=== PATIENT | male | born 1955 | race Two or more races ===

== ENCOUNTER 2017-01-20 10:27 | Inpatient (IN) | payer MEDICARE, MEDICAID ==
[~2017-01-20] VITALS: Ht 170.2 cm; Wt 97.1 kg
--- NOTE | 2017-01-20 11:53 | Diagnostic Imaging Report ---
Indications: Chest pain Technique: Portable AP chest Findings: Comparison: None Cardiac silhouette upper limits of normal in size. Central pulmonary as prominent. Peripheral pulmonary vasculature within normal limits. Lungs normally, symmetrically inflated and clear. No pleural abnormality. No abnormal mediastinal widening. Old, healed fracture lateral aspect left eighth rib. Fixation hardware overlies left scapular glenoid process. IMPRESSION: No evidence of acute cardiopulmonary disease Borderline cardiomegaly Suggestion of pulmonary arterial hypertension Old fracture left eighth rib Prior left shoulder surgery
[2017-01-20 12:00] LABS: BASOPHILS % (AUTO) 1.1 % (0.0-2.0); EOSINOPHILS % (AUTO) 0.3 % (0.0-3.0); MEAN CORPUSCULAR HEMOGLOBIN 32.1 PG (27.0-31.0); MEAN CORPUSCULAR VOLUME 92 FL (80-99); MEAN PLATELET VOLUME 6.7 FL (6.5-10.1); MONOCYTES % (AUTO) 6.5 % (1.0-10.0); NEUTROPHILS % (AUTO) 80.2 % (45.0-75.0); PLATELET COUNT 202 K/UL (150-450); RED BLOOD COUNT 5.01 M/UL (4.70-6.10); RED CELL DISTRIBUTION WIDTH 14.6 % (11.6-14.8); WHITE BLOOD COUNT 13.5 K/UL (4.8-10.8)
[2017-01-20 12:16] LABS: TROPONIN I < 0.30 ng/mL (<=0.30)
[2017-01-20 12:17] LABS: ALANINE AMINOTRANSFERASE 154 U/L (3-41); ALBUMIN/GLOBULIN RATIO 1.7 (1.0-2.7); ANION GAP 14 (5-15); ASPARTATE AMINO TRANSFERASE 83 U/L (5-40); CALCIUM 9.3 mg/dL (8.6-10.2); CARBON DIOXIDE 26 mEQ/L (20-30); CHLORIDE 95 mEQ/L (98-107); CREATININE 1.1 mg/dL (0.7-1.2); GLOMERULAR FILTRATION RATE > 60 mL/min (>60); HEMOLYSIS 8; POTASSIUM 4.3 mEQ/L (3.4-4.9); PROTHROMBIN TIME 10.6 SEC (9.30-11.50); SODIUM 135 mEQ/L (135-145); TOTAL PROTEIN 6.3 g/dL (6.6-8.7)
[2017-01-20 12:20] VITALS: BP 123/68
[2017-01-20 12:27] LABS: CKMB 4.6 ng/mL (< 6.7)
[2017-01-20] MEDS ORDERED: PredniSONE 20mg tab ORAL ONE (13:15)
[2017-01-20] MEDS ORDERED: Albuterol ud Inhalation HHN ONE (13:15)
[2017-01-20] MEDS ORDERED: Ipratropium 0.02% Inh Soln 2.5ml UD HHN ONE (13:15)
[2017-01-20 13:56] VITALS: BP 117/86
[2017-01-20 13:57] LABS: APPEARANCE,URINE SLIGHTLY CLOUDY; KETONES,URINE NEGATIVE (NEGATIVE); LEUKOCYTE ESTERASE ,URINE 3+ (NEGATIVE); NITRITE,URINE POSITIVE (NEGATIVE); PH,URINE 5 (4.5-8.0); PROTEIN,URINE 3+ (NEGATIVE); UROBILINOGEN,URINE NORMAL MG/DL (0.0-1.0)
[2017-01-20 14:07] LABS: BACTERIA,URINE MODERATE /HPF; SQUAMOUS EPITHELIAL CELL,UR OCCASIONAL /LPF (NONE/OCC); WBC,URINE 30-40 /HPF (0 - 0)
--- NOTE | 2017-01-20 14:09 | Emergency Room Report ---
History of Present Illness General Chief Complaint: Generalized Weakness Source: Patient Present Illness HPI This patient is brought in by EMS. He reports that today he has felt very lightheaded. He states that he "passed out." EMS reported that he laid on the ground and there is no evidence of actual loss of consciousness. Patient states he is also short of breath. He does have a history of COPD and heavy tobacco use. He states that he has been out of his inhalers for some time. He states that he hasn't obtained the refills from his primary care physician. He denies chest pain. He has no abdominal pain. He has no other complaints. Allergies: Coded Allergies: No Known Allergies (Unverified , 01/20/17) Patient History Past Medical History: see triage record, DM, HTN, COPD Social History: Reports: alcohol use, smoking Reviewed Nursing Documentation: PMH: Agreed, PSxH: Agreed Nursing Documentation-PMH Past Medical History: No History, Except For Hx Cardiac Problems: Yes Hx Hypertension: Yes Hx Diabetes: Yes History Of Psychiatric Problem: Yes Review of Systems All Other Systems: negative except mentioned in HPI Physical Exam Vital Signs Date Time Temp Pulse Resp B/P Pulse Ox O2 Delivery O2 Flow Rate FiO2 01/20/17 10:10 97.9 100 16 115/84 97 Room Air 01/20/17 13:18 21 Sp02 EP Interpretation: reviewed, normal General Appearance: no apparent distress, alert, GCS 15, non-toxic Head: normocephalic, atraumatic Eyes: bilateral eye PERRL, bilateral eye normal inspection ENT: hearing grossly normal, normal pharynx, no angioedema, normal voice Neck: full range of motion, supple/symm/no masses Respiratory: chest non-tender, lungs clear, no respiratory distress, no retraction, no accessory muscle use, decreased breath sounds, speaking full sentences, other - Tachypnea Cardiovascular #1: regular rate, rhythm, no edema Gastrointestinal: normal bowel sounds, non tender, soft, non-distended, no guarding, no rebound Rectal: deferred Musculoskeletal: back normal, gait/station normal, normal range of motion, non- tender Neurologic: alert, oriented x3, responsive, motor strength/tone normal, sensory intact, speech normal Psychiatric: judgement/insight normal, memory normal, mood/affect normal, no suicidal/homicidal ideation Skin: normal color, no rash, warm/dry, well hydrated Medical Decision Making Diagnostic Impression: Primary Impression: COPD exacerbation ER Course This patient presents with presyncope and is found to have atrial flutter with a bifascicular block and this could easily deteriorate into a more pathologic heart block. I am unsure of the acuity of this arrhythmia as I do not have a comparison EKG. He was given IV fluids and breathing treatments for his COPD exacerbation. He is noncompliant with his COPD treatment. This patient will be admitted for further evaluation, treatment and monitoring. Labs Test 01/20/17 11:47 01/20/17 13:28 White Blood Count 13.5 K/UL (4.8-10.8) Red Blood Count 5.01 M/UL (4.70-6.10) Hemoglobin 16.1 G/DL (14.2-18.0) Hematocrit 46.0 % (42.0-52.0) Mean Corpuscular Volume 92 FL (80-99) Mean Corpuscular Hemoglobin 32.1 PG (27.0-31.0) Mean Corpuscular Hemoglobin Concent 35.0 G/DL (32.0-36.0) Red Cell Distribution Width 14.6 % (11.6-14.8) Platelet Count 202 K/UL (150-450) Mean Platelet Volume 6.7 FL (6.5-10.1) Neutrophils (%) (Auto) 80.2 % (45.0-75.0) Lymphocytes (%) (Auto) 12.0 % (20.0-45.0) Monocytes (%) (Auto) 6.5 % (1.0-10.0) Eosinophils (%) (Auto) 0.3 % (0.0-3.0) Basophils (%) (Auto) 1.1 % (0.0-2.0) Prothrombin Time 10.6 SEC (9.30-11.50) Prothromb Time International Ratio 1.0 (0.9-1.1) Activated Partial Thromboplast Time 27 SEC (23-33) Sodium Level 135 mEQ/L (135-145) Potassium Level 4.3 mEQ/L (3.4-4.9) Chloride Level 95 mEQ/L (98-107) Carbon Dioxide Level 26 mEQ/L (20-30) Anion Gap 14 (5-15) Blood Urea Nitrogen 36 mg/dL (7-23) Creatinine 1.1 mg/dL (0.7-1.2) Estimat Glomerular Filtration Rate > 60 mL/min (>60) Glucose Level 110 mg/dL (74-106) Calcium Level 9.3 mg/dL (8.6-10.2) Total Bilirubin 0.6 mg/dL (0.0-1.2) Aspartate Amino Transf (AST/SGOT) 83 U/L (5-40) Alanine Aminotransferase (ALT/SGPT) 154 U/L (3-41) Alkaline Phosphatase 86 U/L (40-129) Total Creatine Kinase 76 U/L (38-174) Creatine Kinase MB 4.6 ng/mL (< 6.7) Creatine Kinase MB Relative Index 6.0 Troponin I < 0.30 ng/mL (<=0.30) Total Protein 6.3 g/dL (6.6-8.7) Albumin 4.0 g/dL (3.5-5.2) Globulin 2.3 g/dL Albumin/Globulin Ratio 1.7 (1.0-2.7) EKG Diagnostic Results Rate: normal Rhythm: other ST Segments: no acute changes Other Impression Atrial flutter with RBBB and LAFB. Bifascicular block. Rhythm Strip Diag. Results EP Interpretation: yes Rate: 90's Rhythm: no PVC's, other Other Impression A.flutter Chest X-Ray Diagnostic Results Chest X-Ray Ordered: Yes # of Views/Limited/Complete: 1 View Interpretation: no consolidation, no effusion, no pneumothorax, other - Cardiomegaly Indication: Shortness of Breath Impression: No acute disease Date Electronically Signed: Jan 20, 2017 Time Electronically Signed: 14:09 Interpreting ER Physician: Cheryl Last Vital Signs Date Time Temp Pulse Resp B/P Pulse Ox O2 Delivery O2 Flow Rate FiO2 01/20/17 13:18 100 16 Room Air 21 01/20/17 13:18 97 01/20/17 10:10 97.9 115/84 Disposition: ADMITTED INPATIENT Condition: Serious Referrals: NON PHYSICIAN (PCP) PAULINE PARSONS D.O. Jan 20, 2017 14:09
[2017-01-20] MEDS ORDERED: FLONASE ALLERG9.9 ML NS (14:23)
[2017-01-20] MEDS ORDERED: TENORMIN100 MG ORAL (14:23)
[2017-01-20] MEDS ORDERED: METFORMIN HCL500 M1 ORAL (14:23)
[2017-01-20] MEDS ORDERED: TRIHEXYPHENIDYL2 MG ORAL (14:23)
[2017-01-20 14:50] VITALS: BP 124/75
[2017-01-20 16:00] VITALS: BP 124/55
[2017-01-20] MEDS: metFORMIN 500mg tab ORAL SCH (16:48)
[2017-01-20] MEDS: NovoLOG Insulin Flexpen SUBQ SCH ×2 (16:49→21:15)
[2017-01-20] MEDS ORDERED: ATENOLOL50 MG ORAL (18:12)
[2017-01-20 20:00] VITALS: BP 125/67
[2017-01-20] MEDS: Heparin 5000 units/ml inj SUBQ SCH (21:16)
[2017-01-20] MEDS ORDERED: HydrALAZINE 50mg tab ORAL SCH (22:00)
[2017-01-21] VITALS: BP 142/88
--- NOTE | 2017-01-21 02:15 | History and Physical Report ---
DATE OF ADMISSION: 01/20/2017 REASON FOR ADMISSION: Evidence of bifascicular block, mild asthma. HISTORY OF PRESENT ILLNESS: This is a 61-year-old male with lightheadedness and syncopal episode. The patient does not recall the event. The patient also complains of shortness of breath. The patient has COPD and heavy smoking use. Now he ran out of his inhalers. The patient was evaluated in the emergency room. The patient denies any chest pain or abdominal pain. No nausea or vomiting. No radiation of pain. The patient's case discussed and reviewed. The patient is on beta-blockers. The patient has had no head trauma and no chest tightness. It is fairly acute in nature. The patient is admitted for further evaluation. PAST MEDICAL HISTORY: Notable for diabetes, hypertension, and COPD. MEDICATIONS: Reviewed. ALLERGIES: Reviewed. SOCIAL HISTORY: The patient is a heavy smoker. Currently, not working. FAMILY HISTORY: Negative. REVIEW OF SYSTEMS: Otherwise negative. PHYSICAL EXAMINATION: GENERAL: The patient is a well developed and well nourished. VITAL SIGNS: In the emergency room, blood pressure 115/84, pulse 116, temperature 97.9 degrees, and saturation 97%. HEENT: Extraocular movements are intact. Oropharynx is moist. NECK: Supple. No adenopathy. LUNGS: With decreased breath sounds. The patient is unable to speak full sentences, minimally tachypneic. CARDIAC: S1 and S2. Regular rate and rhythm. No murmurs or rubs. ABDOMEN: Soft, nontender and nondistended. EXTREMITIES: No cyanosis. No clubbing. No edema. NEUROLOGIC: Nonfocal. LABORATORY AND DIAGNOSTIC DATA: White cell count 13.5, hemoglobin 16, hematocrit 46 and platelets of 202,000. The patient's electrolytes fairly benign except BUN 36 and creatinine 1.1. Troponin is negative. EKG right bundle-branch block, left anterior fascicular block, and atrial flutter. IMPRESSION: 1. Atrial flutter. 2. Syncopal episode. 3. Hypertension. 4. Diabetes. 5. Chronic obstructive pulmonary disease. RECOMMENDATION: 1. Admit. 2. Hold beta-charlie with bifascicular block. 3. We will obtain cardiology evaluation to assist. 4. IV hydration. 5. Aspirin. 6. Echocardiogram. 7. Nebulized therapy. 8. Review the medication. I will follow clinically for other changes and we will optimize care. Tiburcio Keith M.D. DR: MADIHA JOB#: [id number] CC:
[2017-01-21 04:00] VITALS: BP 127/77
[2017-01-21] MEDS: Albuterol ud Inhalation HHN PRN ×2 (04:39→19:29)
[2017-01-21] MEDS: NovoLOG Insulin Flexpen SUBQ SCH ×4 (06:40→23:09)
[2017-01-21] MEDS: metFORMIN 500mg tab ORAL SCH ×2 (06:40→17:18)
[2017-01-21 08:00] VITALS: BP 119/69
--- NOTE | 2017-01-21 08:22 | General Progress Note ---
Assessment/Plan Assessment/Plan IMPRESSION: 1. Atrial flutter. 2. Syncopal episode. 3. Hypertension. 4. Diabetes. 5. Chronic obstructive pulmonary disease. 6. tachybrady PLAN care noted cardiology evaluation echo and ecg follow up iv hydration tele impression, plan, and exam edited and reviewed in detail care discussed with RN Subjective Allergies: Coded Allergies: No Known Allergies (Unverified , 01/20/17) Subjective tachybrady events noted Objective Last 24 Hour Vital Signs Date Time Temp Pulse Resp B/P Pulse Ox O2 Delivery O2 Flow Rate FiO2 01/21/17 08:00 96.8 74 18 119/69 95 Room Air 01/21/17 04:59 48 18 100 Nasal Cannula 2.0 28 01/21/17 04:40 52 18 95 Nasal Cannula 2.0 28 01/21/17 04:00 97.7 77 17 127/77 94 Nasal Cannula 2.0 01/21/17 04:00 96 01/21/17 00:00 97.7 76 17 142/88 94 Nasal Cannula 2.0 01/21/17 00:00 97 01/20/17 20:00 98.2 109 18 125/67 95 Nasal Cannula 2.0 01/20/17 20:00 119 01/20/17 19:25 Nasal Cannula 2.0 28 01/20/17 19:25 95 Nasal Cannula 2.0 28 01/20/17 19:10 102 18 Room Air 01/20/17 18:15 141 124/55 01/20/17 16:00 98 01/20/17 16:00 97.0 109 20 124/55 94 Nasal Cannula 2.0 01/20/17 14:50 96.8 107 20 124/75 93 Room Air 01/20/17 14:27 98 20 117/86 98 01/20/17 13:56 97.3 98 20 117/86 98 Room Air 01/20/17 13:38 100 16 97 Room Air 21 01/20/17 13:18 100 16 Room Air 21 01/20/17 13:18 100 16 97 Room Air 21 01/20/17 13:18 21 01/20/17 13:05 101 01/20/17 12:20 97.0 94 19 123/68 97 Room Air 01/20/17 10:10 97.9 100 16 115/84 97 Room Air Intake and Output 01/20/17 01/21/17 19:00 07:00 Intake Total 660 ml 1000 ml Output Total 400 ml 730 ml Balance 260 ml 270 ml Intake Oral 360 ml IV Total 300 ml 1000 ml Output Urine Total 400 ml 730 ml # Voids 1 2 Laboratory Tests 01/20/17 11:47: White Blood Count 13.5H, Red Blood Count 5.01, Hemoglobin 16.1, Hematocrit 46.0 , Mean Corpuscular Volume 92, Mean Corpuscular Hemoglobin 32.1H, Mean Corpuscular Hemoglobin Concent 35.0, Red Cell Distribution Width 14.6, Platelet Count 202, Mean Platelet Volume 6.7, Neutrophils (%) (Auto) 80.2H, Lymphocytes ( %) (Auto) 12.0L, Monocytes (%) (Auto) 6.5, Eosinophils (%) (Auto) 0.3, Basophils (%) (Auto) 1.1, Prothrombin Time 10.6, Prothromb Time International Ratio 1.0, Activated Partial Thromboplast Time 27, Sodium Level 135, Potassium Level 4.3, Chloride Level 95L, Carbon Dioxide Level 26, Anion Gap 14, Blood Urea Nitrogen 36H, Creatinine 1.1, Estimat Glomerular Filtration Rate > 60, Glucose Level 110H, Calcium Level 9.3, Total Bilirubin 0.6, Aspartate Amino Transf (AST/SGOT) 83H, Alanine Aminotransferase (ALT/SGPT) 154H, Alkaline Phosphatase 86, Total Creatine Kinase 76, Creatine Kinase MB 4.6, Creatine Kinase MB Relative Index 6.0, Troponin I < 0.30, Total Protein 6.3L, Albumin 4.0 , Globulin 2.3, Albumin/Globulin Ratio 1.7 01/20/17 13:28: Urine Color Yellow, Urine Appearance Slightly cloudy, Urine pH 5, Urine Specific [place] 1.020, Urine Protein 3+H, Urine Glucose (UA) Negative, Urine Ketones Negative, Urine Occult Blood 3+H, Urine Nitrite PositiveH, Urine Bilirubin Negative, Urine Urobilinogen Normal, Urine Leukocyte Esterase 3+H, Urine RBC 2-4H, Urine WBC 30-40H, Urine Squamous Epithelial Cells Occasional, Urine Bacteria ModerateH, Urine Opiates Screen Negative, Urine Barbiturates Screen Negative, Phencyclidine (PCP) Screen Negative, Urine Amphetamines Screen Negative, Urine Benzodiazepines Screen Negative, Urine Cocaine Screen Negative, Urine Marijuana (THC) Screen Negative Height (Feet): 5 Height (Inches): 7.00 Weight (Pounds): 214 Objective GENERAL: The patient is a well developed and well nourished. HEENT: Extraocular movements are intact. Oropharynx is moist. NECK: Supple. No adenopathy. LUNGS: With decreased breath sounds. The patient is unable to speak full sentences, minimally tachypneic. CARDIAC: S1 and S2. Regular rate and rhythm. No murmurs or rubs. ABDOMEN: Soft, nontender and nondistended. no HSM EXTREMITIES: No cyanosis. No clubbing. No edema. NEUROLOGIC: Nonfocal. DAVID MAI Jan 21, 2017 08:22
[2017-01-21] MEDS: Flonase Nasal Inhaler 16gm NASAL SCH (09:00)
[2017-01-21] MEDS: Aspirin Baby 81mg ORAL SCH (09:01)
[2017-01-21] MEDS: Trihexyphenidyl 2mg tab ORAL SCH (09:01)
[2017-01-21] MEDS: Heparin 5000 units/ml inj SUBQ SCH (09:03)
[2017-01-21 12:00] VITALS: BP 138/90
--- NOTE | 2017-01-21 12:58 | Consultation ---
Consult Note Consult Note Cardiac EP full note dictated #[id number] LAI JACOB Jan 21, 2017 12:58
[2017-01-21] MEDS: Enoxaparin 100mg Inj SUBQ SCH (13:54)
[2017-01-21 16:00] VITALS: BP 146/77
--- NOTE | 2017-01-21 17:15 | Consultation ---
DATE OF CONSULTATION: REASON FOR CONSULT: Syncope. HISTORY OF PRESENT ILLNESS: The patient is a 61-year-old man with a history of hypertension, type 2 diabetes, and schizophrenia who also has COPD. He states that he had run out of medication and was on his way to take a bus to go to [facility]. He became very short of breath and then fainted. He does not recall any preceding palpitations or chest pain. He was brought by paramedics to the emergency room where he was noted to be in atrial flutter and also to have bifascicular block. He was admitted for further treatment. His initial heart rate by the paramedics was 106, though he has had episodes going up to the 140s. He does not recall any previous history of arrhythmias. PAST MEDICAL HISTORY: As noted above, history of type 2 diabetes, history of hypertension and history of chronic obstructive pulmonary disease. MEDICATIONS: Currently, nicotine patch q.24 h., aspirin 81 mg daily, Flonase nasal spray two sprays daily, subcutaneous heparin 5000 units q.12.h., Atenolol 50 mg twice a day, insulin sliding scale, metformin 500 mg twice daily, Atrovent hand-held nebulizer q.4 h. p.r.n. ALLERGIES: No known drug allergies. SOCIAL HISTORY: The patient smokes one and half packs per day. He does not drink alcohol or use any drugs. FAMILY HISTORY: Negative for premature coronary artery disease. The patient's brother of alcoholism. REVIEW OF SYSTEMS: Negative other than per history of present illness. PHYSICAL EXAMINATION: VITAL SIGNS: Blood pressure is 138/90, pulse 94 and irregular, respirations 18, and afebrile. HEENT: Normocephalic and atraumatic. Pupils are equal, round, and reactive to light. Sclerae anicteric. Oral mucosa are moist. NECK: Supple. There is no jugular venous distention. No carotid bruits. LUNGS: Decreased breath sounds and minimal expiratory wheezes bilaterally. HEART: Irregularly irregular S1 and S2 with no murmur or S3. Distant heart sounds. ABDOMEN: Obese, soft and nontender. No palpable mass. EXTREMITIES: No cyanosis, clubbing, or edema. Distal lower extremity pulses are 2+ bilaterally. SKIN: No rashes or lesions. LABORATORY AND DIAGNOSTIC DATA: Hemoglobin 16, white blood count 13,500, and platelets 202,000. Potassium 4.3, BUN 36, and creatinine 1.1. Troponin less than 0.3. INR 1.0 and PTT 27. Urinalysis, 3+ leukocyte esterase, 30-40 white cells, 2-4 red blood cells and moderate bacteria. Echo preliminary report shows an ejection fraction of 50%, left atrial enlargement, moderate tricuspid regurgitation, estimated PA pressure of 48 and mild mitral regurgitation. EKG shows atrial flutter with ventricular rate 94 beats per minute, right bundle-branch block and left anterior gwen block. Chest x-ray shows borderline cardiomegaly and normal pulmonary vasculature. ASSESSMENT AND RECOMMENDATIONS: The patient is a 61-year-old man with hypertension, diabetes and chronic obstructive pulmonary disease, who was admitted following a syncopal episode, which occurred in the setting of dyspnea. The patient having run out of his inhalers. He is noted to be in atrial flutter of questionable duration and also has bifascicular block on his EKG. I will attempt to obtain old EKGs to determine his baseline. I would favor diltiazem for rate control and atrial atrial flutter, given the history of chronic obstructive pulmonary disease. We will start Lovenox and transition to oral anticoagulation for stroke prevention with atrial flutter, as the patient's CHADs score is 2. Over the longer term, I would consider him for electrophysiologic testing and radiofrequency catheter ablation for potential cure of his arrhythmia, as he is not a good candidate for long-term anticoagulation. Kiersten Bosch M.D. DR: STACI JOB#: [id number] CC: Bryant Schultz M.D. Abraham Ishaaya, M.D.
[2017-01-21 20:00] VITALS: BP 127/91
[2017-01-22] VITALS: BP 144/81
[2017-01-22] MEDS: Enoxaparin 100mg Inj SUBQ SCH ×2 (01:58→13:45)
[2017-01-22 04:00] VITALS: BP 154/110
[2017-01-22] MEDS: Norco 5mg/325mg tab ORAL PRN ×4 (04:30→21:02)
[2017-01-22] MEDS: metFORMIN 500mg tab ORAL SCH ×2 (06:08→16:59)
[2017-01-22] MEDS: NovoLOG Insulin Flexpen SUBQ SCH ×4 (06:30→21:02)
--- NOTE | 2017-01-22 07:15 | General Progress Note ---
Assessment/Plan Assessment/Plan IMPRESSION: 1. Atrial flutter. 2. Syncopal episode. 3. Hypertension. 4. Diabetes. 5. Chronic obstructive pulmonary disease. 6. tachybrady syncrome 7. abdominal pain PLAN KUB care noted cardiology evaluation noted and discussed anticoagulation stilll with aflutter on tele iv hydration tele GI evaluation impression, plan, and exam edited and reviewed in detail care discussed with RN Subjective Allergies: Coded Allergies: No Known Allergies (Unverified , 01/20/17) Subjective abdominal pain still in a flutter refuses transfer Objective Last 24 Hour Vital Signs Date Time Temp Pulse Resp B/P Pulse Ox O2 Delivery O2 Flow Rate FiO2 01/22/17 06:07 78 147/90 01/22/17 04:00 97.2 77 18 154/110 90 Room Air 01/22/17 00:00 97.7 60 20 144/81 Room Air 01/21/17 23:06 77 144/92 01/21/17 20:00 120 01/21/17 20:00 96.6 60 20 127/91 Room Air 01/21/17 19:38 83 18 98 Room Air 01/21/17 19:30 78 18 94 Room Air 01/21/17 19:29 78 18 Room Air 01/21/17 19:29 94 Room Air 01/21/17 19:29 Room Air 01/21/17 16:00 97.3 51 18 146/77 90 Room Air 01/21/17 16:00 101 01/21/17 13:53 94 138/90 01/21/17 12:00 98 01/21/17 12:00 94 18 138/90 90 Room Air 01/21/17 09:01 74 119/69 01/21/17 08:00 99 01/21/17 08:00 96.8 74 18 119/69 95 Room Air Intake and Output 01/21/17 01/22/17 19:00 07:00 Intake Total 1200 ml Output Total 400 ml 600 ml Balance 800 ml -600 ml IV Total 1200 ml Output Urine Total 400 ml 600 ml # Voids 1 4 Labs Test 01/20/17 11:47 01/20/17 13:28 White Blood Count 13.5 K/UL (4.8-10.8) Red Blood Count 5.01 M/UL (4.70-6.10) Hemoglobin 16.1 G/DL (14.2-18.0) Hematocrit 46.0 % (42.0-52.0) Mean Corpuscular Volume 92 FL (80-99) Mean Corpuscular Hemoglobin 32.1 PG (27.0-31.0) Mean Corpuscular Hemoglobin Concent 35.0 G/DL (32.0-36.0) Red Cell Distribution Width 14.6 % (11.6-14.8) Platelet Count 202 K/UL (150-450) Mean Platelet Volume 6.7 FL (6.5-10.1) Neutrophils (%) (Auto) 80.2 % (45.0-75.0) Lymphocytes (%) (Auto) 12.0 % (20.0-45.0) Monocytes (%) (Auto) 6.5 % (1.0-10.0) Eosinophils (%) (Auto) 0.3 % (0.0-3.0) Basophils (%) (Auto) 1.1 % (0.0-2.0) Prothrombin Time 10.6 SEC (9.30-11.50) Prothromb Time International Ratio 1.0 (0.9-1.1) Activated Partial Thromboplast Time 27 SEC (23-33) Sodium Level 135 mEQ/L (135-145) Potassium Level 4.3 mEQ/L (3.4-4.9) Chloride Level 95 mEQ/L (98-107) Carbon Dioxide Level 26 mEQ/L (20-30) Anion Gap 14 (5-15) Blood Urea Nitrogen 36 mg/dL (7-23) Creatinine 1.1 mg/dL (0.7-1.2) Estimat Glomerular Filtration Rate > 60 mL/min (>60) Glucose Level 110 mg/dL (74-106) Calcium Level 9.3 mg/dL (8.6-10.2) Total Bilirubin 0.6 mg/dL (0.0-1.2) Aspartate Amino Transf (AST/SGOT) 83 U/L (5-40) Alanine Aminotransferase (ALT/SGPT) 154 U/L (3-41) Alkaline Phosphatase 86 U/L (40-129) Total Creatine Kinase 76 U/L (38-174) Creatine Kinase MB 4.6 ng/mL (< 6.7) Creatine Kinase MB Relative Index 6.0 Troponin I < 0.30 ng/mL (<=0.30) Total Protein 6.3 g/dL (6.6-8.7) Albumin 4.0 g/dL (3.5-5.2) Globulin 2.3 g/dL Albumin/Globulin Ratio 1.7 (1.0-2.7) Urine Color Yellow Urine Appearance Slightly cloudy Urine pH 5 (4.5-8.0) Urine Specific [place] 1.020 (1.005-1.035) Urine Protein 3+ (NEGATIVE) Urine Glucose (UA) Negative (NEGATIVE) Urine Ketones Negative (NEGATIVE) Urine Occult Blood 3+ (NEGATIVE) Urine Nitrite Positive (NEGATIVE) Urine Bilirubin Negative (NEGATIVE) Urine Urobilinogen Normal MG/DL (0.0-1.0) Urine Leukocyte Esterase 3+ (NEGATIVE) Urine RBC 2-4 /HPF (0 - 0) Urine WBC 30-40 /HPF (0 - 0) Urine Squamous Epithelial Cells Occasional /LPF Urine Bacteria Moderate /HPF (NONE) Urine Opiates Screen Negative (NEGATIVE) Urine Barbiturates Screen Negative (NEGATIVE) Phencyclidine (PCP) Screen Negative (NEGATIVE) Urine Amphetamines Screen Negative (NEGATIVE) Urine Benzodiazepines Screen Negative (NEGATIVE) Urine Cocaine Screen Negative (NEGATIVE) Urine Marijuana (THC) Screen Negative (NEGATIVE) Height (Feet): 5 Height (Inches): 7.00 Weight (Pounds): 214 Objective GENERAL: The patient is a well developed and well nourished. slightly confused HEENT: Extraocular movements are intact. Oropharynx is moist. NECK: Supple. No adenopathy. LUNGS: With decreased breath sounds. no rhonchi or wheeze; more comfortable CARDIAC: S1 and S2. Regular rate and rhythm. No murmurs or rubs. ABDOMEN: Soft, but slightly distended. no HSM EXTREMITIES: No cyanosis. No clubbing. No edema. NEUROLOGIC: Nonfocal. DAVID MAI Jan 22, 2017 07:15
[2017-01-22 08:17] VITALS: BP 154/89
[2017-01-22] MEDS: Trihexyphenidyl 2mg tab ORAL SCH (08:44)
[2017-01-22] MEDS: Aspirin Baby 81mg ORAL SCH (08:46)
[2017-01-22] MEDS: Flonase Nasal Inhaler 16gm NASAL SCH (08:47)
[2017-01-22 09:32] LABS: EOSINOPHILS % (AUTO) 0.3 % (0.0-3.0); LYMPHOCYTES % (AUTO) 12.5 % (20.0-45.0); MEAN CORPUSCULAR HEMOGLOBIN 32.1 PG (27.0-31.0); MEAN CORPUSCULAR HGB CONC 35.4 G/DL (32.0-36.0); MEAN CORPUSCULAR VOLUME 91 FL (80-99); MEAN PLATELET VOLUME 8.1 FL (6.5-10.1); NEUTROPHILS % (AUTO) 80.1 % (45.0-75.0); PLATELET COUNT 105 K/UL (150-450); RED BLOOD COUNT 4.48 M/UL (4.70-6.10); RED CELL DISTRIBUTION WIDTH 14.2 % (11.6-14.8); WHITE BLOOD COUNT 11.3 K/UL (4.8-10.8)
--- NOTE | 2017-01-22 09:59 | General Progress Note ---
Assessment/Plan Assessment/Plan Assessment - RUQ abd pain - abnormal LFT - vomiting - mild anemia Recommendation - check abd u/s - check hepatitis serologies - mild anemia Thank you Jenny Subjective Allergies: Coded Allergies: No Known Allergies (Unverified , 01/20/17) Objective Last 24 Hour Vital Signs Date Time Temp Pulse Resp B/P Pulse Ox O2 Delivery O2 Flow Rate FiO2 01/22/17 08:17 97.0 79 20 154/89 95 Room Air 01/22/17 06:07 78 147/90 01/22/17 04:30 97.2 01/22/17 04:00 77 01/22/17 04:00 97.2 77 18 154/110 90 Room Air 01/22/17 00:00 97.7 60 20 144/81 Room Air 01/22/17 00:00 101 01/21/17 23:06 77 144/92 01/21/17 20:00 120 01/21/17 20:00 96.6 60 20 127/91 Room Air 01/21/17 19:38 83 18 98 Room Air 01/21/17 19:30 78 18 94 Room Air 01/21/17 19:29 78 18 Room Air 01/21/17 19:29 94 Room Air 01/21/17 19:29 Room Air 01/21/17 16:00 97.3 51 18 146/77 90 Room Air 01/21/17 16:00 101 01/21/17 13:53 94 138/90 01/21/17 12:00 98 01/21/17 12:00 94 18 138/90 90 Room Air Intake and Output 01/21/17 01/22/17 19:00 07:00 Intake Total 1225 ml 1100 ml Output Total 400 ml 600 ml Balance 825 ml 500 ml IV Total 1225 ml 1100 ml Output Urine Total 400 ml 600 ml # Voids 1 4 Laboratory Tests 01/22/17 08:40: White Blood Count 11.3H, Red Blood Count 4.48L, Hemoglobin 14.4, Hematocrit 40.6L, Mean Corpuscular Volume 91, Mean Corpuscular Hemoglobin 32.1H, Mean Corpuscular Hemoglobin Concent 35.4, Red Cell Distribution Width 14.2, Platelet Count 105L, Mean Platelet Volume 8.1, Neutrophils (%) (Auto) 80.1H, Lymphocytes (%) (Auto) 12.5L, Monocytes (%) (Auto) 6.0, Eosinophils (%) (Auto) 0.3, Basophils (%) (Auto) 1.0 Height (Feet): 5 Height (Inches): 7.00 Weight (Pounds): 214 JENNYJEANNETTE Jan 22, 2017 09:59
--- NOTE | 2017-01-22 10:31 | Diagnostic Imaging Report ---
Indication: Abdominal pain Technique: Supine views of the abdomen Comparison: None Findings: Bowel gas pattern is nonobstructive and nonspecific. There is no gross free intraperitoneal air. Degenerative changes of the spine are seen. Impression: Nonobstructive and nonspecific bowel gas pattern.
[2017-01-22 11:30] VITALS: BP 138/73
[2017-01-22] MEDS ORDERED: Digoxin 0.5mg/2ml Inj IVP ONE ×2 (14:45→16:45)
[2017-01-22 15:33] VITALS: BP 159/107
--- NOTE | 2017-01-22 18:04 | Cardiology Report ---
APPROVED REPORT EXAM: Two-dimensional and M-mode echocardiogram with Doppler and color Doppler. INDICATION Atrial Fibrillation M-Mode DIMENSIONS IVSd1.2 (0.7-1.1cm)Left Atrium (MM)5.3 (1.6-4.0cm) LVDd6.1 (3.5-5.6cm)Aortic Root3.5 (2.0-3.7cm) PWd1.2 (0.7-1.1cm)Aortic Cusp Exc.1.9 (1.5-2.0cm) LVDs4.1 (2.5-4.0cm) PWs1.4 cm Technically difficult study due to poor acoustical windows and pt.s position. Normal left ventricular chamber size, systolic function and wall motion to extent visualized. Left ventricular ejection fraction estimated to be 50 %. No evidence of pericardial effusion Anterior Echo-free space, may be due to pericardial fat or effusion. Left atrial enlargement. All other cardiac chamber sizes are within normal limits Focal aortic valve sclerosis with adequate cusp excursion. Normal pulmonic valve structure. Normal tricuspid valve structure. IVC dilated at 2.3 cm and collapsing with respiration. A color flow and spectral Doppler study was performed and revealed: No Aortic Regurgitation. Mild mitral regurgitation. Can not determine left ventricular diastolic function by mitral diastolic velocities due to atrial fibrillation. Moderate, tricuspid regurgitation. Tricupid systolic velocities suggests peak right ventricular systolic pressure of 48 mmHg consistent with mild, moderate, severe pulmonary hypertension. No Pulmonic regurgitation present.
--- NOTE | 2017-01-22 18:16 | Cardiology Progress Note ---
Assessment/Plan Problem List: (1) Atrial flutter (2) Hypertension (3) COPD exacerbation Status: not improved Status Narrative Mr Martin has AFL w/ rapid ventricular rates and uncontrolled HTN. Assessment/Plan Will inc cardizem 60 mg q6 hrs , for BP and HR control, and give digoxin iv Continue lovenox IV lasix x 1 today for BP and vol overload Followup labs in am. Over the longer term, he may benefit from EP testing and catheter ablation for AFL Subjective ROS Limited/Unobtainable: No Subjective Events noted. Pt w/ elevated HRs in AFL today, as well as inc BP He has no chest pain or palpitations, but has increased dyspnea. Objective Last 24 Hour Vital Signs Date Time Temp Pulse Resp B/P Pulse Ox O2 Delivery O2 Flow Rate FiO2 01/22/17 16:53 150 01/22/17 15:33 97.2 154 22 159/107 95 Nasal Cannula 5.0 01/22/17 14:45 148 01/22/17 14:43 97.2 01/22/17 13:43 97 138/73 01/22/17 12:00 97 01/22/17 11:30 97.2 78 20 138/73 92 Nasal Cannula 2.0 01/22/17 08:17 97.0 79 20 154/89 95 Room Air 01/22/17 08:00 105 01/22/17 07:57 Room Air 01/22/17 07:56 95 Room Air 01/22/17 07:55 79 20 Room Air 01/22/17 06:07 78 147/90 01/22/17 04:00 77 01/22/17 04:00 97.2 77 18 154/110 90 Room Air 01/22/17 00:00 97.7 60 20 144/81 Room Air 01/22/17 00:00 101 01/21/17 23:06 77 144/92 01/21/17 20:00 120 01/21/17 20:00 96.6 60 20 127/91 Room Air 01/21/17 19:38 83 18 98 Room Air 01/21/17 19:30 78 18 94 Room Air 01/21/17 19:29 78 18 Room Air 01/21/17 19:29 94 Room Air 01/21/17 19:29 Room Air General Appearance: WD/WN, alert, mild distress EENT: PERRL/EOMI, normal ENT inspection Neck: supple, no JVD Rhythm: other - afl Cardiovascular: no gallop/murmur, tachycardia, irregularly irregular, other - distant heart sounds Respiratory/Chest: other - dec BS bilat Abdomen: non tender, soft Extremities: no swelling Intake and Output 01/21/17 01/22/17 19:00 07:00 Intake Total 1225 ml 1100 ml Output Total 400 ml 600 ml Balance 825 ml 500 ml IV Total 1225 ml 1100 ml Output Urine Total 400 ml 600 ml # Voids 1 4 Laboratory Tests Test 01/22/17 08:40 White Blood Count 11.3 K/UL (4.8-10.8) H Red Blood Count 4.48 M/UL (4.70-6.10) L Hemoglobin 14.4 G/DL (14.2-18.0) Hematocrit 40.6 % (42.0-52.0) L Mean Corpuscular Volume 91 FL (80-99) Mean Corpuscular Hemoglobin 32.1 PG (27.0-31.0) H Mean Corpuscular Hemoglobin Concent 35.4 G/DL (32.0-36.0) Red Cell Distribution Width 14.2 % (11.6-14.8) Platelet Count 105 K/UL (150-450) L Mean Platelet Volume 8.1 FL (6.5-10.1) Neutrophils (%) (Auto) 80.1 % (45.0-75.0) H Lymphocytes (%) (Auto) 12.5 % (20.0-45.0) L Monocytes (%) (Auto) 6.0 % (1.0-10.0) Eosinophils (%) (Auto) 0.3 % (0.0-3.0) Basophils (%) (Auto) 1.0 % (0.0-2.0) Microbiology Date/Time Source Procedure Growth Status 01/20/17 13:28 Urine,Clean Catch Urine Culture - Preliminary Gram Negative Bacillus 1 Resulted LAI JACOB Jan 22, 2017 18:16
[2017-01-22 20:00] VITALS: BP 138/90
--- NOTE | 2017-01-22 21:00 | Consultation ---
DATE OF CONSULTATION: 01/22/2017 GASTROENTEROLOGY CONSULTATION CONSULTING PHYSICIAN: Roney Alvarado M.D. REFERRING PHYSICIAN: Tiburcio Keith M.D. REASON FOR CONSULTATION: I was asked to see this patient by Dr. Tiburcio Keith for evaluation of abdominal pain. HISTORY OF PRESENT ILLNESS: The patient is a pleasant 61-year-old old white male who comes into the hospital due to bleeding issues and also due to . The patient also has two weeks history of right upper quadrant abdominal pain with nausea and vomiting. . The patient had a colonoscopy years ago, perhaps about 10 years ago, and has never had endoscopy. The patient denies any hematochezia. The patient does have one to two pack history of heavy smoking and has COPD. He also has a heart block on his EKG, which has been treated. PAST MEDICAL HISTORY: History of COPD, diabetes, and hypertension. FAMILY HISTORY: Positive for alcoholism in the brother . SOCIAL HISTORY: The patient is . He is a heavy smoker. He does not drink alcohol. REVIEW OF SYSTEMS: Otherwise negative. PHYSICAL EXAMINATION: GENERAL: A pleasant, elderly white man, seen in his room. HEENT: Normocephalic and atraumatic. Sclerae anicteric. Dentition is poor. NECK: Supple. CHEST: Scattered wheezes and rhonchi. CARDIOVASCULAR: Regular rate. ABDOMEN: Soft with some right upper quadrant tenderness to palpation without guarding or rebound. EXTREMITIES: No edema. NEUROLOGIC: Nonfocal. LABORATORY DATA: Noted. ASSESSMENT: This patient presents with right upper abdominal pain with nausea or vomiting. He does have abnormal liver tests, which also points to the possibility of liver disease, perhaps gallbladder disease. Differential diagnosis includes gallstone disease and chronic cholecystitis. The patient also has some mild degree of anemia and is due for his repeat screening colonoscopy. Perhaps an endoscopy and colonoscopy can also be done at some point, although this can be deferred for now. The patient's oral anticoagulation should be held for now until it is clear that he does not need any surgical evaluation for his gallbladder. RECOMMENDATIONS: 1. Check hepatitis serology. 2. Check liver tests. 3. Check abdominal ultrasound. 4. Check stool occult blood. 5. Endoscopy and colonoscopy at some point in the future. Thank you for asking to participate in the care of this patient. Roney Alvarado M.D. DR: KEVEN JOB#: [id number] CC:
[2017-01-23 00:06] VITALS: BP 126/75
[2017-01-23] MEDS: Enoxaparin 100mg Inj SUBQ SCH (02:18)
[2017-01-23] MEDS: Norco 5mg/325mg tab ORAL PRN ×3 (03:35→19:57)
[2017-01-23 04:12] VITALS: BP 145/69
[2017-01-23] MEDS: NovoLOG Insulin Flexpen SUBQ SCH ×4 (05:58→19:58)
[2017-01-23] MEDS: metFORMIN 500mg tab ORAL SCH ×2 (05:59→16:30)
[2017-01-23 07:15] LABS: ALANINE AMINOTRANSFERASE 104 U/L (3-41); ALBUMIN/GLOBULIN RATIO 1.4 (1.0-2.7); AMYLASE 42 U/L (10-110); ANION GAP 10 (5-15); ASPARTATE AMINO TRANSFERASE 20 U/L (5-40); CALCIUM 8.4 mg/dL (8.6-10.2); CARBON DIOXIDE 31 mEQ/L (20-30); CHLORIDE 96 mEQ/L (98-107); CREATININE 0.7 mg/dL (0.7-1.2); GLOMERULAR FILTRATION RATE > 60 mL/min (>60); HEMOLYSIS 6; LIPASE 14 U/L (< 60); POTASSIUM 3.7 mEQ/L (3.4-4.9); SODIUM 137 mEQ/L (135-145); TOTAL PROTEIN 5.9 g/dL (6.6-8.7)
[2017-01-23 07:20] LABS: ANION GAP 12 (5-15); CALCIUM 8.1 mg/dL (8.6-10.2); CARBON DIOXIDE 29 mEQ/L (20-30); CHLORIDE 97 mEQ/L (98-107); CREATININE 0.7 mg/dL (0.7-1.2); GLOMERULAR FILTRATION RATE > 60 mL/min (>60); HEMOLYSIS 19; POTASSIUM 3.8 mEQ/L (3.4-4.9); SODIUM 138 mEQ/L (135-145)
[2017-01-23 08:00] VITALS: BP 149/74
--- NOTE | 2017-01-23 09:53 | General Progress Note ---
Assessment/Plan Assessment/Plan IMPRESSION: 1. Atrial flutter. 2. Syncopal episode. 3. Hypertension. 4. Diabetes. 5. Chronic obstructive pulmonary disease. 6. tachybrady syncrome 7. abdominal pain PLAN KUB noted follow up testing care noted cardiology evaluation noted and discussed anticoagulation stilll with aflutter on tele- with poor rate control lasix noted tele GI noted impression, plan, and exam edited and reviewed in detail care discussed with RN Subjective Allergies: Coded Allergies: No Known Allergies (Unverified , 01/20/17) Subjective abdominal pain- kub noted still in a flutter gi noted Objective Last 24 Hour Vital Signs Date Time Temp Pulse Resp B/P Pulse Ox O2 Delivery O2 Flow Rate FiO2 01/23/17 08:00 96.6 80 18 149/74 92 Room Air 01/23/17 06:01 78 132/86 01/23/17 04:12 97.2 74 21 145/69 93 Room Air 01/23/17 04:00 116 01/23/17 01:51 140 160/105 01/23/17 00:06 98.1 152 21 126/75 84 Room Air 01/23/17 00:00 154 01/22/17 20:00 156 01/22/17 20:00 97.7 71 21 138/90 93 Nasal Cannula 5.0 01/22/17 19:45 152 20 Nasal Cannula 3.0 32 01/22/17 19:45 95 Nasal Cannula 3.0 32 01/22/17 19:45 Nasal Cannula 3.0 32 01/22/17 16:53 150 01/22/17 16:00 151 01/22/17 15:33 97.2 154 22 159/107 95 Nasal Cannula 5.0 01/22/17 14:45 148 01/22/17 14:43 97.2 01/22/17 13:43 97 138/73 01/22/17 12:00 97 01/22/17 11:30 97.2 78 20 138/73 92 Nasal Cannula 2.0 Intake and Output 01/22/17 01/23/17 19:00 07:00 Intake Total 1470 ml 1400 ml Output Total 2400 ml 600 ml Balance -930 ml 800 ml Intake Oral 470 ml 200 ml IV Total 1000 ml 1200 ml Output Urine Total 2400 ml 600 ml # Voids 1 # Bowel Movements 1 1 Laboratory Tests 01/23/17 04:50: Sodium Level 138, Potassium Level 3.8, Chloride Level 97L, Carbon Dioxide Level 29, Anion Gap 12, Blood Urea Nitrogen 13, Creatinine 0.7, Estimat Glomerular Filtration Rate > 60, Glucose Level 95, Calcium Level 8.1L, Total Bilirubin 0.8 , Aspartate Amino Transf (AST/SGOT) 20, Alanine Aminotransferase (ALT/SGPT) 104H , Alkaline Phosphatase 80, Pro-B-Type Natriuretic Peptide 4013H, Total Protein 5.9L, Albumin 3.5, Globulin 2.4, Albumin/Globulin Ratio 1.4, Amylase Level 42, Lipase 14, Hepatitis A IgM Antibody [Pending], Hepatitis B Surface Antigen [ Pending], Hepatitis B Core IgM Antibody [Pending], Hepatitis C Antibody [Pending ] Height (Feet): 5 Height (Inches): 7.00 Weight (Pounds): 214 Objective GENERAL: The patient is a well developed and well nourished. slightly confused HEENT: Extraocular movements are intact. Oropharynx is moist. NECK: Supple. No adenopathy. LUNGS: With decreased breath sounds. no rhonchi or wheeze; more comfortable CARDIAC: S1 and S2. Regular rate and rhythm. No murmurs or rubs. ABDOMEN: Soft, but slightly distended. no HSM EXTREMITIES: No cyanosis. No clubbing. No edema. NEUROLOGIC: Nonfocal. DAVID MAI Jan 23, 2017 09:53
[2017-01-23] MEDS: Trihexyphenidyl 2mg tab ORAL SCH (10:41)
[2017-01-23] MEDS: Aspirin Baby 81mg ORAL SCH (10:42)
[2017-01-23] MEDS: Flonase Nasal Inhaler 16gm NASAL SCH (10:42)
[2017-01-23 12:45] VITALS: BP_SYST 147
--- NOTE | 2017-01-23 15:02 | Diagnostic Imaging Report ---
Indications: Abdominal pain Technique: Transabdominal real-time grayscale and duplex Doppler imaging of the upper abdomen and retroperitoneum was performed. Findings: Comparison: None. Liver 18.5 cm in length. Normal surface contour, parenchymal echogenicity. No focal lesions. Gallbladder demonstrates no intraluminal stones or sludge. Suggestion of mural thickening/edema to 7 mm. No adjacent fluid collections. Sonographic Jon sign negative.. Bile ducts normal caliber. Common bile duct 4 mm. Pancreas head and body unremarkable; tail obscured. Spleen 16 cm. No focal lesions.. Right kidney unremarkable. Left kidney unremarkable. Abdominal aorta, intrahepatic portion of inferior vena cava patent, normal caliber. Duplex Doppler imaging demonstrates antegrade flow in splenic, portal, hepatic veins. No ascites. Circumscribed hypoechoic mass in the midline anterior abdominal wall at level of umbilicus to approximately 1.5 cm diameter. IMPRESSION: Hepatosplenomegaly Apparent gallbladder wall thickening/edema most likely secondary to extra cholecystic abnormality. No stones. Jon's negative. Pancreatic tail obscured Small fat-containing umbilical/paraumbilical hernia.
[2017-01-23 16:00] VITALS: BP 139/96
[2017-01-23] MEDS: Xarelto 10mg tab ORAL SCH (18:00)
[2017-01-23 20:00] VITALS: BP 153/71
--- NOTE | 2017-01-23 21:06 | General Progress Note ---
Assessment/Plan Assessment/Plan Assessment - RUQ abd pain - improved - abnormal LFT - abnormal GB - ? cholecystitis, ? CA , ? other - vomiting - mild anemia Recommendation - check tumor markers - check hepatitis serologies - mild anemia - surgical opinion Subjective Allergies: Coded Allergies: No Known Allergies (Unverified , 01/20/17) Subjective seen early am was NPO no abd complaints U/S noted Objective Last 24 Hour Vital Signs Date Time Temp Pulse Resp B/P Pulse Ox O2 Delivery O2 Flow Rate FiO2 01/23/17 20:00 97.7 79 19 153/71 97 Room Air 01/23/17 19:48 71 18 Room Air 01/23/17 19:48 Room Air 01/23/17 19:48 94 Room Air 01/23/17 18:00 80 139/96 01/23/17 16:00 104 01/23/17 16:00 96.9 80 17 139/96 98 Room Air 01/23/17 12:45 98.9 80 18 147/ 98 01/23/17 12:34 80 147/88 01/23/17 08:21 94 Nasal Cannula 3.0 32 01/23/17 08:21 80 18 Nasal Cannula 3.0 32 01/23/17 08:21 Nasal Cannula 3.0 32 01/23/17 08:00 79 01/23/17 08:00 96.6 80 18 149/74 92 Room Air 01/23/17 06:01 78 132/86 01/23/17 04:12 97.2 74 21 145/69 93 Room Air 01/23/17 04:00 116 01/23/17 01:51 140 160/105 01/23/17 00:06 98.1 152 21 126/75 84 Room Air 01/23/17 00:00 154 Intake and Output 01/22/17 01/23/17 19:00 07:00 Intake Total 1470 ml 1400 ml Output Total 2400 ml 600 ml Balance -930 ml 800 ml Intake Oral 470 ml 200 ml IV Total 1000 ml 1200 ml Output Urine Total 2400 ml 600 ml # Voids 1 # Bowel Movements 1 1 Laboratory Tests 01/23/17 04:50: Sodium Level 138, Potassium Level 3.8, Chloride Level 97L, Carbon Dioxide Level 29, Anion Gap 12, Blood Urea Nitrogen 13, Creatinine 0.7, Estimat Glomerular Filtration Rate > 60, Glucose Level 95, Calcium Level 8.1L, Total Bilirubin 0.8 , Aspartate Amino Transf (AST/SGOT) 20, Alanine Aminotransferase (ALT/SGPT) 104H , Alkaline Phosphatase 80, Pro-B-Type Natriuretic Peptide 4013H, Total Protein 5.9L, Albumin 3.5, Globulin 2.4, Albumin/Globulin Ratio 1.4, Amylase Level 42, Lipase 14, Hepatitis A IgM Antibody [Pending], Hepatitis B Surface Antigen [ Pending], Hepatitis B Core IgM Antibody [Pending], Hepatitis C Antibody [Pending ] Height (Feet): 5 Height (Inches): 7.00 Weight (Pounds): 214 Objective WDWN NCAT supple CTA RRR Soft NT ND no edema non focal JEANNETTE JONES Jan 23, 2017 21:06
[2017-01-24] VITALS (7 sets, daily range): BP systolic 132–160; BP diastolic 74–98
[2017-01-24 04:40] LABS: BASOPHILS % (AUTO) 1.3 % (0.0-2.0); EOSINOPHILS % (AUTO) 1.4 % (0.0-3.0); LYMPHOCYTES % (AUTO) 19.4 % (20.0-45.0); MEAN CORPUSCULAR HEMOGLOBIN 31.7 PG (27.0-31.0); MEAN CORPUSCULAR HGB CONC 35.4 G/DL (32.0-36.0); MEAN CORPUSCULAR VOLUME 90 FL (80-99); MEAN PLATELET VOLUME 7.5 FL (6.5-10.1); MONOCYTES % (AUTO) 5.6 % (1.0-10.0); NEUTROPHILS % (AUTO) 72.3 % (45.0-75.0); PLATELET COUNT 129 K/UL (150-450); RED BLOOD COUNT 5.29 M/UL (4.70-6.10); WHITE BLOOD COUNT 8.6 K/UL (4.8-10.8)
[2017-01-24 05:02] LABS: ALANINE AMINOTRANSFERASE 89 U/L (3-41); ALBUMIN/GLOBULIN RATIO 1.4 (1.0-2.7); ANION GAP 15 (5-15); ASPARTATE AMINO TRANSFERASE 17 U/L (5-40); CALCIUM 9.4 mg/dL (8.6-10.2); CARBON DIOXIDE 30 mEQ/L (20-30); CHLORIDE 96 mEQ/L (98-107); CREATININE 0.8 mg/dL (0.7-1.2); GLOMERULAR FILTRATION RATE > 60 mL/min (>60); HEMOLYSIS 9; POTASSIUM 4.2 mEQ/L (3.4-4.9); SODIUM 141 mEQ/L (135-145)
[2017-01-24] MEDS: NovoLOG Insulin Flexpen SUBQ SCH ×4 (05:12→21:00)
[2017-01-24] MEDS: metFORMIN 500mg tab ORAL SCH ×2 (05:13→16:15)
[2017-01-24 05:26] LABS: BILIRUBIN,DIRECT 0.2 mg/dL (0.1-0.3)
--- NOTE | 2017-01-24 08:30 | General Progress Note ---
Assessment/Plan Assessment/Plan Assessment - RUQ abd pain - RUQ TTP but negative sonographic montesinos's sign - abnormal LFT - abnormal GB ultrasound- ? cholecystitis, ? CA , ? other - mild anemia Recommendation - po diet as tolerated - f/u hepatitis serologies - surgical opinion Subjective Allergies: Coded Allergies: No Known Allergies (Unverified , 01/20/17) Subjective c/o some abd pain no change with food U/S discussed with patient Objective Last 24 Hour Vital Signs Date Time Temp Pulse Resp B/P Pulse Ox O2 Delivery O2 Flow Rate FiO2 01/24/17 07:52 97.7 83 20 143/97 93 Nasal Cannula 2.0 01/24/17 07:06 81 18 Room Air 01/24/17 07:06 97 Nasal Cannula 2.0 28 01/24/17 07:06 Nasal Cannula 2.0 28 01/24/17 05:14 78 156/76 01/24/17 04:00 98.8 78 18 156/76 95 Room Air 01/24/17 04:00 79 01/24/17 00:00 79 01/24/17 00:00 96.8 79 18 160/90 93 Room Air 01/23/17 23:40 79 160/90 01/23/17 20:00 97.7 79 19 153/71 97 Room Air 01/23/17 20:00 81 01/23/17 19:48 71 18 Room Air 01/23/17 19:48 Room Air 01/23/17 19:48 94 Room Air 01/23/17 18:00 80 139/96 01/23/17 16:00 104 01/23/17 16:00 96.9 80 17 139/96 98 Room Air 01/23/17 12:45 98.9 80 18 147/ 98 01/23/17 12:34 80 147/88 Intake and Output 01/23/17 01/24/17 19:00 07:00 Intake Total 780 ml 1780 ml Balance 780 ml 1780 ml Intake Oral 680 ml 580 ml IV Total 100 ml 1200 ml # Voids 3 # Bowel Movements 1 1 Laboratory Tests 01/23/17 18:30: Stool Occult Blood [Pending] 01/24/17 04:15: White Blood Count 8.6, Red Blood Count 5.29, Hemoglobin 16.8, Hematocrit 47.4, Mean Corpuscular Volume 90, Mean Corpuscular Hemoglobin 31.7H, Mean Corpuscular Hemoglobin Concent 35.4, Red Cell Distribution Width 14.0, Platelet Count 129L, Mean Platelet Volume 7.5, Neutrophils (%) (Auto) 72.3, Lymphocytes (%) (Auto) 19.4L, Monocytes (%) (Auto) 5.6, Eosinophils (%) (Auto) 1.4, Basophils (%) (Auto ) 1.3, Sodium Level 141, Potassium Level 4.2, Chloride Level 96L, Carbon Dioxide Level 30, Anion Gap 15, Blood Urea Nitrogen 14, Creatinine 0.8, Estimat Glomerular Filtration Rate > 60, Glucose Level 114H, Calcium Level 9.4, Total Bilirubin 1.4H, Direct Bilirubin 0.2, Aspartate Amino Transf (AST/SGOT) 17, Alanine Aminotransferase (ALT/SGPT) 89H, Alkaline Phosphatase 88, Total Protein 7.0, Albumin 4.1, Globulin 2.9, Albumin/Globulin Ratio 1.4, Alpha Fetoprotein [ Pending], Carcinoembryonic Antigen 3.4H, CA 19-9 Antigen 7.81 Height (Feet): 5 Height (Inches): 7.00 Weight (Pounds): 214 Objective WDWN NCAT supple CTA RRR Soft NT ND, (+) RUQ TTP no edema non focal JEANNETTE JONES Jan 24, 2017 08:29
[2017-01-24] MEDS: Trihexyphenidyl 2mg tab ORAL SCH (09:07)
[2017-01-24] MEDS: Aspirin Baby 81mg ORAL SCH (09:07)
[2017-01-24] MEDS: Flonase Nasal Inhaler 16gm NASAL SCH (09:08)
[2017-01-24] MEDS: Norco 5mg/325mg tab ORAL PRN ×2 (09:11→21:20)
--- NOTE | 2017-01-24 09:27 | General Progress Note ---
Assessment/Plan Assessment/Plan IMPRESSION: 1. Atrial flutter. 2. Syncopal episode. 3. Hypertension. 4. Diabetes. 5. Chronic obstructive pulmonary disease. 6. tachybrady syndrome 7. abdominal pain 8. gallbladder thickening PLAN imaging noted GS evaluation follow up testing reviewed care noted cardiology evaluation noted and discussed anticoagulation stilll with aflutter on tele- discuss plan lasix noted tele GI noted impression, plan, and exam edited and reviewed in detail care discussed with RN Subjective Allergies: Coded Allergies: No Known Allergies (Unverified , 01/20/17) Subjective abdominal pain- kub noted still in a flutter gi noted would like gs evaluation Objective Last 24 Hour Vital Signs Date Time Temp Pulse Resp B/P Pulse Ox O2 Delivery O2 Flow Rate FiO2 01/24/17 07:52 97.7 83 20 143/97 93 Nasal Cannula 2.0 01/24/17 07:06 81 18 Room Air 01/24/17 07:06 97 Nasal Cannula 2.0 28 01/24/17 07:06 Nasal Cannula 2.0 28 01/24/17 05:14 78 156/76 01/24/17 04:00 98.8 78 18 156/76 95 Room Air 01/24/17 04:00 79 01/24/17 00:00 79 01/24/17 00:00 96.8 79 18 160/90 93 Room Air 01/23/17 23:40 79 160/90 01/23/17 20:00 97.7 79 19 153/71 97 Room Air 01/23/17 20:00 81 01/23/17 19:48 71 18 Room Air 01/23/17 19:48 Room Air 01/23/17 19:48 94 Room Air 01/23/17 18:00 80 139/96 01/23/17 16:00 104 01/23/17 16:00 96.9 80 17 139/96 98 Room Air 01/23/17 12:45 98.9 80 18 147/ 98 01/23/17 12:34 80 147/88 Intake and Output 01/23/17 01/24/17 19:00 07:00 Intake Total 780 ml 1780 ml Balance 780 ml 1780 ml Intake Oral 680 ml 580 ml IV Total 100 ml 1200 ml # Voids 3 # Bowel Movements 1 1 Laboratory Tests 01/23/17 18:30: Stool Occult Blood [Pending] 01/24/17 04:15: White Blood Count 8.6, Red Blood Count 5.29, Hemoglobin 16.8, Hematocrit 47.4, Mean Corpuscular Volume 90, Mean Corpuscular Hemoglobin 31.7H, Mean Corpuscular Hemoglobin Concent 35.4, Red Cell Distribution Width 14.0, Platelet Count 129L, Mean Platelet Volume 7.5, Neutrophils (%) (Auto) 72.3, Lymphocytes (%) (Auto) 19.4L, Monocytes (%) (Auto) 5.6, Eosinophils (%) (Auto) 1.4, Basophils (%) (Auto ) 1.3, Sodium Level 141, Potassium Level 4.2, Chloride Level 96L, Carbon Dioxide Level 30, Anion Gap 15, Blood Urea Nitrogen 14, Creatinine 0.8, Estimat Glomerular Filtration Rate > 60, Glucose Level 114H, Calcium Level 9.4, Total Bilirubin 1.4H, Direct Bilirubin 0.2, Aspartate Amino Transf (AST/SGOT) 17, Alanine Aminotransferase (ALT/SGPT) 89H, Alkaline Phosphatase 88, Total Protein 7.0, Albumin 4.1, Globulin 2.9, Albumin/Globulin Ratio 1.4, Alpha Fetoprotein [ Pending], Carcinoembryonic Antigen 3.4H, CA 19-9 Antigen 7.81 Height (Feet): 5 Height (Inches): 7.00 Weight (Pounds): 214 Objective GENERAL: The patient is a well developed and well nourished. same HEENT: Extraocular movements are intact. Oropharynx is moist. NECK: Supple. No adenopathy. LUNGS: With decreased breath sounds. no rhonchi or wheeze; more comfortable CARDIAC: S1 and S2. Regular rate and rhythm. No murmurs or rubs. ABDOMEN: Soft, but slightly tender RUQ. no HSM EXTREMITIES: No cyanosis. No clubbing. No edema. NEUROLOGIC: Nonfocal. DAVID MAI Jan 24, 2017 09:27
--- NOTE | 2017-01-24 11:26 | Consultation ---
History of Present Illness General Date patient seen: Jan 24, 2017 Chief Complaint: Generalized Weakness Reason for Consultation: RUQ abdominal pain and abnormal ultrasound of GB Present Illness HPI 61 year old male currently admitted after syncopal episode a few days ago. Please refer to H&P for details. While work-up being performed patient stated that he had some RUQ abdominal discomfort for approximately 1 week. Ultrasound was ordered and identified gallbladder wall thickening, no stones, no sludge, negative montesinos's. On admission patient had leukocytosis of 13k which has since resolved. furthermore, recent labs demonstrated elevated t bili of 1.4 which was normal upon admission. Surgery called to evaluate for gallbladder dysfunction. When talking with patient, he states that he is doing well. He does not recall why he had syncopal episode and states that it has happened prior. When asking about abdominal pain patient states that he noted a vague RUQ abdominal pain that has been consistent for 1 week. pain cramping 3/10 RUQ without radiation. otherwise well. no n/v/f/c. tolerating oral diet. normal bm's. Allergies: Coded Allergies: No Known Allergies (Unverified , 01/20/17) Medication History Scheduled Atenolol* (Tenormin*), 50 MG ORAL TWICE A DAY, (Reported) Metformin Hcl* (Metformin Hcl*), 500 MG ORAL TWICE A DAY, (Reported) Trihexyphenidyl Hcl* (Artane*), 2 MG ORAL DAILY, (Reported) Miscellaneous Medications Fluticasone Propionate (Flonase Allergy Relief), Unknown Dose NS, (Reported) Discontinued Medications Atenolol (Tenormin), 50 MG ORAL BID, (Reported) Discontinued Reason: discontinued med Patient History History Provided By: Patient Healthcare decision maker Resuscitation status Full Code Advanced Directive on File Past Medical/Surgical History Past Medical/Surgical History: (1) Thickening of wall of gallbladder (2) Hypotension (3) COPD exacerbation (4) Atrial flutter (5) Hypertension (6) History of appendectomy Review of Systems Constitutional: Denies: chills, fever, malaise, no symptoms, other, see HPI, sweats, weakness Eye: Denies: acuity changes, blurred vision, discharge, double vision, eye pain , no symptoms, nose congestion, nose pain, other, see HPI, tearing ENT: Denies: ear discharge, ear pain, hearing loss, mouth pain, nasal discharge , no symptoms, nose congestion, nose pain, other, see HPI, throat pain, throat swelling Respiratory: Denies: PÉREZ, cough, no symptoms, orthopnea, other, see HPI, shortness of breath, sputum, stridor, wheezing Cardiovascular: Denies: PND, chest pain, edema, no symptoms, other, palpitations, see HPI, syncope Gastrointestinal: Reports: abdominal pain, Denies: constipation, diarrhea, hematemesis, melena, nausea, no symptoms, other, see HPI, vomiting Genitourinary: Denies: discharge, dysuria, frequency, hematuria, incontinence, no symptoms, other, pain, retention, see HPI, urgency, vag bleed/dc Musculoskeletal: Denies: back pain, gout, joint pain, joint swelling, muscle pain, muscle stiffness, no symptoms, other, see HPI Skin: Denies: change in color, change in hair/nails, dryness, lesions, no symptoms, other, rash, see HPI Psychiatric: Denies: HI, SI, anxiety, depressed feelings, emotional problems, hallucinations, no symptoms, other, prior hx, see HPI Neurological: Denies: dizziness, focal weakness, headache, no symptoms, numbness, other, paresthesia, see HPI, seizure, syncope, tingling, tremors Endocrine: Denies: excessive sweating, flushing, increased thirst, increased urine, intolerance to temperature, no symptoms, other, see HPI, unexplained weight loss Hematologic/Lymphatic: Denies: anemia, blood clots, diathesis, easy bleeding, easy bruising, no symptoms, other, see HPI, swollen glands All Other Systems: negative except mentioned in HPI Physical Exam General Appearance: WD/WN, no apparent distress, alert Lines, tubes and drains: peripheral HEENT: normocephalic, PERRL Neck: normal inspection Respiratory/Chest: lungs clear, normal breath sounds, no respiratory distress, no accessory muscle use Cardiovascular/Chest: normal peripheral pulses, normal rate, regular rhythm Abdomen: normal bowel sounds, non tender, soft, no organomegaly, no mass, distended, other - multiple prior surgical scars noted. midline and left lower quadrant scar well healed. 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, alert, oriented x 3, responsive Last 24 Hour Vital Signs Date Time Temp Pulse Resp B/P Pulse Ox O2 Delivery O2 Flow Rate FiO2 01/24/17 08:00 112 01/24/17 07:52 97.7 83 20 143/97 93 Nasal Cannula 2.0 01/24/17 07:06 81 18 Room Air 01/24/17 07:06 97 Nasal Cannula 2.0 28 01/24/17 07:06 Nasal Cannula 2.0 28 01/24/17 05:14 78 156/76 01/24/17 04:00 98.8 78 18 156/76 95 Room Air 01/24/17 04:00 79 01/24/17 00:00 79 01/24/17 00:00 96.8 79 18 160/90 93 Room Air 01/23/17 23:40 79 160/90 01/23/17 20:00 97.7 79 19 153/71 97 Room Air 01/23/17 20:00 81 01/23/17 19:48 71 18 Room Air 01/23/17 19:48 Room Air 01/23/17 19:48 94 Room Air 01/23/17 18:00 80 139/96 01/23/17 16:00 104 01/23/17 16:00 96.9 80 17 139/96 98 Room Air 01/23/17 12:45 98.9 80 18 147/ 98 01/23/17 12:34 80 147/88 Intake and Output 01/23/17 01/24/17 19:00 07:00 Intake Total 780 ml 1780 ml Balance 780 ml 1780 ml Intake Oral 680 ml 580 ml IV Total 100 ml 1200 ml # Voids 3 # Bowel Movements 1 1 Laboratory Tests Test 01/23/17 18:30 01/24/17 04:15 Stool Occult Blood Pending White Blood Count 8.6 K/UL (4.8-10.8) Red Blood Count 5.29 M/UL (4.70-6.10) Hemoglobin 16.8 G/DL (14.2-18.0) Hematocrit 47.4 % (42.0-52.0) Mean Corpuscular Volume 90 FL (80-99) Mean Corpuscular Hemoglobin 31.7 PG (27.0-31.0) H Mean Corpuscular Hemoglobin Concent 35.4 G/DL (32.0-36.0) Red Cell Distribution Width 14.0 % (11.6-14.8) Platelet Count 129 K/UL (150-450) L Mean Platelet Volume 7.5 FL (6.5-10.1) Neutrophils (%) (Auto) 72.3 % (45.0-75.0) Lymphocytes (%) (Auto) 19.4 % (20.0-45.0) L Monocytes (%) (Auto) 5.6 % (1.0-10.0) Eosinophils (%) (Auto) 1.4 % (0.0-3.0) Basophils (%) (Auto) 1.3 % (0.0-2.0) Sodium Level 141 mEQ/L (135-145) Potassium Level 4.2 mEQ/L (3.4-4.9) Chloride Level 96 mEQ/L (98-107) L Carbon Dioxide Level 30 mEQ/L (20-30) Anion Gap 15 (5-15) Blood Urea Nitrogen 14 mg/dL (7-23) Creatinine 0.8 mg/dL (0.7-1.2) Estimat Glomerular Filtration Rate > 60 mL/min (>60) Glucose Level 114 mg/dL (74-106) H Calcium Level 9.4 mg/dL (8.6-10.2) Total Bilirubin 1.4 mg/dL (0.0-1.2) H Direct Bilirubin 0.2 mg/dL (0.1-0.3) Aspartate Amino Transf (AST/SGOT) 17 U/L (5-40) Alanine Aminotransferase (ALT/SGPT) 89 U/L (3-41) H Alkaline Phosphatase 88 U/L (40-129) Total Protein 7.0 g/dL (6.6-8.7) Albumin 4.1 g/dL (3.5-5.2) Globulin 2.9 g/dL Albumin/Globulin Ratio 1.4 (1.0-2.7) Alpha Fetoprotein Pending Carcinoembryonic Antigen 3.4 ng/mL H CA 19-9 Antigen 7.81 U/mL (< 37) Height (Feet): 5 Height (Inches): 7.00 Weight (Pounds): 214 Medications Current Medications Medications (Trade) Dose Ordered Sig/Jean Route PRN Reason Start Time Stop Time Status Last Admin Dose Admin Acetaminophen/ Hydrocodone Bitart (Baxter 5/325) 1 tab Q4H PRN ORAL Moderate Pain (Pain Scale 4-6) 01/22/17 01:30 01/29/17 01:29 01/24/17 09:11 Albuterol Sulfate (Proventil) 2.5 mg Q4H PRN HHN Shortness of Breath 01/20/17 15:30 01/25/17 15:29 01/21/17 19:29 Aspirin (ASA) 81 mg DAILY ORAL 01/21/17 09:00 02/20/17 08:59 01/24/17 09:07 Dextrose (Dextrose 50%) STAT PRN IV Hypoglycemia 01/20/17 15:30 02/19/17 15:29 Diltiazem HCl (Cardizem) 60 mg EVERY 6 HOURS ORAL 01/23/17 00:00 02/22/17 00:00 01/24/17 05:14 Fluticasone Propionate (Flonase) 2 spray DAILY NASAL 01/21/17 09:00 02/20/17 08:59 01/24/17 09:08 Insulin Aspart (NovoLOG) BEFORE MEALS AND HS SUBQ 01/20/17 16:30 02/19/17 16:29 01/24/17 05:12 Metformin HCl (Glucophage) 500 mg BIAC ORAL 01/20/17 16:30 02/19/17 16:29 01/24/17 05:13 Nicotine (Nicoderm) 1 patch Q24H TDERMAL 01/21/17 11:00 02/20/17 10:59 01/23/17 12:26 Rivaroxaban (Xarelto) 20 mg QPM ORAL 01/23/17 18:00 02/22/17 17:59 01/23/17 18:00 Sodium Chloride (Sodium Chloride 1000ml bag) 1,000 ml @ 100 mls/hr Q10H IV 01/20/17 15:30 02/19/17 15:29 01/24/17 09:40 Tamsulosin HCl (Flomax) 0.4 mg BEDTIME ORAL 01/24/17 21:00 02/23/17 20:59 Trihexyphenidyl HCl (Artane) 2 mg DAILY ORAL 01/21/17 09:00 02/20/17 08:59 01/24/17 09:07 Assessment/Plan Problem List: (1) Thickening of wall of gallbladder Assessment & Plan: 61M vague RUQ abdominal pain, gallbladder wall thickening on ultrasound, no identifiable cholelithiasis, non tender on exam, elevated t bili 1.4. Atypical presentation for acute cholecystitis. could potentially be acalculous cholecystitis? could potentially be chronic biliary dyskinesia? Will order HIDA scan with ejection fraction to evaluate gallbladder function Richard LFT's will await results. above discussed with patient thank you for this consultation. will follow with you. ICD Codes: K82.8 - Other specified diseases of gallbladder SNOMED: [id number] Status: stable OmarKevin leyvaya Jan 24, 2017 11:26
--- NOTE | 2017-01-24 14:00 | Cardiac Electrophysiology PN ---
Assessment/Plan Problem List: (1) Atrial flutter (2) Hypertension (3) COPD exacerbation Status: stable, not improved, unchanged Status Narrative Mr Martin remains w/ rapidly conducted AFL. He is on cardizem. No b blockers given, due to copd. He is now on Xarelto Assessment/Plan Will inc cardizem to 90 mg q6 hrs , for BP and HR control, and give digoxin 0.25 mg/d continue Xarelto can try amiodarone short term for rate control, but would not favor mcc due to potential toxicity, incl pulm toxicity. Discussed EP/ablation with him, but he does not wish to transfer to [facility]. Subjective ROS Limited/Unobtainable: No Subjective Events noted. No palpitations . c/o intermittent CP Objective Last 24 Hour Vital Signs Date Time Temp Pulse Resp B/P Pulse Ox O2 Delivery O2 Flow Rate FiO2 01/24/17 12:09 80 132/93 01/24/17 11:25 97.7 80 20 132/93 92 Room Air 01/24/17 08:00 112 01/24/17 07:52 97.7 83 20 143/97 93 Nasal Cannula 2.0 01/24/17 07:06 81 18 Room Air 01/24/17 07:06 97 Nasal Cannula 2.0 28 01/24/17 07:06 Nasal Cannula 2.0 28 01/24/17 05:14 78 156/76 01/24/17 04:00 98.8 78 18 156/76 95 Room Air 01/24/17 04:00 79 01/24/17 00:00 79 01/24/17 00:00 96.8 79 18 160/90 93 Room Air 01/23/17 23:40 79 160/90 01/23/17 20:00 97.7 79 19 153/71 97 Room Air 01/23/17 20:00 81 01/23/17 19:48 71 18 Room Air 01/23/17 19:48 Room Air 01/23/17 19:48 94 Room Air 01/23/17 18:00 80 139/96 01/23/17 16:00 104 01/23/17 16:00 96.9 80 17 139/96 98 Room Air General Appearance: WD/WN, no apparent distress, alert EENT: PERRL/EOMI Neck: supple, no JVD Rhythm: other - afl Cardiovascular: tachycardia, irregularly irregular Respiratory/Chest: lungs clear - clear anteriorly Abdomen: normal bowel sounds, soft, other - mild distension, ? ascites Extremities: no swelling Intake and Output 01/23/17 01/24/17 19:00 07:00 Intake Total 780 ml 1780 ml Balance 780 ml 1780 ml Intake Oral 680 ml 580 ml IV Total 100 ml 1200 ml # Voids 3 # Bowel Movements 1 1 Laboratory Tests Test 01/23/17 18:30 01/24/17 04:15 Stool Occult Blood Pending White Blood Count 8.6 K/UL (4.8-10.8) Red Blood Count 5.29 M/UL (4.70-6.10) Hemoglobin 16.8 G/DL (14.2-18.0) Hematocrit 47.4 % (42.0-52.0) Mean Corpuscular Volume 90 FL (80-99) Mean Corpuscular Hemoglobin 31.7 PG (27.0-31.0) H Mean Corpuscular Hemoglobin Concent 35.4 G/DL (32.0-36.0) Red Cell Distribution Width 14.0 % (11.6-14.8) Platelet Count 129 K/UL (150-450) L Mean Platelet Volume 7.5 FL (6.5-10.1) Neutrophils (%) (Auto) 72.3 % (45.0-75.0) Lymphocytes (%) (Auto) 19.4 % (20.0-45.0) L Monocytes (%) (Auto) 5.6 % (1.0-10.0) Eosinophils (%) (Auto) 1.4 % (0.0-3.0) Basophils (%) (Auto) 1.3 % (0.0-2.0) Sodium Level 141 mEQ/L (135-145) Potassium Level 4.2 mEQ/L (3.4-4.9) Chloride Level 96 mEQ/L (98-107) L Carbon Dioxide Level 30 mEQ/L (20-30) Anion Gap 15 (5-15) Blood Urea Nitrogen 14 mg/dL (7-23) Creatinine 0.8 mg/dL (0.7-1.2) Estimat Glomerular Filtration Rate > 60 mL/min (>60) Glucose Level 114 mg/dL (74-106) H Calcium Level 9.4 mg/dL (8.6-10.2) Total Bilirubin 1.4 mg/dL (0.0-1.2) H Direct Bilirubin 0.2 mg/dL (0.1-0.3) Aspartate Amino Transf (AST/SGOT) 17 U/L (5-40) Alanine Aminotransferase (ALT/SGPT) 89 U/L (3-41) H Alkaline Phosphatase 88 U/L (40-129) Total Protein 7.0 g/dL (6.6-8.7) Albumin 4.1 g/dL (3.5-5.2) Globulin 2.9 g/dL Albumin/Globulin Ratio 1.4 (1.0-2.7) Alpha Fetoprotein Pending Carcinoembryonic Antigen 3.4 ng/mL H CA 19-9 Antigen 7.81 U/mL (< 37) LAI JACOB Jan 24, 2017 14:00
[2017-01-24] MEDS: Xarelto 10mg tab ORAL SCH (16:15)
[2017-01-24] MEDS: Diltiazem 90mg tab ORAL SCH ×2 (17:43→23:36)
[2017-01-24] MEDS: Tamsulosin 0.4mg cap ORAL SCH (21:19)
[2017-01-25] VITALS (7 sets, daily range): BP systolic 139–156; BP diastolic 71–94
[2017-01-25] MEDS: Norco 5mg/325mg tab ORAL PRN ×2 (01:26→06:49)
[2017-01-25] MEDS: NovoLOG Insulin Flexpen SUBQ SCH ×4 (06:30→21:21)
--- NOTE | 2017-01-25 06:40 | General Progress Note ---
Assessment/Plan Assessment/Plan IMPRESSION: 1. Atrial flutter. 2. Syncopal episode. 3. Hypertension. 4. Diabetes. 5. Chronic obstructive pulmonary disease. 6. tachybrady syndrome 7. abdominal pain 8. gallbladder thickening PLAN await HIDA follow up testing care noted cardiology evaluation and follow up anticoagulation tele GI noted hope to dc if HIDA negative impression, plan, and exam edited and reviewed in detail care discussed with RN Subjective Allergies: Coded Allergies: No Known Allergies (Unverified , 01/20/17) Subjective gs noted appreciate care for HIDA this am Objective Last 24 Hour Vital Signs Date Time Temp Pulse Resp B/P Pulse Ox O2 Delivery O2 Flow Rate FiO2 01/25/17 04:00 96.5 81 20 143/86 93 Room Air 01/25/17 03:54 80 01/25/17 00:00 97.2 79 16 139/71 95 Room Air 01/24/17 23:43 114 01/24/17 23:36 81 142/74 01/24/17 20:00 97.7 81 18 142/74 95 Room Air 01/24/17 19:53 Room Air 01/24/17 19:53 94 Room Air 01/24/17 19:53 71 18 Room Air 01/24/17 19:37 114 01/24/17 17:43 111 141/95 01/24/17 16:12 153/98 01/24/17 16:00 92 01/24/17 15:39 98.1 77 20 160/97 92 Room Air 01/24/17 14:59 79 01/24/17 12:09 80 132/93 01/24/17 12:00 160 01/24/17 11:25 97.7 80 20 132/93 92 Room Air 01/24/17 08:00 112 01/24/17 07:52 97.7 83 20 143/97 93 Nasal Cannula 2.0 01/24/17 07:06 81 18 Room Air 01/24/17 07:06 97 Nasal Cannula 2.0 28 01/24/17 07:06 Nasal Cannula 2.0 28 Intake and Output 01/24/17 01/25/17 19:00 07:00 Intake Total 2066 ml 600 ml Balance 2066 ml 600 ml Intake Oral 900 ml IV Total 1166 ml 600 ml # Voids 3 # Bowel Movements 1 1 Height (Feet): 5 Height (Inches): 7.00 Weight (Pounds): 214 Objective GENERAL: The patient is a well developed and well nourished. same HEENT: Extraocular movements are intact. Oropharynx is moist. NECK: Supple. No adenopathy. LUNGS: With decreased breath sounds. no rhonchi or wheeze; more comfortable CARDIAC: S1 and S2. Regular rate and rhythm. No murmurs or rubs. ABDOMEN: Soft, but slightly tender RUQ. no HSM EXTREMITIES: No cyanosis. No clubbing. No edema. NEUROLOGIC: Nonfocal. reviewed and edited DAVID MAI Jan 25, 2017 06:40
[2017-01-25] MEDS: metFORMIN 500mg tab ORAL SCH ×2 (06:47→17:37)
[2017-01-25] MEDS: Diltiazem 90mg tab ORAL SCH ×3 (06:47→18:03)
--- NOTE | 2017-01-25 07:48 | Cardiology Report ---
APPROVED REPORT EKG Measurement Heart [id number] IN 120P [id number] Atrial flutter with variable AV block Right bundle branch block Left anterior fascicular block Bifascicular block Left ventricular hypertrophy with repolarization abnormality Abnormal ECG
[2017-01-25 07:50] LABS: BASOPHILS % (AUTO) 0.8 % (0.0-2.0); EOSINOPHILS % (AUTO) 0.9 % (0.0-3.0); LYMPHOCYTES % (AUTO) 17.7 % (20.0-45.0); MEAN CORPUSCULAR HEMOGLOBIN 32.4 PG (27.0-31.0); MEAN CORPUSCULAR HGB CONC 36.8 G/DL (32.0-36.0); MEAN CORPUSCULAR VOLUME 88 FL (80-99); MEAN PLATELET VOLUME 8.1 FL (6.5-10.1); MONOCYTES % (AUTO) 7.5 % (1.0-10.0); NEUTROPHILS % (AUTO) 73.1 % (45.0-75.0); PLATELET COUNT 172 K/UL (150-450); RED BLOOD COUNT 5.55 M/UL (4.70-6.10); RED CELL DISTRIBUTION WIDTH 13.9 % (11.6-14.8)
[2017-01-25] MEDS ORDERED: Morphine Sulfate 2mg/ml Inj IVP ONE (08:02)
[2017-01-25 08:07] LABS: ALANINE AMINOTRANSFERASE 58 U/L (3-41); ALBUMIN/GLOBULIN RATIO 1.4 (1.0-2.7); ANION GAP 14 (5-15); ASPARTATE AMINO TRANSFERASE 15 U/L (5-40); CALCIUM 9.1 mg/dL (8.6-10.2); CARBON DIOXIDE 28 mEQ/L (20-30); CHLORIDE 98 mEQ/L (98-107); CREATININE 0.9 mg/dL (0.7-1.2); GLOMERULAR FILTRATION RATE > 60 mL/min (>60); HEMOLYSIS 11; POTASSIUM 3.9 mEQ/L (3.4-4.9); SODIUM 140 mEQ/L (135-145); TOTAL PROTEIN 6.3 g/dL (6.6-8.7)
--- NOTE | 2017-01-25 08:08 | Cardiology Progress Note ---
Assessment/Plan Problem List: (1) Atrial flutter (2) Hypertension (3) COPD exacerbation Status: stable, progressing Status Narrative Mr Martin remains w/ rapidly conducted AFL. He is on cardizem and digoxin. He is now agreeable to transfer to [facility] for catheter ablation. Assessment/Plan Continue cardizem, digoxin and change xarelto to lovenox Will see if pt can transfer to [facility] for ablation Subjective ROS Limited/Unobtainable: No Subjective Events noted. Mild R abd pain. Objective Last 24 Hour Vital Signs Date Time Temp Pulse Resp B/P Pulse Ox O2 Delivery O2 Flow Rate FiO2 01/25/17 06:47 81 143/86 01/25/17 04:00 96.5 81 20 143/86 93 Room Air 01/25/17 03:54 80 01/25/17 00:00 97.2 79 16 139/71 95 Room Air 01/24/17 23:43 114 01/24/17 23:36 81 142/74 01/24/17 20:00 97.7 81 18 142/74 95 Room Air 01/24/17 19:53 Room Air 01/24/17 19:53 94 Room Air 01/24/17 19:53 71 18 Room Air 01/24/17 19:37 114 01/24/17 17:43 111 141/95 01/24/17 16:12 153/98 01/24/17 16:00 92 01/24/17 15:39 98.1 77 20 160/97 92 Room Air 01/24/17 14:59 79 01/24/17 12:09 80 132/93 01/24/17 12:00 160 01/24/17 11:25 97.7 80 20 132/93 92 Room Air General Appearance: WD/WN, no apparent distress, alert EENT: PERRL/EOMI Neck: supple, no JVD Rhythm: other - atrial flutter Cardiovascular: normal rate, irregularly irregular Respiratory/Chest: expiratory wheezing Abdomen: normal bowel sounds, soft, other - mild R upper abd tenderness Extremities: no swelling Intake and Output 01/24/17 01/25/17 19:00 07:00 Intake Total 2066 ml 600 ml Output Total 2000 ml Balance 2066 ml -1400 ml Intake Oral 900 ml IV Total 1166 ml 600 ml Output Urine Total 2000 ml # Voids 3 # Bowel Movements 1 1 Laboratory Tests Test 01/25/17 06:20 White Blood Count 8.0 K/UL (4.8-10.8) Red Blood Count 5.55 M/UL (4.70-6.10) Hemoglobin 18.0 G/DL (14.2-18.0) Hematocrit 48.9 % (42.0-52.0) Mean Corpuscular Volume 88 FL (80-99) Mean Corpuscular Hemoglobin 32.4 PG (27.0-31.0) H Mean Corpuscular Hemoglobin Concent 36.8 G/DL (32.0-36.0) H Red Cell Distribution Width 13.9 % (11.6-14.8) Platelet Count 172 K/UL (150-450) Mean Platelet Volume 8.1 FL (6.5-10.1) Neutrophils (%) (Auto) 73.1 % (45.0-75.0) Lymphocytes (%) (Auto) 17.7 % (20.0-45.0) L Monocytes (%) (Auto) 7.5 % (1.0-10.0) Eosinophils (%) (Auto) 0.9 % (0.0-3.0) Basophils (%) (Auto) 0.8 % (0.0-2.0) Sodium Level Pending Potassium Level Pending Chloride Level Pending Carbon Dioxide Level Pending Blood Urea Nitrogen Pending Creatinine Pending Estimat Glomerular Filtration Rate Pending Glucose Level Pending Calcium Level Pending Total Bilirubin Pending Aspartate Amino Transf (AST/SGOT) Pending Alanine Aminotransferase (ALT/SGPT) Pending Alkaline Phosphatase Pending Total Protein Pending Albumin Pending Globulin Pending LAI JACOB Jan 25, 2017 08:08
[2017-01-25 08:31] LABS: BILIRUBIN,DIRECT 0.2 mg/dL (0.1-0.3)
[2017-01-25] MEDS: Flonase Nasal Inhaler 16gm NASAL SCH (10:15)
[2017-01-25] MEDS: Aspirin Baby 81mg ORAL SCH (10:16)
[2017-01-25] MEDS: Trihexyphenidyl 2mg tab ORAL SCH (10:21)
[2017-01-25] MEDS ORDERED: SINCALIDE IV ONE (11:00)
--- NOTE | 2017-01-25 11:43 | General Surgery Progress Note ---
General Surgery-Progress Note Subjective Additional Comments patient seen and examined at bedside. no acute events. still having epi/RUQ cramping pain. no n/v/f/c. Objective Last 24 Hour Vital Signs Date Time Temp Pulse Resp B/P Pulse Ox O2 Delivery O2 Flow Rate FiO2 01/25/17 11:38 97.0 80 18 141/82 96 Nasal Cannula 2.0 01/25/17 11:30 93 141/82 01/25/17 10:16 118 01/25/17 09:03 95 Room Air 01/25/17 09:03 77 18 Room Air 01/25/17 09:03 Room Air 01/25/17 08:04 80 143/86 01/25/17 06:47 81 143/86 01/25/17 04:00 96.5 81 20 143/86 93 Room Air 01/25/17 03:54 80 01/25/17 00:00 97.2 79 16 139/71 95 Room Air 01/24/17 23:43 114 01/24/17 23:36 81 142/74 01/24/17 20:00 97.7 81 18 142/74 95 Room Air 01/24/17 19:53 Room Air 01/24/17 19:53 94 Room Air 01/24/17 19:53 71 18 Room Air 01/24/17 19:37 114 01/24/17 17:43 111 141/95 01/24/17 16:12 153/98 01/24/17 16:00 92 01/24/17 15:39 98.1 77 20 160/97 92 Room Air 01/24/17 14:59 79 01/24/17 12:09 80 132/93 01/24/17 12:00 160 I&O Intake and Output 01/24/17 01/25/17 19:00 07:00 Intake Total 2066 ml 600 ml Output Total 2000 ml Balance 2066 ml -1400 ml Intake Oral 900 ml IV Total 1166 ml 600 ml Output Urine Total 2000 ml # Voids 3 # Bowel Movements 1 1 Cardiovascular: RSR Respiratory: clear Abdomen: soft, distended, tenderness, present bowel sounds Laboratory Tests Test 01/25/17 06:20 White Blood Count 8.0 K/UL (4.8-10.8) Red Blood Count 5.55 M/UL (4.70-6.10) Hemoglobin 18.0 G/DL (14.2-18.0) Hematocrit 48.9 % (42.0-52.0) Mean Corpuscular Volume 88 FL (80-99) Mean Corpuscular Hemoglobin 32.4 PG (27.0-31.0) H Mean Corpuscular Hemoglobin Concent 36.8 G/DL (32.0-36.0) H Red Cell Distribution Width 13.9 % (11.6-14.8) Platelet Count 172 K/UL (150-450) Mean Platelet Volume 8.1 FL (6.5-10.1) Neutrophils (%) (Auto) 73.1 % (45.0-75.0) Lymphocytes (%) (Auto) 17.7 % (20.0-45.0) L Monocytes (%) (Auto) 7.5 % (1.0-10.0) Eosinophils (%) (Auto) 0.9 % (0.0-3.0) Basophils (%) (Auto) 0.8 % (0.0-2.0) Sodium Level 140 mEQ/L (135-145) Potassium Level 3.9 mEQ/L (3.4-4.9) Chloride Level 98 mEQ/L (98-107) Carbon Dioxide Level 28 mEQ/L (20-30) Anion Gap 14 (5-15) Blood Urea Nitrogen 16 mg/dL (7-23) Creatinine 0.9 mg/dL (0.7-1.2) Estimat Glomerular Filtration Rate > 60 mL/min (>60) Glucose Level 94 mg/dL (74-106) Calcium Level 9.1 mg/dL (8.6-10.2) Total Bilirubin 1.3 mg/dL (0.0-1.2) H Direct Bilirubin 0.2 mg/dL (0.1-0.3) Aspartate Amino Transf (AST/SGOT) 15 U/L (5-40) Alanine Aminotransferase (ALT/SGPT) 58 U/L (3-41) H Alkaline Phosphatase 76 U/L (40-129) Total Protein 6.3 g/dL (6.6-8.7) L Albumin 3.7 g/dL (3.5-5.2) Globulin 2.6 g/dL Albumin/Globulin Ratio 1.4 (1.0-2.7) Plan Problems: (1) Thickening of wall of gallbladder Assessment & Plan: 61M vague RUQ abdominal pain, gallbladder wall thickening on ultrasound, no identifiable cholelithiasis, non tender on exam, elevated t bili 1.3 today. Atypical presentation for acute cholecystitis. could potentially be acalculous cholecystitis? could potentially be chronic biliary dyskinesia? Will order HIDA scan with ejection fraction to evaluate gallbladder function ----PENDING HIDA. likely to be done tomorrow. [facility] out of stock Trend LFT's thank you for this consultation. will follow with you. Pete Perez Jan 25, 2017 11:43
--- NOTE | 2017-01-25 16:14 | Cardiology Report ---
APPROVED REPORT EKG Measurement Heart [id number] Atrial flutter with variable AV block Right bundle branch block Left anterior fascicular block Bifascicular block Moderate voltage criteria for LVH, may be normal variant Cannot rule out Septal infarct, age undetermined T wave abnormality, consider inferior ischemia Abnormal ECG
--- NOTE | 2017-01-25 16:23 | Cardiology Report ---
APPROVED REPORT EKG Measurement Heart [id number] ID [id number] Atrial flutter with variable AV block Right bundle branch block Left anterior fascicular block Bifascicular block Voltage criteria for left ventricular hypertrophy T wave abnormality, consider lateral ischemia Abnormal ECG
[2017-01-25] MEDS: Ciprofloxacin 500mg tab ORAL SCH (17:43)
[2017-01-25] MEDS: Enoxaparin 100mg Inj SUBQ SCH (18:05)
--- NOTE | 2017-01-25 18:11 | General Progress Note ---
Assessment/Plan Assessment/Plan Assessment - RUQ abd pain - RUQ TTP but negative sonographic montesinos's sign - abnormal LFT - abnormal GB ultrasound- ? cholecystitis, ? CA , ? other - mild anemia Recommendation - po diet as tolerated - f/u hepatitis serologies - surgical f/u - await HIDA scan - Xarelto for a flutter Subjective Allergies: Coded Allergies: No Known Allergies (Unverified , 01/20/17) Subjective c/o some RUQ abd pain no change with food U/S discussed with patient HIDA pending cardiology and surgery noted Objective Last 24 Hour Vital Signs Date Time Temp Pulse Resp B/P Pulse Ox O2 Delivery O2 Flow Rate FiO2 01/25/17 18:03 80 156/94 01/25/17 16:00 97.3 80 20 156/94 95 Nasal Cannula 2.0 01/25/17 11:38 97.0 80 18 141/82 96 Nasal Cannula 2.0 01/25/17 11:30 93 141/82 01/25/17 10:16 118 01/25/17 09:03 95 Room Air 01/25/17 09:03 77 18 Room Air 01/25/17 09:03 Room Air 01/25/17 08:04 80 143/86 01/25/17 06:47 81 143/86 01/25/17 04:00 96.5 81 20 143/86 93 Room Air 01/25/17 03:54 80 01/25/17 00:00 97.2 79 16 139/71 95 Room Air 01/24/17 23:43 114 01/24/17 23:36 81 142/74 01/24/17 20:00 97.7 81 18 142/74 95 Room Air 01/24/17 19:53 Room Air 01/24/17 19:53 94 Room Air 01/24/17 19:53 71 18 Room Air 01/24/17 19:37 114 Intake and Output 01/24/17 01/25/17 19:00 07:00 Intake Total 2066 ml 600 ml Output Total 2000 ml Balance 2066 ml -1400 ml Intake Oral 900 ml IV Total 1166 ml 600 ml Output Urine Total 2000 ml # Voids 3 # Bowel Movements 1 1 Laboratory Tests 01/25/17 06:20: White Blood Count 8.0, Red Blood Count 5.55, Hemoglobin 18.0, Hematocrit 48.9, Mean Corpuscular Volume 88, Mean Corpuscular Hemoglobin 32.4H, Mean Corpuscular Hemoglobin Concent 36.8H, Red Cell Distribution Width 13.9, Platelet Count 172, Mean Platelet Volume 8.1, Neutrophils (%) (Auto) 73.1, Lymphocytes (%) (Auto) 17.7L, Monocytes (%) (Auto) 7.5, Eosinophils (%) (Auto) 0.9, Basophils (%) (Auto ) 0.8, Sodium Level 140, Potassium Level 3.9, Chloride Level 98, Carbon Dioxide Level 28, Anion Gap 14, Blood Urea Nitrogen 16, Creatinine 0.9, Estimat Glomerular Filtration Rate > 60, Glucose Level 94, Calcium Level 9.1, Total Bilirubin 1.3H, Direct Bilirubin 0.2, Aspartate Amino Transf (AST/SGOT) 15, Alanine Aminotransferase (ALT/SGPT) 58H, Alkaline Phosphatase 76, Total Protein 6.3L, Albumin 3.7, Globulin 2.6, Albumin/Globulin Ratio 1.4 Height (Feet): 5 Height (Inches): 7.00 Weight (Pounds): 214 Objective WDWN NCAT supple CTA RRR Soft NT ND, (+) RUQ TTP no edema non focal JEANNETTE JONES Jan 25, 2017 18:11
[2017-01-25] MEDS: Tamsulosin 0.4mg cap ORAL SCH (21:22)
[2017-01-25] MEDS: Amiodarone 200mg tab ORAL SCH (22:06)
[2017-01-26] MEDS: Diltiazem 90mg tab ORAL SCH ×4 (00:18→19:09)
[2017-01-26 04:04] VITALS: BP 132/67
[2017-01-26] MEDS: metFORMIN 500mg tab ORAL SCH ×2 (06:07→17:29)
[2017-01-26] MEDS: NovoLOG Insulin Flexpen SUBQ SCH ×4 (06:30→20:13)
--- NOTE | 2017-01-26 07:27 | General Progress Note ---
Assessment/Plan Assessment/Plan Assessment - RUQ abd pain - RUQ TTP but negative sonographic montesinos's sign - abnormal LFT - abnormal GB ultrasound- ? cholecystitis, ? CA , ? other - mild anemia - atrial flutter - COPD Recommendation - f/u hepatitis serologies - surgical f/u - await HIDA scan - Xarelto for a flutter Subjective Allergies: Coded Allergies: No Known Allergies (Unverified , 01/20/17) Subjective c/o some RUQ abd pain no change with food HIDA pending Objective Last 24 Hour Vital Signs Date Time Temp Pulse Resp B/P Pulse Ox O2 Delivery O2 Flow Rate FiO2 01/26/17 06:07 120 132/67 01/26/17 04:04 98.3 80 21 132/67 98 Nasal Cannula 2.0 01/26/17 04:00 78 01/26/17 00:18 78 143/72 01/26/17 00:00 78 01/25/17 23:49 98.6 71 20 143/72 94 Nasal Cannula 2.0 01/25/17 20:29 154 01/25/17 20:00 98.2 80 21 141/87 97 Room Air 01/25/17 19:48 95 Nasal Cannula 2.0 28 01/25/17 19:48 Nasal Cannula 2.0 28 01/25/17 18:03 80 156/94 01/25/17 16:00 97.3 80 20 156/94 95 Nasal Cannula 2.0 01/25/17 16:00 80 01/25/17 12:00 130 01/25/17 11:38 97.0 80 18 141/82 96 Nasal Cannula 2.0 01/25/17 11:30 93 141/82 01/25/17 10:16 118 01/25/17 09:03 95 Room Air 01/25/17 09:03 77 18 Room Air 01/25/17 09:03 Room Air 01/25/17 08:04 80 143/86 01/25/17 08:00 85 Intake and Output 01/25/17 01/26/17 19:00 07:00 Intake Total 2080 ml 550 ml Output Total 300 ml Balance 2080 ml 250 ml Intake Oral 1080 ml IV Total 1000 ml 550 ml Output Urine Total 300 ml # Voids 5 2 Height (Feet): 5 Height (Inches): 7.00 Weight (Pounds): 214 Objective WDWN NCAT supple CTA RRR Soft NT ND, (+) RUQ TTP no edema non focal JEANNETTE JONES Jan 26, 2017 07:27
[2017-01-26] MEDS ORDERED: Morphine Sulfate 2mg/ml Inj IVP ONE (08:00)
[2017-01-26] MEDS: Norco 5mg/325mg tab ORAL PRN (10:49)
[2017-01-26] MEDS: Aspirin Baby 81mg ORAL SCH (10:58)
[2017-01-26] MEDS: Trihexyphenidyl 2mg tab ORAL SCH (10:58)
[2017-01-26] MEDS: Amiodarone 200mg tab ORAL SCH ×2 (10:59→20:11)
[2017-01-26] MEDS: Ciprofloxacin 500mg tab ORAL SCH ×2 (10:59→20:11)
--- NOTE | 2017-01-26 10:59 | General Progress Note ---
Assessment/Plan Assessment/Plan IMPRESSION: 1. Atrial flutter. 2. Syncopal episode. 3. Hypertension. 4. Diabetes. 5. Chronic obstructive pulmonary disease. 6. tachybrady syndrome 7. abdominal pain 8. gallbladder thickening PLAN negative HIDA rate control care noted cardiology evaluation and follow up anticoagulation noted tele control rate and dc with outpatient follow up with EP impression, plan, and exam edited and reviewed in detail care discussed with RN Subjective Allergies: Coded Allergies: No Known Allergies (Unverified , 01/20/17) Subjective HIDA this am negative refused transfer to [facility] Objective Last 24 Hour Vital Signs Date Time Temp Pulse Resp B/P Pulse Ox O2 Delivery O2 Flow Rate FiO2 01/26/17 06:07 120 132/67 01/26/17 04:04 98.3 80 21 132/67 98 Nasal Cannula 2.0 01/26/17 04:00 78 01/26/17 00:18 78 143/72 01/26/17 00:00 78 01/25/17 23:49 98.6 71 20 143/72 94 Nasal Cannula 2.0 01/25/17 20:29 154 01/25/17 20:00 98.2 80 21 141/87 97 Room Air 01/25/17 19:48 95 Nasal Cannula 2.0 28 01/25/17 19:48 Nasal Cannula 2.0 28 01/25/17 18:03 80 156/94 01/25/17 16:00 97.3 80 20 156/94 95 Nasal Cannula 2.0 01/25/17 16:00 80 01/25/17 12:00 130 01/25/17 11:38 97.0 80 18 141/82 96 Nasal Cannula 2.0 01/25/17 11:30 93 141/82 Intake and Output 01/25/17 01/26/17 19:00 07:00 Intake Total 2080 ml 550 ml Output Total 300 ml Balance 2080 ml 250 ml Intake Oral 1080 ml IV Total 1000 ml 550 ml Output Urine Total 300 ml # Voids 5 2 Height (Feet): 5 Height (Inches): 7.00 Weight (Pounds): 214 Objective GENERAL: The patient is a well developed and well nourished. same HEENT: Extraocular movements are intact. Oropharynx is moist. NECK: Supple. No adenopathy. LUNGS: With decreased breath sounds. no rhonchi or wheeze; more comfortable CARDIAC: S1 and S2. Regular rate and rhythm. No murmurs or rubs. ABDOMEN: Soft, but slightly tender RUQ. no HSM EXTREMITIES: No cyanosis. No clubbing. No edema. NEUROLOGIC: Nonfocal. reviewed and edited DAVID MAI Jan 26, 2017 10:58
[2017-01-26] MEDS: Flonase Nasal Inhaler 16gm NASAL SCH (11:00)
[2017-01-26] MEDS: Enoxaparin 100mg Inj SUBQ SCH ×2 (11:03→20:12)
--- NOTE | 2017-01-26 11:30 | Diagnostic Imaging Report ---
Indications: Abdominal pain, gallbladder wall thickening on ultrasound Technique: 5.5 mCi 99 M technetium-Choletec were administered intravenously. Immediate serial planar imaging of the abdomen was performed in anterior projection for a duration of 120 minutes. Oblique and lateral images were obtained at 60 minutes. Patient consumed a fatty meal including 16 g of fat at 60 minutes. Gallbladder region of activity defined, uptake measurements made from 0-60 minutes following fatty meal ingestion, and ejection fraction calculated Findings: Comparison: Abdominal ultrasound 01/23/17 Hepatic parenchymal uptake of radiotracer is prompt and homogeneous. Excreted radiotracer is first seen in the bile ducts at 7-9 minutes, in the gallbladder at 13-15 minutes, and in the small bowel after 60 minutes. There is normal, gradual decrease in hepatic parenchymal activity throughout the course of the exam. Gallbladder ejection fraction is calculated at 40% IMPRESSION: Low-normal gallbladder ejection fraction Patent cystic duct--no evidence of acute cholecystitis. Patent common bile duct. Hepatocellular excretory function intact.
[2017-01-26 12:00] VITALS: BP 148/69
[2017-01-26 16:00] VITALS: BP 152/77
--- NOTE | 2017-01-26 19:37 | General Surgery Progress Note ---
General Surgery-Progress Note Subjective Symptoms: improved, tolerating diet, passing flatus, BM Objective Last 24 Hour Vital Signs Date Time Temp Pulse Resp B/P Pulse Ox O2 Delivery O2 Flow Rate FiO2 01/26/17 19:09 110 152/77 01/26/17 16:00 98.1 148 19 152/77 Nasal Cannula 2.0 95 01/26/17 16:00 152 01/26/17 13:18 110 146/67 01/26/17 12:00 78 01/26/17 12:00 77 18 148/69 97 Room Air 01/26/17 08:00 78 01/26/17 06:36 97 Nasal Cannula 2.0 01/26/17 06:36 Nasal Cannula 2.0 01/26/17 06:07 120 132/67 01/26/17 04:04 98.3 80 21 132/67 98 Nasal Cannula 2.0 01/26/17 04:00 78 01/26/17 00:18 78 143/72 01/26/17 00:00 78 01/25/17 23:49 98.6 71 20 143/72 94 Nasal Cannula 2.0 01/25/17 20:29 154 01/25/17 20:00 98.2 80 21 141/87 97 Room Air 01/25/17 19:48 95 Nasal Cannula 2.0 28 01/25/17 19:48 Nasal Cannula 2.0 28 I&O Intake and Output 01/25/17 01/26/17 19:00 07:00 Intake Total 2080 ml 550 ml Output Total 300 ml Balance 2080 ml 250 ml Intake Oral 1080 ml IV Total 1000 ml 550 ml Output Urine Total 300 ml # Voids 5 2 Cardiovascular: RSR Respiratory: clear Abdomen: soft, non-tender, present bowel sounds Extremities: no edema, no tenderness, no cyanosis Plan Problems: (1) Thickening of wall of gallbladder Assessment & Plan: 61M vague RUQ abdominal pain, gallbladder wall thickening on ultrasound, no identifiable cholelithiasis, non tender on exam, elevated t bili 1.3 today. Atypical presentation for acute cholecystitis. could potentially be acalculous cholecystitis? could potentially be chronic biliary dyskinesia? Pain resolving HIDA Okay Labs improving No surgical intervention necessary at this time okay to d/c from surgical standpoint can follow up in office after discharge. thank you for this consultation. will follow with you. Pete Perez Jan 26, 2017 19:37
--- NOTE | 2017-01-26 20:00 | Cardiac Electrophysiology PN ---
Assessment/Plan Problem List: (1) Atrial flutter (2) Hypertension (3) COPD exacerbation Status: stable, unchanged Status Narrative Mr Martin remains w/ rapidly conducted AFL. He is on cardizem , low dose amiodarone, as well as anticoagulation Restart digoxin. He is agreeable to transfer to [facility] for catheter ablation . Can arrange as inpt or outpt Assessment/Plan Continue current meds Subjective ROS Limited/Unobtainable: No Subjective Events noted. Pt w/ intermittent abd pain, palpitations. Objective Last 24 Hour Vital Signs Date Time Temp Pulse Resp B/P Pulse Ox O2 Delivery O2 Flow Rate FiO2 01/26/17 19:09 110 152/77 01/26/17 16:00 98.1 148 19 152/77 Nasal Cannula 2.0 95 01/26/17 16:00 152 01/26/17 13:18 110 146/67 01/26/17 12:00 78 01/26/17 12:00 77 18 148/69 97 Room Air 01/26/17 08:00 78 01/26/17 06:36 97 Nasal Cannula 2.0 01/26/17 06:36 Nasal Cannula 2.0 01/26/17 06:07 120 132/67 01/26/17 04:04 98.3 80 21 132/67 98 Nasal Cannula 2.0 01/26/17 04:00 78 01/26/17 00:18 78 143/72 01/26/17 00:00 78 01/25/17 23:49 98.6 71 20 143/72 94 Nasal Cannula 2.0 01/25/17 20:29 154 01/25/17 20:00 98.2 80 21 141/87 97 Room Air General Appearance: WD/WN, no apparent distress, alert EENT: PERRL/EOMI Neck: supple, no JVD Rhythm: other - atr flutter Cardiovascular: tachycardia, irregularly irregular Respiratory/Chest: other - occ rhonchi bilaterally Abdomen: non tender, soft, other - distended Extremities: no swelling Intake and Output 01/25/17 01/26/17 19:00 07:00 Intake Total 2080 ml 550 ml Output Total 300 ml Balance 2080 ml 250 ml Intake Oral 1080 ml IV Total 1000 ml 550 ml Output Urine Total 300 ml # Voids 5 2 LAI JACOB Jan 26, 2017 20:00
[2017-01-26] MEDS: Tamsulosin 0.4mg cap ORAL SCH (20:11)
[2017-01-26 20:14] VITALS: BP 168/88
[2017-01-26 23:54] VITALS: BP 158/71
[2017-01-27] MEDS: Diltiazem 90mg tab ORAL SCH ×4 (00:03→17:28)
[2017-01-27 03:48] VITALS: BP 149/83
[2017-01-27] MEDS: metFORMIN 500mg tab ORAL SCH ×2 (06:02→16:17)
[2017-01-27] MEDS: NovoLOG Insulin Flexpen SUBQ SCH ×4 (06:04→21:00)
[2017-01-27 08:00] VITALS: BP_SYST 129; BP_SYST 153; BP_DIAS 55; BP_DIAS 79
--- NOTE | 2017-01-27 08:06 | General Progress Note ---
Assessment/Plan Assessment/Plan IMPRESSION: 1. Atrial flutter. 2. Syncopal episode. 3. Hypertension. 4. Diabetes. 5. Chronic obstructive pulmonary disease. 6. tachybrady syndrome 7. abdominal pain 8. gallbladder thickening with negative HIDA 10. UTI PLAN cipro rate control care noted cardiology evaluation and follow up anticoagulation noted tele control rate and dc with outpatient follow up with EP impression, plan, and exam edited and reviewed in detail care discussed with RN Subjective Allergies: Coded Allergies: No Known Allergies (Unverified , 01/20/17) Subjective refused transfer to [facility] but now agrees still with poor rate control Objective Last 24 Hour Vital Signs Date Time Temp Pulse Resp B/P Pulse Ox O2 Delivery O2 Flow Rate FiO2 01/27/17 06:03 130 135/78 01/27/17 04:00 121 01/27/17 03:48 98.2 78 20 149/83 94 Room Air 01/27/17 00:03 70 158/71 01/27/17 00:00 74 01/26/17 23:54 98.6 70 21 158/71 98 Room Air 01/26/17 20:14 98.7 63 20 168/88 96 Room Air 01/26/17 20:00 105 01/26/17 19:26 97 Nasal Cannula 2.0 28 01/26/17 19:26 Nasal Cannula 2.0 28 01/26/17 19:09 110 152/77 01/26/17 16:00 98.1 148 19 152/77 Nasal Cannula 2.0 95 01/26/17 16:00 152 01/26/17 13:18 110 146/67 01/26/17 12:00 78 01/26/17 12:00 77 18 148/69 97 Room Air Intake and Output 01/26/17 01/27/17 19:00 07:00 Intake Total 1150 ml 1440 ml Balance 1150 ml 1440 ml Intake Oral 240 ml IV Total 1150 ml 1200 ml # Voids 3 Height (Feet): 5 Height (Inches): 7.00 Weight (Pounds): 214 Objective GENERAL: The patient is a well developed and well nourished. same HEENT: Extraocular movements are intact. Oropharynx is moist. NECK: Supple. No adenopathy. LUNGS: With decreased breath sounds. no rhonchi or wheeze; more comfortable CARDIAC: S1 and S2. Regular rhythm. No murmurs or rubs. tachy ABDOMEN: Soft, but slightly tender RUQ. no HSM EXTREMITIES: No cyanosis. No clubbing. No edema. NEUROLOGIC: Nonfocal. reviewed and edited DAVID MAI Jan 27, 2017 08:06
--- NOTE | 2017-01-27 08:18 | General Progress Note ---
Assessment/Plan Assessment/Plan Assessment - RUQ abd pain - mild anemia - atrial flutter - COPD Recommendation - f/u hepatitis serologies - surgical f/u - await HIDA scan - Xarelto for a flutter - EGD/Colon once cardiac issue resolved Subjective Allergies: Coded Allergies: No Known Allergies (Unverified , 01/20/17) Subjective still with mild abd pain HIDA noted wants heart issue fixed advised needs EGD/colon afterwards Objective Last 24 Hour Vital Signs Date Time Temp Pulse Resp B/P Pulse Ox O2 Delivery O2 Flow Rate FiO2 01/27/17 06:03 130 135/78 01/27/17 04:00 121 01/27/17 03:48 98.2 78 20 149/83 94 Room Air 01/27/17 00:03 70 158/71 01/27/17 00:00 74 01/26/17 23:54 98.6 70 21 158/71 98 Room Air 01/26/17 20:14 98.7 63 20 168/88 96 Room Air 01/26/17 20:00 105 01/26/17 19:26 97 Nasal Cannula 2.0 28 01/26/17 19:26 Nasal Cannula 2.0 28 01/26/17 19:09 110 152/77 01/26/17 16:00 98.1 148 19 152/77 Nasal Cannula 2.0 95 01/26/17 16:00 152 01/26/17 13:18 110 146/67 01/26/17 12:00 78 01/26/17 12:00 77 18 148/69 97 Room Air Intake and Output 01/26/17 01/27/17 19:00 07:00 Intake Total 1150 ml 1440 ml Balance 1150 ml 1440 ml Intake Oral 240 ml IV Total 1150 ml 1200 ml # Voids 3 Height (Feet): 5 Height (Inches): 7.00 Weight (Pounds): 214 Objective WDWN NCAT supple CTA RRR Soft NT ND, (+) RUQ TTP no edema non focal JEANNETTE JONES Jan 27, 2017 08:18
[2017-01-27] MEDS: Flonase Nasal Inhaler 16gm NASAL SCH (08:45)
[2017-01-27] MEDS: Trihexyphenidyl 2mg tab ORAL SCH (08:46)
[2017-01-27] MEDS: Digoxin 0.125mg tab ORAL SCH (08:46)
[2017-01-27] MEDS: Ciprofloxacin 500mg tab ORAL SCH ×2 (08:46→21:05)
[2017-01-27] MEDS: Amiodarone 200mg tab ORAL SCH ×2 (08:46→21:05)
[2017-01-27] MEDS: Aspirin Baby 81mg ORAL SCH (08:46)
[2017-01-27] MEDS: Enoxaparin 100mg Inj SUBQ SCH ×2 (08:48→21:07)
[2017-01-27] MEDS: Norco 5mg/325mg tab ORAL PRN ×2 (10:41→21:06)
--- NOTE | 2017-01-27 11:42 | General Progress Note ---
Progress Note Progress Note Afebrile. Pt continues to c/o abdominal pain, he is tolerating diet. The HIDA scan did visualize the gallbladder, ejection fraction was low-normal. There is no need for surgical intervention at this time. He is on Xarelto for atrial fibrillation. Robby Hanson MD Jan 27, 2017 11:42
[2017-01-27 12:00] VITALS: BP 142/77
[2017-01-27 16:01] VITALS: BP 134/79
[2017-01-27 20:03] VITALS: BP 140/80
--- NOTE | 2017-01-27 20:12 | Cardiac Electrophysiology PN ---
Assessment/Plan Problem List: (1) Atrial flutter (2) Hypertension (3) COPD exacerbation Status: stable, not improved, unchanged Status Narrative Mr Martin remains w/ rapidly conducted AFL. He is on digoxin, cardizem, and amiodarone. Cannot use b blockers due to copd He is now on lovenox (xarelto dcd) Abd pain has improved. GI eval noted Assessment/Plan Continue current meds Plan for transfer to [facility] for EP testing and catheter ablation for refractory AFL. Pt placed back on transfer list. Subjective ROS Limited/Unobtainable: No Subjective No c/o Objective Last 24 Hour Vital Signs Date Time Temp Pulse Resp B/P Pulse Ox O2 Delivery O2 Flow Rate FiO2 01/27/17 20:03 98.5 53 20 140/80 98 Room Air 01/27/17 17:28 100 134/79 01/27/17 16:01 97.9 71 19 134/79 95 Room Air 01/27/17 12:02 100 142/78 01/27/17 12:00 96 01/27/17 12:00 98.2 78 20 142/77 94 Room Air 01/27/17 08:46 89 01/27/17 08:13 Nasal Cannula 2.0 01/27/17 08:13 95 Nasal Cannula 2.0 01/27/17 08:00 97.9 76 20 153/79 94 Room Air 01/27/17 08:00 109 01/27/17 06:03 130 135/78 01/27/17 04:00 121 01/27/17 03:48 98.2 78 20 149/83 94 Room Air 01/27/17 00:03 70 158/71 01/27/17 00:00 74 01/26/17 23:54 98.6 70 21 158/71 98 Room Air 01/26/17 20:14 98.7 63 20 168/88 96 Room Air General Appearance: WD/WN, no apparent distress, alert EENT: PERRL/EOMI Neck: supple, no JVD Rhythm: other - AFL Cardiovascular: tachycardia, irregularly irregular Respiratory/Chest: other - lower field rhonchi bilat Abdomen: non tender, soft, distended Extremities: no swelling Intake and Output 01/26/17 01/27/17 19:00 07:00 Intake Total 1150 ml 1440 ml Balance 1150 ml 1440 ml Intake Oral 240 ml IV Total 1150 ml 1200 ml # Voids 3 LAI JACOB Jan 27, 2017 20:12
[2017-01-27] MEDS: Tamsulosin 0.4mg cap ORAL SCH (21:05)
[2017-01-28] VITALS: BP 137/78
[2017-01-28] MEDS: Diltiazem 90mg tab ORAL SCH ×4 (00:24→18:00)
[2017-01-28 04:00] VITALS: BP 117/74
[2017-01-28] MEDS: metFORMIN 500mg tab ORAL SCH ×2 (06:03→17:35)
[2017-01-28] MEDS: NovoLOG Insulin Flexpen SUBQ SCH ×4 (06:08→20:18)
[2017-01-28 08:00] VITALS: BP 130/79
[2017-01-28] MEDS: Ciprofloxacin 500mg tab ORAL SCH ×2 (09:00→20:19)
[2017-01-28] MEDS: Enoxaparin 100mg Inj SUBQ SCH ×2 (09:00→20:14)
--- NOTE | 2017-01-28 10:14 | General Progress Note ---
Assessment/Plan Assessment/Plan IMPRESSION: 1. Atrial flutter. 2. Syncopal episode. 3. Hypertension. 4. Diabetes. 5. Chronic obstructive pulmonary disease. 6. tachybrady syndrome 7. abdominal pain 8. gallbladder thickening with negative HIDA 10. UTI PLAN cipro to complete rate control care noted cardiology evaluation and follow up anticoagulation noted tele control rate and dc to [facility] when bed available impression, plan, and exam edited and reviewed in detail care discussed with RN Subjective Allergies: Coded Allergies: No Known Allergies (Unverified , 01/20/17) Subjective agrees to transfer needs ablation Objective Last 24 Hour Vital Signs Date Time Temp Pulse Resp B/P Pulse Ox O2 Delivery O2 Flow Rate FiO2 01/28/17 08:00 96.6 71 18 130/79 98 Room Air 01/28/17 06:04 95 117/74 01/28/17 04:00 97.5 70 20 117/74 95 Room Air 01/28/17 03:54 70 01/28/17 00:24 71 137/75 01/28/17 00:00 96.6 55 20 137/78 94 Room Air 01/27/17 23:37 97 01/27/17 20:03 98.5 53 20 140/80 98 Room Air 01/27/17 19:09 99 01/27/17 17:28 100 134/79 01/27/17 16:01 97.9 71 19 134/79 95 Room Air 01/27/17 16:00 71 01/27/17 12:02 100 142/78 01/27/17 12:00 96 01/27/17 12:00 98.2 78 20 142/77 94 Room Air Intake and Output 01/27/17 01/28/17 19:00 07:00 Intake Total 1240 ml 1053 ml Balance 1240 ml 1053 ml Intake Oral 240 ml IV Total 1000 ml 1053 ml # Voids 1 2 Height (Feet): 5 Height (Inches): 7.00 Weight (Pounds): 214 Objective GENERAL: The patient is a well developed and well nourished. same HEENT: Extraocular movements are intact. Oropharynx is moist. NECK: Supple. No adenopathy. LUNGS: With decreased breath sounds. no rhonchi or wheeze; more comfortable CARDIAC: S1 and S2. Regular rhythm. No murmurs or rubs. rate controlled ABDOMEN: Soft, nontender. no HSM EXTREMITIES: No cyanosis. No clubbing. No edema. NEUROLOGIC: Nonfocal. reviewed and edited DAVID MAI Jan 28, 2017 10:14
--- NOTE | 2017-01-28 10:26 | General Progress Note ---
Progress Note Progress Note pt followed for abdominal pain. ultrasound had shown gall bladder wall thickeening but no stones or sludge. \Hida scan Low-normal gallbladder ejection fraction Patent cystic duct--no evidence of acute cholecystitis. Patent common bile duct. no signs of acute cholecystitis no surgical intervention planned. SRAVAN GIBBS Jan 28, 2017 10:26
[2017-01-28] MEDS: Flonase Nasal Inhaler 16gm NASAL SCH (10:53)
[2017-01-28] MEDS: Digoxin 0.125mg tab ORAL SCH (10:55)
[2017-01-28] MEDS: Trihexyphenidyl 2mg tab ORAL SCH (10:55)
[2017-01-28] MEDS: Amiodarone 200mg tab ORAL SCH ×2 (10:55→20:08)
[2017-01-28] MEDS: Aspirin Baby 81mg ORAL SCH (10:55)
[2017-01-28] MEDS: Norco 5mg/325mg tab ORAL PRN ×2 (11:34→20:12)
[2017-01-28 12:00] VITALS: BP 136/80
[2017-01-28 16:00] VITALS: BP 118/61
--- NOTE | 2017-01-28 19:26 | Cardiology Progress Note ---
Assessment/Plan Assessment/Plan rate is controlled by oral medicxations heart rate improved, not that fast Subjective Subjective no new complaints, has mild palpitations denies chest pain and dyspnea Objective Last 24 Hour Vital Signs Date Time Temp Pulse Resp B/P Pulse Ox O2 Delivery O2 Flow Rate FiO2 01/28/17 18:00 101 152/94 01/28/17 16:00 97.5 72 18 118/61 99 Room Air 110 01/28/17 16:00 72 01/28/17 12:33 96.9 01/28/17 12:00 73 01/28/17 12:00 96.9 76 18 136/80 99 Room Air 01/28/17 11:33 105 130/79 01/28/17 10:55 105 01/28/17 08:00 71 01/28/17 08:00 96.6 71 18 130/79 98 Room Air 01/28/17 06:38 96 Room Air 01/28/17 06:37 Room Air 01/28/17 06:04 95 117/74 01/28/17 04:00 97.5 70 20 117/74 95 Room Air 01/28/17 03:54 70 01/28/17 00:24 71 137/75 01/28/17 00:00 96.6 55 20 137/78 94 Room Air 01/27/17 23:37 97 01/27/17 20:03 98.5 53 20 140/80 98 Room Air General Appearance: mild distress EENT: PERRL/EOMI Neck: JVD Rhythm: Afib Cardiovascular: tachycardia Respiratory/Chest: rhonchi - bilaterally Abdomen: distended Intake and Output 01/27/17 01/28/17 19:00 07:00 Intake Total 1240 ml 1053 ml Balance 1240 ml 1053 ml Intake Oral 240 ml IV Total 1000 ml 1053 ml # Voids 1 2 DOMENIC MONSALVE Jan 28, 2017 19:26
[2017-01-28 20:00] VITALS: BP 137/101
[2017-01-28] MEDS: Tamsulosin 0.4mg cap ORAL SCH (20:09)
[2017-01-29] VITALS: BP 152/78
[2017-01-29] MEDS: Diltiazem 90mg tab ORAL SCH ×4 (00:10→17:29)
[2017-01-29 04:00] VITALS: BP 112/55
[2017-01-29] MEDS: metFORMIN 500mg tab ORAL SCH ×2 (05:24→16:51)
[2017-01-29] MEDS: NovoLOG Insulin Flexpen SUBQ SCH ×4 (05:27→20:42)
[2017-01-29 08:00] VITALS: BP 130/61
--- NOTE | 2017-01-29 08:22 | General Progress Note ---
Assessment/Plan Problem List: (1) COPD exacerbation ICD Codes: J44.1 - Chronic obstructive pulmonary disease with (acute) exacerbation SNOMED: 817601253, 697095477 (2) Atrial flutter ICD Codes: I48.92 - Unspecified atrial flutter SNOMED: 2387358 (3) Hypertension ICD Codes: I10 - Essential (primary) hypertension SNOMED: 32561117 (4) Thickening of wall of gallbladder ICD Codes: K82.8 - Other specified diseases of gallbladder SNOMED: 686587502 (5) History of appendectomy ICD Codes: Z90.49 - Acquired absence of other specified parts of digestive tract SNOMED: 904380426 Assessment/Plan neg hida scan no plan for surgery per surgical note pend transfer to [facility] for ablation Subjective ROS Limited/Unobtainable: Yes Allergies: Coded Allergies: No Known Allergies (Unverified , 01/20/17) Subjective no event Objective Last 24 Hour Vital Signs Date Time Temp Pulse Resp B/P Pulse Ox O2 Delivery O2 Flow Rate FiO2 01/29/17 05:25 99 121/71 01/29/17 04:00 139 01/29/17 04:00 97.2 70 20 112/55 96 Room Air 01/29/17 00:10 70 152/78 01/29/17 00:00 97.8 70 19 152/78 96 Room Air 01/29/17 00:00 116 01/28/17 20:00 97.7 129 20 137/101 95 Room Air 01/28/17 20:00 99 01/28/17 18:00 101 152/94 01/28/17 16:00 97.5 72 18 118/61 99 Room Air 110 01/28/17 16:00 72 01/28/17 12:33 96.9 01/28/17 12:00 73 01/28/17 12:00 96.9 76 18 136/80 99 Room Air 01/28/17 11:33 105 130/79 01/28/17 10:55 105 Intake and Output 01/28/17 01/29/17 19:00 07:00 Intake Total 1160 ml 1200 ml Output Total 600 ml 350 ml Balance 560 ml 850 ml Intake Oral 560 ml 500 ml IV Total 600 ml 700 ml Output Urine Total 600 ml 350 ml # Voids 6 3 Height (Feet): 5 Height (Inches): 7.00 Weight (Pounds): 214 General Appearance: alert EENT: normal ENT inspection Neck: supple Cardiovascular: normal rate Respiratory/Chest: decreased breath sounds Abdomen: normal bowel sounds, non tender, soft Extremities: non-tender FADY MAYO Jan 29, 2017 08:22
[2017-01-29] MEDS: Amiodarone 200mg tab ORAL SCH ×2 (09:16→20:40)
[2017-01-29] MEDS: Aspirin Baby 81mg ORAL SCH (09:16)
[2017-01-29] MEDS: Digoxin 0.125mg tab ORAL SCH (09:16)
[2017-01-29] MEDS: Flonase Nasal Inhaler 16gm NASAL SCH (09:16)
[2017-01-29] MEDS: Trihexyphenidyl 2mg tab ORAL SCH (09:16)
[2017-01-29] MEDS: Ciprofloxacin 500mg tab ORAL SCH ×2 (09:17→20:40)
[2017-01-29] MEDS: Enoxaparin 100mg Inj SUBQ SCH ×2 (09:18→20:43)
--- NOTE | 2017-01-29 10:11 | General Progress Note ---
Progress Note Progress Note Seen for abd pain. US showed slightly thickened gall bladder wall but no stione or sludge. Hida did show delayed visualization of the gall bladder. No surgery plannned. SRAVAN GIBBS Jan 29, 2017 10:11
[2017-01-29 12:00] VITALS: BP 123/55
--- NOTE | 2017-01-29 14:49 | General Progress Note ---
Assessment/Plan Assessment/Plan IMPRESSION: 1. Atrial flutter. 2. Syncopal episode. 3. Hypertension. 4. Diabetes. 5. Chronic obstructive pulmonary disease. 6. tachybrady syndrome 7. abdominal pain 8. gallbladder thickening with negative HIDA 10. UTI PLAN cipro to complete rate control improved care noted cardiology evaluation and follow up for ablation this week anticoagulation noted tele on transfer list impression, plan, and exam edited and reviewed in detail care discussed with RN Subjective Allergies: Coded Allergies: No Known Allergies (Unverified , 01/20/17) Subjective agrees to transfer needs ablation current vital signs improved Objective Last 24 Hour Vital Signs Date Time Temp Pulse Resp B/P Pulse Ox O2 Delivery O2 Flow Rate FiO2 01/29/17 12:00 70 01/29/17 12:00 65 18 123/55 96 Room Air 01/29/17 11:14 69 130/61 01/29/17 09:16 69 01/29/17 08:00 73 01/29/17 08:00 69 18 130/61 96 Room Air 01/29/17 05:25 99 121/71 01/29/17 04:00 139 01/29/17 04:00 97.2 70 20 112/55 96 Room Air 01/29/17 00:10 70 152/78 01/29/17 00:00 97.8 70 19 152/78 96 Room Air 01/29/17 00:00 116 01/28/17 20:00 97.7 129 20 137/101 95 Room Air 01/28/17 20:00 99 01/28/17 18:00 101 152/94 01/28/17 16:00 97.5 72 18 118/61 99 Room Air 110 01/28/17 16:00 72 Intake and Output 01/28/17 01/29/17 19:00 07:00 Intake Total 1160 ml 1200 ml Output Total 600 ml 350 ml Balance 560 ml 850 ml Intake Oral 560 ml 500 ml IV Total 600 ml 700 ml Output Urine Total 600 ml 350 ml # Voids 6 3 Height (Feet): 5 Height (Inches): 7.00 Weight (Pounds): 214 Objective GENERAL: The patient is a well developed and well nourished. same HEENT: Extraocular movements are intact. Oropharynx is moist. NECK: Supple. No adenopathy. LUNGS: With decreased breath sounds. no rhonchi or wheeze; more comfortable CARDIAC: S1 and S2. Regular rhythm. No murmurs or rubs. rate controlled ABDOMEN: Soft, nontender. no HSM EXTREMITIES: No cyanosis. No clubbing. No edema. NEUROLOGIC: Nonfocal. reviewed and edited DAVID MAI Jan 29, 2017 14:49
[2017-01-29 16:00] VITALS: BP 148/70
--- NOTE | 2017-01-29 18:38 | Cardiology Progress Note ---
Assessment/Plan Assessment/Plan rate is controlled by oral medicxations heart rate improved,ordered labs pt is on Lovenox for anticoagulation Subjective Subjective no new complaints, has mild palpitations denies chest pain and dyspnea Objective Last 24 Hour Vital Signs Date Time Temp Pulse Resp B/P Pulse Ox O2 Delivery O2 Flow Rate FiO2 01/29/17 17:29 58 148/70 01/29/17 16:00 58 01/29/17 16:00 58 18 148/70 95 Room Air 01/29/17 12:00 70 01/29/17 12:00 65 18 123/55 96 Room Air 01/29/17 11:14 69 130/61 01/29/17 09:16 69 01/29/17 08:00 73 01/29/17 08:00 69 18 130/61 96 Room Air 01/29/17 05:25 99 121/71 01/29/17 04:00 139 01/29/17 04:00 97.2 70 20 112/55 96 Room Air 01/29/17 00:10 70 152/78 01/29/17 00:00 97.8 70 19 152/78 96 Room Air 01/29/17 00:00 116 01/28/17 20:00 97.7 129 20 137/101 95 Room Air 01/28/17 20:00 99 General Appearance: no apparent distress EENT: PERRL/EOMI Neck: non-tender Rhythm: Afib Cardiovascular: tachycardia Respiratory/Chest: rhonchi - bilaterally Abdomen: distended Intake and Output 01/28/17 01/29/17 19:00 07:00 Intake Total 1160 ml 1200 ml Output Total 600 ml 350 ml Balance 560 ml 850 ml Intake Oral 560 ml 500 ml IV Total 600 ml 700 ml Output Urine Total 600 ml 350 ml # Voids 6 3 DOMENIC MONSALVE Jan 29, 2017 18:38
[2017-01-29 19:07] LABS: BASOPHILS % (AUTO) 1.2 % (0.0-2.0); LYMPHOCYTES % (AUTO) 16.7 % (20.0-45.0); MEAN CORPUSCULAR HEMOGLOBIN 32.3 PG (27.0-31.0); MEAN CORPUSCULAR HGB CONC 35.7 G/DL (32.0-36.0); MEAN CORPUSCULAR VOLUME 91 FL (80-99); MEAN PLATELET VOLUME 7.6 FL (6.5-10.1); NEUTROPHILS % (AUTO) 74.1 % (45.0-75.0); PLATELET COUNT 159 K/UL (150-450); RED BLOOD COUNT 4.62 M/UL (4.70-6.10); RED CELL DISTRIBUTION WIDTH 13.7 % (11.6-14.8); WHITE BLOOD COUNT 10.4 K/UL (4.8-10.8)
[2017-01-29 19:28] LABS: ANION GAP 14 (5-15); CALCIUM 9.5 mg/dL (8.6-10.2); CARBON DIOXIDE 27 mEQ/L (20-30); CHLORIDE 97 mEQ/L (98-107); CREATININE 1.1 mg/dL (0.7-1.2); GLOMERULAR FILTRATION RATE > 60 mL/min (>60); HEMOLYSIS 8; POTASSIUM 3.9 mEQ/L (3.4-4.9); SODIUM 138 mEQ/L (135-145)
[2017-01-29 20:00] VITALS: BP 166/87
[2017-01-29] MEDS: Tamsulosin 0.4mg cap ORAL SCH (20:40)
[2017-01-30] VITALS: BP 166/79
[2017-01-30] MEDS: Diltiazem 90mg tab ORAL SCH ×4 (00:32→18:05)
[2017-01-30 04:00] VITALS: BP 152/74
[2017-01-30] MEDS: metFORMIN 500mg tab ORAL SCH ×2 (05:35→18:05)
[2017-01-30] MEDS: NovoLOG Insulin Flexpen SUBQ SCH ×4 (05:45→21:34)
[2017-01-30] MEDS: Albuterol 90mcg Inhaler 8gm INH PRN (06:28)
[2017-01-30 08:03] VITALS: BP 130/77
--- NOTE | 2017-01-30 08:42 | General Progress Note ---
Assessment/Plan Assessment/Plan IMPRESSION: 1. Atrial flutter. 2. Syncopal episode. 3. Hypertension. 4. Diabetes. 5. Chronic obstructive pulmonary disease. 6. tachybrady syndrome 7. abdominal pain 8. gallbladder thickening with negative HIDA 10. UTI PLAN cipro- may discontinue rate control improved care noted cardiology evaluation noted for ablation this week anticoagulation noted tele on transfer list as per cardiology impression, plan, and exam edited and reviewed in detail care discussed with RN Subjective Allergies: Coded Allergies: No Known Allergies (Unverified , 01/20/17) Subjective agrees to transfer needs ablation current vital signs improved Objective Last 24 Hour Vital Signs Date Time Temp Pulse Resp B/P Pulse Ox O2 Delivery O2 Flow Rate FiO2 01/30/17 08:03 97.5 93 20 130/77 95 Room Air 01/30/17 05:35 69 152/74 01/30/17 04:00 97.8 44 20 152/74 98 Room Air 01/30/17 04:00 69 01/30/17 00:32 90 166/79 01/30/17 00:00 87 01/30/17 00:00 97.6 46 21 166/79 96 Room Air 01/29/17 20:00 110 01/29/17 20:00 97.9 76 21 166/87 94 Room Air 01/29/17 17:29 58 148/70 01/29/17 16:00 58 01/29/17 16:00 58 18 148/70 95 Room Air 01/29/17 12:00 70 01/29/17 12:00 65 18 123/55 96 Room Air 01/29/17 11:14 69 130/61 01/29/17 09:16 69 Intake and Output 01/29/17 01/30/17 19:00 07:00 Intake Total 300 ml Balance 300 ml IV Total 300 ml Laboratory Tests 01/29/17 18:52: White Blood Count 10.4, Red Blood Count 4.62L, Hemoglobin 14.9, Hematocrit 41.8L , Mean Corpuscular Volume 91, Mean Corpuscular Hemoglobin 32.3H, Mean Corpuscular Hemoglobin Concent 35.7, Red Cell Distribution Width 13.7, Platelet Count 159, Mean Platelet Volume 7.6, Neutrophils (%) (Auto) 74.1, Lymphocytes (% ) (Auto) 16.7L, Monocytes (%) (Auto) 7.0, Eosinophils (%) (Auto) 1.0, Basophils (%) (Auto) 1.2, Sodium Level 138, Potassium Level 3.9, Chloride Level 97L, Carbon Dioxide Level 27, Anion Gap 14, Blood Urea Nitrogen 24H, Creatinine 1.1, Estimat Glomerular Filtration Rate > 60, Glucose Level 135H, Calcium Level 9.5 Height (Feet): 5 Height (Inches): 7.00 Weight (Pounds): 214 Objective GENERAL: The patient is a well developed and well nourished. same HEENT: Extraocular movements are intact. Oropharynx is moist. NECK: Supple. No adenopathy. LUNGS: With decreased breath sounds. no rhonchi or wheeze; more comfortable CARDIAC: S1 and S2. Regular rhythm. No murmurs or rubs. rate controlled ABDOMEN: Soft, nontender. no HSM EXTREMITIES: No cyanosis. No clubbing. No edema. NEUROLOGIC: Nonfocal. reviewed and edited DAVID MAI Jan 30, 2017 08:42
[2017-01-30] MEDS: Ciprofloxacin 500mg tab ORAL SCH (09:15)
[2017-01-30] MEDS: Flonase Nasal Inhaler 16gm NASAL SCH (09:15)
[2017-01-30] MEDS: Aspirin Baby 81mg ORAL SCH (09:15)
[2017-01-30] MEDS: Amiodarone 200mg tab ORAL SCH (09:15)
[2017-01-30] MEDS: Digoxin 0.125mg tab ORAL SCH (09:15)
[2017-01-30] MEDS: Enoxaparin 100mg Inj SUBQ SCH ×2 (09:18→21:33)
[2017-01-30] MEDS: Trihexyphenidyl 2mg tab ORAL SCH (09:18)
[2017-01-30 12:01] VITALS: BP 145/55
[2017-01-30 16:03] VITALS: BP 162/95
[2017-01-30 20:00] VITALS: BP 127/86
--- NOTE | 2017-01-30 20:04 | Cardiac Electrophysiology PN ---
Assessment/Plan Problem List: (1) Atrial flutter (2) Hypertension (3) COPD exacerbation Status: stable, unchanged Status Narrative Mr Mario 's ventricular rates have improved, on amiodarone. He remains in [facility], on is on lovenox Assessment/Plan Plan for transfer to [facility] over next 1-2 d ; ablation has been scheduled for Weds Will stop amiodarone in preparation for procedure. Subjective ROS Limited/Unobtainable: No Subjective No new c/o events of weekend noted Objective Last 24 Hour Vital Signs Date Time Temp Pulse Resp B/P Pulse Ox O2 Delivery O2 Flow Rate FiO2 01/30/17 18:05 73 141/97 01/30/17 16:03 97.3 72 18 162/95 97 Room Air 01/30/17 13:12 105 154/77 01/30/17 12:01 97.3 69 20 145/55 95 Room Air 01/30/17 12:00 91 01/30/17 09:15 75 01/30/17 08:03 97.5 93 20 130/77 95 Room Air 01/30/17 08:00 69 01/30/17 06:29 55 16 95 Room Air 21 01/30/17 06:27 55 16 95 Room Air 21 01/30/17 06:26 Room Air 01/30/17 06:25 95 Room Air 01/30/17 05:35 69 152/74 01/30/17 04:00 97.8 44 20 152/74 98 Room Air 01/30/17 04:00 69 01/30/17 00:32 90 166/79 01/30/17 00:00 87 01/30/17 00:00 97.6 46 21 166/79 96 Room Air General Appearance: WD/WN, no apparent distress, alert Neck: supple, no JVD Rhythm: other - atrial flutter Cardiovascular: normal rate, no gallop/murmur, irregularly irregular Respiratory/Chest: lungs clear Abdomen: non tender, soft, other - distended, soft Extremities: non-tender, no swelling Intake and Output 01/29/17 01/30/17 19:00 07:00 Intake Total 300 ml Balance 300 ml IV Total 300 ml LAI JACOB Jan 30, 2017 20:04
[2017-01-30] MEDS: Tamsulosin 0.4mg cap ORAL SCH (21:31)
[2017-01-31] VITALS: BP 143/87
[2017-01-31] MEDS: Diltiazem 90mg tab ORAL SCH ×4 (00:10→18:52)
[2017-01-31 04:00] VITALS: BP 132/85
[2017-01-31] MEDS: metFORMIN 500mg tab ORAL SCH ×2 (05:39→17:08)
[2017-01-31] MEDS: NovoLOG Insulin Flexpen SUBQ SCH ×4 (05:41→21:04)
--- NOTE | 2017-01-31 07:19 | General Progress Note ---
Assessment/Plan Assessment/Plan Assessment - RUQ abd pain - resolved - mild anemia - atrial flutter - COPD Recommendation - f/u hepatitis serologies - all negative - Xarelto for a flutter - EGD/Colon once cardiac issue resolved Subjective Allergies: Coded Allergies: No Known Allergies (Unverified , 01/20/17) Subjective abd pain better awaiting cardiac w/u and Rx advised needs EGD/colon afterwards Objective Last 24 Hour Vital Signs Date Time Temp Pulse Resp B/P Pulse Ox O2 Delivery O2 Flow Rate FiO2 01/31/17 05:39 58 144/78 01/31/17 04:00 98.0 71 20 132/85 94 Room Air 01/31/17 04:00 70 01/31/17 00:10 70 143/87 01/31/17 00:00 65 01/31/17 00:00 97.7 70 21 143/87 96 Room Air 01/30/17 20:00 97.5 92 21 127/86 96 Room Air 01/30/17 20:00 90 01/30/17 19:30 Room Air 21 01/30/17 19:30 90 20 Room Air 21 01/30/17 19:30 94 Room Air 21 01/30/17 18:05 73 141/97 01/30/17 16:03 97.3 72 18 162/95 97 Room Air 01/30/17 16:00 69 01/30/17 13:12 105 154/77 01/30/17 12:01 97.3 69 20 145/55 95 Room Air 01/30/17 12:00 91 01/30/17 09:15 75 01/30/17 08:03 97.5 93 20 130/77 95 Room Air 01/30/17 08:00 69 Intake and Output 01/30/17 01/31/17 19:00 07:00 Intake Total 580 ml 1200 ml Output Total 950 ml Balance -370 ml 1200 ml Intake Oral 480 ml IV Total 100 ml 1200 ml Output Urine Total 950 ml # Voids 1 Height (Feet): 5 Height (Inches): 7.00 Weight (Pounds): 214 Objective WDWN NCAT supple CTA RRR Soft NT ND no edema non focal patient seen 01/30 - delayed entry note JEANNETTE JONES Jan 31, 2017 07:19
--- NOTE | 2017-01-31 08:06 | General Progress Note ---
Assessment/Plan Assessment/Plan IMPRESSION: 1. Atrial flutter. 2. Syncopal episode. 3. Hypertension. 4. Diabetes. 5. Chronic obstructive pulmonary disease. 6. tachybrady syndrome 7. abdominal pain 8. gallbladder thickening with negative HIDA 10. UTI PLAN cipro- off rate control overall care noted cardiology evaluation appreciated for ablation this in am tele on transfer list as per cardiology impression, plan, and exam edited and reviewed in detail care discussed with RN Subjective Allergies: Coded Allergies: No Known Allergies (Unverified , 01/20/17) Subjective agrees to transfer needs ablation- scheduled in am current vital signs stable Objective Last 24 Hour Vital Signs Date Time Temp Pulse Resp B/P Pulse Ox O2 Delivery O2 Flow Rate FiO2 01/31/17 05:39 58 144/78 01/31/17 04:00 98.0 71 20 132/85 94 Room Air 01/31/17 04:00 70 01/31/17 00:10 70 143/87 01/31/17 00:00 65 01/31/17 00:00 97.7 70 21 143/87 96 Room Air 01/30/17 20:00 97.5 92 21 127/86 96 Room Air 01/30/17 20:00 90 01/30/17 19:30 Room Air 21 01/30/17 19:30 90 20 Room Air 21 01/30/17 19:30 94 Room Air 21 01/30/17 18:05 73 141/97 01/30/17 16:03 97.3 72 18 162/95 97 Room Air 01/30/17 16:00 69 01/30/17 13:12 105 154/77 01/30/17 12:01 97.3 69 20 145/55 95 Room Air 01/30/17 12:00 91 01/30/17 09:15 75 Intake and Output 01/30/17 01/31/17 19:00 07:00 Intake Total 580 ml 1200 ml Output Total 950 ml Balance -370 ml 1200 ml Intake Oral 480 ml IV Total 100 ml 1200 ml Output Urine Total 950 ml # Voids 1 Height (Feet): 5 Height (Inches): 7.00 Weight (Pounds): 214 Objective GENERAL: The patient is a well developed and well nourished. same HEENT: Extraocular movements are intact. Oropharynx is moist. NECK: Supple. No adenopathy. LUNGS: With decreased breath sounds. no rhonchi or wheeze; more comfortable CARDIAC: S1 and S2. Regular rhythm. No murmurs or rubs. rate controlled ABDOMEN: Soft, nontender. no HSM EXTREMITIES: No cyanosis. No clubbing. No edema. NEUROLOGIC: Nonfocal. reviewed and edited DAVID MAI Jan 31, 2017 08:06
[2017-01-31 08:28] VITALS: BP 148/85
[2017-01-31] MEDS: Enoxaparin 100mg Inj SUBQ SCH ×2 (09:00→21:00)
[2017-01-31] MEDS: Trihexyphenidyl 2mg tab ORAL SCH (09:56)
[2017-01-31] MEDS: Flonase Nasal Inhaler 16gm NASAL SCH (09:56)
[2017-01-31] MEDS: Aspirin Baby 81mg ORAL SCH (09:57)
[2017-01-31] MEDS: Digoxin 0.125mg tab ORAL SCH (09:57)
[2017-01-31] MEDS: Albuterol 90mcg Inhaler 8gm INH PRN (09:59)
[2017-01-31 12:03] VITALS: BP 130/69
[2017-01-31 15:55] VITALS: BP 125/93
--- NOTE | 2017-01-31 19:43 | Cardiac Electrophysiology PN ---
Assessment/Plan Problem List: (1) Atrial flutter (2) Hypertension (3) COPD exacerbation Status: stable, progressing Status Narrative Mr. Martin has persistent atrial flutter. Ventricular rates are variable. He cannot take b blockers, due to COPD/bronchospasm and is not a good candidate for amiodarone due to potential for pulm toxicity, increased in pts w/ COPD Assessment/Plan He will be transferred to [facility] today. Current meds, including lovenox, will be continued. JOSÉ/ EP testing and ablation scheduled for tomorrow. d/w pt, who understands and agrees. Subjective ROS Limited/Unobtainable: No Subjective No c/o pain or palpitations c/o dyspnea and asking for inhaler. Objective Last 24 Hour Vital Signs Date Time Temp Pulse Resp B/P Pulse Ox O2 Delivery O2 Flow Rate FiO2 01/31/17 18:52 140 125/93 01/31/17 16:00 140 01/31/17 15:55 97.3 75 18 125/93 95 Room Air 01/31/17 12:03 97.5 76 20 130/69 96 Room Air 01/31/17 12:00 92 01/31/17 12:00 133 130/69 01/31/17 10:00 78 16 96 Room Air 01/31/17 09:59 78 16 96 Room Air 01/31/17 09:57 95 01/31/17 08:28 97.7 73 18 148/85 95 Room Air 01/31/17 08:00 81 01/31/17 07:31 Room Air 21 01/31/17 07:31 96 Room Air 01/31/17 07:31 78 20 Room Air 21 01/31/17 05:39 58 144/78 01/31/17 04:00 98.0 71 20 132/85 94 Room Air 01/31/17 04:00 70 01/31/17 00:10 70 143/87 01/31/17 00:00 65 01/31/17 00:00 97.7 70 21 143/87 96 Room Air 01/30/17 20:00 97.5 92 21 127/86 96 Room Air 01/30/17 20:00 90 General Appearance: WD/WN, no apparent distress, alert EENT: PERRL/EOMI Rhythm: other - atrial flutter Cardiovascular: no gallop/murmur, tachycardia, irregularly irregular Respiratory/Chest: lungs clear, other - dec BS bilat Extremities: no swelling Intake and Output 01/30/17 01/31/17 19:00 07:00 Intake Total 580 ml 1200 ml Output Total 950 ml Balance -370 ml 1200 ml Intake Oral 480 ml IV Total 100 ml 1200 ml Output Urine Total 950 ml # Voids 1 LAI JACOB Jan 31, 2017 19:43
[2017-01-31 20:00] VITALS: BP 173/72
--- NOTE | 2017-01-31 21:01 | Progress Note ---
DATE: 01/31/2017 SUBJECTIVE: The patient's mental condition is unchanged. appears less agitated and anxious today. However, he still complains of fatigue. No behavior issues. Compliant with medication. MENTAL STATUS EXAMINATION: The patient is alert and oriented x3. Mood is dysphoric and anxious. Affect is constricted. Congruent mood. Thought process is concrete. Thought content, no suicidal or homicidal ideation. Cognition is intact. ASSESSMENT: Anxiety disorder. PLAN: 1. The patient will be continued on current medication. 2. Provide the patient with supportive therapy and reality orientation. 3. We will continue to follow and readjust the medication. Amauri Lucas M.D. DR: JOSEMANUEL JOB#: [id number] CC:
--- NOTE | 2017-01-31 21:01 | Consultation ---
DATE OF CONSULTATION: 01/30/2017 HISTORY OF PRESENT ILLNESS: The patient is a 61-year-old male with history of asthma and bifascicular block, who has been admitted to the hospital with chief complaint of lightheadedness. Psychiatry was consulted as the patient has anxiety disorder, he also has history of COPD and has been a heavy smoker also diabetes. During the evaluation, the patient again complained of anxiety, fatigue, and difficulty sleeping at night. He denied any depression or manic psychotic symptoms. PAST PSYCHIATRIC HISTORY: He has never been diagnosed officially. No psychiatric hospitalization. No suicide attempt. PAST MEDICAL HISTORY: Diabetes, hypertension and COPD. ALLERGIES: No known drug allergies. SUBSTANCE ABUSE HISTORY: He is a heavy smoker. No illicit drug abuse. No alcohol. MENTAL STATUS EXAMINATION: The patient is alert and oriented x3. Well developed and well nourished, in no apparent distress. Mood is anxious. Affect is constricted. Congruent mood. Thought process is concrete. Thought content, no suicidal or homicidal ideation. No delusions. No auditory or visual hallucinations. Insight and judgement is fair. ASSESSMENT: Anxiety disorder. PLAN: 1. The patient is not willing to take any medication at this time. 2. Continue to follow and readjust the medications. Amauri Lucas M.D. DR: JOSEMANUEL JOB#: [id number] CC:
[2017-01-31] MEDS: Tamsulosin 0.4mg cap ORAL SCH (21:02)
--- NOTE | 2017-01-31 21:52 | General Progress Note ---
Assessment/Plan Assessment/Plan Assessment - RUQ abd pain - resolved - mild anemia - atrial flutter - COPD Recommendation - f/u hepatitis serologies - all negative - Xarelto for a flutter - EGD/Colon once cardiac issue resolved Subjective Allergies: Coded Allergies: No Known Allergies (Unverified , 01/20/17) Subjective abd pain better awaiting cardiac w/u and Rx tolerating PO advised needs EGD/colon afterwards Objective Last 24 Hour Vital Signs Date Time Temp Pulse Resp B/P Pulse Ox O2 Delivery O2 Flow Rate FiO2 01/31/17 20:49 93 Room Air 01/31/17 20:00 98.7 50 24 173/72 97 Room Air 01/31/17 19:30 Room Air 01/31/17 19:30 60 20 Room Air 01/31/17 18:52 140 125/93 01/31/17 16:00 140 01/31/17 15:55 97.3 75 18 125/93 95 Room Air 01/31/17 12:03 97.5 76 20 130/69 96 Room Air 01/31/17 12:00 92 01/31/17 12:00 133 130/69 01/31/17 10:00 78 16 96 Room Air 01/31/17 09:59 78 16 96 Room Air 01/31/17 09:57 95 01/31/17 08:28 97.7 73 18 148/85 95 Room Air 01/31/17 08:00 81 01/31/17 07:31 Room Air 01/31/17 07:31 96 Room Air 01/31/17 07:31 78 20 Room Air 01/31/17 05:39 58 144/78 01/31/17 04:00 98.0 71 20 132/85 94 Room Air 01/31/17 04:00 70 01/31/17 00:10 70 143/87 01/31/17 00:00 65 01/31/17 00:00 97.7 70 21 143/87 96 Room Air Intake and Output 01/30/17 01/31/17 19:00 07:00 Intake Total 580 ml 1300 ml Output Total 950 ml Balance -370 ml 1300 ml Intake Oral 480 ml IV Total 100 ml 1300 ml Output Urine Total 950 ml # Voids 1 Height (Feet): 5 Height (Inches): 7.00 Weight (Pounds): 214 Objective WDWN NCAT supple CTA RRR Soft NT ND no edema non focal JEANNETTE JONES Jan 31, 2017 21:52
[2017-01-31] MEDS ORDERED: D5 1/2NS 1000ml IV ONE (23:06)
[2017-01-31] MEDS ORDERED: Sterile Water Irrig 1000ml IRRIG ONE (23:06)
--- NOTE | 2017-02-01 15:04 | Cardiology Report ---
APPROVED REPORT EKG Measurement Heart [id number] [id number] [id number] Atrial flutter with 4:1 AV conduction Right bundle branch block Left anterior fascicular block Bifascicular block Moderate voltage criteria for LVH, may be normal variant Cannot rule out Septal infarct, age undetermined Abnormal ECG
--- NOTE | 2017-02-02 11:13 | Discharge Summary ---
Discharge Summary Hospital Course Date of Admission Jan 20, 2017 at 12:47 Date of Discharge Jan 31, 2017 at 23:07 Admitting Diagnosis bifasicular block HPI Leland Martin is a 61 year old male who was admitted on Jan 20, 2017 at 12:47 for Bifasicular Block Hospital Course [id number] Discharge Discharge Disposition Patient was discharged to [facility] Discharge Diagnoses: Cindy Cronin NP Feb 02, 2017 11:13
--- NOTE | 2017-02-02 23:01 | Discharge Summary 2 SIG ---
DATE OF ADMISSION: 01/20/2017 DATE OF DISCHARGE: 01/31/2017 CONSULTANTS: 1. Kiersten Bosch M.D. 2. Pete Perez M.D. 3. Roney Alvarado M.D. 4. Amauri Lucas M.D. BRIEF HOSPITAL COURSE: The patient is a 61-year-old male, who was brought in by EMS due to lightheadedness and states that he passed out. EMS reported that he was on the ground. There was no evidence of actual loss of consciousness. He has a history of COPD and tobacco use and has been out of his inhalers for some time. He has not refilled his medications. On evaluation at ED, EKG showed atrial flutter with bifascicular block. He was given IV fluids and breathing treatments. Chest x-ray showed no consolidation, no effusion, no pneumothorax, but with cardiomegaly. He was admitted to telemetry for syncope, hypotension and heart block with atrial flutter. He was given nebulizer treatments and IV hydration and was started on aspirin. Beta-blockers was placed on hold. He was followed by Dr. Bosch. The patient denied any history of previous arrhythmia. Echocardiogram was done showed an ejection fraction of 50%. No evidence of pericardial effusion, left atrial enlargement, moderate tricuspid regurgitation, and PA pressure of 48. He was started on diltiazem and was started on Lovenox. YOLANDE score is 2. He also complained of right upper quadrant pain. Abdominal x-ray showed a nonobstructive and nonspecific bowel gas pattern. Abdominal ultrasound showed hepatosplenomegaly with gallbladder wall thickening and edema with negative sonographic Jon sign. Hepatitis panel was negative. Urine toxicology was negative. Tumor markers AFP, CEA and CA-19-9 were negative. Surgical evaluation was done to evaluate gallbladder dysfunction as the total bilirubin was elevated to 1.4. The patient had atypical presentation for cholecystitis. LFTs were elevated. He underwent a HIDA scan, which showed a low normal gallbladder ejection fraction with a patent cystic duct with no evidence of acute cholecystitis with patent common bile duct. There was no need for acute surgical intervention and laboratories were improving. He was tolerating diet. Lovenox was eventually changed to Xarelto and was given digoxin and amiodarone. He completed antibiotic course with ciprofloxacin. He was scheduled to undergo EP study and ablation. Xarelto was discontinued and was switched back to Lovenox. The patient was unable to take beta blockers due to COPD and bronchospasm and is not a good candidate for prolonged amiodarone use due to potential for pulmonary toxicity, which is increased especially in patients with COPD. He was eventually transferred to [facility] for electrophysiology study and ablation. FINAL DIAGNOSES: 1. New onset atrial flutter with bifascicular block. 2. Syncopal episode secondary to arrhythmia. 3. Hypertension. 4. Diabetes. 5. Chronic obstructive pulmonary disease. 6. Tachybrady syndrome. 7. Gallbladder thickening with negative hepatobiliary iminodiacetic acid scan. 8. Urinary tract infection. 9. Anxiety disorder. 10. Mild anemia. 11. Diabetes. 12. Hypertension. Tiburcio Ketih M.D. I have been assigned to dictate discharge summary on this account and I was not involved in the patient's management. Cindy Cronin N.P. DR: HENNA JOB#: [id number] CC:
== END 2017-01-31 23:07 | disposition short-term general hospital (02) | DRG 309 ==
LOC: EDBD 10:27 → EMR 12:20 → 2E 12:47 → EDBEDREQ 13:35 → 2E 19:06
DX: I45.2 Bifascicular block (principal); J44.1 Chronic obstructive pulmonary disease with (acute) exacerbation; I10 Essential (primary) hypertension; N39.0 Urinary tract infection, site not specified; E11.9 Type 2 diabetes mellitus without complications; D64.9 Anemia, unspecified; I48.92 Unspecified atrial flutter; K82.9 Disease of gallbladder, unspecified; R55 Syncope and collapse; F41.9 Anxiety disorder, unspecified; F17.200 Nicotine dependence, unspecified, uncomplicated; F20.9 Schizophrenia, unspecified; I08.1 Rheumatic disorders of both mitral and tricuspid valves; I49.5 Sick sinus syndrome; R10.11 Right upper quadrant pain
CPT/HCPCS: 36415; 71010; 74000; 76700; 78266; 80048; 80053; 80300; 81003; 82105; 82150; 82248; 82270; 82378; 82550; 82553; 82962; 83690; 83880; 84484; 85025; 85610; 85730; 86301; 86705; 86709; 86803; 87086; 87181; 87340; 93005; 93306; 94640; 94664; 94760; J1815

== ENCOUNTER 2017-02-26 00:15 | Emergency (ER) | payer MEDICARE, MEDICAID ==
[~2017-02-26] VITALS: Ht 172.7 cm; Wt 92.5 kg
[~2017-02-26 00:15] MED LIST: ATENOLOL50 MG ORAL; FLONASE ALLERG9.9 ML NS; METFORMIN HCL500 M1 ORAL; TENORMIN100 MG ORAL; TRIHEXYPHENIDYL2 MG ORAL
[2017-02-26 00:16] VITALS: BP 152/88
[2017-02-26] MEDS ORDERED: ATENOLOL50 MG ORAL (00:43)
--- NOTE | 2017-02-26 00:43 | Emergency Room Report ---
History of Present Illness General Chief Complaint: Medication Refill Source: Patient, Medical Record, EMS Present Illness HPI This is a 61-year-old male who has a psychiatric history as well as history of hypertension. He was any because of agitation. He was agitated because he ran out of his atenolol. He is calm now. No fever chills but no suicidal thoughts or homicidal thought. No other complaint. Allergies: Coded Allergies: No Known Allergies (Unverified , 01/20/17) Patient History Past Medical History: see triage record, old chart reviewed, HTN, psych hx Past Surgical History: other Pertinent Family History: none Social History: Reports: smoking Immunizations: other Reviewed Nursing Documentation: PMH: Agreed, PSxH: Agreed Nursing Documentation-PMH Hx Cardiac Problems: Yes Hx Hypertension: Yes Hx COPD: Yes Hx Diabetes: Yes Hx Cancer: No Hx Gastrointestinal Problems: No Hx Neurological Problems: No Review of Systems Eye: Denies: blurred vision, eye pain ENT: Denies: ear pain, nose congestion, throat swelling Respiratory: Denies: cough, shortness of breath Cardiovascular: Denies: chest pain, palpitations Gastrointestinal: Denies: abdominal pain, diarrhea, nausea, vomiting Musculoskeletal: Denies: back pain, joint pain Skin: Denies: rash Neurological: Denies: headache, numbness Endocrine: Denies: increased thirst, increased urine Hematologic/Lymphatic: Denies: easy bruising All Other Systems: negative except mentioned in HPI Physical Exam Vital Signs Date Time Temp Pulse Resp B/P Pulse Ox O2 Delivery O2 Flow Rate FiO2 02/26/17 00:06 98.2 66 18 152/88 94 Room Air vitals with hypertension Sp02 EP Interpretation: reviewed, normal General Appearance: well appearing, no apparent distress, alert Head: normocephalic, atraumatic Eyes: bilateral eye EOMI, bilateral eye PERRL ENT: hearing grossly normal, normal pharynx Neck: full range of motion, supple, no meningismus Respiratory: chest non-tender, lungs clear, normal breath sounds Cardiovascular #1: regular rate, rhythm, no murmur Gastrointestinal: normal bowel sounds, non tender, no mass, no organomegaly, no bruit, non-distended Musculoskeletal: back normal, gait/station normal, normal range of motion Psychiatric: mood/affect normal Skin: warm/dry Medical Decision Making Diagnostic Impression: Primary Impression: Encounter for medication refill Additional Impression: Hypertension Qualified Codes: I10 - Essential (primary) hypertension ER Course Patient with agitation secondary to hypertension and been out of his medication. No evidence of end organ damage. No evidence of suicidal thoughts or homicidal thought. [facility]. Last Vital Signs Date Time Temp Pulse Resp B/P Pulse Ox O2 Delivery O2 Flow Rate FiO2 02/26/17 00:34 64 144/75 02/26/17 00:16 98.2 18 94 Room Air Status: improved Disposition: HOME, SELF-CARE Condition: Stable Scripts Atenolol* (TENORMIN*) 50 Mg Tablet 50 MG ORAL BID, #60 TAB Prov: IRENE ROSARIO M.D. 02/26/17 Additional Instructions: Followup with your DrJerrell in 7 days as needed. Return if symptom worsen. IRENE ROSARIO M.D. Feb 26, 2017 00:43
[2017-02-26 01:50] VITALS: BP 144/75
== END 2017-02-26 02:30 | disposition home or self-care (01) ==
LOC: EDBD 00:15 → EMR 02:29
DX: I10 Essential (primary) hypertension (principal); Z76.0 Encounter for issue of repeat prescription; E11.9 Type 2 diabetes mellitus without complications; J44.9 Chronic obstructive pulmonary disease, unspecified; F17.200 Nicotine dependence, unspecified, uncomplicated
CPT/HCPCS: 99283

== ENCOUNTER 2017-04-25 09:17 | Outpatient (CLI) | payer MEDICARE, MEDICAID | END 2017-04-25 11:17 | disposition home or self-care (01) | LOC: VAS 09:17 | DX: R20.0 Anesthesia of skin (principal); Z87.891 Personal history of nicotine dependence | CPT/HCPCS: 93922 ==

== ENCOUNTER 2017-11-19 17:41 | Inpatient (IN) | payer MEDICARE, MEDICAID ==
[~2017-11-19] VITALS: Ht 167.6 cm; Wt 84.5 kg
[2017-11-19 17:45] VITALS: BP 147/84
[2017-11-19] MEDS ORDERED: HALOPERIDOL10 MG ORAL (17:46)
[2017-11-19] MEDS ORDERED: AMLODIPINE BESYL5 MG ORAL (17:46)
[2017-11-19] MEDS ORDERED: TRIHEXYPHENIDYL2 MG ORAL (17:46)
[2017-11-19] MEDS ORDERED: METOPROLOL TART50 M1 ORAL (17:46)
[2017-11-19] MEDS ORDERED: ATORVASTATIN CA20 MG ORAL (17:46)
[2017-11-19] MEDS ORDERED: METFORMIN HCL500 M1 ORAL (17:46)
[2017-11-19] MEDS ORDERED: Albuterol ud Inhalation HHN ONE (18:00)
[2017-11-19] MEDS ORDERED: Solu-MEDROL 125mg Inj IVP ONE (18:00)
[2017-11-19 18:20] LABS: BASOPHILS % (AUTO) 1.1 % (0.0-2.0); EOSINOPHILS % (AUTO) 0.8 % (0.0-3.0); HEMATOCRIT 53.9 % (42.0-52.0); LYMPHOCYTES % (AUTO) 20.6 % (20.0-45.0); MEAN CORPUSCULAR VOLUME 89 FL (80-99); NEUTROPHILS % (AUTO) 70.5 % (45.0-75.0); PLATELET COUNT 159 K/UL (150-450); RED BLOOD COUNT 6.08 M/UL (4.70-6.10); RED CELL DISTRIBUTION WIDTH 14.1 % (11.6-14.8)
[2017-11-19 18:28] LABS: HEMOGLOBIN 19.9 G/DL (14.2-18.0)
[2017-11-19 18:31] LABS: INR 1.1 (0.9-1.1)
[2017-11-19 18:39] LABS: ANION GAP 8 mmol/L (5-15); BLOOD UREA NITROGEN 22 mg/dL (7-18); CALCIUM 9.3 MG/DL (8.5-10.1); CARBON DIOXIDE 29 MMOL/L (21-32); CHLORIDE 102 MMOL/L (98-107); CREATININE 0.8 MG/DL (0.55-1.30); SODIUM 139 MMOL/L (136-145)
[2017-11-19 18:49] LABS: ALANINE AMINOTRANSFERASE 28 U/L (12-78); ALBUMIN 3.7 G/DL (3.4-5.0); ALBUMIN/GLOBULIN RATIO 1.2 (1.0-2.7); ALKALINE PHOSPHATASE 90 U/L (46-116); ASPARTATE AMINO TRANSFERASE 17 U/L (15-37); BILIRUBIN,TOTAL 1.2 MG/DL (0.2-1.0); CREATINE KINASE 37 U/L (26-308)
[2017-11-19 18:54] LABS: BILIRUBIN,DIRECT 0.3 MG/DL (0.0-0.3)
[2017-11-19] MEDS ORDERED: Albuterol/Ipratropium 3ml neb HHN ONE (19:00)
[2017-11-19 19:23] VITALS: BP 150/79
[2017-11-19 20:41] VITALS: BP 152/76
--- NOTE | 2017-11-19 20:58 | Emergency Room Report ---
History of Present Illness General Chief Complaint: Dyspnea/Respdistress Source: Patient Present Illness HPI Patient is a 62-year-old male brought in by EMS after increased difficulty breathing. Patient had prior history of COPD. He was noted to have prior cardiac ablation for atrial fibrillation. The patient had reportedly been a smoker and had been noted have increased difficulty breathing. Patient had increased tightness in his chest. He reports having no prior history of myocardial infarction. Patient was followed by Dr. Kiersten Ramirez for cardiology. His primary care physician is Dr. Nahed Aguilar. The patient was having increased cough. Denies any fever Allergies: Coded Allergies: No Known Allergies (Unverified , 01/20/17) Patient History Reviewed Nursing Documentation: PMH: Agreed; PSxH: Agreed Nursing Documentation-PMH Hx Cardiac Problems: Yes Hx Hypertension: Yes Hx COPD: Yes Hx Diabetes: Yes Hx Cancer: No Hx Gastrointestinal Problems: No History Of Psychiatric Problem: Yes - Schizophrenia Hx Neurological Problems: No Review of Systems All Other Systems: negative except mentioned in HPI Physical Exam Vital Signs Date Time Temp Pulse Resp B/P (MAP) Pulse Ox O2 Delivery O2 Flow Rate FiO2 11/19/17 17:37 98.0 76 22 142/80 98 Room Air 98.1 11/19/17 18:03 21 11/19/17 20:41 2.0 Sp02 EP Interpretation: reviewed, normal General Appearance: normal inspection, well appearing, no apparent distress, alert, GCS 15, Chronically Ill Head: atraumatic ENT: normal ENT inspection, hearing grossly normal, normal voice Neck: normal inspection, full range of motion, supple, no bony tend Respiratory: normal inspection, no respiratory distress, no retraction, accessory muscle use, wheezing, expiration Cardiovascular #1: regular rate, rhythm, no edema Gastrointestinal: normal inspection, normal bowel sounds, non tender, soft, no guarding, no hernia Genitourinary: no CVA tenderness Musculoskeletal: normal inspection, back normal, normal range of motion Neurologic: normal inspection, alert, oriented x3, responsive, speech normal Psychiatric: normal inspection, judgement/insight normal, mood/affect normal Skin: normal inspection, normal color, no rash Medical Decision Making Diagnostic Impression: Primary Impression: COPD exacerbation Additional Impressions: CHF (congestive heart failure) Bifascicular block ER Course Patient presented for shortness of breath. Differential included but was not limited to anemia, pneumonia, pneumothorax, myocardial infarction, pericardial effusion, congestive heart failure, acidosis. Because of complexity of patient' s case laboratory testing and imaging studies were ordered. The EKG interpreted by me showed bifascicular block with a rate of [address] or T wave changes. Patient was given IV steroids as well as breathing treatments with some improvement. A chest x-ray one view interpreted by me showed bilateral lung bronchial thickening as well as have minimal cardiac enlargement. The patient was given IV Lasix. Dr. Juana Méndez was contacted for inpatient management due to covering physician for Dr. Nahed Aguilar. Labs Test 11/19/17 18:06 11/19/17 18:47 White Blood Count 9.0 K/UL (4.8-10.8) Red Blood Count 6.08 M/UL (4.70-6.10) Hemoglobin 19.9 G/DL (14.2-18.0) Hematocrit 53.9 % (42.0-52.0) Mean Corpuscular Volume 89 FL (80-99) Mean Corpuscular Hemoglobin 32.7 PG (27.0-31.0) Mean Corpuscular Hemoglobin Concent 36.9 G/DL (32.0-36.0) Red Cell Distribution Width 14.1 % (11.6-14.8) Platelet Count 159 K/UL (150-450) Mean Platelet Volume 7.6 FL (6.5-10.1) Neutrophils (%) (Auto) 70.5 % (45.0-75.0) Lymphocytes (%) (Auto) 20.6 % (20.0-45.0) Monocytes (%) (Auto) 7.0 % (1.0-10.0) Eosinophils (%) (Auto) 0.8 % (0.0-3.0) Basophils (%) (Auto) 1.1 % (0.0-2.0) Prothrombin Time 11.2 SEC (9.30-11.50) Prothromb Time International Ratio 1.1 (0.9-1.1) Activated Partial Thromboplast Time 27 SEC (23-33) Sodium Level 139 MMOL/L (136-145) Potassium Level 4.0 MMOL/L (3.5-5.1) Chloride Level 102 MMOL/L (98-107) Carbon Dioxide Level 29 MMOL/L (21-32) Anion Gap 8 mmol/L (5-15) Blood Urea Nitrogen 22 mg/dL (7-18) Creatinine 0.8 MG/DL (0.55-1.30) Estimat Glomerular Filtration Rate > 60 mL/min (>60) Glucose Level 117 MG/DL (74-106) Calcium Level 9.3 MG/DL (8.5-10.1) Total Bilirubin 1.2 MG/DL (0.2-1.0) Direct Bilirubin 0.3 MG/DL (0.0-0.3) Aspartate Amino Transf (AST/SGOT) 17 U/L (15-37) Alanine Aminotransferase (ALT/SGPT) 28 U/L (12-78) Alkaline Phosphatase 90 U/L (46-116) Total Creatine Kinase 37 U/L (26-308) Creatine Kinase MB 2.0 NG/ML (0.0-3.6) Creatine Kinase MB Relative Index 5.4 Troponin I 0.040 ng/mL (0.000-0.056) Pro-B-Type Natriuretic Peptide 1312 pg/mL (0-125) Total Protein 6.8 G/DL (6.4-8.2) Albumin 3.7 G/DL (3.4-5.0) Globulin 3.1 g/dL Albumin/Globulin Ratio 1.2 (1.0-2.7) Lipase 99 U/L (73-393) Urine Opiates Screen Negative (NEGATIVE) Urine Barbiturates Screen Negative (NEGATIVE) Phencyclidine (PCP) Screen Negative (NEGATIVE) Urine Amphetamines Screen Negative (NEGATIVE) Urine Benzodiazepines Screen Negative (NEGATIVE) Urine Cocaine Screen Negative (NEGATIVE) Urine Marijuana (THC) Screen Negative (NEGATIVE) EKG Diagnostic Results Rate: normal Rhythm: NSR ST Segments: no acute changes Rhythm Strip Diag. Results EP Interpretation: yes Rhythm: NSR, no PVC's, no ectopy Last Vital Signs Date Time Temp Pulse Resp B/P (MAP) Pulse Ox O2 Delivery O2 Flow Rate FiO2 11/19/17 20:41 98.4 89 20 152/76 93 Nasal Cannula 2.0 24 98.4 Status: improved Disposition: ADMITTED INPATIENT Condition: Serious Referrals: NOT CHOSEN IPA/,REFERRING (PCP) Lex Snell Nov 19, 2017 20:58
[2017-11-19 21:30] VITALS: BP 141/72
[2017-11-20] VITALS: BP 146/77
[2017-11-20 04:00] VITALS: BP 142/78
[2017-11-20 07:31] LABS: ANION GAP 8 mmol/L (5-15); BLOOD UREA NITROGEN 28 mg/dL (7-18); CALCIUM 9.3 MG/DL (8.5-10.1); CARBON DIOXIDE 28 MMOL/L (21-32); CHLORIDE 99 MMOL/L (98-107); SODIUM 134 MMOL/L (136-145)
[2017-11-20 08:00] VITALS: BP 143/83
--- NOTE | 2017-11-20 08:58 | Diagnostic Imaging Report ---
Indication: Shortness of breath Technique: One view of the chest Comparison: 01/20/2017 Findings: Inspiration is suboptimal. Lungs and pleural spaces are grossly clear. The heart size is normal. Findings are unchanged Impression: No acute process
[2017-11-20] MEDS: Lisinopril 10mg tab ORAL SCH (09:41)
[2017-11-20] MEDS: Aspirin Baby 81mg ORAL SCH (09:42)
[2017-11-20] MEDS: Docusate 100mg cap ORAL SCH ×3 (09:43→21:34)
[2017-11-20] MEDS: Heparin 5000 units/ml inj SUBQ SCH ×2 (09:52→21:37)
[2017-11-20] MEDS: Trihexyphenidyl 2mg tab ORAL SCH ×2 (10:19→17:08)
[2017-11-20 12:00] VITALS: BP 148/82
--- NOTE | 2017-11-20 12:15 | History and Physical Report ---
DATE OF ADMISSION: 11/19/2017 CHIEF COMPLAINT: Shortness of breath. HISTORY OF PRESENT ILLNESS: This is a 62-year-old male from [facility] brought in by paramedics for gradually increasing shortness of breath. The patient is a very poor historian due to his psychiatric issues. PAST MEDICAL HISTORY: 1. COPD. 2. Status post the cardiac ablation by Dr. Bosch. 3. Congestive heart failure. 4. History of bifascicular block. MEDICATIONS: Amlodipine, atorvastatin, Haldol, metformin, and metoprolol. ALLERGIES: No known drug allergies. FAMILY HISTORY: Unremarkable. SOCIAL HISTORY: He lives in a psychiatric board and [facility]. HABITS: He is a heavy cigarette smoker. REVIEW OF SYSTEMS: HEENT: Hearing and eyesight are normal. ENDOCRINE: Significant for mild type 2 diabetes mellitus. RESPIRATORY: Significant for gradual increasing shortness of breath. CARDIOVASCULAR: He denies chest pain or palpitations. GASTROINTESTINAL: No history of hematochezia, melena, hematemesis, diarrhea, or constipation. GENITOURINARY: He denies dysuria, frequency, urgency, or hematuria. NEUROLOGIC: No history of stroke, syncope, or Parkinson disease. PHYSICAL EXAMINATION: GENERAL: This is an elderly male, who is in no acute distress. VITAL SIGNS: Blood pressure 142/78, pulse 81 and regular, respirations 20, and temperature 96.9. HEENT: The head is normocephalic and atraumatic. Pupils are equal, round, and reactive to light and accommodation consensually. NECK: Supple. Trachea midline. There was no lymphadenopathy or thyromegaly. LUNGS: Clear to auscultation and percussion. HEART: Regular rate and rhythm without rubs, murmurs, or gallops. ABDOMEN: Soft and nontender. Bowel sounds were active. EXTREMITIES: No clubbing, cyanosis, or edema. NEUROLOGIC: He is alert and oriented x4. Cranial nerves II through XII intact. LABORATORY AND ANCILLARY DATA: EKG shows normal sinus rhythm with premature supraventricular complexes, right bundle-branch block, left anterior fascicular block, namely bifascicular block. Left ventricular hypertrophy. Chest x-ray demonstrated bronchial thickening, minimal cardiac enlargement. ASSESSMENT: 1. COPD. 2. Likely CHF. 3. Status post the cardiac ablation by Dr. Bosch. 4. History of bifascicular block. PLAN: 1. Admit to telemetry. 2. Cardiology consult by Dr. Bosch. 3. Bronchodilators. 4. Check 2D echo. Juana Henson M.D. DR: NADIA JOB#: [id number] CC:
[2017-11-20 16:00] VITALS: BP 133/96
[2017-11-20 20:00] VITALS: BP 136/80
--- NOTE | 2017-11-20 21:02 | Cardiology Report ---
APPROVED REPORT EXAM: Two-dimensional and M-mode echocardiogram with Doppler and color Doppler. INDICATION Congestive Heart Failure M-Mode DIMENSIONS IVSd2.3 (0.7-1.1cm)Left Atrium (MM)3.5 (1.6-4.0cm) LVDd4.5 (3.5-5.6cm)Aortic Root3.4 (2.0-3.7cm) PWd2.0 (0.7-1.1cm)Aortic Cusp Exc.2.1 (1.5-2.0cm) IVSs2.4 cm LVDs2.7 (2.5-4.0cm) PWs2.3 cm Technically difficult study due to pts moving . Normal left ventricular chamber size, systolic function and wall motion. Left ventricular ejection fraction estimated to be 65-70 %. Moderate left ventricular hypertrophy by 2-D. No evidence of pericardial effusion. All other cardiac chamber sizes are within normal limits. Focal aortic valve sclerosis with adequate cusp excursion. Moderately Thickened mitral valve leaflets with normal excursion. Moderately Mitral annulus and aortic root calcification. Normal pulmonic valve structure. Normal tricuspid valve structure. IVC at size 2.1 cm with physiologic collapse. A color flow and spectral Doppler study was performed and revealed: No aortic regurgitation. Trace mitral regurgitation. Mitral diastolic velocities suggest reduced left ventricular relaxation c/w mild LV diastolic dysfunction (Grade I ). Trace tricuspid regurgitation. Tricuspid systolic velocities suggests peak right ventricular systolic pressure of 17 mmHg,
--- NOTE | 2017-11-20 21:22 | Cardiology Report ---
APPROVED REPORT EKG Measurement Heart [id number] Sinus rhythm with premature supraventricular complexes Right bundle branch block Left anterior fascicular block Bifascicular block Left ventricular hypertrophy with repolarization abnormality Abnormal ECG
[2017-11-21] VITALS: BP 132/82
--- NOTE | 2017-11-21 00:12 | Consultation ---
History of Present Illness General Date patient seen: Nov 20, 2017 Chief Complaint: Dyspnea/Respdistress Present Illness Allergies: Coded Allergies: No Known Allergies (Unverified , 01/20/17) Medication History Scheduled Amlodipine Besylate* (Amlodipine Besylate*), 5 MG ORAL DAILY, (Reported) Atorvastatin Calcium* (Atorvastatin Calcium*), 20 MG ORAL DAILY, (Reported) Haloperidol (Haloperidol), 10 MG ORAL BID, (Reported) Metformin Hcl* (Metformin Hcl*), 500 MG ORAL TWICE A DAY, (Reported) Metoprolol Tartrate* (Metoprolol Tartrate*), 50 MG ORAL EVERY 12 HOURS, ( Reported) Trihexyphenidyl Hcl* (Artane*), 2 MG ORAL TWICE A DAY, (Reported) Discontinued Medications Atenolol* (Tenormin*), 50 MG ORAL BID Discontinued Reason: Pt stopped taking med Fluticasone Propionate (Flonase Allergy Relief), Unknown Dose NS, (Reported) Discontinued Reason: Pt stopped taking med Patient History Healthcare decision maker Resuscitation status Full Code Advanced Directive on File Physical Exam Last 24 Hour Vital Signs Date Time Temp Pulse Resp B/P (MAP) Pulse Ox O2 Delivery O2 Flow Rate FiO2 11/20/17 20:00 97.9 86 24 136/80 92 Room Air 97.9 81 11/20/17 19:57 82 22 Room Air 21 11/20/17 16:00 82 11/20/17 16:00 98.0 86 19 133/96 95 Nasal Cannula 2.0 98.0 11/20/17 12:00 97.7 93 18 148/82 96 Nasal Cannula 2.0 97.7 11/20/17 12:00 96 11/20/17 09:41 143/83 11/20/17 08:00 97.7 95 18 143/83 95 Nasal Cannula 2.0 97.7 11/20/17 08:00 92 11/20/17 07:20 88 22 Room Air 21 11/20/17 04:00 75 11/20/17 04:00 96.9 81 20 142/78 96 Nasal Cannula 2.0 96.9 Intake and Output 11/20/17 11/21/17 19:00 07:00 Intake Total 468 ml Balance 468 ml Intake Oral 468 ml # Voids 1 # Bowel Movements 1 Laboratory Tests Test 11/20/17 06:50 Sodium Level 134 MMOL/L (136-145) L Potassium Level 4.0 MMOL/L (3.5-5.1) Chloride Level 99 MMOL/L (98-107) Carbon Dioxide Level 28 MMOL/L (21-32) Anion Gap 8 mmol/L (5-15) Blood Urea Nitrogen 28 mg/dL (7-18) H Creatinine 1.0 MG/DL (0.55-1.30) Estimat Glomerular Filtration Rate > 60 mL/min (>60) Glucose Level 236 MG/DL (74-106) #H Calcium Level 9.3 MG/DL (8.5-10.1) Magnesium Level 2.0 MG/DL (1.8-2.4) Height (Feet): 5 Height (Inches): 6.00 Weight (Pounds): 180 Medications Current Medications Medications (Trade) Dose Ordered Sig/Jean Route PRN Reason Start Time Stop Time Status Last Admin Dose Admin Acetaminophen (Tylenol) 650 mg Q4H PRN ORAL Mild Pain (Pain Scale 1-3) 11/19/17 23:45 12/19/17 23:44 Albuterol/ Ipratropium (Albuterol/ Ipratropium) 3 ml EVERY 6 HOURS PRN HHN Shortness of Breath 11/19/17 23:45 11/24/17 23:44 Aspirin (ASA) 81 mg DAILY ORAL 11/20/17 09:00 12/20/17 08:59 11/20/17 09:42 Dextrose (Dextrose 50%) 25 ml STAT PRN IV Hypoglycemia 11/19/17 23:45 12/19/17 23:44 Dextrose (Dextrose 50%) 50 ml STAT PRN IV Hypoglycemia 11/19/17 23:45 12/19/17 23:44 Docusate Sodium (Colace) 100 mg EVERY 12 HOURS ORAL 11/20/17 09:00 12/20/17 08:59 11/20/17 21:34 Furosemide (Lasix) 20 mg EVERY 12 HOURS IV 11/20/17 09:00 12/20/17 08:59 11/20/17 21:34 Haloperidol (Haldol) 10 mg BID ORAL 11/20/17 09:45 12/20/17 09:44 11/20/17 17:08 Heparin Sodium (Porcine) (Heparin 5000 units/ml) 5,000 units EVERY 12 HOURS SUBQ 11/20/17 09:00 12/20/17 08:59 11/20/17 21:37 Lisinopril (Zestril) 10 mg DAILY ORAL 11/20/17 09:00 12/20/17 08:59 11/20/17 09:41 Nicotine (Nicoderm) 1 patch Q24H TDERMAL 11/20/17 08:15 12/20/17 08:14 11/20/17 09:41 Ondansetron HCl (Zofran) 4 mg Q6H PRN IVP Nausea & Vomiting 11/19/17 23:45 12/19/17 23:44 Pantoprazole (Protonix) 40 mg DAILY ORAL 11/20/17 09:00 12/20/17 08:59 11/20/17 09:41 Trihexyphenidyl HCl (Artane) 1 mg BID ORAL 11/20/17 10:00 12/20/17 09:59 11/20/17 17:08 Amauri Lucas M.D. Nov 21, 2017 00:12
[2017-11-21 04:00] VITALS: BP 136/94
[2017-11-21 08:00] VITALS: BP 141/81
[2017-11-21] MEDS: Docusate 100mg cap ORAL SCH ×2 (08:27→21:36)
[2017-11-21] MEDS: Lisinopril 10mg tab ORAL SCH (08:28)
[2017-11-21] MEDS: Aspirin Baby 81mg ORAL SCH (08:28)
[2017-11-21] MEDS: Trihexyphenidyl 2mg tab ORAL SCH ×2 (08:28→17:22)
[2017-11-21] MEDS: Heparin 5000 units/ml inj SUBQ SCH ×2 (08:30→21:39)
[2017-11-21 12:06] VITALS: BP 123/77
[2017-11-21 16:00] VITALS: BP 139/73
--- NOTE | 2017-11-21 16:16 | General Progress Note ---
Assessment/Plan Assessment/Plan Awaiting Card Eval Subjective Allergies: Coded Allergies: No Known Allergies (Unverified , 01/20/17) Subjective Still SOB. Objective Last 24 Hour Vital Signs Date Time Temp Pulse Resp B/P (MAP) Pulse Ox O2 Delivery O2 Flow Rate FiO2 11/21/17 12:06 97.7 81 20 123/77 95 Nasal Cannula 2.0 97.7 11/21/17 12:00 82 11/21/17 08:28 141/81 11/21/17 08:00 86 11/21/17 08:00 97.2 85 20 141/81 95 Nasal Cannula 2.0 97.2 11/21/17 07:20 81 22 Room Air 21 11/21/17 04:00 97.7 77 28 136/94 93 Nasal Cannula 2.0 97.7 11/21/17 04:00 76 11/21/17 00:00 98.2 78 18 132/82 90 Nasal Cannula 2.0 98.2 11/20/17 23:42 84 11/20/17 20:17 83 11/20/17 20:00 97.9 86 24 136/80 92 Room Air 97.9 81 11/20/17 19:57 82 22 Room Air 21 Intake and Output 11/20/17 11/21/17 19:00 07:00 Intake Total 468 ml 400 ml Output Total 1625 ml Balance 468 ml -1225 ml Intake Oral 468 ml 400 ml Output Urine Total 1625 ml # Voids 1 # Bowel Movements 1 Height (Feet): 5 Height (Inches): 6.00 Weight (Pounds): 180 Objective Cv RR Lungs CTA Abd SNT. BS + E No CCE Juana Henson MD Nov 21, 2017 16:16
--- NOTE | 2017-11-21 18:21 | Cardiology Progress Note ---
Subjective Subjective [id number] Objective Last 24 Hour Vital Signs Date Time Temp Pulse Resp B/P (MAP) Pulse Ox O2 Delivery O2 Flow Rate FiO2 11/21/17 16:00 74 11/21/17 16:00 97.9 76 18 139/73 95 Nasal Cannula 2.0 97.9 11/21/17 12:06 97.7 81 20 123/77 95 Nasal Cannula 2.0 97.7 11/21/17 12:00 82 11/21/17 08:28 141/81 11/21/17 08:00 86 11/21/17 08:00 97.2 85 20 141/81 95 Nasal Cannula 2.0 97.2 11/21/17 07:20 81 22 Room Air 21 11/21/17 04:00 97.7 77 28 136/94 93 Nasal Cannula 2.0 97.7 11/21/17 04:00 76 11/21/17 00:00 98.2 78 18 132/82 90 Nasal Cannula 2.0 98.2 11/20/17 23:42 84 11/20/17 20:17 83 11/20/17 20:00 97.9 86 24 136/80 92 Room Air 97.9 81 11/20/17 19:57 82 22 Room Air 21 Intake and Output 11/20/17 11/21/17 19:00 07:00 Intake Total 468 ml 400 ml Output Total 1625 ml Balance 468 ml -1225 ml Intake Oral 468 ml 400 ml Output Urine Total 1625 ml # Voids 1 # Bowel Movements 1 Microbiology Date/Time Source Procedure Growth Status 11/19/17 19:20 Nasal Nares MRSA Culture - Final NO METHICILLIN RESISTANT STAPH AUREUS... Complete 11/19/17 19:20 Rectum VRE Culture - Final NO VANCOMYCIN RESISTANT ENTEROCOCCUS ... Complete Annemarie Espinoza MD Nov 21, 2017 18:21
--- NOTE | 2017-11-21 19:15 | Consultation ---
DATE OF CONSULTATION: 11/21/2017 CARDIOLOGY CONSULTATION CONSULTING PHYSICIAN: Annemarie Espinoza M.D. IDENTIFICATION: The patient is a 62-year-old male. REASON FOR EVALUATION: Shortness of breath. HISTORY OF PRESENT ILLNESS: The patient is a 62-year-old gentleman who reports that he has shortness of breath which was getting progressively worse to the point that he can walk only couple of meters. Usually he walks more. He walks slowly but he walks an hour a day. The patient is a heavy smoker. He denies any fever, chills. He denies any chest pain at present time. PAST MEDICAL HISTORY: Significant for schizophrenia, diabetes, hypertension, COPD, paroxysmal atrial fibrillation, in the past he was ablated for that. MEDICATIONS: Home medications were all reviewed and at home he was taking the following medications, amlodipine, atorvastatin, haloperidol, metformin, metoprolol, trihexyphenidyl. ALLERGIES: There are no documented allergies. HABITS: There is no alcohol or drug abuse but he smokes one pack a day although he tried to quit recently. REVIEW OF SYSTEMS: There is no history of heart attack or heart failure. The patient's blood pressure usually controlled with medication. He denies any history of stroke. He walks slowly. He does not have any orthopnea. He has shortness of breath with wheezing and some sputum production. PHYSICAL EXAMINATION: GENERAL: The patient's skin is red. VITAL SIGNS: Blood pressure 140/80, heart rate 80, temperature is normal, oxygen saturation on three liters 95%. HEENT: PERRLA. EOMI. NECK: Neck veins are not distended. Brisk carotid upstroke but there is no bruit. LUNGS: There is a lot of wheezing on prolonged expiration. HEART: Regular. Distant S1. Accentuated A2. Postsurgical scar in the left shoulder. ABDOMEN: Soft and nontender. Bowel sounds are present. There is postsurgical scar suprapubical according to the patient due to appendectomy. Bowel sounds are present. No masses palpable. No rebound. No guarding. EXTREMITIES: Lower extremities, no edema. Distal pulses palpable. NEUROLOGICAL: Appears to be intact. PSYCHIATRICALLY: The patient has schizophrenia however he denies any suicidal ideation. LABORATORY AND DIAGNOSTIC DATA: ECG shows sinus rhythm with LVH, left anterior hemiblock and right bundle-branch block so it is bifascicular block without any acute ST or T changes. Chest x-ray did not show any infiltrates. His laboratory significant for hemoglobin 19.9, platelets 159, and WBC 9. His chemistry is unremarkable. Troponin is normal. Toxicology is negative. Coagulation is normal. IMPRESSION AND RECOMMENDATIONS: The patient to me sounds like he has COPD exacerbation. I doubt that this is CHF. I reviewed his echocardiogram which showed LVH but normal PA pressure and moderate mitral regurgitation. I would treat him aggressively for his COPD exacerbation, may be even consider steroids, would not be very aggressive with diuretics at this point and blood pressure should be under control. Annemarie Espinoza M.D. DR: Reinaldo JOB#: [id number] CC:
[2017-11-21 20:00] VITALS: BP 139/89
--- NOTE | 2017-11-21 23:45 | Consultation ---
DATE OF CONSULTATION: 11/21/2017 PULMONARY CONSULTATION CONSULTING PHYSICIAN: Tiburcio Keith M.D. REFERRING PHYSICIAN: Juana Henson M.D. REASON FOR CONSULTATION: COPD. HISTORY OF PRESENT ILLNESS: This is a 62-year-old male, who presents to the ER and brought in by family, brought in for increasing shortness of breath. The patient was seen and evaluated in the emergency room, did have an x-ray that is fairly negative. The patient, however, is being admitted for COPD and CHF. Care discussed with primary medical doctor. I was asked to evaluate and recommend further. The patient does use a bronchodilator. The patient is a fairly poor historian, difficult to fully assess. No cough or congestion noted at this time. The patient's care discussed and reviewed. The patient's laboratory discussed and reviewed. The patient does have significant elevation in the hemoglobin, possibly suggestive of polycythemia, primary versus secondary. The patient's sleep apnea status is unclear as well. No falls or trauma. No neck swelling. PAST MEDICAL HISTORY: Notable for COPD, prior cardiac ablation, CHF, and bifascicular block. MEDICATIONS: Reviewed. ALLERGIES: Reviewed. SOCIAL HISTORY: Lives in [facility]. Nonsmoker and nondrinker, but was a heavy cigarette user. REVIEW OF SYSTEMS: Difficult to fully assess. The patient is a poor historian. PHYSICAL EXAMINATION: GENERAL: A well-developed male, comfortable at present. Poor historian. VITAL SIGNS: Blood pressure 139/73, pulse 74, respiratory rate 18, temperature 97.9 degrees, and saturations 94% on two liters. HEENT: Negative. Extraocular movements are grossly intact. NECK: Supple. No clear jugular venous distention at present. LUNGS: Reduced breath sounds bilaterally. Minimal rhonchi. No clear wheezes. CARDIAC: S1 and S2. Regular rate and rhythm without murmurs, rubs, or gallops. ABDOMEN: Soft, nontender, and nondistended. EXTREMITIES: No cyanosis or clubbing. SKIN: No significant skin changes. LABORATORY AND DIAGNOSTIC DATA: Lab data reviewed. X-ray noted. The patient's bicarbonate is 28. Liver enzymes normal. Hemoglobin elevated 19.9 and hematocrit 53.9. IMPRESSION: 1. Possible polycythemia, unclear. 2. Chronic obstructive pulmonary disease, unclear as to stage. 3. Shortness of breath. 4. Congestive heart failure without any clear evidence of fluid overload, but BNP is elevated 1312. 5. Psychiatric dysfunction. RECOMMENDATIONS: Obtain arterial blood gases. Follow up CBC in the morning. Follow up venous ultrasound in the morning. Consider further testing including CT pulmonary angiogram if needed, however, the patient appears to be comfortable at present Tiburcio Keith M.D. DR: MADIHA JOB#: [id number] CC: DEBBIE
[2017-11-22] VITALS: BP 139/76
[2017-11-22] MEDS: Albuterol/Ipratropium 3ml neb HHN PRN (03:12)
[2017-11-22 03:50] VITALS: BP 137/76
--- NOTE | 2017-11-22 06:41 | General Progress Note ---
Assessment/Plan Assessment/Plan Pul + Cardiac w/u Subjective Allergies: Coded Allergies: No Known Allergies (Unverified , 01/20/17) Subjective Still SOB. Objective Last 24 Hour Vital Signs Date Time Temp Pulse Resp B/P (MAP) Pulse Ox O2 Delivery O2 Flow Rate FiO2 11/22/17 03:50 97.7 79 20 137/76 96 Nasal Cannula 2.0 97.7 11/22/17 03:47 82 11/22/17 03:15 78 20 97 Nasal Cannula 2.0 28 11/22/17 03:13 75 20 95 Nasal Cannula 2.0 28 11/22/17 00:00 98.0 74 16 139/76 96 Nasal Cannula 2.0 98.0 11/21/17 23:51 76 11/21/17 20:00 Nasal Cannula 2.0 28 11/21/17 20:00 97.9 78 20 139/89 96 97.9 11/21/17 20:00 95 Nasal Cannula 2.0 28 11/21/17 19:55 75 11/21/17 19:30 78 20 Nasal Cannula 2.0 28 11/21/17 16:00 74 11/21/17 16:00 97.9 76 18 139/73 95 Nasal Cannula 2.0 97.9 11/21/17 12:06 97.7 81 20 123/77 95 Nasal Cannula 2.0 97.7 11/21/17 12:00 82 11/21/17 08:28 141/81 11/21/17 08:00 86 11/21/17 08:00 97.2 85 20 141/81 95 Nasal Cannula 2.0 97.2 11/21/17 07:20 81 22 Room Air 21 Intake and Output 11/21/17 11/22/17 19:00 07:00 Intake Total 600 ml Output Total 500 ml Balance 100 ml Intake Oral 600 ml Output Urine Total 500 ml # Voids 1 1 Height (Feet): 5 Height (Inches): 6.00 Weight (Pounds): 180 Objective Cv RR Lungs CTA Abd SNT. BS + E No CCE Juana Henson MD Nov 22, 2017 06:41
[2017-11-22 07:56] VITALS: BP 155/87
[2017-11-22] MEDS: Trihexyphenidyl 2mg tab ORAL SCH ×2 (08:08→17:13)
[2017-11-22] MEDS: Docusate 100mg cap ORAL SCH ×2 (08:08→21:51)
[2017-11-22] MEDS: Lisinopril 10mg tab ORAL SCH (08:08)
[2017-11-22] MEDS: Aspirin Baby 81mg ORAL SCH (08:08)
[2017-11-22] MEDS: Heparin 5000 units/ml inj SUBQ SCH ×2 (08:10→21:52)
--- NOTE | 2017-11-22 08:15 | Pulmonology Progress Note ---
Assessment/Plan Assessment/Plan IMPRESSION: 1. Possible polycythemia, unclear. 2. Chronic obstructive pulmonary disease, unclear as to stage. 3. Shortness of breath. 4. Congestive heart failure 5. Psychiatric dysfunction. PLAN venous US respiratory care cards noted consider CTPA monitor lung function impression, plan, and exam edited and reviewed in detail care discussed with RN Subjective Allergies: Coded Allergies: No Known Allergies (Unverified , 01/20/17) Subjective care noted overnight stable no distress Objective Last 24 Hour Vital Signs Date Time Temp Pulse Resp B/P (MAP) Pulse Ox O2 Delivery O2 Flow Rate FiO2 11/22/17 08:08 155/87 11/22/17 07:56 97.7 79 20 155/87 95 Nasal Cannula 2.0 97.7 11/22/17 03:50 97.7 79 20 137/76 96 Nasal Cannula 2.0 97.7 11/22/17 03:47 82 11/22/17 03:15 78 20 97 Nasal Cannula 2.0 28 11/22/17 03:13 75 20 95 Nasal Cannula 2.0 28 11/22/17 00:00 98.0 74 16 139/76 96 Nasal Cannula 2.0 98.0 11/21/17 23:51 76 11/21/17 20:00 Nasal Cannula 2.0 28 11/21/17 20:00 97.9 78 20 139/89 96 97.9 11/21/17 20:00 95 Nasal Cannula 2.0 28 11/21/17 19:55 75 11/21/17 19:30 78 20 Nasal Cannula 2.0 28 11/21/17 16:00 74 11/21/17 16:00 97.9 76 18 139/73 95 Nasal Cannula 2.0 97.9 11/21/17 12:06 97.7 81 20 123/77 95 Nasal Cannula 2.0 97.7 11/21/17 12:00 82 11/21/17 08:28 141/81 Intake and Output 11/21/17 11/22/17 19:00 07:00 Intake Total 600 ml Output Total 500 ml Balance 100 ml Intake Oral 600 ml Output Urine Total 500 ml # Voids 1 1 Objective GENERAL: A well-developed male, comfortable at present. Poor historian HEENT: Negative. Extraocular movements are grossly intact. NECK: Supple. No clear jugular venous distention at present. LUNGS: Reduced breath sounds bilaterally. Minimal rhonchi. No clear wheezes. CARDIAC: S1 and S2. Regular rate and rhythm without murmurs, rubs, or gallops. ABDOMEN: Soft, nontender, and nondistended. EXTREMITIES: No cyanosis or clubbing. SKIN: No significant skin changes. Microbiology Date/Time Source Procedure Growth Status 11/19/17 19:20 Nasal Nares MRSA Culture - Final NO METHICILLIN RESISTANT STAPH AUREUS... Complete 11/19/17 19:20 Rectum VRE Culture - Final NO VANCOMYCIN RESISTANT ENTEROCOCCUS ... Complete Current Medications Medications (Trade) Dose Ordered Sig/Jean Route PRN Reason Start Time Stop Time Status Last Admin Dose Admin Acetaminophen (Tylenol) 650 mg Q4H PRN ORAL Mild Pain (Pain Scale 1-3) 11/19/17 23:45 12/19/17 23:44 Albuterol/ Ipratropium (Albuterol/ Ipratropium) 3 ml EVERY 6 HOURS PRN HHN Shortness of Breath 11/19/17 23:45 11/24/17 23:44 11/22/17 03:12 Aspirin (ASA) 81 mg DAILY ORAL 11/20/17 09:00 12/20/17 08:59 11/22/17 08:08 Dextrose (Dextrose 50%) 25 ml STAT PRN IV Hypoglycemia 11/19/17 23:45 12/19/17 23:44 Dextrose (Dextrose 50%) 50 ml STAT PRN IV Hypoglycemia 11/19/17 23:45 12/19/17 23:44 Docusate Sodium (Colace) 100 mg EVERY 12 HOURS ORAL 11/20/17 09:00 12/20/17 08:59 11/22/17 08:08 Furosemide (Lasix) 20 mg EVERY 12 HOURS IV 11/20/17 09:00 12/20/17 08:59 11/22/17 08:08 Haloperidol (Haldol) 10 mg BID ORAL 11/20/17 09:45 12/20/17 09:44 11/22/17 08:08 Heparin Sodium (Porcine) (Heparin 5000 units/ml) 5,000 units EVERY 12 HOURS SUBQ 11/20/17 09:00 12/20/17 08:59 11/22/17 08:10 Lisinopril (Zestril) 10 mg DAILY ORAL 11/20/17 09:00 12/20/17 08:59 11/22/17 08:08 Mirtazapine (Remeron) 7.5 mg BEDTIME ORAL 11/21/17 21:00 12/21/17 20:59 11/21/17 21:36 Nicotine (Nicoderm) 1 patch Q24H TDERMAL 11/20/17 08:15 12/20/17 08:14 11/22/17 08:07 Ondansetron HCl (Zofran) 4 mg Q6H PRN IVP Nausea & Vomiting 11/19/17 23:45 12/19/17 23:44 Pantoprazole (Protonix) 40 mg DAILY ORAL 11/20/17 09:00 12/20/17 08:59 11/22/17 08:07 Trihexyphenidyl HCl (Artane) 1 mg BID ORAL 11/20/17 10:00 12/20/17 09:59 11/22/17 08:08 DAVID MAI Nov 22, 2017 08:15
[2017-11-22 11:34] VITALS: BP 111/74
[2017-11-22 11:34] LABS: BASOPHILS % (AUTO) 0.8 % (0.0-2.0); EOSINOPHILS % (AUTO) 0.6 % (0.0-3.0); HEMATOCRIT 52.8 % (42.0-52.0); LYMPHOCYTES % (AUTO) 16.9 % (20.0-45.0); MEAN CORPUSCULAR VOLUME 90 FL (80-99); MONOCYTES % (AUTO) 7.4 % (1.0-10.0); NEUTROPHILS % (AUTO) 74.3 % (45.0-75.0); PLATELET COUNT 136 K/UL (150-450); RED BLOOD COUNT 5.86 M/UL (4.70-6.10); RED CELL DISTRIBUTION WIDTH 14.3 % (11.6-14.8); WHITE BLOOD COUNT 8.3 K/UL (4.8-10.8)
[2017-11-22 11:35] LABS: ALANINE AMINOTRANSFERASE 24 U/L (12-78); ALBUMIN 3.4 G/DL (3.4-5.0); ALBUMIN/GLOBULIN RATIO 1.1 (1.0-2.7); ALKALINE PHOSPHATASE 81 U/L (46-116); ANION GAP 5 mmol/L (5-15); ASPARTATE AMINO TRANSFERASE 15 U/L (15-37); BILIRUBIN,TOTAL 0.9 MG/DL (0.2-1.0); BLOOD UREA NITROGEN 29 mg/dL (7-18); CALCIUM 8.8 MG/DL (8.5-10.1); CARBON DIOXIDE 32 MMOL/L (21-32); CHLORIDE 101 MMOL/L (98-107); HEMOGLOBIN 18.6 G/DL (14.2-18.0); POTASSIUM 4.1 MMOL/L (3.5-5.1); SODIUM 138 MMOL/L (136-145)
[2017-11-22 15:50] VITALS: BP 137/82
--- NOTE | 2017-11-22 18:27 | Consultation ---
History of Present Illness General Date patient seen: Nov 21, 2017 Chief Complaint: Dyspnea/Respdistress Present Illness HPI 62-[facility], [facility]. The pt c/o anxiety and insomnia. the pt was pleasant and complained of pain. no agitation. no si/hi Allergies: Coded Allergies: No Known Allergies (Unverified , 01/20/17) Medication History Scheduled Amlodipine Besylate* (Amlodipine Besylate*), 5 MG ORAL DAILY, (Reported) Atorvastatin Calcium* (Atorvastatin Calcium*), 20 MG ORAL DAILY, (Reported) Haloperidol (Haloperidol), 10 MG ORAL BID, (Reported) Metformin Hcl* (Metformin Hcl*), 500 MG ORAL TWICE A DAY, (Reported) Metoprolol Tartrate* (Metoprolol Tartrate*), 50 MG ORAL EVERY 12 HOURS, ( Reported) Trihexyphenidyl Hcl* (Artane*), 2 MG ORAL TWICE A DAY, (Reported) Discontinued Medications Atenolol* (Tenormin*), 50 MG ORAL BID Discontinued Reason: Pt stopped taking med Fluticasone Propionate (Flonase Allergy Relief), Unknown Dose NS, (Reported) Discontinued Reason: Pt stopped taking med Patient History History Provided By: Patient, Medical Record, PMD Healthcare decision maker Resuscitation status Full Code Advanced Directive on File Past Medical/Surgical History Past Medical/Surgical History: (1) Atrial flutter (2) Hypotension (3) Thickening of wall of gallbladder (4) CHF (congestive heart failure) (5) Bifascicular block (6) Hypertension (7) COPD exacerbation Review of Systems Psychiatric: Reports: anxiety, depressed feelings, emotional problems Physical Exam General Appearance: no apparent distress, alert Neurologic: oriented x 3, responsive, depressed affect Last 24 Hour Vital Signs Date Time Temp Pulse Resp B/P (MAP) Pulse Ox O2 Delivery O2 Flow Rate FiO2 11/22/17 16:00 90 11/22/17 15:50 97.7 84 20 137/82 95 Nasal Cannula 2.0 97.7 11/22/17 12:00 97 11/22/17 11:47 Nasal Cannula 2.0 28 11/22/17 11:45 94 Nasal Cannula 2.0 28 11/22/17 11:34 97.0 83 20 111/74 95 Nasal Cannula 2.0 97.0 11/22/17 11:25 96 20 Nasal Cannula 2.0 28 11/22/17 08:08 155/87 11/22/17 08:00 79 11/22/17 07:56 97.7 79 20 155/87 95 Nasal Cannula 2.0 97.7 11/22/17 03:50 97.7 79 20 137/76 96 Nasal Cannula 2.0 97.7 11/22/17 03:47 82 11/22/17 03:15 78 20 97 Nasal Cannula 2.0 28 11/22/17 03:13 75 20 95 Nasal Cannula 2.0 28 11/22/17 00:00 98.0 74 16 139/76 96 Nasal Cannula 2.0 98.0 11/21/17 23:51 76 11/21/17 20:00 Nasal Cannula 2.0 28 11/21/17 20:00 97.9 78 20 139/89 96 97.9 11/21/17 20:00 95 Nasal Cannula 2.0 28 11/21/17 19:55 75 11/21/17 19:30 78 20 Nasal Cannula 2.0 28 Intake and Output 11/21/17 11/22/17 19:00 07:00 Intake Total 600 ml Output Total 500 ml Balance 100 ml Intake Oral 600 ml Output Urine Total 500 ml # Voids 1 1 Laboratory Tests Test 11/22/17 04:00 11/22/17 11:00 Arterial Blood pH 7.409 (7.350-7.450) Arterial Blood Partial Pressure CO2 46.1 mmHg (35.0-45.0) H Arterial Blood Partial Pressure O2 65.8 mmHg (75.0-100.0) L Arterial Blood HCO3 28.5 mmol/L (22.0-26.0) H Arterial Blood Oxygen Saturation 92.2 % (92.0-98.0) Arterial Blood Base Excess 2.9 Edison Test Positive White Blood Count 8.3 K/UL (4.8-10.8) Red Blood Count 5.86 M/UL (4.70-6.10) Hemoglobin 18.6 G/DL (14.2-18.0) *H Hematocrit 52.8 % (42.0-52.0) H Mean Corpuscular Volume 90 FL (80-99) Mean Corpuscular Hemoglobin 31.8 PG (27.0-31.0) H Mean Corpuscular Hemoglobin Concent 35.3 G/DL (32.0-36.0) Red Cell Distribution Width 14.3 % (11.6-14.8) Platelet Count 136 K/UL (150-450) L Mean Platelet Volume 7.3 FL (6.5-10.1) Neutrophils (%) (Auto) 74.3 % (45.0-75.0) Lymphocytes (%) (Auto) 16.9 % (20.0-45.0) L Monocytes (%) (Auto) 7.4 % (1.0-10.0) Eosinophils (%) (Auto) 0.6 % (0.0-3.0) Basophils (%) (Auto) 0.8 % (0.0-2.0) Sodium Level 138 MMOL/L (136-145) Potassium Level 4.1 MMOL/L (3.5-5.1) Chloride Level 101 MMOL/L (98-107) Carbon Dioxide Level 32 MMOL/L (21-32) Anion Gap 5 mmol/L (5-15) Blood Urea Nitrogen 29 mg/dL (7-18) H Creatinine 1.0 MG/DL (0.55-1.30) Estimat Glomerular Filtration Rate > 60 mL/min (>60) Glucose Level 178 MG/DL (74-106) H Calcium Level 8.8 MG/DL (8.5-10.1) Total Bilirubin 0.9 MG/DL (0.2-1.0) Aspartate Amino Transf (AST/SGOT) 15 U/L (15-37) Alanine Aminotransferase (ALT/SGPT) 24 U/L (12-78) Alkaline Phosphatase 81 U/L (46-116) Total Protein 6.5 G/DL (6.4-8.2) Albumin 3.4 G/DL (3.4-5.0) Globulin 3.1 g/dL Albumin/Globulin Ratio 1.1 (1.0-2.7) Height (Feet): 5 Height (Inches): 6.00 Weight (Pounds): 180 Medications Current Medications Medications (Trade) Dose Ordered Sig/Jean Route PRN Reason Start Time Stop Time Status Last Admin Dose Admin Acetaminophen (Tylenol) 650 mg Q4H PRN ORAL Mild Pain (Pain Scale 1-3) 11/19/17 23:45 12/19/17 23:44 Albuterol/ Ipratropium (Albuterol/ Ipratropium) 3 ml EVERY 6 HOURS PRN HHN Shortness of Breath 11/19/17 23:45 11/24/17 23:44 11/22/17 03:12 Aspirin (ASA) 81 mg DAILY ORAL 11/20/17 09:00 12/20/17 08:59 11/22/17 08:08 Dextrose (Dextrose 50%) 25 ml STAT PRN IV Hypoglycemia 11/19/17 23:45 12/19/17 23:44 Dextrose (Dextrose 50%) 50 ml STAT PRN IV Hypoglycemia 11/19/17 23:45 12/19/17 23:44 Docusate Sodium (Colace) 100 mg EVERY 12 HOURS ORAL 11/20/17 09:00 12/20/17 08:59 11/22/17 08:08 Furosemide (Lasix) 20 mg EVERY 12 HOURS IV 11/20/17 09:00 12/20/17 08:59 11/22/17 08:08 Haloperidol (Haldol) 10 mg BID ORAL 11/20/17 09:45 12/20/17 09:44 11/22/17 17:13 Heparin Sodium (Porcine) (Heparin 5000 units/ml) 5,000 units EVERY 12 HOURS SUBQ 11/20/17 09:00 12/20/17 08:59 11/22/17 08:10 Lisinopril (Zestril) 10 mg DAILY ORAL 11/20/17 09:00 12/20/17 08:59 11/22/17 08:08 Mirtazapine (Remeron) 7.5 mg BEDTIME ORAL 11/21/17 21:00 12/21/17 20:59 11/21/17 21:36 Nicotine (Nicoderm) 1 patch Q24H TDERMAL 11/20/17 08:15 12/20/17 08:14 11/22/17 08:07 Ondansetron HCl (Zofran) 4 mg Q6H PRN IVP Nausea & Vomiting 11/19/17 23:45 12/19/17 23:44 Pantoprazole (Protonix) 40 mg DAILY ORAL 11/20/17 09:00 12/20/17 08:59 11/22/17 08:07 Trihexyphenidyl HCl (Artane) 1 mg BID ORAL 11/20/17 10:00 12/20/17 09:59 11/22/17 17:13 Assessment/Plan Assessment/Plan hx of depression anxiety/insomnia remeron hs provided margarito/Amauri Hills M.D. Nov 22, 2017 18:27
--- NOTE | 2017-11-22 18:28 | General Progress Note ---
Assessment/Plan Status: stable, progressing Assessment/Plan hx of depression anxiety/insomnia remeron [facility] provided ro/st Subjective Date patient seen: Nov 22, 2017 Neurologic/Psychiatric: Reports: anxiety, depressed, emotional problems Allergies: Coded Allergies: No Known Allergies (Unverified , 01/20/17) Objective Last 24 Hour Vital Signs Date Time Temp Pulse Resp B/P (MAP) Pulse Ox O2 Delivery O2 Flow Rate FiO2 11/22/17 16:00 90 11/22/17 15:50 97.7 84 20 137/82 95 Nasal Cannula 2.0 97.7 11/22/17 12:00 97 11/22/17 11:47 Nasal Cannula 2.0 28 11/22/17 11:45 94 Nasal Cannula 2.0 28 11/22/17 11:34 97.0 83 20 111/74 95 Nasal Cannula 2.0 97.0 11/22/17 11:25 96 20 Nasal Cannula 2.0 28 11/22/17 08:08 155/87 11/22/17 08:00 79 11/22/17 07:56 97.7 79 20 155/87 95 Nasal Cannula 2.0 97.7 11/22/17 03:50 97.7 79 20 137/76 96 Nasal Cannula 2.0 97.7 11/22/17 03:47 82 11/22/17 03:15 78 20 97 Nasal Cannula 2.0 28 11/22/17 03:13 75 20 95 Nasal Cannula 2.0 28 11/22/17 00:00 98.0 74 16 139/76 96 Nasal Cannula 2.0 98.0 11/21/17 23:51 76 11/21/17 20:00 Nasal Cannula 2.0 28 11/21/17 20:00 97.9 78 20 139/89 96 97.9 11/21/17 20:00 95 Nasal Cannula 2.0 28 11/21/17 19:55 75 11/21/17 19:30 78 20 Nasal Cannula 2.0 28 Intake and Output 11/21/17 11/22/17 19:00 07:00 Intake Total 600 ml Output Total 500 ml Balance 100 ml Intake Oral 600 ml Output Urine Total 500 ml # Voids 1 1 Laboratory Tests 11/22/17 04:00: Arterial Blood pH 7.409, Arterial Blood Partial Pressure CO2 46.1H, Arterial Blood Partial Pressure O2 65.8L, Arterial Blood HCO3 28.5H, Arterial Blood Oxygen Saturation 92.2, Arterial Blood Base Excess 2.9, Edison Test Positive 11/22/17 11:00: White Blood Count 8.3, Red Blood Count 5.86, Hemoglobin 18.6*H, Hematocrit 52.8H , Mean Corpuscular Volume 90, Mean Corpuscular Hemoglobin 31.8H, Mean Corpuscular Hemoglobin Concent 35.3, Red Cell Distribution Width 14.3, Platelet Count 136L, Mean Platelet Volume 7.3, Neutrophils (%) (Auto) 74.3, Lymphocytes ( %) (Auto) 16.9L, Monocytes (%) (Auto) 7.4, Eosinophils (%) (Auto) 0.6, Basophils (%) (Auto) 0.8, Sodium Level 138, Potassium Level 4.1, Chloride Level 101, Carbon Dioxide Level 32, Anion Gap 5, Blood Urea Nitrogen 29H, Creatinine 1.0, Estimat Glomerular Filtration Rate > 60, Glucose Level 178H, Calcium Level 8.8, Total Bilirubin 0.9, Aspartate Amino Transf (AST/SGOT) 15, Alanine Aminotransferase (ALT/SGPT) 24, Alkaline Phosphatase 81, Total Protein 6.5, Albumin 3.4, Globulin 3.1, Albumin/Globulin Ratio 1.1 Height (Feet): 5 Height (Inches): 6.00 Weight (Pounds): 180 General Appearance: no apparent distress, alert Neurologic: oriented x 3, responsive, depressed affect Amauri Lucas M.D. Nov 22, 2017 18:28
[2017-11-22 20:00] VITALS: BP 151/71
--- NOTE | 2017-11-22 22:52 | Cardiology Progress Note ---
Assessment/Plan Assessment/Plan cardiac stable suggest more aggressive treatment of COPD Subjective Subjective The patient is still quite short of breath. Mild cough no orthopnea Objective Last 24 Hour Vital Signs Date Time Temp Pulse Resp B/P (MAP) Pulse Ox O2 Delivery O2 Flow Rate FiO2 11/22/17 20:00 97.7 85 17 151/71 93 Nasal Cannula 2.0 97.7 11/22/17 20:00 93 11/22/17 19:28 96 Nasal Cannula 2.0 28 11/22/17 19:28 91 20 Nasal Cannula 2.0 28 11/22/17 19:28 Nasal Cannula 2.0 28 11/22/17 16:00 90 11/22/17 15:50 97.7 84 20 137/82 95 Nasal Cannula 2.0 97.7 11/22/17 12:00 97 11/22/17 11:47 Nasal Cannula 2.0 28 11/22/17 11:45 94 Nasal Cannula 2.0 28 11/22/17 11:34 97.0 83 20 111/74 95 Nasal Cannula 2.0 97.0 11/22/17 11:25 96 20 Nasal Cannula 2.0 28 11/22/17 08:08 155/87 11/22/17 08:00 79 11/22/17 07:56 97.7 79 20 155/87 95 Nasal Cannula 2.0 97.7 11/22/17 03:50 97.7 79 20 137/76 96 Nasal Cannula 2.0 97.7 11/22/17 03:47 82 11/22/17 03:15 78 20 97 Nasal Cannula 2.0 28 11/22/17 03:13 75 20 95 Nasal Cannula 2.0 28 11/22/17 00:00 98.0 74 16 139/76 96 Nasal Cannula 2.0 98.0 11/21/17 23:51 76 General Appearance: mild distress EENT: PERRL/EOMI Neck: no JVD Rhythm: NSR Cardiovascular: normal rate Respiratory/Chest: expiratory wheezing Abdomen: hypoactive bowel sounds Extremities: no swelling Intake and Output 11/21/17 11/22/17 19:00 07:00 Intake Total 600 ml Output Total 500 ml Balance 100 ml Intake Oral 600 ml Output Urine Total 500 ml # Voids 1 1 Laboratory Tests Test 11/22/17 04:00 11/22/17 11:00 Arterial Blood pH 7.409 (7.350-7.450) Arterial Blood Partial Pressure CO2 46.1 mmHg (35.0-45.0) H Arterial Blood Partial Pressure O2 65.8 mmHg (75.0-100.0) L Arterial Blood HCO3 28.5 mmol/L (22.0-26.0) H Arterial Blood Oxygen Saturation 92.2 % (92.0-98.0) Arterial Blood Base Excess 2.9 Edison Test Positive White Blood Count 8.3 K/UL (4.8-10.8) Red Blood Count 5.86 M/UL (4.70-6.10) Hemoglobin 18.6 G/DL (14.2-18.0) *H Hematocrit 52.8 % (42.0-52.0) H Mean Corpuscular Volume 90 FL (80-99) Mean Corpuscular Hemoglobin 31.8 PG (27.0-31.0) H Mean Corpuscular Hemoglobin Concent 35.3 G/DL (32.0-36.0) Red Cell Distribution Width 14.3 % (11.6-14.8) Platelet Count 136 K/UL (150-450) L Mean Platelet Volume 7.3 FL (6.5-10.1) Neutrophils (%) (Auto) 74.3 % (45.0-75.0) Lymphocytes (%) (Auto) 16.9 % (20.0-45.0) L Monocytes (%) (Auto) 7.4 % (1.0-10.0) Eosinophils (%) (Auto) 0.6 % (0.0-3.0) Basophils (%) (Auto) 0.8 % (0.0-2.0) Sodium Level 138 MMOL/L (136-145) Potassium Level 4.1 MMOL/L (3.5-5.1) Chloride Level 101 MMOL/L (98-107) Carbon Dioxide Level 32 MMOL/L (21-32) Anion Gap 5 mmol/L (5-15) Blood Urea Nitrogen 29 mg/dL (7-18) H Creatinine 1.0 MG/DL (0.55-1.30) Estimat Glomerular Filtration Rate > 60 mL/min (>60) Glucose Level 178 MG/DL (74-106) H Calcium Level 8.8 MG/DL (8.5-10.1) Total Bilirubin 0.9 MG/DL (0.2-1.0) Aspartate Amino Transf (AST/SGOT) 15 U/L (15-37) Alanine Aminotransferase (ALT/SGPT) 24 U/L (12-78) Alkaline Phosphatase 81 U/L (46-116) Total Protein 6.5 G/DL (6.4-8.2) Albumin 3.4 G/DL (3.4-5.0) Globulin 3.1 g/dL Albumin/Globulin Ratio 1.1 (1.0-2.7) Annemarie Espinoza MD Nov 22, 2017 22:52
[2017-11-23] VITALS: BP 157/90
[2017-11-23] MEDS: Albuterol/Ipratropium 3ml neb HHN PRN (03:29)
[2017-11-23 04:00] VITALS: BP 137/68
--- NOTE | 2017-11-23 06:51 | General Progress Note ---
Assessment/Plan Assessment/Plan Pul + Cardiac w/u show COPD+ mild diastolic CHF. DC to [facility]. Subjective Allergies: Coded Allergies: No Known Allergies (Unverified , 01/20/17) Subjective No new c/o. Less SOB. Objective Last 24 Hour Vital Signs Date Time Temp Pulse Resp B/P (MAP) Pulse Ox O2 Delivery O2 Flow Rate FiO2 11/23/17 04:00 88 11/23/17 04:00 96.6 85 20 137/68 97 Nasal Cannula 2.0 96.6 11/23/17 03:39 88 20 97 Nasal Cannula 2.0 28 11/23/17 03:29 94 22 94 Nasal Cannula 2.0 28 11/23/17 00:00 100 11/23/17 00:00 97.5 93 16 157/90 93 Room Air 97.5 11/22/17 20:00 97.7 85 17 151/71 93 Nasal Cannula 2.0 97.7 11/22/17 20:00 93 11/22/17 19:28 96 Nasal Cannula 2.0 28 11/22/17 19:28 91 20 Nasal Cannula 2.0 28 11/22/17 19:28 Nasal Cannula 2.0 28 11/22/17 16:00 90 11/22/17 15:50 97.7 84 20 137/82 95 Nasal Cannula 2.0 97.7 11/22/17 12:00 97 11/22/17 11:47 Nasal Cannula 2.0 28 11/22/17 11:45 94 Nasal Cannula 2.0 28 11/22/17 11:34 97.0 83 20 111/74 95 Nasal Cannula 2.0 97.0 11/22/17 11:25 96 20 Nasal Cannula 2.0 28 11/22/17 08:08 155/87 11/22/17 08:00 79 11/22/17 07:56 97.7 79 20 155/87 95 Nasal Cannula 2.0 97.7 Intake and Output 11/22/17 11/23/17 19:00 07:00 Intake Total 720 ml Output Total 2525 ml Balance 720 ml -2525 ml Intake Oral 720 ml Output Urine Total 2525 ml Laboratory Tests 11/22/17 11:00: White Blood Count 8.3, Red Blood Count 5.86, Hemoglobin 18.6*H, Hematocrit 52.8H , Mean Corpuscular Volume 90, Mean Corpuscular Hemoglobin 31.8H, Mean Corpuscular Hemoglobin Concent 35.3, Red Cell Distribution Width 14.3, Platelet Count 136L, Mean Platelet Volume 7.3, Neutrophils (%) (Auto) 74.3, Lymphocytes ( %) (Auto) 16.9L, Monocytes (%) (Auto) 7.4, Eosinophils (%) (Auto) 0.6, Basophils (%) (Auto) 0.8, Sodium Level 138, Potassium Level 4.1, Chloride Level 101, Carbon Dioxide Level 32, Anion Gap 5, Blood Urea Nitrogen 29H, Creatinine 1.0, Estimat Glomerular Filtration Rate > 60, Glucose Level 178H, Calcium Level 8.8, Total Bilirubin 0.9, Aspartate Amino Transf (AST/SGOT) 15, Alanine Aminotransferase (ALT/SGPT) 24, Alkaline Phosphatase 81, Total Protein 6.5, Albumin 3.4, Globulin 3.1, Albumin/Globulin Ratio 1.1 Height (Feet): 5 Height (Inches): 6.00 Weight (Pounds): 186 Objective Cv RR Lungs CTA Abd SNT. BS + E No CCE Juana Henson MD Nov 23, 2017 06:51
[2017-11-23] MEDS ORDERED: HALDOL5 MG ORAL (06:55)
[2017-11-23] MEDS ORDERED: PROTONIX40 MG ORAL (06:55)
[2017-11-23] MEDS ORDERED: DUONEB 0.5-3(2.53 ML HHN (06:55)
[2017-11-23] MEDS ORDERED: ACETAMINOPHEN325 M1 ORAL (06:55)
[2017-11-23] MEDS ORDERED: ARTANE2 MG ORAL (06:55)
[2017-11-23] MEDS ORDERED: COLACE100 MG ORAL (06:55)
[2017-11-23] MEDS ORDERED: ASPIRIN81 MG ORAL (06:55)
[2017-11-23] MEDS ORDERED: LISINOPRIL10 MG ORAL (06:55)
[2017-11-23] MEDS ORDERED: FUROSEMIDE20 M1 ORAL (06:55)
[2017-11-23] MEDS ORDERED: MIRTAZAPINE15 M3 ORAL (06:55)
[2017-11-23] MEDS ORDERED: NICODERM CQ1 EAC1 TDERMAL (06:55)
[2017-11-23 08:00] VITALS: BP 149/92
[2017-11-23 08:56] VITALS: BP 149/92
[2017-11-23] MEDS: Heparin 5000 units/ml inj SUBQ SCH (08:56)
[2017-11-23] MEDS: Lisinopril 10mg tab ORAL SCH (08:56)
[2017-11-23] MEDS: Aspirin Baby 81mg ORAL SCH (08:56)
[2017-11-23] MEDS: Docusate 100mg cap ORAL SCH (08:57)
[2017-11-23] MEDS: Trihexyphenidyl 2mg tab ORAL SCH (08:57)
--- NOTE | 2017-11-23 13:52 | General Progress Note ---
Assessment/Plan Assessment/Plan hx of depression anxiety/insomnia [facility] provided ro/st Subjective Date patient seen: Nov 22, 2017 Neurologic/Psychiatric: Reports: anxiety, depressed, emotional problems Allergies: Coded Allergies: No Known Allergies (Unverified , 01/20/17) Objective Last 24 Hour Vital Signs Date Time Temp Pulse Resp B/P (MAP) Pulse Ox O2 Delivery O2 Flow Rate FiO2 11/23/17 08:56 149/92 11/23/17 08:00 96.8 104 21 149/92 95 Nasal Cannula 2.0 96.8 11/23/17 08:00 91 11/23/17 04:00 88 11/23/17 04:00 96.6 85 20 137/68 97 Nasal Cannula 2.0 96.6 11/23/17 03:39 88 20 97 Nasal Cannula 2.0 28 11/23/17 03:29 94 22 94 Nasal Cannula 2.0 28 11/23/17 00:00 100 11/23/17 00:00 97.5 93 16 157/90 93 Room Air 97.5 11/22/17 20:00 97.7 85 17 151/71 93 Nasal Cannula 2.0 97.7 11/22/17 20:00 93 11/22/17 19:28 96 Nasal Cannula 2.0 28 11/22/17 19:28 91 20 Nasal Cannula 2.0 28 11/22/17 19:28 Nasal Cannula 2.0 28 11/22/17 16:00 90 11/22/17 15:50 97.7 84 20 137/82 95 Nasal Cannula 2.0 97.7 Intake and Output 11/22/17 11/23/17 19:00 07:00 Intake Total 720 ml 480 ml Output Total 2525 ml Balance 720 ml -2045 ml Intake Oral 720 ml 480 ml Output Urine Total 2525 ml Height (Feet): 5 Height (Inches): 6.00 Weight (Pounds): 186 Amauri Lucas M.D. Nov 23, 2017 13:52
--- NOTE | 2017-11-23 13:52 | General Progress Note ---
Assessment/Plan Status: stable, progressing Assessment/Plan hx of depression anxiety/insomnia remeron qhs provided ro/st Subjective Date patient seen: Nov 23, 2017 Neurologic/Psychiatric: Reports: anxiety, depressed, emotional problems Allergies: Coded Allergies: No Known Allergies (Unverified , 01/20/17) Objective Last 24 Hour Vital Signs Date Time Temp Pulse Resp B/P (MAP) Pulse Ox O2 Delivery O2 Flow Rate FiO2 11/23/17 08:56 149/92 11/23/17 08:00 96.8 104 21 149/92 95 Nasal Cannula 2.0 96.8 11/23/17 08:00 91 11/23/17 04:00 88 11/23/17 04:00 96.6 85 20 137/68 97 Nasal Cannula 2.0 96.6 11/23/17 03:39 88 20 97 Nasal Cannula 2.0 28 11/23/17 03:29 94 22 94 Nasal Cannula 2.0 28 11/23/17 00:00 100 11/23/17 00:00 97.5 93 16 157/90 93 Room Air 97.5 11/22/17 20:00 97.7 85 17 151/71 93 Nasal Cannula 2.0 97.7 11/22/17 20:00 93 11/22/17 19:28 96 Nasal Cannula 2.0 28 11/22/17 19:28 91 20 Nasal Cannula 2.0 28 11/22/17 19:28 Nasal Cannula 2.0 28 11/22/17 16:00 90 11/22/17 15:50 97.7 84 20 137/82 95 Nasal Cannula 2.0 97.7 Intake and Output 11/22/17 11/23/17 19:00 07:00 Intake Total 720 ml 480 ml Output Total 2525 ml Balance 720 ml -2045 ml Intake Oral 720 ml 480 ml Output Urine Total 2525 ml Height (Feet): 5 Height (Inches): 6.00 Weight (Pounds): 186 General Appearance: no apparent distress, alert Neurologic: oriented x 3, responsive, depressed affect Amauri Lucas M.D. Nov 23, 2017 13:51
--- NOTE | 2017-11-23 16:40 | Pulmonology Progress Note ---
Assessment/Plan Assessment/Plan IMPRESSION: 1. Possible polycythemia, unclear. 2. Chronic obstructive pulmonary disease, unclear as to stage. 3. Shortness of breath. 4. Congestive heart failure 5. Psychiatric dysfunction. PLAN respiratory care cards noted ok to dc and proceed with home dc and outpatient follow up impression, plan, and exam edited and reviewed in detail care discussed with RN Subjective Allergies: Coded Allergies: No Known Allergies (Unverified , 01/20/17) Subjective care noted overnight stable and seen earlier no distress Objective Last 24 Hour Vital Signs Date Time Temp Pulse Resp B/P (MAP) Pulse Ox O2 Delivery O2 Flow Rate FiO2 11/23/17 08:56 149/92 11/23/17 08:00 96.8 104 21 149/92 95 Nasal Cannula 2.0 96.8 11/23/17 08:00 91 11/23/17 04:00 88 11/23/17 04:00 96.6 85 20 137/68 97 Nasal Cannula 2.0 96.6 11/23/17 03:39 88 20 97 Nasal Cannula 2.0 28 11/23/17 03:29 94 22 94 Nasal Cannula 2.0 28 11/23/17 00:00 100 11/23/17 00:00 97.5 93 16 157/90 93 Room Air 97.5 11/22/17 20:00 97.7 85 17 151/71 93 Nasal Cannula 2.0 97.7 11/22/17 20:00 93 11/22/17 19:28 96 Nasal Cannula 2.0 28 11/22/17 19:28 91 20 Nasal Cannula 2.0 28 11/22/17 19:28 Nasal Cannula 2.0 28 Intake and Output 11/22/17 11/23/17 19:00 07:00 Intake Total 720 ml 480 ml Output Total 2525 ml Balance 720 ml -2045 ml Intake Oral 720 ml 480 ml Output Urine Total 2525 ml Objective GENERAL: A well-developed male, comfortable at present. Poor historian HEENT: Negative. Extraocular movements are grossly intact. NECK: Supple. No clear jugular venous distention at present. LUNGS: Reduced breath sounds bilaterally. Minimal rhonchi. No clear wheezes. CARDIAC: S1 and S2. Regular rate and rhythm without murmurs, rubs, or gallops. ABDOMEN: Soft, nontender, and nondistended. EXTREMITIES: No cyanosis or clubbing. SKIN: No significant skin changes. DAVID MAI Nov 23, 2017 16:40
--- NOTE | 2017-11-23 19:34 | Cardiology Progress Note ---
Assessment/Plan Assessment/Plan COPD exacerbation history of a fib stable at present time COPD treatment per Dr Henson Subjective Subjective The patient feels better, He is short of breath, but not coughing Objective Last 24 Hour Vital Signs Date Time Temp Pulse Resp B/P (MAP) Pulse Ox O2 Delivery O2 Flow Rate FiO2 11/23/17 08:56 149/92 11/23/17 08:00 96.8 104 21 149/92 95 Nasal Cannula 2.0 96.8 11/23/17 08:00 91 11/23/17 04:00 88 11/23/17 04:00 96.6 85 20 137/68 97 Nasal Cannula 2.0 96.6 11/23/17 03:39 88 20 97 Nasal Cannula 2.0 28 11/23/17 03:29 94 22 94 Nasal Cannula 2.0 28 11/23/17 00:00 100 11/23/17 00:00 97.5 93 16 157/90 93 Room Air 97.5 11/22/17 20:00 97.7 85 17 151/71 93 Nasal Cannula 2.0 97.7 11/22/17 20:00 93 General Appearance: mild distress EENT: PERRL/EOMI Neck: supple, no JVD Rhythm: ST Cardiovascular: tachycardia Respiratory/Chest: expiratory wheezing, inspiratory wheezing Abdomen: soft Extremities: no swelling Intake and Output 11/22/17 11/23/17 19:00 07:00 Intake Total 720 ml 480 ml Output Total 2525 ml Balance 720 ml -2045 ml Intake Oral 720 ml 480 ml Output Urine Total 2525 ml Annemarie Espinoza MD Nov 23, 2017 19:34
--- NOTE | 2017-11-24 00:05 | Diagnostic Imaging Report ---
APPROVED REPORT CPT Code: 43525 Present Symptoms Comments: BILATERAL LEGS PAIN. BILATERAL: Imaging reveals a patent deep venous system bilaterally. There is no evidence of thrombus within the femoral, popliteal or tibial segments. The greater saphenous veins are also within normal limits. Doppler indicates normal spontaneous flow within these segments.
--- NOTE | 2017-11-24 13:34 | Discharge Summary ---
Discharge Summary Discharge Summary Discharge Summary DATE OF ADMISSION: 11/19/2017 DATE OF DISCHARGE: 11/23/2017 CONSULTANTS: Dr. Tiburcio Lucas BRIEF HOSPITAL COURSE: Patient is a 62-year-old male from [facility] was brought in by paramedics for gradual increase in shortness of breath. Patient is a poor historian injury to his psychiatric issues. He has medical history significant for COPD, congestive heart failure, history of bifascicular block, history of cardiac ablation. On evaluation at ED, there was no use leukocytoses, hemoglobin was elevated to 19.9, hematocrit 53.9. EKG was normal sinus rhythm with premature supraventricular complexes and bifascicular block. Chest x-ray with bronchial thickening, minimal cardiac enlargement. He was given IV Lasix. He was then admitted for cardiac and pulmonary workup. He was seen by recovery analyst. Echocardiogram showed LVH but normal PA pressure and moderate mitral regurgitation. He was given Lasix 20 mg daily and was continued on lisinopril and aspirin. Venous duplex was negative for DVT. He was given DuoNeb breathing treatments. He was placed on nicotine patch. He had history of depression with anxiety and insomnia. He was given Remeron. Pulmonary and cardiac workup showed combination of COPD and mild diastolic CHF. He was eventually cleared for discharge back to [facility]. FINAL DIAGNOSES: Acute on chronic diastolic congestive heart failure in exacerbation Acute COPD exacerbation Major depressive disorder Anxiety disorder DISPOSITION: Back to board and care DISCHARGE MEDICATIONS: Refer to Discharge Medication List. DISCHARGE INSTRUCTIONS: Follow up with PCP in a week. I have been assigned to dictate discharge summary on this account, and I was not involved in the patient's management. Cindy Cronin NP Nov 24, 2017 13:34
== END 2017-11-23 10:45 | disposition home or self-care (01) | DRG 190 ==
LOC: EDBD 17:41 → EMR 19:15 → 2E 19:29 → EDBEDREQ 20:39 → 2E 23:03 → SDSOVERFLO 11-21 16:56 → 2E 11-21 16:58 → SDSOVERFLO 11-21 19:21 → 2E 11-21 19:23
DX: J44.1 Chronic obstructive pulmonary disease with (acute) exacerbation (principal); I50.33 Acute on chronic diastolic (congestive) heart failure; I45.2 Bifascicular block; I11.0 Hypertensive heart disease with heart failure; F41.8 Other specified anxiety disorders; F17.200 Nicotine dependence, unspecified, uncomplicated; I49.1 Atrial premature depolarization; F20.9 Schizophrenia, unspecified; E11.9 Type 2 diabetes mellitus without complications; I48.0 Paroxysmal atrial fibrillation; Z79.84 Long term (current) use of oral hypoglycemic drugs; D75.1 Secondary polycythemia
CPT/HCPCS: 36415; 36600; 71045; 80048; 80053; 80307; 82248; 82550; 82553; 82803; 83690; 83735; 83880; 84484; 85025; 85610; 85730; 87081; 93005; 93306; 93970; 94640; 94664; 94760; 99285; J7620

== ENCOUNTER 2017-12-21 10:47 | Inpatient (IN) | payer MEDICARE, MEDICAID ==
[~2017-12-21] VITALS: Ht 172.7 cm; Wt 88.0 kg
[~2017-12-21 10:47] MED LIST changes: +ACETAMINOPHEN325 M1 ORAL; +AMLODIPINE BESYL5 MG ORAL; +ARTANE2 MG ORAL; +ASPIRIN81 MG ORAL; +ATORVASTATIN CA20 MG ORAL; +COLACE100 MG ORAL; +DUONEB 0.5-3(2.53 ML HHN; +FUROSEMIDE20 M1 ORAL; +HALDOL5 MG ORAL; +HALOPERIDOL10 MG ORAL; +LISINOPRIL10 MG ORAL; +METOPROLOL TART50 M1 ORAL; +MIRTAZAPINE15 M3 ORAL; +NICODERM CQ1 EAC1 TDERMAL; +PROTONIX40 MG ORAL
[2017-12-21 11:05] VITALS: BP 132/67
[2017-12-21] MEDS ORDERED: Albuterol ud Inhalation HHN ONE (11:15)
[2017-12-21] MEDS ORDERED: Ipratropium 0.02% Inh Soln 2.5ml UD HHN ONE (11:15)
[2017-12-21] MEDS ORDERED: Solu-MEDROL 125mg Inj IVP ONE (11:15)
[2017-12-21 11:54] LABS: BASOPHILS % (AUTO) 0.7 % (0.0-2.0); EOSINOPHILS % (AUTO) 0.7 % (0.0-3.0); HEMATOCRIT 55.4 % (42.0-52.0); LYMPHOCYTES % (AUTO) 13.6 % (20.0-45.0); MEAN CORPUSCULAR VOLUME 91 FL (80-99); MONOCYTES % (AUTO) 6.9 % (1.0-10.0); NEUTROPHILS % (AUTO) 78.2 % (45.0-75.0); PLATELET COUNT 188 K/UL (150-450); RED BLOOD COUNT 6.07 M/UL (4.70-6.10); RED CELL DISTRIBUTION WIDTH 14.8 % (11.6-14.8)
[2017-12-21 11:57] LABS: HEMOGLOBIN 19.4 G/DL (14.2-18.0)
--- NOTE | 2017-12-21 12:03 | Emergency Room Report ---
History of Present Illness General Chief Complaint: Dyspnea/Respdistress Source: Patient Present Illness HPI Patient presents with complaints of shortness of breath Patient reports that he has COPD however Does not have any oxygen at home He has also been working on getting an inhaler machine for home And eyes any chest pain Patient is currently smoking however he reports is very difficult for him to stop Denies any recent travel Denies any vomiting or diarrhea denies any fevers or cough Allergies: Coded Allergies: No Known Allergies (Unverified , 01/20/17) Patient History Past Medical History: see triage record Pertinent Family History: none Reviewed Nursing Documentation: PMH: Agreed; PSxH: Agreed Nursing Documentation-PMH Past Medical History: No History, Except For Hx Cardiac Problems: Yes Hx Hypertension: Yes Hx Pacemaker: No Hx Asthma: No Hx COPD: Yes Hx Diabetes: Yes Hx Cancer: No Hx Gastrointestinal Problems: No Hx Dialysis: No History Of Psychiatric Problem: Yes - Schizophrenia Hx Neurological Problems: No Hx Cerebrovascular Accident: No Hx Seizures: No Review of Systems All Other Systems: negative except mentioned in HPI Physical Exam Vital Signs Date Time Temp Pulse Resp B/P (MAP) Pulse Ox O2 Delivery O2 Flow Rate FiO2 12/21/17 10:52 98.1 65 18 126/82 91 Room Air 98.1 12/21/17 11:30 21 Sp02 EP Interpretation: reviewed, abnormal - 91% is mildly hypoxic, after breathing treatment patient saturating on room air General Appearance: well appearing, no apparent distress Head: normocephalic, atraumatic Eyes: bilateral eye PERRL, bilateral eye EOMI ENT: hearing grossly normal, normal pharynx, TMs + canals normal, uvula midline Neck: full range of motion, supple, no meningismus, no bony tend Respiratory: no respiratory distress, no retraction, no accessory muscle use, crackles - And fine wheezing bilaterally Cardiovascular #1: normal peripheral pulses, regular rate, rhythm, no edema, no gallop, no JVD, no murmur Gastrointestinal: normal bowel sounds, non tender, soft, no mass, no organomegaly, non-distended, no guarding, no hernia, no pulsatile mass, no rebound Genitourinary: no CVA tenderness Musculoskeletal: normal inspection Neurologic: oriented x3, responsive, senior windows engineer III-XII nml as tested, motor strength/ tone normal, sensory intact Psychiatric: mood/affect normal Skin: normal color, no rash, warm/dry, palpation normal Lymphatic: normal inspection, no adenopathy Medical Decision Making Diagnostic Impression: Primary Impression: Respiratory distress Additional Impression: Pneumonia ER Course Patient is a fairly complex patient with multiple differential to consideration including but not limited to cardiac cardiopulmonary and vascular emergencies Patient receiving acute breathing treatments along with steroids X-ray shows increased right-sided lower lobe markings concerning for possible aspiration Pneumonia Patient provided with IV antibiotics and requires further inpatient care Labs Test 12/21/17 11:20 White Blood Count 10.0 K/UL (4.8-10.8) Red Blood Count 6.07 M/UL (4.70-6.10) Hemoglobin 19.4 G/DL (14.2-18.0) Hematocrit 55.4 % (42.0-52.0) Mean Corpuscular Volume 91 FL (80-99) Mean Corpuscular Hemoglobin 32.0 PG (27.0-31.0) Mean Corpuscular Hemoglobin Concent 35.1 G/DL (32.0-36.0) Red Cell Distribution Width 14.8 % (11.6-14.8) Platelet Count 188 K/UL (150-450) Mean Platelet Volume 8.9 FL (6.5-10.1) Neutrophils (%) (Auto) 78.2 % (45.0-75.0) Lymphocytes (%) (Auto) 13.6 % (20.0-45.0) Monocytes (%) (Auto) 6.9 % (1.0-10.0) Eosinophils (%) (Auto) 0.7 % (0.0-3.0) Basophils (%) (Auto) 0.7 % (0.0-2.0) Sodium Level 138 MMOL/L (136-145) Potassium Level 4.6 MMOL/L (3.5-5.1) Chloride Level 102 MMOL/L (98-107) Carbon Dioxide Level 26 MMOL/L (21-32) Anion Gap 10 mmol/L (5-15) Blood Urea Nitrogen 32 mg/dL (7-18) Creatinine 1.0 MG/DL (0.55-1.30) Estimat Glomerular Filtration Rate > 60 mL/min (>60) Glucose Level 101 MG/DL (74-106) Calcium Level 9.5 MG/DL (8.5-10.1) Total Bilirubin 1.7 MG/DL (0.2-1.0) Direct Bilirubin 0.2 MG/DL (0.0-0.3) Aspartate Amino Transf (AST/SGOT) 17 U/L (15-37) Alanine Aminotransferase (ALT/SGPT) 19 U/L (12-78) Alkaline Phosphatase 72 U/L (46-116) Total Creatine Kinase 44 U/L (26-308) Creatine Kinase MB 1.9 NG/ML (0.0-3.6) Creatine Kinase MB Relative Index 4.3 Troponin I 0.023 ng/mL (0.000-0.056) Pro-B-Type Natriuretic Peptide 953 pg/mL (0-125) Total Protein 6.9 G/DL (6.4-8.2) Albumin 3.6 G/DL (3.4-5.0) Globulin 3.3 g/dL Albumin/Globulin Ratio 1.1 (1.0-2.7) Rhythm Strip Diag. Results EP Interpretation: yes Rate: 78 Rhythm: NSR, no PVC's, no ectopy Chest X-Ray Diagnostic Results Chest X-Ray Diagnostic Results : Chest X-Ray Ordered: Yes # of Views/Limited/Complete: 1 View Indication: Shortness of Breath EP Interpretation: Yes Interpretation: no effusion, no pneumothorax, other - Heart size normal, right lower Impression: Other - Right lower lobe pneumonia Electronically Signed by: aLith Florentino DO Last Vital Signs Date Time Temp Pulse Resp B/P (MAP) Pulse Ox O2 Delivery O2 Flow Rate FiO2 12/21/17 11:30 61 18 Room Air 12/21/17 11:30 96 21 12/21/17 11:05 98.1 132/67 98.1 Status: improved Disposition: ADMITTED INPATIENT Condition: Serious Laith Florentino DO December 21, 2017 12:03
[2017-12-21 12:11] LABS: ANION GAP 10 mmol/L (5-15); BLOOD UREA NITROGEN 32 mg/dL (7-18); CALCIUM 9.5 MG/DL (8.5-10.1); CARBON DIOXIDE 26 MMOL/L (21-32); CHLORIDE 102 MMOL/L (98-107); POTASSIUM 4.6 MMOL/L (3.5-5.1); SODIUM 138 MMOL/L (136-145)
[2017-12-21 12:28] LABS: ALANINE AMINOTRANSFERASE 19 U/L (12-78); ALBUMIN 3.6 G/DL (3.4-5.0); ALBUMIN/GLOBULIN RATIO 1.1 (1.0-2.7); ALKALINE PHOSPHATASE 72 U/L (46-116); ASPARTATE AMINO TRANSFERASE 17 U/L (15-37); BILIRUBIN,TOTAL 1.7 MG/DL (0.2-1.0); CKMB 1.9 NG/ML (0.0-3.6); CREATINE KINASE 44 U/L (26-308)
[2017-12-21 12:42] LABS: BILIRUBIN,DIRECT 0.2 MG/DL (0.0-0.3)
[2017-12-21 13:22] VITALS: BP 154/80
--- NOTE | 2017-12-21 14:31 | Diagnostic Imaging Report ---
Indication: Shortness of breath Technique: One view of the chest Comparison: 11/19/2017 Findings: Hazy opacity over the right lung base likely represents overlapping soft tissues. No definite acute infiltrates, effusions, or congestion. The heart is upper limits of normal in size. Old healed left rib fracture deformity is again demonstrated Impression: No definite acute process
[2017-12-21 17:11] VITALS: BP 152/74
[2017-12-21 17:15] VITALS: BP 158/85
[2017-12-21] MEDS ORDERED: Norco 5mg/325mg tab ORAL PRN (17:45)
[2017-12-21] MEDS ORDERED: Milk of Magnesia 30ml Ud ORAL PRN (17:45)
[2017-12-21] MEDS: Albuterol/Ipratropium 3ml neb HHN SCH (19:32)
[2017-12-21 20:00] VITALS: BP 145/90
[2017-12-21] MEDS: Metoprolol Tartrate 50mg tab ORAL SCH (21:06)
[2017-12-21] MEDS: Docusate 100mg cap ORAL SCH (21:07)
[2017-12-21] MEDS: Atorvastatin 20mg tab ORAL SCH (21:07)
[2017-12-21] MEDS: Heparin 5000 units/ml inj SUBQ SCH (21:08)
[2017-12-22] MEDS: Albuterol/Ipratropium 3ml neb HHN SCH ×4 (01:00→19:22)
[2017-12-22 04:00] VITALS: BP 150/75
[2017-12-22 08:00] VITALS: BP 143/90
[2017-12-22] MEDS: Solu-MEDROL 125mg Inj IVP SCH (08:51)
[2017-12-22] MEDS: Trihexyphenidyl 2mg tab ORAL SCH ×2 (08:53→17:25)
[2017-12-22] MEDS: Metoprolol Tartrate 50mg tab ORAL SCH ×2 (08:54→22:16)
[2017-12-22] MEDS: Docusate 100mg cap ORAL SCH ×2 (08:54→22:15)
[2017-12-22] MEDS: Lisinopril 10mg tab ORAL SCH (08:55)
[2017-12-22] MEDS: Aspirin Baby 81mg ORAL SCH (08:56)
[2017-12-22] MEDS ORDERED: metFORMIN 500mg tab ORAL SCH (09:00)
--- NOTE | 2017-12-22 09:03 | Consultation ---
Consult Note Consult Note 62 year old Patient presents with complaints of shortness of breath and COPD exacerbation Patent denies home oxygen She does have inhalers at home and has been using excessively patient with cough, chest tightness. she continues to smoke no ill contacts no recent contacts no fevers noted Allergies: No Known Allergies (Unverified , 01/20/17) Past Medical History: COPD, hypertension, schizophenia Pertinent Family History: none Reviewed of systems: all 10 points reviewed and negative Social history: smoker, disabled physical WDWN NAD reduced breath sounds bilaterally with some rhonchi or wheeze [id number] without MRG NABS nontender no HSM no CC trace edema nonfocal 124/80 98.4 82 14 98% Laboratory Tests Test 12/21/17 11:20 White Blood Count 10.0 K/UL (4.8-10.8) Red Blood Count 6.07 M/UL (4.70-6.10) Hemoglobin 19.4 G/DL (14.2-18.0) *H Hematocrit 55.4 % (42.0-52.0) H Mean Corpuscular Volume 91 FL (80-99) Mean Corpuscular Hemoglobin 32.0 PG (27.0-31.0) H Mean Corpuscular Hemoglobin Concent 35.1 G/DL (32.0-36.0) Red Cell Distribution Width 14.8 % (11.6-14.8) Platelet Count 188 K/UL (150-450) Mean Platelet Volume 8.9 FL (6.5-10.1) Neutrophils (%) (Auto) 78.2 % (45.0-75.0) H Lymphocytes (%) (Auto) 13.6 % (20.0-45.0) L Monocytes (%) (Auto) 6.9 % (1.0-10.0) Eosinophils (%) (Auto) 0.7 % (0.0-3.0) Basophils (%) (Auto) 0.7 % (0.0-2.0) Sodium Level 138 MMOL/L (136-145) Potassium Level 4.6 MMOL/L (3.5-5.1) Chloride Level 102 MMOL/L (98-107) Carbon Dioxide Level 26 MMOL/L (21-32) Anion Gap 10 mmol/L (5-15) Blood Urea Nitrogen 32 mg/dL (7-18) H Creatinine 1.0 MG/DL (0.55-1.30) Estimat Glomerular Filtration Rate > 60 mL/min (>60) Glucose Level 101 MG/DL (74-106) Calcium Level 9.5 MG/DL (8.5-10.1) Total Bilirubin 1.7 MG/DL (0.2-1.0) H Direct Bilirubin 0.2 MG/DL (0.0-0.3) Aspartate Amino Transf (AST/SGOT) 17 U/L (15-37) Alanine Aminotransferase (ALT/SGPT) 19 U/L (12-78) Alkaline Phosphatase 72 U/L (46-116) Total Creatine Kinase 44 U/L (26-308) Creatine Kinase MB 1.9 NG/ML (0.0-3.6) Creatine Kinase MB Relative Index 4.3 Troponin I 0.023 ng/mL (0.000-0.056) Pro-B-Type Natriuretic Peptide 953 pg/mL (0-125) H Total Protein 6.9 G/DL (6.4-8.2) Albumin 3.6 G/DL (3.4-5.0) Globulin 3.3 g/dL Albumin/Globulin Ratio 1.1 (1.0-2.7) IMPRESSION COPD exacerbation shortness of breath possible bronchitis hypertension smoker PLAN respiratory care oxygen IV solumedrol empiric antibiotics DVT prophylaxis home meds monitor and assist with dc planning impression, plan, and exam edited and reviewed in detail care discussed with Tiburcio De Luna MD December 22, 2017 09:03
[2017-12-22] MEDS: Heparin 5000 units/ml inj SUBQ SCH ×2 (09:11→22:17)
[2017-12-22] MEDS ORDERED: D5 1/2NS 1000ml IV ONE (09:48)
[2017-12-22 12:00] VITALS: BP 140/78
--- NOTE | 2017-12-22 14:16 | History and Physical Report ---
DATE OF ADMISSION: 12/21/2017 CHIEF COMPLAINT: Shortness of breath. HISTORY OF PRESENT ILLNESS: This is a well-known 62-year-old male, who lives at [facility]. The patient was admitted by me about a month ago to this hospital with the same complaint. The patient is an extremely heavy cigarette smoker and cannot stop this habit. The patient states during his last admission he was seen by Dr. Espinoza in Cardiology consult. There was an impression of LVH with normal PA pressure and moderate mitral regurgitation. PAST MEDICAL HISTORY: 1. Schizophrenia. 2. COPD. 3. Status post cardiac ablation by Dr. Bosch. 4. Congestive heart failure. 5. History of bifascicular block. 6. LVH. 7. Moderate mitral regurgitation. MEDICATIONS: Tylenol, amlodipine, baby aspirin, atorvastatin, sodium docusate, Lasix, Haldol, DuoNeb inhalation, lisinopril, metformin, the reason for which is not clear, but the patient states he has diabetes. Metoprolol, mirtazapine, nicotine patch, although the patient continues to smoke, Protonix. ALLERGIES: No known drug allergies. FAMILY HISTORY: Unremarkable. SOCIAL HISTORY: The patient lives in a [facility]. HABITS: Significant for heavy cigarette smoking. REVIEW OF SYSTEMS: The patient is schizophrenic and his review of systems is unreliable. PHYSICAL EXAMINATION: GENERAL: This is an elderly male, who is in no acute distress. VITAL SIGNS: Blood pressure 150/75, pulse is 63 and regular, respirations 20, and temperature 98.1. HEENT: Head is normocephalic and atraumatic. Pupils are equal, round, and reactive to light and accommodation consensually. NECK: Supple. Trachea midline. There was no lymphadenopathy or thyromegaly. LUNGS: Bilateral wheezes. Increased expiratory phase. HEART: Regular rate and rhythm without rubs, murmurs, or gallops. ABDOMEN: Soft and nontender. Bowel sounds were active. EXTREMITIES: No clubbing, cyanosis, or edema. NEUROLOGICAL: He is alert and oriented x4. Cranial nerves II through XII intact. LABORATORY AND ANCILLARY DATA: CBC, hemoglobin 19.4. Chemistry, his glucose is 101, other components are within normal limits. Troponin level 0.023. Chest x-ray, no acute process. ASSESSMENT: 1. COPD exacerbation. 2. Schizophrenia. 3. Status post cardiac ablation by Dr. Bosch. 4. Congestive heart failure. 5. History of bifascicular block. 6. LVH. 7. Moderate mitral regurgitation PLAN: 1. Continue outside medications with modifications as necessary. 2. Psychiatry consult. Juana Henson M.D. DR: NADIA JOB#: [id number] CC: DEBBIE
--- NOTE | 2017-12-22 15:50 | Consultation ---
History of Present Illness General Date patient seen: December 22, 2017 Chief Complaint: Dyspnea/Respdistress Present Illness HPI 62-year-old male, with hx of schizophrenia came for SOb. the pt is bizarre and has AH, the pt stated that he does not want meds to be changed as he is used to AH. the pt does not endorse si/hi Allergies: Coded Allergies: No Known Allergies (Unverified , 01/20/17) Medication History Scheduled Amlodipine Besylate* (Amlodipine Besylate*), 5 MG ORAL DAILY, (Reported) Aspirin* (Aspirin*), 81 MG ORAL DAILY Atorvastatin Calcium* (Atorvastatin Calcium*), 20 MG ORAL DAILY, (Reported) Docusate Sodium* (Colace*), 100 MG ORAL EVERY 12 HOURS Furosemide* (Lasix*), 20 MG ORAL DAILY Haloperidol (Haloperidol), 10 MG ORAL BID, (Reported) Haloperidol (Haloperidol), 10 MG ORAL BID Lisinopril* (Lisinopril*), 10 MG ORAL DAILY Metformin Hcl* (Metformin Hcl*), 500 MG ORAL TWICE A DAY, (Reported) Metoprolol Tartrate* (Metoprolol Tartrate*), 50 MG ORAL EVERY 12 HOURS, ( Reported) Mirtazapine* (Mirtazapine*), 7.5 MG ORAL BEDTIME Nicotine 14MG Patch* (Nicoderm Cq 14MG*), 1 PATCH TDERMAL Q24H Pantoprazole* (Protonix*), 40 MG ORAL DAILY Trihexyphenidyl HCl (Trihexyphenidyl HCl), 1 MG ORAL BID Trihexyphenidyl Hcl* (Artane*), 2 MG ORAL TWICE A DAY, (Reported) Scheduled PRN Acetaminophen* (Acetaminophen 325MG Tablet*), 650 MG ORAL Q4H PRN Ipratropium/Albuterol Sulfate (DuoNeb 0.5-3(2.5)mg/3ml), 3 ML HHN EVERY 6 HOURS PRN Patient History Limited by: medical condition History Provided By: Patient, Medical Record, PMD Healthcare decision maker N Resuscitation status Full Code Advanced Directive on File Past Medical/Surgical History Past Medical/Surgical History: (1) Atrial flutter (2) Hypertension (3) Hypotension (4) Thickening of wall of gallbladder (5) Respiratory distress (6) Hypoxia (7) Pneumonia Review of Systems Psychiatric: Reports: prior hx, anxiety, depressed feelings, emotional problems , hallucinations Physical Exam General Appearance: WD/WN, no apparent distress, alert Neurologic: oriented x 3, responsive, depressed affect Last 24 Hour Vital Signs Date Time Temp Pulse Resp B/P (MAP) Pulse Ox O2 Delivery O2 Flow Rate FiO2 12/22/17 13:21 84 18 99 Room Air 21 12/22/17 13:15 84 18 97 Room Air 21 12/22/17 12:00 97.9 63 20 140/78 93 Room Air 97.9 12/22/17 12:00 62 12/22/17 08:55 143/90 12/22/17 08:55 76 143/90 12/22/17 08:54 76 143/90 12/22/17 08:27 Room Air 21 12/22/17 08:00 86 12/22/17 08:00 98.4 76 20 143/90 93 Room Air 98.4 12/22/17 07:10 82 18 Room Air 21 12/22/17 07:10 82 18 97 Room Air 21 12/22/17 04:00 71 12/22/17 04:00 98.1 63 20 150/75 94 Room Air 98.1 12/22/17 01:51 Room Air 21 12/22/17 01:50 Room Air 21 12/22/17 00:00 66 12/21/17 21:06 80 145/90 12/21/17 20:00 98.2 80 20 145/90 90 Room Air 98.2 12/21/17 20:00 79 12/21/17 19:39 81 18 99 Room Air 21 12/21/17 19:33 79 18 Room Air 21 12/21/17 19:32 79 20 93 Room Air 21 12/21/17 17:15 97.6 82 18 158/85 92 Room Air 97.6 12/21/17 17:13 98.4 82 20 152/76 90 Room Air 12/21/17 17:11 98.4 72 20 152/74 91 Room Air 98.4 Intake and Output 12/21/17 12/22/17 19:00 07:00 Intake Total 240 ml 240 ml Output Total 0 ml Balance 240 ml 240 ml Intake Oral 240 ml 240 ml Output Urine Total 0 ml # Voids 1 Height (Feet): 5 Height (Inches): 8.00 Weight (Pounds): 194 Medications Current Medications Medications (Trade) Dose Ordered Sig/Jean Route PRN Reason Start Time Stop Time Status Last Admin Dose Admin Acetaminophen (Tylenol) 500 mg EVERY 6 HOURS PRN ORAL Mild Pain/Temp > 100.5 12/21/17 17:45 01/20/18 17:44 Acetaminophen/ Hydrocodone Bitart ([place] 5/325) 1 tab Q6H PRN ORAL for moderate pain 12/21/17 17:45 12/28/17 17:44 Albuterol/ Ipratropium (Albuterol/ Ipratropium) 3 ml Q6HRT HHN 12/21/17 19:00 12/26/17 18:59 12/22/17 13:36 Amlodipine Besylate (Norvasc) 5 mg DAILY ORAL 12/22/17 09:00 01/21/18 08:59 12/22/17 08:55 Aspirin (ASA) 81 mg DAILY ORAL 12/22/17 09:00 01/21/18 08:59 12/22/17 08:56 Atorvastatin Calcium (Lipitor) 20 mg BEDTIME ORAL 12/21/17 21:00 01/20/18 20:59 12/21/17 21:07 Docusate Sodium (Colace) 100 mg EVERY 12 HOURS ORAL 12/21/17 21:00 01/20/18 20:59 12/22/17 08:54 Furosemide (Lasix) 20 mg DAILY ORAL 12/22/17 09:00 01/21/18 08:59 12/22/17 08:56 Heparin Sodium (Porcine) (Heparin 5000 units/ml) 5,000 units EVERY 12 HOURS SUBQ 12/21/17 21:00 01/20/18 20:59 12/22/17 09:11 Levofloxacin 100 ml @ 100 mls/hr Q24H IVPB 12/22/17 09:00 12/29/17 08:59 12/22/17 09:51 Lisinopril (Zestril) 10 mg DAILY ORAL 12/22/17 09:00 01/21/18 08:59 12/22/17 08:55 Magnesium Hydroxide (Mom) 30 ml EVERY 6 HOURS PRN ORAL Constipation 12/21/17 17:45 01/20/18 17:44 Methylprednisolone Sodium Succinate (Solu-MEDROL) 60 mg DAILY IVP 5/18/18 09:00 01/21/18 08:59 12/22/17 08:51 Metoprolol Tartrate (Lopressor) 50 mg Q12HR ORAL 12/21/17 21:00 01/20/18 20:59 12/22/17 08:54 Mirtazapine (Remeron) 7.5 mg BEDTIME ORAL 12/21/17 21:00 01/20/18 20:59 12/21/17 21:07 Nicotine (Nicoderm) 1 patch DAILY TDERMAL 12/22/17 12:30 01/21/18 12:29 12/22/17 13:50 Ondansetron HCl (Zofran) 4 mg Q6H PRN IVP Nausea & Vomiting 12/21/17 17:45 01/20/18 17:44 Pantoprazole (Protonix) 40 mg DAILY ORAL 12/22/17 09:00 01/21/18 08:59 12/22/17 08:53 Trihexyphenidyl HCl (Artane) 2 mg TWICE A DAY ORAL 12/22/17 09:00 01/21/18 08:59 12/22/17 08:53 Assessment/Plan Status: stable, progressing Assessment/Plan schizophrenia -haldol -artane provided margarito/Amauri Hills M.D. December 22, 2017 15:50
[2017-12-22 16:00] VITALS: BP 127/73
[2017-12-22 20:00] VITALS: BP 121/67
[2017-12-22] MEDS: Atorvastatin 20mg tab ORAL SCH (22:15)
[2017-12-22] MEDS: Acetaminophen 500mg (ES) tab ORAL PRN (22:21)
[2017-12-23] VITALS: BP 144/75
[2017-12-23] MEDS: Albuterol/Ipratropium 3ml neb HHN SCH ×4 (00:32→19:57)
[2017-12-23 04:00] VITALS: BP 122/76
[2017-12-23 08:00] VITALS: BP 143/72
--- NOTE | 2017-12-23 08:24 | Physician Query ---
--------- THIS DOCUMENT IS A PERMANENT PART OF THE MEDICAL RECORD --------- PLEASE COMPLETE THE DOCUMENT BEFORE SIGNING Dear Dr. Henson Date: 2017 [employer] Apprentice/CDS Name: Zahraa Tavera [employer]cher Apprentice / CDS Phone # [phone] Exercise your independent professional judgment when responding to query. Question asked do not imply a particular answer is desired/expected Clinical Documentation States: H & P impression includes "Congestive Heart Failure" and "LVH". Past medical history includes Congestive Heart Failure. Clinical Findings Show: BNP: 953 Diuretic: Furosemide Other Meds: Metoprolol Can you please further clarify the diagnosis of Congestive Heart Failure: Acuity [] Acute [x] Chronic [] Acute on Chronic Type [] Systolic [x] Diastolic [] Systolic & Diastolic (Combined) [] Left Heart failure [] Other: Etiology [x] CHF due to Hypertension [] Cardiomyopathy [] Valvular Heart Disease [] Coronary Artery Disease [] Unable to determine [] Other: Condition Present on Admission: [] Yes [] No []Clinically Undeterminable Please also document in your Progress Notes and/or Discharge Summary and indicate if the condition was present on admission. MTDD
[2017-12-23] MEDS: Trihexyphenidyl 2mg tab ORAL SCH ×2 (08:28→17:34)
[2017-12-23] MEDS: Aspirin Baby 81mg ORAL SCH (08:29)
[2017-12-23] MEDS: Docusate 100mg cap ORAL SCH ×2 (08:29→21:02)
[2017-12-23] MEDS: Metoprolol Tartrate 50mg tab ORAL SCH ×2 (08:29→21:02)
[2017-12-23] MEDS: Lisinopril 10mg tab ORAL SCH (08:30)
[2017-12-23] MEDS: Solu-MEDROL 125mg Inj IVP SCH (08:30)
[2017-12-23] MEDS: Heparin 5000 units/ml inj SUBQ SCH ×2 (08:48→21:04)
--- NOTE | 2017-12-23 10:25 | General Progress Note ---
Assessment/Plan Assessment/Plan IMPRESSION COPD exacerbation shortness of breath possible bronchitis hypertension smoker PLAN respiratory care as is oxygen IV solumedrol- dc in am empiric antibiotics DVT prophylaxis home meds monitor and assist with dc planning and discuss impression, plan, and exam edited and reviewed in detail care discussed with RN Subjective Allergies: Coded Allergies: No Known Allergies (Unverified , 01/20/17) Subjective care noted no distress on oxygen Objective Last 24 Hour Vital Signs Date Time Temp Pulse Resp B/P (MAP) Pulse Ox O2 Delivery O2 Flow Rate FiO2 12/23/17 08:30 143/72 12/23/17 08:29 96 143/72 12/23/17 08:29 96 143/72 12/23/17 08:00 97.0 96 20 143/72 96 Room Air 97.0 12/23/17 07:33 88 18 99 Room Air 21 12/23/17 07:24 84 18 98 Room Air 21 12/23/17 04:00 73 12/23/17 04:00 97.2 78 20 122/76 94 Room Air 97.2 12/23/17 00:42 87 18 99 Room Air 21 12/23/17 00:32 82 18 97 Room Air 21 12/23/17 00:00 76 12/23/17 00:00 97.0 70 20 144/75 93 Room Air 97.0 12/22/17 22:16 75 121/67 12/22/17 20:00 97.0 75 20 121/67 94 Room Air 97.0 12/22/17 20:00 71 12/22/17 19:39 82 18 99 Room Air 21 12/22/17 19:23 74 18 Room Air 21 12/22/17 19:23 74 18 95 Room Air 21 12/22/17 16:00 98.2 71 20 127/73 93 Room Air 98.2 12/22/17 16:00 69 12/22/17 13:21 84 18 99 Room Air 21 12/22/17 13:15 84 18 97 Room Air 21 12/22/17 12:00 97.9 63 20 140/78 93 Room Air 97.9 12/22/17 12:00 62 Intake and Output 12/22/17 12/23/17 19:00 07:00 Intake Total 1370 ml 600 ml Output Total 600 ml Balance 1370 ml 0 ml Intake Oral 1370 ml 600 ml Output Urine Total 600 ml # Voids 2 Height (Feet): 5 Height (Inches): 8.00 Weight (Pounds): 194 Objective WDWN NAD reduced breath sounds bilaterally without rhonchi or wheeze [id number] without MRG NABS nontender no HSM no CC trace edema weak nonfocal Tiburcio Keith MD December 23, 2017 10:25
--- NOTE | 2017-12-23 11:31 | General Progress Note ---
Assessment/Plan Assessment/Plan COPD Exacerbation Schizophrenia -per psych Subjective Allergies: Coded Allergies: No Known Allergies (Unverified , 01/20/17) Subjective Still SOB Objective Last 24 Hour Vital Signs Date Time Temp Pulse Resp B/P (MAP) Pulse Ox O2 Delivery O2 Flow Rate FiO2 12/23/17 08:30 143/72 12/23/17 08:29 96 143/72 12/23/17 08:29 96 143/72 12/23/17 08:00 97.0 96 20 143/72 96 Room Air 97.0 12/23/17 07:33 88 18 99 Room Air 21 12/23/17 07:24 84 18 98 Room Air 21 12/23/17 04:00 73 12/23/17 04:00 97.2 78 20 122/76 94 Room Air 97.2 12/23/17 00:42 87 18 99 Room Air 21 12/23/17 00:32 82 18 97 Room Air 21 12/23/17 00:00 76 12/23/17 00:00 97.0 70 20 144/75 93 Room Air 97.0 12/22/17 22:16 75 121/67 12/22/17 20:00 97.0 75 20 121/67 94 Room Air 97.0 12/22/17 20:00 71 12/22/17 19:39 82 18 99 Room Air 21 12/22/17 19:23 74 18 Room Air 21 12/22/17 19:23 74 18 95 Room Air 21 12/22/17 16:00 98.2 71 20 127/73 93 Room Air 98.2 12/22/17 16:00 69 12/22/17 13:21 84 18 99 Room Air 21 12/22/17 13:15 84 18 97 Room Air 21 12/22/17 12:00 97.9 63 20 140/78 93 Room Air 97.9 12/22/17 12:00 62 Intake and Output 12/22/17 12/23/17 19:00 07:00 Intake Total 1370 ml 600 ml Output Total 600 ml Balance 1370 ml 0 ml Intake Oral 1370 ml 600 ml Output Urine Total 600 ml # Voids 2 Height (Feet): 5 Height (Inches): 8.00 Weight (Pounds): 194 Objective Cv RR Lungs B wheezes Abd SNT. BS+ E No CCE Juana Henson MD December 23, 2017 11:31
[2017-12-23 12:00] VITALS: BP 149/84
[2017-12-23] MEDS ORDERED: Tubing IV Secondary IV ONE (15:30)
[2017-12-23] MEDS ORDERED: NS 275ml ONE (15:30)
[2017-12-23 16:00] VITALS: BP 145/73
[2017-12-23 20:00] VITALS: BP 153/88
[2017-12-23] MEDS: Atorvastatin 20mg tab ORAL SCH (21:02)
--- NOTE | 2017-12-23 22:51 | General Progress Note ---
Assessment/Plan Assessment/Plan schizophrenia -randolph -darlene provided ro/st Subjective Date patient seen: December 23, 2017 Neurologic/Psychiatric: Reports: anxiety, emotional problems Allergies: Coded Allergies: No Known Allergies (Unverified , 01/20/17) Subjective delusional AH Objective Last 24 Hour Vital Signs Date Time Temp Pulse Resp B/P (MAP) Pulse Ox O2 Delivery O2 Flow Rate FiO2 12/23/17 21:02 83 153/88 12/23/17 20:00 76 12/23/17 20:00 97.7 86 21 153/88 91 Room Air 97.7 12/23/17 19:58 82 18 95 Room Air 21 12/23/17 19:57 79 18 92 Room Air 21 12/23/17 16:00 97.3 86 18 145/73 94 Room Air 97.3 12/23/17 16:00 86 12/23/17 13:30 90 18 99 Room Air 21 12/23/17 13:22 86 18 97 Room Air 21 12/23/17 12:00 98.1 86 20 149/84 95 Room Air 98.1 12/23/17 12:00 79 12/23/17 08:30 143/72 12/23/17 08:29 96 143/72 12/23/17 08:29 96 143/72 12/23/17 08:00 97.0 96 20 143/72 96 Room Air 97.0 12/23/17 08:00 97 12/23/17 07:33 88 18 99 Room Air 21 12/23/17 07:24 84 18 98 Room Air 21 12/23/17 04:00 73 12/23/17 04:00 97.2 78 20 122/76 94 Room Air 97.2 12/23/17 00:42 87 18 99 Room Air 21 12/23/17 00:32 82 18 97 Room Air 21 12/23/17 00:00 76 12/23/17 00:00 97.0 70 20 144/75 93 Room Air 97.0 Intake and Output 12/22/17 12/23/17 19:00 07:00 Intake Total 1370 ml 600 ml Output Total 600 ml Balance 1370 ml 0 ml Intake Oral 1370 ml 600 ml Output Urine Total 600 ml # Voids 2 Height (Feet): 5 Height (Inches): 8.00 Weight (Pounds): 194 General Appearance: WD/WN, no apparent distress, alert Neurologic: oriented x 3, responsive, depressed affect Amauri Lucas M.D. December 23, 2017 22:51
[2017-12-24] VITALS: BP 148/80
[2017-12-24] MEDS: Albuterol/Ipratropium 3ml neb HHN SCH ×4 (02:11→19:33)
[2017-12-24] MEDS: Acetaminophen 500mg (ES) tab ORAL PRN (02:52)
[2017-12-24 04:00] VITALS: BP 136/74
--- NOTE | 2017-12-24 07:12 | General Progress Note ---
Assessment/Plan Assessment/Plan IMPRESSION COPD exacerbation shortness of breath possible bronchitis hypertension smoker PLAN respiratory care as is oxygen IV solumedrol- dc today and monitor empiric antibiotics ? po DVT prophylaxis home meds noted dc planning impression, plan, and exam edited and reviewed in detail care discussed with RN Subjective Allergies: Coded Allergies: No Known Allergies (Unverified , 01/20/17) Subjective care noted no distress on oxygen no bronchospasm noted Objective Last 24 Hour Vital Signs Date Time Temp Pulse Resp B/P (MAP) Pulse Ox O2 Delivery O2 Flow Rate FiO2 12/24/17 04:00 87 12/24/17 04:00 98.2 78 20 136/74 90 Room Air 98.2 12/24/17 02:12 80 18 96 Room Air 21 12/24/17 02:00 74 18 93 Room Air 21 12/24/17 00:00 97.2 90 21 148/80 90 Room Air 97.2 12/24/17 00:00 66 12/23/17 21:02 83 153/88 12/23/17 20:00 76 12/23/17 20:00 97.7 86 21 153/88 91 Room Air 97.7 12/23/17 19:58 82 18 95 Room Air 21 12/23/17 19:57 79 18 92 Room Air 21 12/23/17 16:00 97.3 86 18 145/73 94 Room Air 97.3 12/23/17 16:00 86 12/23/17 13:30 90 18 99 Room Air 21 12/23/17 13:22 86 18 97 Room Air 21 12/23/17 12:00 98.1 86 20 149/84 95 Room Air 98.1 12/23/17 12:00 79 12/23/17 08:30 143/72 12/23/17 08:29 96 143/72 12/23/17 08:29 96 143/72 12/23/17 08:00 97.0 96 20 143/72 96 Room Air 97.0 12/23/17 08:00 97 12/23/17 07:33 88 18 99 Room Air 21 12/23/17 07:24 84 18 98 Room Air 21 Intake and Output 12/23/17 12/24/17 19:00 07:00 Intake Total 720 ml 360 ml Balance 720 ml 360 ml Intake Oral 720 ml 360 ml # Voids 1 Height (Feet): 5 Height (Inches): 8.00 Weight (Pounds): 194 Objective WDWN NAD reduced breath sounds bilaterally without rhonchi or wheeze [id number] without MRG NABS nontender no HSM no CC trace edema weak nonfocal Tiburcio Keith MD December 24, 2017 07:12
[2017-12-24 08:00] VITALS: BP 149/79
[2017-12-24] MEDS: Trihexyphenidyl 2mg tab ORAL SCH ×2 (08:22→18:22)
[2017-12-24] MEDS: Aspirin Baby 81mg ORAL SCH (08:22)
[2017-12-24] MEDS: Docusate 100mg cap ORAL SCH ×2 (08:23→20:32)
[2017-12-24] MEDS: Lisinopril 10mg tab ORAL SCH (08:23)
[2017-12-24] MEDS: Metoprolol Tartrate 50mg tab ORAL SCH ×2 (08:23→20:31)
[2017-12-24] MEDS: Heparin 5000 units/ml inj SUBQ SCH ×2 (08:25→20:32)
[2017-12-24] MEDS ORDERED: Solu-MEDROL 125mg Inj IVP SCH (09:00)
[2017-12-24] MEDS: metFORMIN 500mg tab ORAL SCH ×2 (10:18→18:22)
[2017-12-24] MEDS: NovoLOG Insulin Flexpen SUBQ SCH ×3 (11:30→21:00)
[2017-12-24 12:00] VITALS: BP 143/86
--- NOTE | 2017-12-24 12:51 | General Progress Note ---
Assessment/Plan Assessment/Plan COPD Exacerbation Schizophrenia -per psych BG high secondary to steroids. Added insulin coverage + metformin Subjective Allergies: Coded Allergies: No Known Allergies (Unverified , 01/20/17) Subjective Still SOB Objective Last 24 Hour Vital Signs Date Time Temp Pulse Resp B/P (MAP) Pulse Ox O2 Delivery O2 Flow Rate FiO2 12/24/17 08:23 84 149/79 12/24/17 08:23 149/79 12/24/17 08:23 84 149/79 12/24/17 08:15 84 18 98 Room Air 21 12/24/17 08:07 82 18 98 Room Air 21 12/24/17 08:00 81 12/24/17 08:00 97.0 79 20 149/79 93 Room Air 97.0 12/24/17 04:00 87 12/24/17 04:00 98.2 78 20 136/74 90 Room Air 98.2 12/24/17 02:12 80 18 96 Room Air 21 12/24/17 02:00 74 18 93 Room Air 21 12/24/17 00:00 97.2 90 21 148/80 90 Room Air 97.2 12/24/17 00:00 66 12/23/17 21:02 83 153/88 12/23/17 20:00 76 12/23/17 20:00 97.7 86 21 153/88 91 Room Air 97.7 12/23/17 19:58 82 18 95 Room Air 21 12/23/17 19:57 79 18 92 Room Air 21 12/23/17 16:00 97.3 86 18 145/73 94 Room Air 97.3 12/23/17 16:00 86 12/23/17 13:30 90 18 99 Room Air 21 12/23/17 13:22 86 18 97 Room Air 21 Intake and Output 12/23/17 12/24/17 19:00 07:00 Intake Total 720 ml 360 ml Balance 720 ml 360 ml Intake Oral 720 ml 360 ml # Voids 1 Height (Feet): 5 Height (Inches): 8.00 Weight (Pounds): 194 Objective Cv RR Lungs B wheezes Abd SNT. BS+ E No CCE Juana Henson MD December 24, 2017 12:51
[2017-12-24 16:00] VITALS: BP 146/85
[2017-12-24 20:00] VITALS: BP 172/86
[2017-12-24] MEDS: Atorvastatin 20mg tab ORAL SCH (20:31)
[2017-12-25] VITALS (7 sets, daily range): BP systolic 133–153; BP diastolic 75–89
[2017-12-25] MEDS: Acetaminophen 500mg (ES) tab ORAL PRN (02:09)
[2017-12-25] MEDS: Albuterol/Ipratropium 3ml neb HHN SCH ×4 (02:24→19:00)
[2017-12-25] MEDS: NovoLOG Insulin Flexpen SUBQ SCH ×4 (06:30→22:40)
--- NOTE | 2017-12-25 08:17 | General Progress Note ---
Assessment/Plan Assessment/Plan IMPRESSION COPD exacerbation shortness of breath possible bronchitis hypertension smoker PLAN respiratory care as is oxygen off solumedrol- and stable empiric antibiotics ok to po DVT prophylaxis home meds noted dc planning ok per pulm impression, plan, and exam edited and reviewed in detail care discussed with RN Subjective Allergies: Coded Allergies: No Known Allergies (Unverified , 01/20/17) Subjective care noted no distress on oxygen and same no bronchospasm or congestion noted Objective Last 24 Hour Vital Signs Date Time Temp Pulse Resp B/P (MAP) Pulse Ox O2 Delivery O2 Flow Rate FiO2 12/25/17 04:00 97.0 74 20 152/77 90 Room Air 97.0 12/25/17 03:59 68 12/25/17 02:35 70 20 92 Room Air 21 12/25/17 02:23 70 20 92 Room Air 21 12/25/17 02:23 21 12/25/17 00:00 97.5 70 20 133/75 91 Room Air 97.5 12/24/17 23:50 72 12/24/17 20:31 80 172/86 12/24/17 20:00 96.6 80 20 172/86 97 Room Air 96.6 12/24/17 19:41 81 20 94 Room Air 21 12/24/17 19:32 81 20 94 Room Air 21 12/24/17 19:32 21 12/24/17 19:05 80 12/24/17 16:00 81 12/24/17 16:00 97.5 80 20 146/85 94 Room Air 97.5 12/24/17 14:00 85 18 98 Room Air 21 12/24/17 13:52 80 18 98 Room Air 21 12/24/17 12:00 76 12/24/17 12:00 97.0 74 20 143/86 94 Room Air 97.0 12/24/17 08:23 84 149/79 12/24/17 08:23 149/79 12/24/17 08:23 84 149/79 Intake and Output 12/24/17 12/25/17 19:00 07:00 Intake Total 720 ml Balance 720 ml Intake Oral 720 ml # Voids 3 # Bowel Movements 1 1 Height (Feet): 5 Height (Inches): 8.00 Weight (Pounds): 194 Objective WDWN NAD reduced breath sounds bilaterally without rhonchi or wheeze [id number] without MRG NABS nontender no HSM no CC trace edema weak nonfocal Tiburcio Keith MD December 25, 2017 08:17
[2017-12-25] MEDS: metFORMIN 500mg tab ORAL SCH ×4 (08:57→18:30)
[2017-12-25] MEDS: Trihexyphenidyl 2mg tab ORAL SCH ×4 (08:57→18:30)
[2017-12-25] MEDS: Aspirin Baby 81mg ORAL SCH (08:58)
[2017-12-25] MEDS: Metoprolol Tartrate 50mg tab ORAL SCH ×2 (08:58→22:34)
[2017-12-25] MEDS: Lisinopril 10mg tab ORAL SCH (08:58)
[2017-12-25] MEDS: Docusate 100mg cap ORAL SCH ×2 (08:58→22:34)
[2017-12-25] MEDS: Heparin 5000 units/ml inj SUBQ SCH ×2 (08:59→22:36)
[2017-12-25] MEDS ORDERED: Levofloxacin 500mg tab ORAL SCH (09:00)
--- NOTE | 2017-12-25 12:42 | General Progress Note ---
Assessment/Plan Status: stable Assessment/Plan schizophrenia -tonyl -artane provided ro/st Subjective Date patient seen: December 25, 2017 Neurologic/Psychiatric: Reports: anxiety, depressed, emotional problems Allergies: Coded Allergies: No Known Allergies (Unverified , 01/20/17) Subjective delusional AH the pt stated that he wants to go to psych unit Objective Last 24 Hour Vital Signs Date Time Temp Pulse Resp B/P (MAP) Pulse Ox O2 Delivery O2 Flow Rate FiO2 12/25/17 08:58 74 149/77 12/25/17 08:58 149/77 12/25/17 08:58 74 149/77 12/25/17 08:00 76 12/25/17 08:00 97.5 74 20 149/77 95 Room Air 97.5 12/25/17 04:00 97.0 74 20 152/77 90 Room Air 97.0 12/25/17 03:59 68 12/25/17 02:35 70 20 92 Room Air 21 12/25/17 02:23 70 20 92 Room Air 21 12/25/17 02:23 21 12/25/17 00:00 97.5 70 20 133/75 91 Room Air 97.5 12/24/17 23:50 72 12/24/17 20:31 80 172/86 12/24/17 20:00 96.6 80 20 172/86 97 Room Air 96.6 12/24/17 19:41 81 20 94 Room Air 21 12/24/17 19:32 81 20 94 Room Air 21 12/24/17 19:32 21 12/24/17 19:05 80 12/24/17 16:00 81 12/24/17 16:00 97.5 80 20 146/85 94 Room Air 97.5 12/24/17 14:00 85 18 98 Room Air 21 12/24/17 13:52 80 18 98 Room Air 21 Intake and Output 12/24/17 12/25/17 19:00 07:00 Intake Total 720 ml Balance 720 ml Intake Oral 720 ml # Voids 3 # Bowel Movements 1 1 Height (Feet): 5 Height (Inches): 8.00 Weight (Pounds): 194 General Appearance: WD/WN, no apparent distress, alert Neurologic: oriented x 3, responsive, normal mood/affect Amauri Lucas M.D. December 25, 2017 12:42
--- NOTE | 2017-12-25 14:04 | Cardiology Report ---
APPROVED REPORT EKG Measurement Heart [id number] Sinus bradycardia Right bundle branch block Left anterior fascicular block Bifascicular block Voltage criteria for left ventricular hypertrophy Abnormal ECG
--- NOTE | 2017-12-25 14:27 | General Progress Note ---
Assessment/Plan Assessment/Plan COPD Exacerbation Schizophrenia -per psych BG high secondary to steroids. Added insulin coverage + metformin Taper off steroids. Subjective Allergies: Coded Allergies: No Known Allergies (Unverified , 01/20/17) Subjective Still SOB . Consuming fast food from outside. Objective Last 24 Hour Vital Signs Date Time Temp Pulse Resp B/P (MAP) Pulse Ox O2 Delivery O2 Flow Rate FiO2 12/25/17 12:56 78 18 94 Room Air 21 12/25/17 12:49 79 18 94 Room Air 21 12/25/17 12:49 21 12/25/17 12:00 97.5 63 18 151/81 94 Room Air 97.5 12/25/17 12:00 61 12/25/17 08:58 74 149/77 12/25/17 08:58 149/77 12/25/17 08:58 74 149/77 12/25/17 08:00 76 12/25/17 08:00 97.5 74 20 149/77 95 Room Air 97.5 12/25/17 04:00 97.0 74 20 152/77 90 Room Air 97.0 12/25/17 03:59 68 12/25/17 02:35 70 20 92 Room Air 21 12/25/17 02:23 70 20 92 Room Air 21 12/25/17 02:23 21 12/25/17 00:00 97.5 70 20 133/75 91 Room Air 97.5 12/24/17 23:50 72 12/24/17 20:31 80 172/86 12/24/17 20:00 96.6 80 20 172/86 97 Room Air 96.6 12/24/17 19:41 81 20 94 Room Air 21 12/24/17 19:32 81 20 94 Room Air 21 12/24/17 19:32 21 12/24/17 19:05 80 12/24/17 16:00 81 12/24/17 16:00 97.5 80 20 146/85 94 Room Air 97.5 Intake and Output 12/24/17 12/25/17 19:00 07:00 Intake Total 720 ml Balance 720 ml Intake Oral 720 ml # Voids 3 # Bowel Movements 1 1 Height (Feet): 5 Height (Inches): 8.00 Weight (Pounds): 194 Objective Cv RR Lungs B wheezes Abd SNT. BS+ E No CCE Shechter,Pagiel MD December 25, 2017 14:27
[2017-12-25] MEDS ORDERED: Norco 5mg/325mg tab ORAL PRN (18:00)
[2017-12-25] MEDS ORDERED: Acetaminophen 500mg (ES) tab ORAL PRN (18:00)
[2017-12-25] MEDS ORDERED: Milk of Magnesia 30ml Ud ORAL PRN (18:00)
[2017-12-25] MEDS ORDERED: Atorvastatin 20mg tab ORAL SCH (21:00)
[2017-12-26] VITALS: BP 140/87
[2017-12-26] MEDS: Albuterol/Ipratropium 3ml neb HHN SCH ×3 (00:56→12:50)
[2017-12-26 04:00] VITALS: BP 141/86
[2017-12-26] MEDS: NovoLOG Insulin Flexpen SUBQ SCH ×2 (06:01→11:30)
[2017-12-26 07:39] LABS: ANION GAP 7 mmol/L (5-15); BLOOD UREA NITROGEN 29 mg/dL (7-18); CALCIUM 8.6 MG/DL (8.5-10.1); CARBON DIOXIDE 31 MMOL/L (21-32); CHLORIDE 102 MMOL/L (98-107); CREATININE 0.8 MG/DL (0.55-1.30); SODIUM 139 MMOL/L (136-145)
--- NOTE | 2017-12-26 07:46 | General Progress Note ---
Assessment/Plan Assessment/Plan IMPRESSION COPD exacerbation shortness of breath possible bronchitis hypertension smoker PLAN respiratory care without change oxygen off solumedrol- and stable no significant congestion DVT prophylaxis home meds noted dc planning ok per pulm impression, plan, and exam edited and reviewed in detail care discussed with RN Subjective Allergies: Coded Allergies: No Known Allergies (Unverified , 01/20/17) Subjective care noted no distress on oxygen and same no bronchospasm or congestion noted Objective Last 24 Hour Vital Signs Date Time Temp Pulse Resp B/P (MAP) Pulse Ox O2 Delivery O2 Flow Rate FiO2 12/26/17 04:00 98.0 79 19 141/86 91 98.0 12/26/17 01:01 75 18 97 Room Air 21 12/26/17 01:01 21 12/26/17 00:56 84 18 93 Room Air 21 12/26/17 00:00 97.9 74 18 140/87 92 97.9 12/25/17 22:34 81 153/89 12/25/17 20:33 98.3 81 18 153/89 98 98.3 12/25/17 20:05 Room Air 12/25/17 20:05 Room Air 12/25/17 18:30 97.5 78 20 139/76 Room Air 93 97.5 12/25/17 16:00 97.0 74 20 145/79 94 Room Air 97.0 12/25/17 12:56 78 18 94 Room Air 21 12/25/17 12:49 79 18 94 Room Air 21 12/25/17 12:49 21 12/25/17 12:00 97.5 63 18 151/81 94 Room Air 97.5 12/25/17 12:00 61 12/25/17 08:58 74 149/77 12/25/17 08:58 149/77 12/25/17 08:58 74 149/77 12/25/17 08:05 Room Air 12/25/17 08:00 76 12/25/17 08:00 97.5 74 20 149/77 95 Room Air 97.5 Intake and Output 12/25/17 12/26/17 19:00 07:00 Intake Total 720 ml Output Total 1000 ml Balance -280 ml Intake Oral 720 ml Output Urine Total 1000 ml # Voids 1 Laboratory Tests 12/25/17 16:30: Magnesium Level 1.8 12/26/17 06:20: Sodium Level 139, Potassium Level 4.0, Chloride Level 102, Carbon Dioxide Level 31, Anion Gap 7, Blood Urea Nitrogen 29H, Creatinine 0.8, Estimat Glomerular Filtration Rate > 60, Glucose Level 132H, Calcium Level 8.6 Height (Feet): 5 Height (Inches): 8.00 Weight (Pounds): 194 Objective WDWN NAD reduced breath sounds bilaterally without rhonchi or wheeze [id number] without MRG NABS nontender no HSM no CC trace edema weak nonfocal Tiburcio Keith MD December 26, 2017 07:46
[2017-12-26 08:15] VITALS: BP 153/57
--- NOTE | 2017-12-26 08:55 | General Progress Note ---
Assessment/Plan Assessment/Plan COPD Exacerbation resolved Schizophrenia -per psych DC home Subjective Allergies: Coded Allergies: No Known Allergies (Unverified , 01/20/17) Subjective No new c/o Objective Last 24 Hour Vital Signs Date Time Temp Pulse Resp B/P (MAP) Pulse Ox O2 Delivery O2 Flow Rate FiO2 12/26/17 08:03 77 20 96 Room Air 21 12/26/17 07:59 79 18 95 Room Air 21 12/26/17 07:55 21 12/26/17 04:00 98.0 79 19 141/86 91 98.0 12/26/17 01:01 75 18 97 Room Air 21 12/26/17 01:01 21 12/26/17 00:56 84 18 93 Room Air 21 12/26/17 00:00 97.9 74 18 140/87 92 97.9 12/25/17 22:34 81 153/89 12/25/17 20:33 98.3 81 18 153/89 98 98.3 12/25/17 20:05 Room Air 12/25/17 20:05 Room Air 12/25/17 18:30 97.5 78 20 139/76 Room Air 93 97.5 12/25/17 16:00 97.0 74 20 145/79 94 Room Air 97.0 12/25/17 12:56 78 18 94 Room Air 21 12/25/17 12:49 79 18 94 Room Air 21 12/25/17 12:49 21 12/25/17 12:00 97.5 63 18 151/81 94 Room Air 97.5 12/25/17 12:00 61 12/25/17 08:58 74 149/77 12/25/17 08:58 149/77 12/25/17 08:58 74 149/77 Intake and Output 12/25/17 12/26/17 19:00 07:00 Intake Total 720 ml Output Total 1000 ml Balance -280 ml Intake Oral 720 ml Output Urine Total 1000 ml # Voids 1 Laboratory Tests 12/25/17 16:30: Magnesium Level 1.8 12/26/17 06:20: Sodium Level 139, Potassium Level 4.0, Chloride Level 102, Carbon Dioxide Level 31, Anion Gap 7, Blood Urea Nitrogen 29H, Creatinine 0.8, Estimat Glomerular Filtration Rate > 60, Glucose Level 132H, Calcium Level 8.6 Height (Feet): 5 Height (Inches): 8.00 Weight (Pounds): 194 Objective Cv RR Lungs CTA Abd SNT. BS+ E No CCE Juana Henson MD December 26, 2017 08:55
[2017-12-26] MEDS ORDERED: Lisinopril 10mg tab ORAL SCH (09:00)
[2017-12-26] MEDS: Heparin 5000 units/ml inj SUBQ SCH (09:00)
[2017-12-26] MEDS ORDERED: Aspirin Baby 81mg ORAL SCH (09:00)
[2017-12-26] MEDS ORDERED: Levofloxacin 500mg tab ORAL SCH (09:00)
[2017-12-26] MEDS: Trihexyphenidyl 2mg tab ORAL SCH (09:12)
[2017-12-26] MEDS: Docusate 100mg cap ORAL SCH (09:13)
[2017-12-26] MEDS: metFORMIN 500mg tab ORAL SCH (09:13)
[2017-12-26] MEDS: Metoprolol Tartrate 50mg tab ORAL SCH (09:14)
[2017-12-26 12:00] VITALS: BP 141/90
--- NOTE | 2017-12-28 13:16 | Discharge Summary ---
Discharge Summary Discharge Summary _ DATE OF ADMISSION: 12/21/2017 DATE OF DISCHARGE: 12/26/2017 REASON FOR ADMISSION: 52 years old male, who resides in [facility], with past medical history significant for COPD, congestive heart failure, moderate mitral regurgitation, history of bifascicular block, left ventricular hypertrophy, status post cardiac ablation, schizophrenia, heavy smoker, presented to emergency department with complaints of shortness of breath. Patient had no oxygen at home. Patient was using inhalers at home excessively. Patient reported dry cough, chest tightness. Patient continued to smoking. No ill contacts, no recent traveling. Vital signs stable, laboratory workup unremarkable. Chest x-ray revealed no acute cardiopulmonary pathology. troponin was negative. EKG revealed sinus bradycardia. Right bundle branch block .Left anterior fascicular block.No change from prior ECG. Patient admitted with COPD exacerbation, possible bronchitis, hypertension, smoker ,status post cardiac ablation,CHF, history of bifascicular block, left ventricular hypertrophy, moderate mitral regurgitation. CONSULTANTS: pulmonary Dr. Keith psychiatrist [facility] COURSE: Patient admitted. Supplemental oxygen provided as needed to keep pulse oximetry above 92%. Pulmonary toilet provided around the clock and as needed. Patient started on IV steroids, which were gradually tapered and discontinued prior to discharge. Patient was on empiric antibiotics. Antitussive provided as needed. DVT prophylaxis provided. Home medications resumed. Blood pressure was managed with calcium channel charlie and RUSSEL inhibitor. Blood pressure remained stable. Aspirin, statin and Lasix continued. Cardiorenal parameters and electrolytes were closely monitored. No evidence of acute CHF exacerbation. Patient was counseled on smoking cessation. Nicotine patch started. GI prophylaxis provided. Blood sugar was managed with metformin , and remained stable. Psychiatrist seen and evaluated the patient , diagnosed patient with schizophrenia. Psychiatrist optimized psychiatric medication regimen. Reality orientation and supportive therapy provided. Patient clinically improved , respiratory status stable. Patient was stable for discharge FINAL DIAGNOSES: COPD exacerbation Possible bronchitis Hypertension [place] CHF ( no evidence of exacerbation) History of bifascicular block Left ventricular hypertrophy Moderate mitral regurgitation Status post cardiac ablation DISCHARGE MEDICATIONS: See Medication Reconciliation list. DISCHARGE INSTRUCTIONS: Patient was discharged to [facility], follow-up with primary care provider. I have been assigned to dictate discharge summary for this account. I was not involved in the patient's management. Natalya Johnson NP December 28, 2017 13:16
== END 2017-12-26 12:37 | disposition home or self-care (01) | DRG 191 ==
LOC: EMR 11:30 → 2E 13:25 → EDBEDREQ 13:40 → 2E 17:28 → 4W 12-25 17:37
DX: J44.1 Chronic obstructive pulmonary disease with (acute) exacerbation (principal); I50.32 Chronic diastolic (congestive) heart failure; I45.2 Bifascicular block; I34.0 Nonrheumatic mitral (valve) insufficiency; I11.0 Hypertensive heart disease with heart failure; F17.200 Nicotine dependence, unspecified, uncomplicated; F20.9 Schizophrenia, unspecified
CPT/HCPCS: 36415; 71045; 80048; 80053; 82248; 82550; 82553; 82962; 83735; 83880; 84484; 85025; 87081; 93005; 94640; 94664; 99285; J1815; J7620

== ENCOUNTER 2018-01-14 23:17 | Emergency (ER) | payer MEDICARE, MEDICAID ==
[~2018-01-14] VITALS: Ht 172.7 cm; Wt 89.8 kg
--- NOTE | 2018-01-14 23:41 | Emergency Room Report ---
History of Present Illness General Chief Complaint: Dyspnea/Respdistress Source: Patient, Medical Record Present Illness HPI Is a 62-year-old male with a history of CHF and COPD. He continue to smoke. He was admitted here a couple weeks ago for COPD exacerbation. He said he was better when he got out. Continue to smoke and now increasing shortness of breath for the last few days. Decrease smoking. Coughing but nonproductive in nature. Also with dyspnea exertion. Denies any fever chills. Denies any nausea vomiting. Eating his inhaler help. He's not on a steroid inhaler. Allergies: Coded Allergies: No Known Allergies (Unverified , 01/20/17) Patient History Past Medical History: see triage record, old chart reviewed, CHF, COPD, psych hx Past Surgical History: other Pertinent Family History: none Social History: Reports: smoking Immunizations: other Reviewed Nursing Documentation: PMH: Agreed; PSxH: Agreed Nursing Documentation-PMH Past Medical History: No History, Except For Hx Cardiac Problems: Yes - Heart Ablation in January 2017 Hx Hypertension: Yes Hx Pacemaker: No Hx Asthma: No Hx COPD: Yes Hx Diabetes: Yes - Type 2 Hx Cancer: No Hx Gastrointestinal Problems: Yes - Appendectomy, ABD hernia Hx Dialysis: No Hx Neurological Problems: No Hx Cerebrovascular Accident: No Hx Seizures: No Review of Systems Eye: Denies: eye pain, blurred vision ENT: Denies: ear pain, nose congestion, throat swelling Respiratory: Reports: cough, shortness of breath, wheezing Cardiovascular: Denies: chest pain, palpitations Gastrointestinal: Denies: abdominal pain, diarrhea, nausea, vomiting Musculoskeletal: Denies: back pain, joint pain Skin: Denies: rash Neurological: Denies: headache, numbness Endocrine: Denies: increased thirst, increased urine Hematologic/Lymphatic: Denies: easy bruising All Other Systems: negative except mentioned in HPI Physical Exam Vital Signs Date Time Temp Pulse Resp B/P (MAP) Pulse Ox O2 Delivery O2 Flow Rate FiO2 01/14/18 23:23 98.4 65 16 141/90 98 Room Air 98.4 vitals unremarkable Sp02 EP Interpretation: reviewed, normal General Appearance: well appearing, no apparent distress, alert Head: normocephalic, atraumatic Eyes: bilateral eye PERRL, bilateral eye EOMI ENT: hearing grossly normal, normal pharynx Neck: full range of motion, supple, no meningismus Respiratory: chest non-tender, decreased breath sounds, wheezing Cardiovascular #1: regular rate, rhythm, no murmur Gastrointestinal: normal bowel sounds, non tender, no mass, no organomegaly, no bruit, non-distended Musculoskeletal: back normal, gait/station normal, normal range of motion Psychiatric: mood/affect normal Skin: warm/dry Medical Decision Making Diagnostic Impression: Primary Impression: COPD exacerbation ER Course This patient presents with COPD exacerbation. No evidence of ACS, PE, dissection to name a few. He felt much better after neb lasted treatment and steroid. Chest x-ray showed a right lower lobe infiltrate but that is actually better than when he was admitted here last time. He finished a course of antibiotics already. We'll discharge home with refills on his medication and a steroid inhaler. Chest X-Ray Diagnostic Results Chest X-Ray Diagnostic Results : Chest X-Ray Ordered: Yes # of Views/Limited/Complete: 1 View Indication: Shortness of Breath EP Interpretation: Yes Interpretation: no effusion, no pneumothorax, no acute cardiopulmonary disease, other Impression: No acute disease Electronically Signed by: Matthew Solorio MD Last Vital Signs Date Time Temp Pulse Resp B/P (MAP) Pulse Ox O2 Delivery O2 Flow Rate FiO2 01/14/18 23:23 98.4 65 16 141/90 98 Room Air 98.4 Status: improved Disposition: HOME, SELF-CARE Condition: Stable Scripts Fluticasone/Vilanterol (Breo Ellipta 200-25 Mcg INH) 1 Each Blst.w.dev 1 EACH IH BID, #1 UNIT Prov: MATTHEW SOLORIO M.D. 01/15/18 Prednisone* (PREDNISONE*) 20 Mg Tablet 60 MG ORAL DAILY, #12 TAB Prov: MATTHEW SOLORIO M.D. 01/15/18 Albuterol Sulfate* (ALBUTEROL SULFATE MDI*) 8.5 Gm Hfa.aer.ad 2 PUFF INH Q4H PRN for cough/wheezing, #1 EA 0 Refills Prov: MATTHEW SOLORIO M.D. 01/15/18 Patient Instructions: Chronic Obstructive Pulmonary Disease Exacerbation Additional Instructions: Follow-up your doctor in 7 days. Stop smoking. Return if worse. MATTHEW SOLORIO M.D. Jan 14, 2018 23:41
[2018-01-14] MEDS ORDERED: Albuterol ud Inhalation HHN ONE (23:45)
[2018-01-14] MEDS ORDERED: Ipratropium 0.02% Inh Soln 2.5ml UD HHN ONE (23:45)
[2018-01-15] VITALS: BP 138/88
[2018-01-15] MEDS ORDERED: Albuterol ud Inhalation ONE (00:15)
[2018-01-15] MEDS ORDERED: Albuterol ud Inhalation HHN ONE (00:15)
[2018-01-15] MEDS ORDERED: Ipratropium 0.02% Inh Soln 2.5ml UD ONE (00:15)
[2018-01-15] MEDS ORDERED: BREO ELLIPTA 21 EACH IH (00:58)
[2018-01-15] MEDS ORDERED: PREDNISONE20 MG ORAL (00:58)
[2018-01-15] MEDS ORDERED: ALBUTEROL SULF8.5 GM INH (00:58)
[2018-01-15 01:00] VITALS: BP 138/88
--- NOTE | 2018-01-15 10:28 | Diagnostic Imaging Report ---
Indication: Shortness of breath Technique: One view of the chest Comparison: 12/21/2017 Findings: The heart is borderline enlarged. Lungs and pleural spaces are clear. There is evidence of prior left shoulder rotator cuff surgery. There is an old healed left rib fracture. No significant interim change Impression: Borderline cardiomegaly. No acute process
== END 2018-01-15 01:00 | disposition home or self-care (01) ==
LOC: EMR 23:40
DX: J44.1 Chronic obstructive pulmonary disease with (acute) exacerbation (principal); E11.9 Type 2 diabetes mellitus without complications; Z90.49 Acquired absence of other specified parts of digestive tract; I11.0 Hypertensive heart disease with heart failure; I50.9 Heart failure, unspecified; F17.200 Nicotine dependence, unspecified, uncomplicated
CPT/HCPCS: 71045; 94640; 94664; 99284; J7512

== ENCOUNTER 2018-02-03 00:47 | Inpatient (IN) | payer MEDICARE, MEDICAID ==
[~2018-02-03] VITALS: Ht 172.7 cm; Wt 87.2 kg
[~2018-02-03 00:47] MED LIST changes: +ALBUTEROL SULF8.5 GM INH; +BREO ELLIPTA 21 EACH IH; +PREDNISONE20 MG ORAL
[2018-02-03] MEDS ORDERED: Albuterol ud Inhalation HHN ONE ×2 (01:00→02:45)
[2018-02-03] MEDS: Ipratropium 0.02% Inh Soln 2.5ml UD HHN SCH ×7 (01:22→02:30)
--- NOTE | 2018-02-03 01:50 | Diagnostic Imaging Report ---
EXAM: XR Chest, 1 View CLINICAL HISTORY: SOB TECHNIQUE: Frontal view of the chest. COMPARISON: No relevant prior studies available. FINDINGS: Lungs: No acute consolidation. Pleural space: Unremarkable. No pneumothorax. Heart: Cardiac size is enlarged. Pulmonary artery is prominent similar to the prior study. Mediastinum: Unremarkable. Bones/joints: There is an old nondisplaced fracture of the left eighth rib reidentified. IMPRESSION: Cardiomegaly. No radiographic evidence of acute cardiopulmonary disease.
--- NOTE | 2018-02-03 01:50 | Emergency Room Report ---
History of Present Illness General Chief Complaint: Dyspnea/Respdistress Source: Patient, Medical Record, EMS Present Illness HPI This is a 62-year-old male with history of COPD and CHF. He presents with chief complaint of soreness of breath started tonight. His been coughing more but nonproductive in nature. Similar symptom 2 weeks ago. Coughing is worse with exertion. Worse with lying flat. Better with his breathing treatment. He just ran out of his inhaler. Still smokes. No nausea no vomiting. No edema. Denies any chest pain. Allergies: Coded Allergies: No Known Allergies (Unverified , 01/20/17) Patient History Past Medical History: see triage record, old chart reviewed Past Surgical History: other Pertinent Family History: none Social History: Reports: smoking Immunizations: other Reviewed Nursing Documentation: PMH: Agreed; PSxH: Agreed Nursing Documentation-PMH Past Medical History: No History, Except For Hx Cardiac Problems: Yes - Heart Ablation in January 2017 Hx Hypertension: Yes Hx Pacemaker: No Hx Asthma: No Hx COPD: Yes Hx Diabetes: Yes - Type 2 Hx Cancer: No Hx Gastrointestinal Problems: Yes - Appendectomy, ABD hernia Hx Dialysis: No History Of Psychiatric Problem: Yes - Schizophrenia Hx Neurological Problems: No Hx Cerebrovascular Accident: No Hx Seizures: No Review of Systems Eye: Denies: eye pain, blurred vision ENT: Denies: ear pain, nose congestion, throat swelling Respiratory: Reports: cough, shortness of breath, wheezing Cardiovascular: Denies: chest pain, palpitations Gastrointestinal: Denies: abdominal pain, diarrhea, nausea, vomiting Musculoskeletal: Denies: back pain, joint pain Skin: Denies: rash Neurological: Denies: headache, numbness Endocrine: Denies: increased thirst, increased urine Hematologic/Lymphatic: Denies: easy bruising All Other Systems: negative except mentioned in HPI Physical Exam Vital Signs Date Time Temp Pulse Resp B/P (MAP) Pulse Ox O2 Delivery O2 Flow Rate FiO2 02/03/18 00:47 97.9 80 28 147/84 93 Room Air 97.9 02/03/18 01:22 2.0 28 vitals unremarkable Sp02 EP Interpretation: reviewed, normal General Appearance: well appearing, alert, mild distress Head: normocephalic, atraumatic Eyes: bilateral eye PERRL, bilateral eye EOMI ENT: hearing grossly normal, normal pharynx Neck: full range of motion, supple, no meningismus Respiratory: chest non-tender, respiratory distress, decreased breath sounds, wheezing Cardiovascular #1: regular rate, rhythm, no murmur Gastrointestinal: normal bowel sounds, non tender, no mass, no organomegaly, no bruit, non-distended Musculoskeletal: back normal, gait/station normal, normal range of motion Psychiatric: mood/affect normal Skin: warm/dry Medical Decision Making Diagnostic Impression: Primary Impression: COPD with exacerbation ER Course Patient presents with COPD exacerbation. He slowly improving but still wheezing. Will admit for more nebulizer treatment and steroid. No evidence of ACS, PE, CHF, pneumonia dissection to name a few. Elevated hemoglobin count is consistent with his severe smoking history. I paged Dr. Mosley for admission. Lab Results Impression labs unremarkable. Chest X-Ray Diagnostic Results Chest X-Ray Diagnostic Results : Chest X-Ray Ordered: Yes # of Views/Limited/Complete: 1 View Indication: Shortness of Breath EP Interpretation: Yes Interpretation: no consolidation, no effusion, no pneumothorax, no acute cardiopulmonary disease, other - copd Impression: Other - copd Electronically Signed by: Matthew Solorio MD Last Vital Signs Date Time Temp Pulse Resp B/P (MAP) Pulse Ox O2 Delivery O2 Flow Rate FiO2 02/03/18 01:43 89 22 100 Nasal Cannula 2.0 28 02/03/18 00:47 97.9 147/84 97.9 Status: improved Disposition: ADMITTED INPATIENT Condition: Serious Referrals: NON PHYSICIAN (PCP) MATTHEW SOLOIRO M.D. Feb 03, 2018 01:50
[2018-02-03 02:12] VITALS: BP 151/80
[2018-02-03 02:34] LABS: BASOPHILS % (AUTO) 0.3 % (0.0-2.0); EOSINOPHILS % (AUTO) 0.5 % (0.0-3.0); HEMATOCRIT 53.6 % (42.0-52.0); LYMPHOCYTES % (AUTO) 13.8 % (20.0-45.0); MEAN CORPUSCULAR VOLUME 89 FL (80-99); MONOCYTES % (AUTO) 6.6 % (1.0-10.0); NEUTROPHILS % (AUTO) 78.7 % (45.0-75.0); PLATELET COUNT 140 K/UL (150-450); RED BLOOD COUNT 5.99 M/UL (4.70-6.10); RED CELL DISTRIBUTION WIDTH 13.8 % (11.6-14.8); WHITE BLOOD COUNT 10.3 K/UL (4.8-10.8)
[2018-02-03 02:36] LABS: HEMOGLOBIN 20.2 G/DL (14.2-18.0)
[2018-02-03] MEDS ORDERED: ATORVASTATIN CA10 MG ORAL (02:40)
[2018-02-03 02:51] LABS: ANION GAP 4 mmol/L (5-15); BLOOD UREA NITROGEN 21 mg/dL (7-18); CALCIUM 9.3 MG/DL (8.5-10.1); CARBON DIOXIDE 29 MMOL/L (21-32); CHLORIDE 102 MMOL/L (98-107); CREATININE 0.8 MG/DL (0.55-1.30); POTASSIUM 4.4 MMOL/L (3.5-5.1); SODIUM 134 MMOL/L (136-145)
[2018-02-03 03:02] LABS: ALANINE AMINOTRANSFERASE 33 U/L (12-78); ALBUMIN 3.5 G/DL (3.4-5.0); ALBUMIN/GLOBULIN RATIO 1.1 (1.0-2.7); ALKALINE PHOSPHATASE 78 U/L (46-116); ASPARTATE AMINO TRANSFERASE 18 U/L (15-37); BILIRUBIN,TOTAL 1.2 MG/DL (0.2-1.0)
[2018-02-03 03:06] LABS: BILIRUBIN,DIRECT 0.3 MG/DL (0.0-0.3)
[2018-02-03] MEDS ORDERED: Azithromycin 250mg tab ORAL ONE (03:15)
[2018-02-03] MEDS ORDERED: cefTRIAXone 1 GM in NS 55 ML IVPB ONE (03:15)
[2018-02-03 09:02] VITALS: BP 135/76
[2018-02-03] MEDS: Docusate 100mg cap ORAL SCH ×3 (10:00→18:00)
[2018-02-03] MEDS ORDERED: NovoLOG Insulin Flexpen SUBQ SCH (11:30)
[2018-02-03 12:00] VITALS: BP 135/75
[2018-02-03] MEDS: NovoLOG Insulin Flexpen SUBQ SCH ×3 (12:36→21:00)
[2018-02-03 12:58] VITALS: BP 153/92
[2018-02-03] MEDS: Metoprolol Tartrate 50mg tab ORAL SCH ×2 (13:21→22:49)
[2018-02-03] MEDS: Lisinopril 10mg tab ORAL SCH (13:23)
[2018-02-03] MEDS: Aspirin Baby 81mg ORAL SCH (13:25)
[2018-02-03 16:10] VITALS: BP 151/96
--- NOTE | 2018-02-03 16:15 | History and Physical Report ---
DATE OF ADMISSION: 02/03/2018 CHIEF COMPLAINT: Shortness of breath. HISTORY OF PRESENT ILLNESS: This is a well-known 62-year-old male, who resides in the [facility] which is a facility for a psychiatric patient close to this hospital. The patient was admitted by me multiple times to this hospital with COPD exacerbation. Again the patient is admitted with COPD exacerbation to the hospital. His last admission was about a month ago with the same problem. PAST MEDICAL HISTORY: 1. COPD. 2. Type 2 diabetes mellitus. 3. Mild congestive heart failure. MEDICATIONS: Multiple and include the following, Tylenol, amlodipine, baby aspirin, atorvastatin, Colace, Breo Ellipta, Lasix, Haldol, DuoNeb, lisinopril, metformin, metoprolol, mirtazapine, nicotine patch, Protonix, prednisone, Artane. ALLERGIES: No known drug allergies. FAMILY HISTORY: Unremarkable. SOCIAL HISTORY: He lives in a board and care. HABITS: The patient continues to smoke despite counseling. There is no history of illicit drug abuse. REVIEW OF SYSTEMS: HEENT: Hearing and eyesight are normal. ENDOCRINE: Significant for mild type 2 diabetes mellitus. RESPIRATORY: Please refer to history of present illness. NEUROLOGICAL: No history of stroke, syncope, or Parkinson disease. PSYCHIATRIC: Significant for history of schizophrenia. PHYSICAL EXAMINATION: GENERAL: This is an elderly male, who is in no acute distress. VITAL SIGNS: Blood pressure 135/76, pulse 71 regular, respirations 20, temperature 97.6. HEENT: The head is normocephalic and atraumatic. Pupils are equal, round, and reactive to light and accommodation consensually. NECK: Supple. Trachea midline. There was no lymphadenopathy or thyromegaly. LUNGS: Bilateral wheezes. HEART: Regular rate and rhythm without rubs, murmurs, or gallops. ABDOMEN: Soft and nontender. Bowel sounds were active. EXTREMITIES: No clubbing, cyanosis, or edema. NEUROLOGICAL: He is alert and oriented x4. Cranial nerves II through XII intact. LABORATORY AND ANCILLARY DATA: Hemoglobin is 20.2, otherwise CBC within normal limits. Serum chemistry, glucose 141, otherwise within normal limits. Troponin level 0.041. IMAGING STUDIES: Chest x-ray no acute cardiopulmonary disease. ASSESSMENT: 1. Chronic obstructive pulmonary disease exacerbation. 2. Type 2 diabetes mellitus. 3. Mild congestive heart failure. 4. Obstructive Uropathy due to psychiatric meds. PLAN: 1. Intensive respiratory treatment. 2. Continue board and care medications. 3. Glycemic control. 5. Continue self catheterizations. Juana Henson M.D. DR: Aron JOB#: [id number] CC: DEBBIE
[2018-02-03] MEDS: metFORMIN 500mg tab ORAL SCH (17:21)
[2018-02-03] MEDS ORDERED: Breo Ellipta 200/25mcg-14 dose INH SCH ×2 (18:00→20:00)
[2018-02-03 20:00] VITALS: BP 133/69
[2018-02-03] MEDS: Atorvastatin 20mg tab ORAL SCH (22:50)
[2018-02-03] MEDS: Trihexyphenidyl 2mg tab ORAL SCH (22:50)
[2018-02-03] MEDS: Heparin 5000 units/ml inj SUBQ SCH (22:58)
[2018-02-03] MEDS: Breo Ellipta 200/25mcg-14 dose INH SCH (23:22)
[2018-02-04] MEDS ORDERED: Albuterol/Ipratropium 3ml neb HHN PRN (01:00)
[2018-02-04 04:00] VITALS: BP 137/70
[2018-02-04] MEDS: metFORMIN 500mg tab ORAL SCH ×2 (06:54→17:27)
[2018-02-04] MEDS: NovoLOG Insulin Flexpen SUBQ SCH ×4 (06:57→20:52)
[2018-02-04 08:00] VITALS: BP 135/57
[2018-02-04] MEDS: Docusate 100mg cap ORAL SCH ×2 (09:15→17:27)
[2018-02-04] MEDS: Lisinopril 10mg tab ORAL SCH (09:15)
[2018-02-04] MEDS: Metoprolol Tartrate 50mg tab ORAL SCH ×2 (09:15→20:48)
[2018-02-04] MEDS: Aspirin Baby 81mg ORAL SCH (09:15)
[2018-02-04] MEDS: Heparin 5000 units/ml inj SUBQ SCH ×2 (09:20→20:51)
[2018-02-04] MEDS: Trihexyphenidyl 2mg tab ORAL SCH ×2 (09:20→20:56)
--- NOTE | 2018-02-04 09:55 | General Progress Note ---
Assessment/Plan Assessment/Plan COPD Exacerbation - see orders AODM under control. Obstructive Uropathy - check Renal US Subjective Allergies: Coded Allergies: No Known Allergies (Unverified , 01/20/17) Subjective Still SOB Objective Last 24 Hour Vital Signs Date Time Temp Pulse Resp B/P (MAP) Pulse Ox O2 Delivery O2 Flow Rate FiO2 02/04/18 09:29 97.2 02/04/18 09:15 65 135/57 02/04/18 09:15 65 135/57 02/04/18 09:15 135/57 02/04/18 08:00 97.2 65 19 135/57 97 97.2 02/04/18 08:00 Nasal Cannula 2.0 02/04/18 04:00 97.2 81 19 137/70 94 2.0 97.2 02/03/18 23:25 96 Nasal Cannula 2.0 28 02/03/18 23:25 Nasal Cannula 2.0 28 02/03/18 23:23 63 20 96 Nasal Cannula 2.0 28 02/03/18 23:22 63 20 96 Nasal Cannula 2.0 28 02/03/18 22:49 78 155/96 02/03/18 20:00 98.2 79 20 133/69 94 Nasal Cannula 2.0 98.2 02/03/18 16:10 97.9 72 18 151/96 91 Room Air 97.9 02/03/18 13:23 153/92 02/03/18 13:22 81 153/92 02/03/18 13:21 81 153/92 02/03/18 12:59 81 02/03/18 12:58 153/92 02/03/18 12:00 98.2 83 20 135/75 92 Nasal Cannula 2.0 98.2 Intake and Output 02/03/18 02/04/18 19:00 07:00 Intake Total 960 ml 600 ml Output Total 450 ml Balance 960 ml 150 ml Intake Oral 960 ml 600 ml Output Urine Total 450 ml Bladder Scan Volume Amount 298 cc 395 # Voids 3 1 Height (Feet): 5 Height (Inches): 8.00 Weight (Pounds): 194 Objective CV RR Lungs B Wheezes Abd SNT. BS + E No CCE Juana Henson MD Feb 04, 2018 09:55
[2018-02-04 12:00] VITALS: BP 125/72
[2018-02-04 15:55] VITALS: BP 127/71
[2018-02-04 20:00] VITALS: BP 134/76
[2018-02-04] MEDS: Breo Ellipta 200/25mcg-14 dose INH SCH (20:10)
[2018-02-04] MEDS: Atorvastatin 20mg tab ORAL SCH (20:47)
[2018-02-05] VITALS: BP 141/82
[2018-02-05 04:00] VITALS: BP 139/72
[2018-02-05] MEDS: NovoLOG Insulin Flexpen SUBQ SCH ×4 (06:22→21:02)
[2018-02-05] MEDS: metFORMIN 500mg tab ORAL SCH ×2 (06:22→16:35)
[2018-02-05 07:53] LABS: HEMATOCRIT 53.7 % (42.0-52.0); MEAN CORPUSCULAR VOLUME 90 FL (80-99); PLATELET COUNT 133 K/UL (150-450); RED BLOOD COUNT 5.99 M/UL (4.70-6.10); RED CELL DISTRIBUTION WIDTH 13.5 % (11.6-14.8); WHITE BLOOD COUNT 9.4 K/UL (4.8-10.8)
[2018-02-05 08:00] VITALS: BP 140/76
[2018-02-05 08:02] LABS: HEMOGLOBIN 19.4 G/DL (14.2-18.0)
[2018-02-05 08:25] LABS: ALANINE AMINOTRANSFERASE 25 U/L (12-78); ALBUMIN 3.4 G/DL (3.4-5.0); ALBUMIN/GLOBULIN RATIO 1.1 (1.0-2.7); ALKALINE PHOSPHATASE 69 U/L (46-116); ANION GAP 5 mmol/L (5-15); ASPARTATE AMINO TRANSFERASE 14 U/L (15-37); BILIRUBIN,DIRECT 0.3 MG/DL (0.0-0.3); BILIRUBIN,TOTAL 1.4 MG/DL (0.2-1.0); BLOOD UREA NITROGEN 30 mg/dL (7-18); CALCIUM 9.2 MG/DL (8.5-10.1); CARBON DIOXIDE 30 MMOL/L (21-32); CHLORIDE 102 MMOL/L (98-107); CREATININE 0.9 MG/DL (0.55-1.30); POTASSIUM 4.6 MMOL/L (3.5-5.1); SODIUM 137 MMOL/L (136-145)
--- NOTE | 2018-02-05 08:40 | General Progress Note ---
Assessment/Plan Assessment/Plan COPD Exacerbation - see orders AODM under control. Obstructive Uropathy - check Renal US Labs reviewed. Subjective Allergies: Coded Allergies: No Known Allergies (Unverified , 01/20/17) Subjective Still SOB Objective Last 24 Hour Vital Signs Date Time Temp Pulse Resp B/P (MAP) Pulse Ox O2 Delivery O2 Flow Rate FiO2 02/05/18 08:00 98.0 67 19 140/76 97 Room Air 98.0 02/05/18 07:57 96 Room Air 21 02/05/18 07:57 Room Air 21 02/05/18 04:00 97.6 71 18 139/72 94 Room Air 97.6 02/05/18 00:00 97.9 68 18 141/82 96 Room Air 97.9 02/04/18 20:48 75 131/71 02/04/18 20:11 72 18 96 Room Air 21 02/04/18 20:09 95 Room Air 21 02/04/18 20:09 65 18 95 Room Air 02/04/18 20:09 Room Air 21 02/04/18 20:00 97.3 78 18 134/76 95 Room Air 97.3 02/04/18 17:26 98.0 02/04/18 15:55 98.0 59 19 127/71 95 Room Air 98.0 02/04/18 15:44 98.0 02/04/18 12:00 98.0 59 19 125/72 97 98.0 02/04/18 09:29 97.2 02/04/18 09:15 65 135/57 02/04/18 09:15 65 135/57 02/04/18 09:15 135/57 Intake and Output 02/04/18 02/05/18 19:00 07:00 Intake Total 240 ml 480 ml Output Total 700 ml 2700 ml Balance -460 ml -2220 ml Intake Oral 240 ml 480 ml Output Urine Total 1350 ml Post Void Residual 700 ml 1350 ml # Voids 2 Laboratory Tests 02/05/18 06:50: White Blood Count 9.4, Red Blood Count 5.99, Hemoglobin 19.4*H, Hematocrit 53.7H , Mean Corpuscular Volume 90, Mean Corpuscular Hemoglobin 32.4H, Mean Corpuscular Hemoglobin Concent 36.2H, Red Cell Distribution Width 13.5, Platelet Count 133L, Mean Platelet Volume 7.7, Neutrophils (%) (Auto) , Lymphocytes (%) (Auto) , Monocytes (%) (Auto) , Eosinophils (%) (Auto) , Basophils (%) (Auto) , Neutrophils % (Manual) [Pending], Lymphocytes % (Manual) [Pending], Platelet Estimate [Pending], Platelet Morphology [Pending], Sodium Level 137, Potassium Level 4.6, Chloride Level 102, Carbon Dioxide Level 30, Anion Gap 5, Blood Urea Nitrogen 30H, Creatinine 0.9, Estimat Glomerular Filtration Rate > 60, Glucose Level 112H, Calcium Level 9.2, Total Bilirubin 1.4H, Direct Bilirubin 0.3, Aspartate Amino Transf (AST/SGOT) 14L, Alanine Aminotransferase (ALT/SGPT) 25, Alkaline Phosphatase 69, Total Protein 6.6, Albumin 3.4, Globulin 3.2, Albumin/Globulin Ratio 1.1 Height (Feet): 5 Height (Inches): 8.00 Weight (Pounds): 194 Objective CV RR Lungs B Wheezes Abd SNT. BS + E No CCE Juana Henson MD Feb 05, 2018 08:40
[2018-02-05] MEDS: Heparin 5000 units/ml inj SUBQ SCH ×2 (09:00→21:10)
[2018-02-05] MEDS: Trihexyphenidyl 2mg tab ORAL SCH ×2 (09:09→21:13)
[2018-02-05] MEDS: Docusate 100mg cap ORAL SCH ×2 (09:09→17:03)
[2018-02-05] MEDS: Aspirin Baby 81mg ORAL SCH (09:09)
[2018-02-05] MEDS: Lisinopril 10mg tab ORAL SCH (09:09)
[2018-02-05] MEDS: Metoprolol Tartrate 50mg tab ORAL SCH ×2 (09:10→21:04)
[2018-02-05 12:00] VITALS: BP 138/70
[2018-02-05 16:00] VITALS: BP 124/54
--- NOTE | 2018-02-05 17:05 | Diagnostic Imaging Report ---
Indication:Abdominal pain Technique: Grayscale and duplex Doppler imaging of the abdomen performed. Comparison: None Findings: There is some shadowing focus in the anterior abdominal wall likely mesh. There is a complex hernia present in the anterior abdominal wall both right and left of the umbilicus. This may be better characterized on CT. At least 2 hernias containing fat are likely present. The liver is slightly prominent measuring about 17 to 18 cm. This is not dissimilar from the prior occasion. Gallbladder is unremarkable. CBD is 5 mm.. Gallbladder is unremarkable. Portal vein patent by Doppler examination. The pancreas visualized part of the aorta is unremarkable in appearance. Kidneys are unremarkable. IMPRESSION: Periumbilical fat-containing hernia is suspected. Some signs of previous hernia repair. This may be better characterized on CT. No acute findings in the abdomen identified. Hepatosplenomegaly.
[2018-02-05 20:00] VITALS: BP 146/82
[2018-02-05] MEDS: Breo Ellipta 200/25mcg-14 dose INH SCH (20:18)
[2018-02-05] MEDS: Atorvastatin 20mg tab ORAL SCH (21:03)
[2018-02-06] VITALS: BP 124/70
[2018-02-06 04:00] VITALS: BP 142/86
[2018-02-06] MEDS: metFORMIN 500mg tab ORAL SCH ×2 (06:32→16:53)
[2018-02-06] MEDS: NovoLOG Insulin Flexpen SUBQ SCH ×4 (06:34→20:49)
[2018-02-06 08:00] VITALS: BP 138/70
[2018-02-06] MEDS: Aspirin Baby 81mg ORAL SCH (08:28)
[2018-02-06] MEDS: Lisinopril 10mg tab ORAL SCH (08:29)
[2018-02-06] MEDS: Metoprolol Tartrate 50mg tab ORAL SCH ×2 (08:29→20:39)
[2018-02-06] MEDS: Docusate 100mg cap ORAL SCH ×2 (08:29→16:53)
[2018-02-06] MEDS: Heparin 5000 units/ml inj SUBQ SCH ×2 (08:33→20:50)
[2018-02-06] MEDS: Trihexyphenidyl 2mg tab ORAL SCH ×2 (08:39→20:43)
[2018-02-06 11:54] VITALS: BP 140/72
[2018-02-06 16:00] VITALS: BP 136/77
[2018-02-06] MEDS ORDERED: D5NS 1000ml IV ONE (16:12)
--- NOTE | 2018-02-06 16:44 | General Progress Note ---
Assessment/Plan Assessment/Plan COPD Exacerbation - see orders AODM under control. Obstructive Uropathy - check Renal US Labs reviewed. Subjective Allergies: Coded Allergies: No Known Allergies (Unverified , 01/20/17) Subjective Still SOB Objective Last 24 Hour Vital Signs Date Time Temp Pulse Resp B/P (MAP) Pulse Ox O2 Delivery O2 Flow Rate FiO2 02/06/18 16:00 96.4 58 20 136/77 93 96.4 02/06/18 11:54 97.2 56 20 140/72 93 97.2 02/06/18 08:29 68 149/87 02/06/18 08:29 149/87 02/06/18 08:28 68 149/87 02/06/18 08:00 96.3 68 20 138/70 97 96.3 02/06/18 07:50 Nasal Cannula 2.0 02/06/18 07:50 Nasal Cannula 02/06/18 07:50 93 Nasal Cannula 2.0 28 02/06/18 07:50 Nasal Cannula 02/06/18 04:00 97.4 61 19 142/86 91 Room Air 97.4 02/06/18 00:00 97.3 66 20 124/70 91 Room Air 97.3 02/05/18 21:04 68 146/82 02/05/18 20:21 68 18 95 Room Air 21 02/05/18 20:21 95 Room Air 21 02/05/18 20:21 Room Air 21 02/05/18 20:18 68 18 95 Room Air 02/05/18 20:00 97.7 72 19 146/82 94 Room Air 97.7 Intake and Output 02/05/18 02/06/18 19:00 07:00 Intake Total 300 ml Balance 300 ml Intake Oral 300 ml Bladder Scan Volume Amount 524 # Voids 2 3 Height (Feet): 5 Height (Inches): 8.00 Weight (Pounds): 194 Objective CV RR Lungs B Wheezes Abd SNT. BS + E No CCE Juana Henson MD Feb 06, 2018 16:44
[2018-02-06] MEDS: Atorvastatin 20mg tab ORAL SCH (20:39)
[2018-02-06 20:56] VITALS: BP 125/68
[2018-02-06] MEDS: Breo Ellipta 200/25mcg-14 dose INH SCH (23:35)
[2018-02-07 00:41] VITALS: BP 128/68
[2018-02-07 04:00] VITALS: BP 149/77
[2018-02-07] MEDS: metFORMIN 500mg tab ORAL SCH ×2 (06:13→17:23)
[2018-02-07] MEDS: NovoLOG Insulin Flexpen SUBQ SCH ×4 (06:19→21:54)
[2018-02-07 08:32] VITALS: BP 140/82
[2018-02-07] MEDS: Aspirin Baby 81mg ORAL SCH (08:58)
[2018-02-07] MEDS: Lisinopril 10mg tab ORAL SCH (08:58)
[2018-02-07] MEDS: Docusate 100mg cap ORAL SCH ×2 (08:58→17:23)
[2018-02-07] MEDS: Metoprolol Tartrate 50mg tab ORAL SCH ×2 (08:58→21:41)
[2018-02-07] MEDS: Trihexyphenidyl 2mg tab ORAL SCH ×2 (09:02→21:40)
[2018-02-07] MEDS: Heparin 5000 units/ml inj SUBQ SCH ×2 (09:02→21:00)
[2018-02-07 12:00] VITALS: BP 152/74
--- NOTE | 2018-02-07 12:10 | General Progress Note ---
Assessment/Plan Assessment/Plan COPD Exacerbation - see orders AODM under control. Obstructive Uropathy - check Renal US Labs reviewed. Subjective Allergies: Coded Allergies: No Known Allergies (Unverified , 01/20/17) Subjective Still SOB Objective Last 24 Hour Vital Signs Date Time Temp Pulse Resp B/P (MAP) Pulse Ox O2 Delivery O2 Flow Rate FiO2 02/07/18 08:59 55 140/82 02/07/18 08:58 55 140/82 02/07/18 08:58 140/82 02/07/18 08:35 62 20 92 Room Air 02/07/18 08:35 65 20 92 Room Air 21 02/07/18 08:32 98.4 55 20 140/82 93 98.4 02/07/18 08:30 Room Air 21 02/07/18 08:30 92 Room Air 21 02/07/18 04:00 98.6 59 18 149/77 92 Room Air 98.6 02/07/18 00:41 97.6 60 18 128/68 92 Room Air 97.6 02/06/18 23:35 65 16 96 Room Air 02/06/18 21:58 94 Room Air 02/06/18 21:57 Room Air 21 02/06/18 20:56 98.5 72 17 125/68 92 Room Air 98.5 02/06/18 20:39 72 125/68 02/06/18 16:00 Nasal Cannula 2.0 02/06/18 16:00 96.4 58 20 136/77 93 96.4 Intake and Output 02/06/18 02/07/18 19:00 07:00 Intake Total 620 ml 240 ml Output Total 820 ml 1000 ml Balance -200 ml -760 ml Intake Oral 620 ml 240 ml Output Urine Total 1000 ml Post Void Residual 820 ml Bladder Scan Volume Amount 420 449 178 156 # Voids 3 Height (Feet): 5 Height (Inches): 8.00 Weight (Pounds): 192 Objective CV RR Lungs B Wheezes Abd SNT. BS + E No CCE Juana Henson MD Feb 07, 2018 12:10
[2018-02-07 16:00] VITALS: BP 150/76
[2018-02-07 19:29] VITALS: BP 138/71
[2018-02-07] MEDS: Breo Ellipta 200/25mcg-14 dose INH SCH (19:57)
[2018-02-07] MEDS: Atorvastatin 20mg tab ORAL SCH (21:41)
[2018-02-08] VITALS: BP_SYST 131; BP_SYST 167; BP_DIAS 77; BP_DIAS 86
[2018-02-08 04:00] VITALS: BP 142/75
[2018-02-08] MEDS: metFORMIN 500mg tab ORAL SCH (06:15)
[2018-02-08] MEDS: NovoLOG Insulin Flexpen SUBQ SCH ×2 (06:25→11:30)
[2018-02-08 08:00] VITALS: BP 157/92
[2018-02-08] MEDS: Lisinopril 10mg tab ORAL SCH (08:46)
[2018-02-08] MEDS: Trihexyphenidyl 2mg tab ORAL SCH (08:46)
[2018-02-08] MEDS: Docusate 100mg cap ORAL SCH (08:46)
[2018-02-08] MEDS: Heparin 5000 units/ml inj SUBQ SCH (08:47)
[2018-02-08] MEDS: Metoprolol Tartrate 50mg tab ORAL SCH (08:47)
[2018-02-08] MEDS: Aspirin Baby 81mg ORAL SCH (08:47)
--- NOTE | 2018-02-08 09:07 | General Progress Note ---
Assessment/Plan Assessment/Plan COPD Exacerbation - see orders AODM under control. Obstructive Uropathy - check Renal US Labs reviewed. Stable for DC Subjective Allergies: Coded Allergies: No Known Allergies (Unverified , 01/20/17) Subjective Less SOB Objective Last 24 Hour Vital Signs Date Time Temp Pulse Resp B/P (MAP) Pulse Ox O2 Delivery O2 Flow Rate FiO2 02/08/18 08:47 69 157/92 02/08/18 08:46 69 157/92 02/08/18 08:46 157/92 02/08/18 08:00 97.8 69 20 157/92 95 97.8 02/08/18 04:00 97.3 50 21 142/75 94 Room Air 97.3 02/08/18 00:00 97.5 57 22 131/77 95 Room Air 97.5 02/07/18 21:41 59 138/71 02/07/18 19:57 94 Room Air 21 02/07/18 19:57 Room Air 21 02/07/18 19:29 97.9 59 20 138/71 93 Room Air 97.9 02/07/18 16:00 98.2 52 20 150/76 95 Room Air 98.2 02/07/18 12:20 62 20 92 Room Air 02/07/18 12:19 62 20 93 Room Air 02/07/18 12:00 97.5 61 20 152/74 95 Room Air 97.5 Intake and Output 02/07/18 02/08/18 19:00 07:00 Intake Total 1320 ml 480 ml Output Total 740 ml 1000 ml Balance 580 ml -520 ml Intake Oral 1320 ml 480 ml Output Urine Total 1000 ml Post Void Residual 740 ml Bladder Scan Volume Amount 351 562 125 57 # Voids 4 # Bowel Movements 1 Height (Feet): 5 Height (Inches): 8.00 Weight (Pounds): 192 Objective CV RR Lungs B Wheezes Abd SNT. BS + E No CCE Juana Henson MD Feb 08, 2018 09:07
[2018-02-08 11:57] VITALS: BP 128/65
--- NOTE | 2018-02-09 10:38 | Discharge Summary ---
Discharge Summary Discharge Summary _ DATE OF ADMISSION: 02/03/2018 DATE OF DISCHARGE: 02/08/2018 BRIEF HOSPITAL COURSE: Patient is a 62-year-old male, who resides in [facility], a psychiatric facility, was taken to [facility] via EMS for evaluation of respiratory distress. Patient has history of COPD, CHF and diabetes mellitus. He was admitted multiple times due to COPD exacerbation. Last admission was about a month ago due to same problem. On evaluation at ED, blood work showed elevated hemoglobin of 20, hematocrit 53 , platelet was 114. He is a smoker. Glucose was 141. He was wheezing and was given nebulizer treatment and was started on prednisone 60 mg po. Chest x-ray without evidence of acute cardiopulmonary disease. He was admitted for acute COPD exacerbation. He was given nebulizer treatments. He was continued on prednisone 60 mg by mouth daily. Blood sugars were monitored. He was continued on Glucophage 500 mg twice a day and NovoLog sliding scale. He was continued on his antihypertensives, amlodipine 5 mg daily, lisinopril 10 mg daily, Lopressor 50 mg every 12 hours. He was unable to void. Bladder scan showed 449 mL, straight catheterization was done yielding 1000 mL urine output. Abdominal ultrasound done showed no acute findings. He was breathing better. DM under control. He was voiding freely. He was cleared for discharge. FINAL DIAGNOSES: Acute COPD exacerbation Diabetes mellitus under control Obstructive uropathy Hypertension DISPOSITION: Patient was discharged home. DISCHARGE MEDICATIONS: Refer to Discharge Medication List. DISCHARGE INSTRUCTIONS: Follow up within a week. I have been assigned to dictate discharge summary on this account, and I was not involved in the patient's management. Cindy Cronin NP Feb 09, 2018 10:38
== END 2018-02-08 12:50 | disposition home or self-care (01) | DRG 192 ==
LOC: EDBD 00:47 → EMR 01:04 → 4W 02:42 → EDBEDREQ 03:19
DX: J44.1 Chronic obstructive pulmonary disease with (acute) exacerbation (principal); E11.9 Type 2 diabetes mellitus without complications; F17.200 Nicotine dependence, unspecified, uncomplicated; F20.9 Schizophrenia, unspecified; T43.95XA Adverse effect of unspecified psychotropic drug, initial encounter; N13.9 Obstructive and reflux uropathy, unspecified; I11.0 Hypertensive heart disease with heart failure
CPT/HCPCS: 36415; 71045; 76700; 80053; 82248; 82962; 83880; 84484; 85007; 85025; 87081; 94640; 94664; 94760; 99285; J1815; J7620

== ENCOUNTER 2018-03-17 17:38 | Inpatient (IN) | payer MEDICARE, MEDICAID ==
[~2018-03-17] VITALS: Ht 182.9 cm; Wt 84.5 kg
[~2018-03-17 17:38] MED LIST changes: +ATORVASTATIN CA10 MG ORAL
[2018-03-17] MEDS ORDERED: Ipratropium 0.02% Inh Soln 2.5ml UD HHN ONE (17:45)
[2018-03-17] MEDS ORDERED: Solu-MEDROL 125mg Inj IVP ONE (17:45)
[2018-03-17] MEDS ORDERED: Albuterol ud Inhalation HHN ONE (17:45)
[2018-03-17 17:53] VITALS: BP 142/88
[2018-03-17 18:15] LABS: BASOPHILS % (AUTO) 1.2 % (0.0-2.0); EOSINOPHILS % (AUTO) 0.6 % (0.0-3.0); HEMATOCRIT 54.5 % (42.0-52.0); LYMPHOCYTES % (AUTO) 18.4 % (20.0-45.0); MEAN CORPUSCULAR VOLUME 91 FL (80-99); MONOCYTES % (AUTO) 8.4 % (1.0-10.0); NEUTROPHILS % (AUTO) 71.5 % (45.0-75.0); PLATELET COUNT 142 K/UL (150-450); WHITE BLOOD COUNT 8.4 K/UL (4.8-10.8)
[2018-03-17 18:18] LABS: ANION GAP 3 mmol/L (5-15); BLOOD UREA NITROGEN 32 mg/dL (7-18); CALCIUM 9.5 MG/DL (8.5-10.1); CARBON DIOXIDE 28 MMOL/L (21-32); CHLORIDE 103 MMOL/L (98-107); CREATININE 0.9 MG/DL (0.55-1.30); POTASSIUM 4.7 MMOL/L (3.5-5.1); SODIUM 134 MMOL/L (136-145)
[2018-03-17 18:19] LABS: HEMOGLOBIN 20.4 G/DL (14.2-18.0)
[2018-03-17 18:29] LABS: ALANINE AMINOTRANSFERASE 48 U/L (12-78); ALBUMIN 3.9 G/DL (3.4-5.0); ALBUMIN/GLOBULIN RATIO 1.2 (1.0-2.7); ALKALINE PHOSPHATASE 117 U/L (46-116); ASPARTATE AMINO TRANSFERASE 36 U/L (15-37); BILIRUBIN,TOTAL 1.5 MG/DL (0.2-1.0)
[2018-03-17 18:33] LABS: BILIRUBIN,DIRECT 0.2 MG/DL (0.0-0.3)
[2018-03-17] MEDS ORDERED: UNOBMED (18:35)
[2018-03-17] MEDS ORDERED: Levofloxacin 500mg tab ORAL ONE (19:15)
--- NOTE | 2018-03-17 19:17 | Diagnostic Imaging Report ---
EXAM: XR Chest, 1 View CLINICAL HISTORY: SOB TECHNIQUE: Frontal view of the chest. COMPARISON: 02/03/18. FINDINGS: Lungs: Increased right base opacification could reflect some degree of vascular crowding, but a developing lower lobe infiltrate is not excluded. . Pleural space: Unremarkable. No pneumothorax. Heart: Unremarkable. No cardiomegaly. Mediastinum: Unremarkable. Bones/joints: Unremarkable. IMPRESSION: Increased right base opacification could reflect some degree of vascular crowding, but a developing lower lobe infiltrate is not excluded.
--- NOTE | 2018-03-17 20:14 | Emergency Room Report ---
History of Present Illness General Chief Complaint: Dyspnea/Respdistress Source: Patient Present Illness HPI Mr. Martin is a very pleasant 62-year-old male who presents with shortness of breath and wheezing. He has hx of COPD and tobacco use. Arrived by EMS for severe shortness of breath. 81% oxygen saturation according to EMS report. Denies pain. Gradual onset of symptoms 2 days ago. Recently hospitalized last month. Allergies: Coded Allergies: No Known Allergies (Unverified , 01/20/17) Patient History Past Medical History: COPD Past Surgical History: other - reviewed per electronic record Pertinent Family History: other - not pertinent to today's presentation Nursing Documentation-[facility] Past Medical History: No History, Except For Hx Cardiac Problems: Yes - heart ablation in January 2017 Hx Hypertension: Yes Hx Pacemaker: No Hx Asthma: No Hx COPD: Yes Hx Diabetes: Yes Hx Cancer: No Hx Gastrointestinal Problems: Yes - Abd hernia Hx Dialysis: No Hx Neurological Problems: Yes - Schizophrenia Hx Cerebrovascular Accident: No Hx Seizures: No Review of Systems Constitutional: Denies: fever, malaise Respiratory: Reports: cough, shortness of breath, wheezing Cardiovascular: Denies: chest pain All Other Systems: negative except mentioned in HPI Physical Exam Vital Signs Date Time Temp Pulse Resp B/P (MAP) Pulse Ox O2 Delivery O2 Flow Rate FiO2 03/17/18 17:41 97.5 78 24 142/88 98 Room Air 97.5 03/17/18 17:56 21 Sp02 EP Interpretation: reviewed, normal General Appearance: no apparent distress, alert, GCS 15, non-toxic, moderate distress Head: normocephalic, atraumatic Eyes: bilateral eye normal inspection ENT: hearing grossly normal, normal pharynx, no angioedema, normal voice Neck: full range of motion, supple/symm/no masses Respiratory: respiratory distress, accessory muscle use, crackles, speaking full sentences, wheezing, expiration, chest symmetrical Cardiovascular #1: regular rate, rhythm, no murmur Gastrointestinal: normal bowel sounds, non tender, soft, non-distended, no guarding Musculoskeletal: normal range of motion Neurologic: alert, oriented x3, responsive, motor strength/tone normal, sensory intact, speech normal Psychiatric: judgement/insight normal, memory normal, mood/affect normal, no suicidal/homicidal ideation Skin: normal color, no rash, warm/dry, well hydrated Lymphatic: no adenopathy Medical Decision Making ER Course Mr. Ha presents with COPD exacerbation. Admitted to Dr. Villa's service. I compared today's chest x-ray image from last month's study. I do not feel patient has new infiltrate. The RLL process seems improved from prior. Labs Test 03/17/18 17:55 03/17/18 19:17 White Blood Count 8.4 K/UL (4.8-10.8) Red Blood Count 6.00 M/UL (4.70-6.10) Hemoglobin 20.4 G/DL (14.2-18.0) Hematocrit 54.5 % (42.0-52.0) Mean Corpuscular Volume 91 FL (80-99) Mean Corpuscular Hemoglobin 34.0 PG (27.0-31.0) Mean Corpuscular Hemoglobin Concent 37.4 G/DL (32.0-36.0) Red Cell Distribution Width 15.0 % (11.6-14.8) Platelet Count 142 K/UL (150-450) Mean Platelet Volume 7.4 FL (6.5-10.1) Neutrophils (%) (Auto) 71.5 % (45.0-75.0) Lymphocytes (%) (Auto) 18.4 % (20.0-45.0) Monocytes (%) (Auto) 8.4 % (1.0-10.0) Eosinophils (%) (Auto) 0.6 % (0.0-3.0) Basophils (%) (Auto) 1.2 % (0.0-2.0) Sodium Level 134 MMOL/L (136-145) Potassium Level 4.7 MMOL/L (3.5-5.1) Chloride Level 103 MMOL/L (98-107) Carbon Dioxide Level 28 MMOL/L (21-32) Anion Gap 3 mmol/L (5-15) Blood Urea Nitrogen 32 mg/dL (7-18) Creatinine 0.9 MG/DL (0.55-1.30) Estimat Glomerular Filtration Rate > 60 mL/min (>60) Glucose Level 113 MG/DL (74-106) Calcium Level 9.5 MG/DL (8.5-10.1) Total Bilirubin 1.5 MG/DL (0.2-1.0) Direct Bilirubin 0.2 MG/DL (0.0-0.3) Aspartate Amino Transf (AST/SGOT) 36 U/L (15-37) Alanine Aminotransferase (ALT/SGPT) 48 U/L (12-78) Alkaline Phosphatase 117 U/L (46-116) Total Protein 7.2 G/DL (6.4-8.2) Albumin 3.9 G/DL (3.4-5.0) Globulin 3.3 g/dL Albumin/Globulin Ratio 1.2 (1.0-2.7) Arterial Blood pH 7.235 (7.350-7.450) Arterial Blood Partial Pressure CO2 74.6 mmHg (35.0-45.0) Arterial Blood Partial Pressure O2 76.1 mmHg (75.0-100.0) Arterial Blood HCO3 30.9 mmol/L (22.0-26.0) Arterial Blood Oxygen Saturation 95.0 % (92.0-98.0) Arterial Blood Base Excess 0.3 Edison Test Positive Last Vital Signs Date Time Temp Pulse Resp B/P (MAP) Pulse Ox O2 Delivery O2 Flow Rate FiO2 03/17/18 17:57 91 24 Room Air 21 03/17/18 17:56 88 03/17/18 17:53 97.5 142/88 97.5 Referrals: NON PHYSICIAN (PCP) [facility] Mar 17, 2018 20:14
[2018-03-17] MEDS: NovoLOG Insulin Flexpen SUBQ SCH (22:00)
[2018-03-17] MEDS ORDERED: D5NS 1,000 ML IV SCH (22:00)
[2018-03-17] MEDS ORDERED: Solu-MEDROL 125mg Inj IVP SCH (22:00)
[2018-03-17] MEDS: Albuterol/Ipratropium 3ml neb HHN SCH (23:00)
[2018-03-18] VITALS (7 sets, daily range): BP systolic 110–139; BP diastolic 52–68
[2018-03-18] MEDS: Albuterol/Ipratropium 3ml neb HHN SCH ×6 (03:00→23:27)
[2018-03-18] MEDS: NovoLOG Insulin Flexpen SUBQ SCH ×4 (06:30→22:00)
[2018-03-18] MEDS: Solu-MEDROL 125mg Inj IVP SCH ×3 (06:51→21:46)
[2018-03-18] MEDS: Docusate 100mg cap ORAL SCH ×2 (09:01→21:45)
[2018-03-18] MEDS: Lisinopril 20mg tab ORAL SCH (09:01)
[2018-03-18] MEDS: metFORMIN 500mg tab ORAL SCH ×2 (09:02→17:27)
[2018-03-18] MEDS: Aspirin Baby 81mg ORAL SCH (09:02)
[2018-03-18] MEDS: Heparin 5000 units/ml inj SUBQ SCH ×2 (09:04→21:48)
[2018-03-18] MEDS: Metoprolol Tartrate 50mg tab ORAL SCH ×2 (09:05→21:45)
[2018-03-18] MEDS: Trihexyphenidyl 2mg tab ORAL SCH ×2 (09:23→17:26)
--- NOTE | 2018-03-18 10:12 | Pulmonology Progress Note ---
Assessment/Plan Assessment/Plan HPI Patient 62-year-old male who presents with shortness of breath and wheezing. He has hx of COPD and tobacco use. Arrived by EMS for severe shortness of breath. 81% oxygen saturation according to EMS report. Denies pain. Gradual onset of symptoms 2 days ago. Recently hospitalized last month. Noted to have RLL infiltate - on Levaquin Allergies: Coded Allergies: No Known Allergies (Unverified , 01/20/17) Patient History Past Medical History: COPD Past Surgical History: other - reviewed per electronic record Pertinent Family History: other - not pertinent to today's presentation Nursing Documentation-H Past Medical History: No History, Except For Hx Cardiac Problems: Yes - heart ablation in January 2017 Hx Hypertension: Yes Hx Pacemaker: No Hx Asthma: No Hx COPD: Yes Hx Diabetes: Yes Hx Cancer: No Hx Gastrointestinal Problems: Yes - Abd hernia Hx Dialysis: No Hx Neurological Problems: Yes - Schizophrenia Hx Cerebrovascular Accident: No Hx Seizures: No Review of Systems Constitutional: Denies: fever, malaise Respiratory: Reports: cough, shortness of breath, wheezing Cardiovascular: Denies: chest pain All Other Systems: negative except mentioned in HPI Physical Exam Vital Signs Date Time Temp Pulse Resp B/P (MAP) Pulse Ox O2 Delivery O2 Flow Rate FiO2 03/17/18 17:41 97.5 78 24 142/88 98 Room Air 97.5 03/17/18 17:56 21 Sp02 EP Interpretation: reviewed, normal General Appearance: no apparent distress, alert, GCS 15, non-toxic, moderate distress Head: normocephalic, atraumatic Eyes: bilateral eye normal inspection ENT: hearing grossly normal, normal pharynx, no angioedema, normal voice Neck: full range of motion, supple/symm/no masses Respiratory: respiratory distress, accessory muscle use, crackles, speaking full sentences, wheezing, expiration, chest symmetrical Cardiovascular #1: regular rate, rhythm, no murmur Gastrointestinal: normal bowel sounds, non tender, soft, non-distended, no guarding Musculoskeletal: normal range of motion Neurologic: alert, oriented x3, responsive, motor strength/tone normal, sensory intact, speech normal Psychiatric: judgement/insight normal, memory normal, mood/affect normal, no suicidal/homicidal ideation Skin: normal color, no rash, warm/dry, well hydrated Lymphatic: no adenopathy Medical Decision Making ER Course Mr. Ha presents with COPD exacerbation. Admitted to Dr. Villa's service. I compared today's chest x-ray image from last month's study. I do not feel patient has new infiltrate. The RLL process seems improved from prior. Labs Test 03/17/18 17:55 03/17/18 19:17 White Blood Count 8.4 K/UL (4.8-10.8) Red Blood Count 6.00 M/UL (4.70-6.10) Hemoglobin 20.4 G/DL (14.2-18.0) Hematocrit 54.5 % (42.0-52.0) Mean Corpuscular Volume 91 FL (80-99) Mean Corpuscular Hemoglobin 34.0 PG (27.0-31.0) Mean Corpuscular Hemoglobin Concent 37.4 G/DL (32.0-36.0) Red Cell Distribution Width 15.0 % (11.6-14.8) Platelet Count 142 K/UL (150-450) Mean Platelet Volume 7.4 FL (6.5-10.1) Neutrophils (%) (Auto) 71.5 % (45.0-75.0) Lymphocytes (%) (Auto) 18.4 % (20.0-45.0) Monocytes (%) (Auto) 8.4 % (1.0-10.0) Eosinophils (%) (Auto) 0.6 % (0.0-3.0) Basophils (%) (Auto) 1.2 % (0.0-2.0) Sodium Level 134 MMOL/L (136-145) Potassium Level 4.7 MMOL/L (3.5-5.1) Chloride Level 103 MMOL/L (98-107) Carbon Dioxide Level 28 MMOL/L (21-32) Anion Gap 3 mmol/L (5-15) Blood Urea Nitrogen 32 mg/dL (7-18) Creatinine 0.9 MG/DL (0.55-1.30) Estimat Glomerular Filtration Rate > 60 mL/min (>60) Glucose Level 113 MG/DL (74-106) Calcium Level 9.5 MG/DL (8.5-10.1) Total Bilirubin 1.5 MG/DL (0.2-1.0) Direct Bilirubin 0.2 MG/DL (0.0-0.3) Aspartate Amino Transf (AST/SGOT) 36 U/L (15-37) Alanine Aminotransferase (ALT/SGPT) 48 U/L (12-78) Alkaline Phosphatase 117 U/L (46-116) Total Protein 7.2 G/DL (6.4-8.2) Albumin 3.9 G/DL (3.4-5.0) Globulin 3.3 g/dL Albumin/Globulin Ratio 1.2 (1.0-2.7) Arterial Blood pH 7.235 (7.350-7.450) Arterial Blood Partial Pressure CO2 74.6 mmHg (35.0-45.0) Arterial Blood Partial Pressure O2 76.1 mmHg (75.0-100.0) Arterial Blood HCO3 30.9 mmol/L (22.0-26.0) Arterial Blood Oxygen Saturation 95.0 % (92.0-98.0) Arterial Blood Base Excess 0.3 Edison Test Positive Last Vital Signs Date Time Temp Pulse Resp B/P (MAP) Pulse Ox O2 Delivery O2 Flow Rate FiO2 03/17/18 17:57 91 24 Room Air 21 03/17/18 17:56 88 03/17/18 17:53 97.5 142/88 97.5 Assessment/Plan Chronic Obstructive Disease Exaccerbtion Right lower lobe Pneumonia, possible aspiratuion related Hypertension Previous AV node ablation PlN: Levaquin/Flagyl Aspiration Precautions NNH Q4 Bipap 16/6 O2 sats 90-94 Swallow eval NPO exept IVF Repeat ABG Subjective Allergies: Coded Allergies: No Known Allergies (Unverified , 01/20/17) Objective Last 24 Hour Vital Signs Date Time Temp Pulse Resp B/P (MAP) Pulse Ox O2 Delivery O2 Flow Rate FiO2 03/18/18 09:05 79 133/62 03/18/18 09:02 79 133/62 03/18/18 09:01 133/62 03/18/18 08:00 97.7 79 14 133/62 (85) 98 97.7 03/18/18 07:49 96 27 94 Room Air 21 03/18/18 07:39 95 28 93 Nasal Cannula 3.0 03/18/18 05:30 81 94 2.0 28 03/18/18 04:00 73 03/18/18 04:00 98.4 73 21 122/65 (84) 98 98.4 03/18/18 04:00 50 03/18/18 04:00 Bi-pap 03/18/18 03:28 80 20 97 Full Face 50 03/18/18 01:21 82 21 96 Full Face 50 03/18/18 00:00 74 03/18/18 00:00 50 03/18/18 00:00 98.0 81 20 139/65 (89) 98 98.0 03/18/18 00:00 Bi-pap 03/17/18 23:30 80 24 97 Facial 50 03/17/18 21:00 81 26 95 Facial 50 03/17/18 20:30 Nasal Cannula 4.0 03/17/18 20:17 97.5 88 20 142/88 97 Room Air 21 97.5 03/17/18 19:00 84 20 97 Room Air 21 03/17/18 17:57 91 24 Room Air 21 03/17/18 17:56 91 28 88 Room Air 21 03/17/18 17:53 97.5 88 24 142/88 98 Room Air 97.5 03/17/18 17:53 78 24 Room Air 03/17/18 17:41 97.5 78 24 142/88 98 Room Air 97.5 Intake and Output 03/17/18 03/18/18 19:00 07:00 Intake Total 343 ml Output Total 0 ml Balance 0 ml 343 ml Intake IV Total 343 ml Output Urine Total 0 ml Laboratory Tests 03/17/18 17:55: White Blood Count 8.4, Red Blood Count 6.00, Hemoglobin 20.4*H, Hematocrit 54.5H , Mean Corpuscular Volume 91, Mean Corpuscular Hemoglobin 34.0H, Mean Corpuscular Hemoglobin Concent 37.4H, Red Cell Distribution Width 15.0H, Platelet Count 142L, Mean Platelet Volume 7.4, Neutrophils (%) (Auto) 71.5, Lymphocytes (%) (Auto) 18.4L, Monocytes (%) (Auto) 8.4, Eosinophils (%) (Auto) 0.6, Basophils (%) (Auto) 1.2, Sodium Level 134L, Potassium Level 4.7, Chloride Level 103, Carbon Dioxide Level 28, Anion Gap 3L, Blood Urea Nitrogen 32H, Creatinine 0.9, Estimat Glomerular Filtration Rate > 60, Glucose Level 113H, Calcium Level 9.5, Total Bilirubin 1.5H, Direct Bilirubin 0.2, Aspartate Amino Transf (AST/SGOT) 36, Alanine Aminotransferase (ALT/SGPT) 48, Alkaline Phosphatase 117H, Total Protein 7.2, Albumin 3.9, Globulin 3.3, Albumin/ Globulin Ratio 1.2 03/17/18 19:17: Arterial Blood pH 7.235*L, Arterial Blood Partial Pressure CO2 74.6*H, Arterial Blood Partial Pressure O2 76.1, Arterial Blood HCO3 30.9H, Arterial Blood Oxygen Saturation 95.0, Arterial Blood Base Excess 0.3, Edison Test Positive 03/17/18 23:00: Arterial Blood pH 7.267L, Arterial Blood Partial Pressure CO2 64.5*H, Arterial Blood Partial Pressure O2 97.0, Arterial Blood HCO3 28.8H, Arterial Blood Oxygen Saturation 97.1, Arterial Blood Base Excess -0.4, Edison Test Positive Current Medications Medications (Trade) Dose Ordered Sig/Jean Route PRN Reason Start Time Stop Time Status Last Admin Dose Admin Acetaminophen (Tylenol) 650 mg Q4H PRN ORAL Fever/Headache/Mild Pain 03/17/18 23:15 04/16/18 23:14 Albuterol/ Ipratropium (Albuterol/ Ipratropium) 3 ml Q4HRT HHN 03/17/18 23:00 03/22/18 22:59 03/18/18 07:39 Amlodipine Besylate (Norvasc) 5 mg DAILY ORAL 03/18/18 09:00 04/17/18 08:59 03/18/18 09:02 Aspirin (ASA) 81 mg DAILY ORAL 03/18/18 09:00 04/17/18 08:59 03/18/18 09:02 Dextrose (Dextrose 50%) 25 ml STAT PRN IV Hypoglycemia 03/17/18 21:30 04/16/18 21:29 Dextrose (Dextrose 50%) 50 ml STAT PRN IV Hypoglycemia 03/17/18 21:30 04/16/18 21:29 Dextrose/Sodium Chloride 1,000 ml @ 40 mls/hr Q24H IV 03/17/18 22:00 03/18/18 21:59 03/17/18 22:25 Docusate Sodium (Colace) 100 mg EVERY 12 HOURS ORAL 03/18/18 09:00 04/17/18 08:59 03/18/18 09:01 Haloperidol (Haldol) 10 mg BID ORAL 03/18/18 09:00 04/17/18 08:59 Heparin Sodium (Porcine) (Heparin 5000 units/ml) 5,000 units EVERY 12 HOURS SUBQ 03/18/18 09:00 04/17/18 08:59 03/18/18 09:04 Insulin Aspart (NovoLOG) BEFORE MEALS AND HS SUBQ 03/17/18 22:00 04/16/18 21:59 Levofloxacin 100 ml @ 100 mls/hr Q24H IVPB 03/18/18 21:00 03/25/18 20:59 Lisinopril (Prinivil) 10 mg DAILY ORAL 03/18/18 09:00 04/17/18 08:59 03/18/18 09:01 Metformin HCl (Glucophage) 500 mg TWICE A DAY ORAL 03/18/18 09:00 04/17/18 08:59 03/18/18 09:02 Methylprednisolone Sodium Succinate (Solu-MEDROL) 60 mg EVERY 8 HOURS IVP 03/18/18 06:00 04/17/18 05:59 03/18/18 06:51 Metoprolol Tartrate (Lopressor) 50 mg EVERY 12 HOURS ORAL 03/18/18 09:00 04/17/18 08:59 03/18/18 09:05 Mirtazapine (Remeron) 7.5 mg BEDTIME ORAL 03/18/18 21:00 04/17/18 20:59 Nicotine (Nicoderm) 1 patch QHS TDERMAL 03/17/18 23:15 04/16/18 23:14 03/17/18 23:47 Pantoprazole (Protonix) 40 mg DAILY ORAL 03/18/18 09:00 04/17/18 08:59 03/18/18 09:02 Trihexyphenidyl HCl (Artane) 2 mg TWICE A DAY ORAL 03/18/18 09:00 04/17/18 08:59 03/18/18 09:23 Jenaro Lr MD Mar 18, 2018 10:12
[2018-03-18] MEDS: D5NS 1,000 ML IV SCH (12:06)
[2018-03-18] MEDS ORDERED: Tubing IV Secondary IV ONE (15:01)
[2018-03-19] VITALS: BP 112/56
[2018-03-19] MEDS: Albuterol/Ipratropium 3ml neb HHN SCH ×6 (02:01→23:15)
[2018-03-19] MEDS: D5NS 1,000 ML IV SCH (02:01)
[2018-03-19 04:00] VITALS: BP 114/58
[2018-03-19] MEDS: Solu-MEDROL 125mg Inj IVP SCH ×3 (06:29→21:35)
[2018-03-19] MEDS: NovoLOG Insulin Flexpen SUBQ SCH ×4 (06:30→21:43)
[2018-03-19 08:00] VITALS: BP 124/72
--- NOTE | 2018-03-19 08:21 | Pulmonology Progress Note ---
Assessment/Plan Assessment/Plan hemoconcentration ?polycythemia hypercapnia chronic respiratory failure pneumonia, community acquired acute renal failure PLAN respiratory care BIPAP oxygen antibiotics IV steroids DVT prophylaxis repeat ABG and imaging monitor fluid status impression, plan, and exam edited and reviewed in detail care discussed with RN Subjective ROS Limited/Unobtainable: Yes Allergies: Coded Allergies: No Known Allergies (Unverified , 01/20/17) Subjective care noted and reviewed on BIPAP Objective Last 24 Hour Vital Signs Date Time Temp Pulse Resp B/P (MAP) Pulse Ox O2 Delivery O2 Flow Rate FiO2 03/19/18 07:55 62 18 97 Full Face 28 03/19/18 07:55 62 17 98 Bi-pap 28 03/19/18 04:54 60 18 96 Full Face 28 03/19/18 04:00 98.4 59 20 114/58 (76) 95 98.4 03/19/18 04:00 53 03/19/18 04:00 Bi-pap 03/19/18 03:12 63 18 97 Bi-pap 28 03/19/18 03:11 60 17 96 Bi-pap 28 03/19/18 03:10 62 17 95 Facial 28 03/19/18 01:10 60 18 96 Facial 28 03/19/18 00:00 Bi-pap 03/19/18 00:00 98.4 60 28 112/56 (74) 96 98.4 03/19/18 00:00 57 03/18/18 23:28 62 20 97 Bi-pap 28 03/18/18 23:28 61 17 95 Bi-pap 28 03/18/18 23:27 61 17 95 Full Face 28 03/18/18 21:45 60 118/68 03/18/18 21:14 58 19 94 Facial 28 03/18/18 20:00 Bi-pap 03/18/18 20:00 63 03/18/18 20:00 98.0 60 32 118/68 (85) 96 98.0 03/18/18 20:00 25 03/18/18 19:03 54 25 97 Facial 30 03/18/18 19:02 60 25 98 Bi-pap 30 03/18/18 19:01 54 30 98 Bi-pap 30 03/18/18 17:03 68 15 94 Full Face 30 03/18/18 16:00 97.9 60 16 110/52 (71) 94 97.9 03/18/18 16:00 63 03/18/18 16:00 Bi-pap 03/18/18 15:09 62 20 97 Bi-pap 30 03/18/18 14:59 62 18 94 Bi-pap 30 03/18/18 14:55 63 18 94 Full Face 30 03/18/18 14:01 97.2 60 16 133/62 (85) 93 97.2 03/18/18 13:12 62 33 98 Full Face 30 03/18/18 12:00 Bi-pap 03/18/18 12:00 97.2 60 16 122/62 (82) 93 97.2 03/18/18 12:00 56 03/18/18 11:11 57 20 97 Bi-pap 25 03/18/18 11:01 55 20 92 Bi-pap 25 03/18/18 11:01 55 20 92 Full Face 25 03/18/18 10:07 25 03/18/18 09:26 82 19 98 Full Face 50 03/18/18 09:05 79 133/62 03/18/18 09:02 79 133/62 03/18/18 09:01 133/62 Intake and Output 03/18/18 03/19/18 19:00 07:00 Intake Total 680 ml 580 ml Output Total 401 ml 250 ml Balance 279 ml 330 ml Intake Oral 100 ml 100 ml IV Total 580 ml 480 ml Output Urine Total 401 ml 250 ml # Voids 2 Objective WDWN NAD; on BIPAP and oxygen reduced breath sounds bilaterally with some rhonchi [id number] without MRG NABS nontender no HSM no CC; mild edema reduced LOC Laboratory Tests 03/18/18 12:15: Arterial Blood pH 7.380, Arterial Blood Partial Pressure CO2 49.3H, Arterial Blood Partial Pressure O2 53.8L, Arterial Blood HCO3 28.6H, Arterial Blood Oxygen Saturation 89.7L, Arterial Blood Base Excess 2.4, Edison Test Positive Current Medications Medications (Trade) Dose Ordered Sig/Jean Route PRN Reason Start Time Stop Time Status Last Admin Dose Admin Acetaminophen (Tylenol) 650 mg Q4H PRN ORAL Fever/Headache/Mild Pain 03/17/18 23:15 04/16/18 23:14 Albuterol/ Ipratropium (Albuterol/ Ipratropium) 3 ml Q4HRT HHN 03/17/18 23:00 03/22/18 22:59 03/19/18 07:55 Amlodipine Besylate (Norvasc) 5 mg DAILY ORAL 03/18/18 09:00 04/17/18 08:59 03/18/18 09:02 Aspirin (ASA) 81 mg DAILY ORAL 03/18/18 09:00 04/17/18 08:59 03/18/18 09:02 Atorvastatin Calcium (Lipitor) 10 mg BEDTIME ORAL 03/18/18 21:00 04/17/18 20:59 03/18/18 21:44 Dextrose (Dextrose 50%) 25 ml STAT PRN IV Hypoglycemia 03/17/18 21:30 04/16/18 21:29 Dextrose (Dextrose 50%) 50 ml STAT PRN IV Hypoglycemia 03/17/18 21:30 04/16/18 21:29 Dextrose/Sodium Chloride 1,000 ml @ 40 mls/hr Q24H IV 03/18/18 10:45 03/19/18 10:44 03/19/18 02:01 Docusate Sodium (Colace) 100 mg EVERY 12 HOURS ORAL 03/18/18 09:00 04/17/18 08:59 03/18/18 21:45 Haloperidol (Haldol) 10 mg BID ORAL 03/18/18 09:00 04/17/18 08:59 Heparin Sodium (Porcine) (Heparin 5000 units/ml) 5,000 units EVERY 12 HOURS SUBQ 03/18/18 09:00 04/17/18 08:59 03/18/18 21:48 Insulin Aspart (NovoLOG) BEFORE MEALS AND HS SUBQ 03/17/18 22:00 04/16/18 21:59 03/19/18 06:30 Levofloxacin 100 ml @ 100 mls/hr Q24H IVPB 03/18/18 21:00 03/25/18 20:59 03/18/18 21:00 Lisinopril (Prinivil) 10 mg DAILY ORAL 03/18/18 09:00 04/17/18 08:59 03/18/18 09:01 Metformin HCl (Glucophage) 500 mg TWICE A DAY ORAL 03/18/18 09:00 04/17/18 08:59 03/18/18 17:27 Methylprednisolone Sodium Succinate (Solu-MEDROL) 60 mg EVERY 8 HOURS IVP 03/18/18 06:00 04/17/18 05:59 03/19/18 06:29 Metoprolol Tartrate (Lopressor) 50 mg EVERY 12 HOURS ORAL 03/18/18 09:00 04/17/18 08:59 03/18/18 21:45 Metronidazole 100 ml @ 100 mls/hr Q8HR IVPB 03/18/18 14:00 03/25/18 13:59 03/19/18 06:30 Mirtazapine (Remeron) 7.5 mg BEDTIME ORAL 03/18/18 21:00 04/17/18 20:59 03/18/18 21:44 Nicotine (Nicoderm) 1 patch QHS TDERMAL 03/17/18 23:15 04/16/18 23:14 03/18/18 21:47 Pantoprazole (Protonix) 40 mg DAILY ORAL 03/18/18 09:00 04/17/18 08:59 03/18/18 09:02 Trihexyphenidyl HCl (Artane) 2 mg TWICE A DAY ORAL 03/18/18 09:00 04/17/18 08:59 03/18/18 17:26 Tiburcio Keith MD Mar 19, 2018 08:21
[2018-03-19] MEDS: Metoprolol Tartrate 50mg tab ORAL SCH ×2 (09:00→21:36)
[2018-03-19] MEDS: Aspirin Baby 81mg ORAL SCH (09:30)
[2018-03-19] MEDS: Docusate 100mg cap ORAL SCH ×2 (09:30→21:34)
[2018-03-19] MEDS: metFORMIN 500mg tab ORAL SCH ×2 (09:30→17:21)
[2018-03-19] MEDS: Trihexyphenidyl 2mg tab ORAL SCH ×2 (09:31→17:21)
[2018-03-19] MEDS: Lisinopril 20mg tab ORAL SCH (09:31)
[2018-03-19] MEDS: Heparin 5000 units/ml inj SUBQ SCH ×2 (09:33→21:42)
[2018-03-19 12:01] VITALS: BP 135/69
--- NOTE | 2018-03-19 12:06 | Diagnostic Imaging Report ---
Indication: Shortness of breath Technique: One view of the chest Comparison: 06/26/2018 Findings: There is some atelectasis at the left lateral lung base. Lungs and pleural spaces are otherwise clear. The heart size is normal. There is evidence of prior left shoulder surgery Impression: Left lateral basilar atelectasis. No acute process otherwise
[2018-03-19 16:00] VITALS: BP 128/68
[2018-03-19 20:00] VITALS: BP 116/58
[2018-03-20] VITALS (7 sets, daily range): BP systolic 117–156; BP diastolic 60–82
[2018-03-20] MEDS: Albuterol/Ipratropium 3ml neb HHN SCH ×6 (03:00→23:48)
[2018-03-20] MEDS: Solu-MEDROL 125mg Inj IVP SCH ×3 (06:12→22:08)
[2018-03-20] MEDS: NovoLOG Insulin Flexpen SUBQ SCH ×4 (06:14→20:58)
[2018-03-20] MEDS: Trihexyphenidyl 2mg tab ORAL SCH ×2 (08:39→17:25)
[2018-03-20] MEDS: Metoprolol Tartrate 50mg tab ORAL SCH ×2 (08:40→20:52)
[2018-03-20] MEDS: Lisinopril 20mg tab ORAL SCH (08:40)
[2018-03-20] MEDS: metFORMIN 500mg tab ORAL SCH ×2 (08:40→17:25)
[2018-03-20] MEDS: Docusate 100mg cap ORAL SCH ×2 (08:40→20:52)
[2018-03-20] MEDS: Aspirin Baby 81mg ORAL SCH (08:40)
[2018-03-20] MEDS: Heparin 5000 units/ml inj SUBQ SCH ×2 (08:42→20:57)
--- NOTE | 2018-03-20 10:50 | History and Physical Report ---
DATE OF ADMISSION: 03/17/2018 CHIEF COMPLAINT: Shortness of breath. HISTORY OF PRESENT ILLNESS: This is one of multiple admissions to this 62-year-old male who is a resident of a [facility] in [place]. The patient's primary physician is Dr. Nahed Aguilar. The patient is admitted on average every other month to this hospital with COPD exacerbation. The patient is a heavy smoker. the patient was admitted to this hospital last night with COPD exacerbation. PAST MEDICAL HISTORY: 1. COPD. 2. Schizophrenia. 3. Obstructive uropathy, most likely due to exacerbated by the patient's psychiatric medications. 4. Type 2 diabetes mellitus. 5. Remote history of paroxysmal atrial flutter. 6. Hypertensive cardiovascular disease. MEDICATIONS: The medication list is long and includes the following: Tylenol p.r.n., albuterol inhalation, amlodipine, baby aspirin, Atorvastatin, sodium docusate, Breo, Haldol, DuoNeb inhalation, lisinopril, metformin, Toprol-XL, mirtazapine, nicotine patch, although the patient continues to smoke, Protonix, and Artane. ALLERGIES: No known drug allergies. FAMILY HISTORY: Unremarkable. REVIEW OF SYSTEMS: HEENT: Hearing and eyesight are normal. ENDOCRINE: Significant for mild type 2 diabetes mellitus. RESPIRATORY: Please refer to history of present illness and past medical history. CARDIAC: He denies chest pain or palpitations. GASTROINTESTINAL: No history of hematochezia, melena, hematemesis, diarrhea, or constipation. GENITOURINARY: He has obstructive uropathy exacerbated by his psychiatric medications. NEUROLOGICAL: History of stroke, syncope, Parkinson disease. PHYSICAL EXAMINATION: GENERAL: This is an elderly male, who was on a BiPAP. The patient appears to be sedated and sleepy. VITAL SIGNS: Blood pressure 133/62, pulse 82 and regular, and respirations 19. HEENT: The head is normocephalic and atraumatic. Pupils are equal, round, and reactive to light. NECK: Supple. Trachea midline. There was no lymphadenopathy. LUNGS: Bilateral wheezes. HEART: Regular rate and rhythm without rubs, murmurs, or gallops. ABDOMEN: Soft and nontender. Bowel sounds were active. EXTREMITIES: No clubbing, cyanosis, or edema. NEUROLOGICAL: He is alert and oriented x4. Cranial nerves II through XII intact. LABORATORY AND ANCILLARY DATA: From yesterday, CBC showed hemoglobin 20.4, otherwise, within normal limits. Serum chemistry, sodium 134, glucose 113, total bilirubin 1.5. Chest x-ray shows right base opacification, could reflect some degree of vascular crowding or developing a lower lobe infiltrate. ASSESSMENT: 1. Chronic obstructive pulmonary disease exacerbation. 2. Schizophrenia. 3. Obstructive uropathy, most likely due to exacerbated by the patient's psychiatric medications. 4. Type 2 diabetes mellitus. 5. Remote history of paroxysmal atrial flutter. 6. Hypertensive cardiovascular disease. PLAN: 1. Pulmonary consult. 2. BiPAP. 3. Continue home medications. 4. Solu-Medrol. Juana Henson M.D. DR: ALYSSA JOB#: [id number] CC:
--- NOTE | 2018-03-20 19:18 | Pulmonology Progress Note ---
Assessment/Plan Assessment/Plan hemoconcentration ?polycythemia hypercapnia chronic respiratory failure pneumonia, community acquired acute renal failure PLAN respiratory care BIPAP PRN oxygen antibiotics IV steroids and taper in am follow up ABG for change DVT prophylaxis monitor fluid status transfer to floor impression, plan, and exam edited and reviewed in detail care discussed with RN Subjective Allergies: Coded Allergies: No Known Allergies (Unverified , 01/20/17) Subjective care noted and reviewed off BIPAP affect inappropriate Objective Last 24 Hour Vital Signs Date Time Temp Pulse Resp B/P (MAP) Pulse Ox O2 Delivery O2 Flow Rate FiO2 03/20/18 19:12 68 20 90 Nasal Cannula 3.0 32 03/20/18 16:00 97.3 77 22 145/73 (97) 91 97.3 03/20/18 16:00 76 03/20/18 16:00 Nasal Cannula 2.0 03/20/18 15:23 62 20 97 Nasal Cannula 3.0 32 03/20/18 15:13 71 18 92 Nasal Cannula 3.0 32 03/20/18 12:00 87 03/20/18 12:00 97.7 71 20 156/82 (106) 91 97.7 03/20/18 12:00 Nasal Cannula 2.0 03/20/18 11:15 84 22 98 Nasal Cannula 3.0 32 03/20/18 10:53 62 20 93 Nasal Cannula 3.0 32 03/20/18 08:40 77 140/71 03/20/18 08:40 140/71 03/20/18 08:39 77 140/71 03/20/18 08:38 96.8 77 20 140/71 (94) 91 96.8 03/20/18 08:00 Nasal Cannula 2.0 03/20/18 08:00 87 03/20/18 07:11 95 20 97 Nasal Cannula 3.0 32 03/20/18 07:01 71 20 90 Nasal Cannula 3.0 32 03/20/18 05:22 84 20 94 03/20/18 04:00 Nasal Cannula 2.0 03/20/18 04:00 97.7 77 20 128/60 (82) 91 97.7 03/20/18 04:00 73 03/20/18 03:15 Nasal Cannula 3.0 32 03/20/18 03:15 Nasal Cannula 3.0 32 03/20/18 03:12 92 22 94 03/20/18 01:00 76 27 96 Full Face 28 03/20/18 00:54 83 16 94 03/20/18 00:00 78 03/20/18 00:00 97.2 76 20 143/76 (98) 93 97.2 03/19/18 23:49 Nasal Cannula 2.0 03/19/18 23:16 98 22 94 Nasal Cannula 3.0 32 03/19/18 23:10 92 22 93 Nasal Cannula 3.0 32 03/19/18 23:06 88 16 93 03/19/18 21:36 92 116/58 03/19/18 20:55 92 18 94 03/19/18 20:00 Nasal Cannula 2.0 03/19/18 20:00 98.1 87 24 116/58 (77) 92 98.1 03/19/18 20:00 94 Intake and Output 03/19/18 03/20/18 19:00 07:00 Intake Total 1110 ml 720 ml Output Total 500 ml 800 ml Balance 610 ml -80 ml Intake Oral 910 ml 720 ml IV Total 200 ml Output Urine Total 500 ml 800 ml # Voids 1 1 Objective WDWN NAD; off BIPAP and oxygen reduced breath sounds bilaterally with some rhonchi [id number] without MRG NABS nontender no HSM no CC; mild edema reduced LOC Current Medications Medications (Trade) Dose Ordered Sig/Jean Route PRN Reason Start Time Stop Time Status Last Admin Dose Admin Acetaminophen (Tylenol) 650 mg Q4H PRN ORAL Fever/Headache/Mild Pain 03/17/18 23:15 04/16/18 23:14 Albuterol/ Ipratropium (Albuterol/ Ipratropium) 3 ml Q4HRT HHN 03/17/18 23:00 03/22/18 22:59 03/20/18 19:12 Amlodipine Besylate (Norvasc) 5 mg DAILY ORAL 03/18/18 09:00 04/17/18 08:59 03/20/18 08:39 Aspirin (ASA) 81 mg DAILY ORAL 03/18/18 09:00 04/17/18 08:59 03/20/18 08:40 Atorvastatin Calcium (Lipitor) 10 mg BEDTIME ORAL 03/18/18 21:00 04/17/18 20:59 03/19/18 21:35 Dextrose (Dextrose 50%) 25 ml STAT PRN IV Hypoglycemia 03/17/18 21:30 04/16/18 21:29 Dextrose (Dextrose 50%) 50 ml STAT PRN IV Hypoglycemia 03/17/18 21:30 04/16/18 21:29 Docusate Sodium (Colace) 100 mg EVERY 12 HOURS ORAL 03/18/18 09:00 04/17/18 08:59 03/20/18 08:40 Haloperidol (Haldol) 10 mg BID ORAL 03/18/18 09:00 04/17/18 08:59 Heparin Sodium (Porcine) (Heparin 5000 units/ml) 5,000 units EVERY 12 HOURS SUBQ 03/18/18 09:00 04/17/18 08:59 03/20/18 08:42 Insulin Aspart (NovoLOG) BEFORE MEALS AND HS SUBQ 03/17/18 22:00 04/16/18 21:59 03/20/18 17:03 Levofloxacin 100 ml @ 100 mls/hr Q24H IVPB 03/18/18 21:00 03/25/18 20:59 03/19/18 21:36 Lisinopril (Prinivil) 10 mg DAILY ORAL 03/18/18 09:00 04/17/18 08:59 03/20/18 08:40 Metformin HCl (Glucophage) 500 mg TWICE A DAY ORAL 03/18/18 09:00 04/17/18 08:59 03/20/18 17:25 Methylprednisolone Sodium Succinate (Solu-MEDROL) 60 mg EVERY 8 HOURS IVP 03/18/18 06:00 04/17/18 05:59 03/20/18 13:58 Metoprolol Tartrate (Lopressor) 50 mg EVERY 12 HOURS ORAL 03/18/18 09:00 04/17/18 08:59 03/20/18 08:40 Metronidazole 100 ml @ 100 mls/hr Q8HR IVPB 03/18/18 14:00 03/25/18 13:59 03/20/18 13:57 Mirtazapine (Remeron) 7.5 mg BEDTIME ORAL 03/18/18 21:00 04/17/18 20:59 03/19/18 21:32 Nicotine (Nicoderm) 1 patch QHS TDERMAL 03/17/18 23:15 04/16/18 23:14 03/19/18 21:32 Pantoprazole (Protonix) 40 mg DAILY ORAL 03/18/18 09:00 04/17/18 08:59 03/20/18 08:39 Trihexyphenidyl HCl (Artane) 2 mg TWICE A DAY ORAL 03/18/18 09:00 04/17/18 08:59 03/20/18 17:25 Tiburcio Keith MD Mar 20, 2018 19:18
[2018-03-21] VITALS: BP 160/73
[2018-03-21] MEDS: Albuterol/Ipratropium 3ml neb HHN SCH ×6 (03:05→23:31)
[2018-03-21 04:00] VITALS: BP 143/72
[2018-03-21] MEDS: Solu-MEDROL 125mg Inj IVP SCH ×3 (05:52→23:16)
[2018-03-21] MEDS: NovoLOG Insulin Flexpen SUBQ SCH ×4 (05:55→22:38)
[2018-03-21 06:48] LABS: HEMATOCRIT 48.7 % (42.0-52.0); MEAN CORPUSCULAR VOLUME 94 FL (80-99); PLATELET COUNT 103 K/UL (150-450); RED BLOOD COUNT 5.21 M/UL (4.70-6.10); RED CELL DISTRIBUTION WIDTH 15.4 % (11.6-14.8); WHITE BLOOD COUNT 8.3 K/UL (4.8-10.8)
[2018-03-21 07:11] LABS: ANION GAP 5 mmol/L (5-15); BLOOD UREA NITROGEN 31 mg/dL (7-18); CALCIUM 8.4 MG/DL (8.5-10.1); CARBON DIOXIDE 30 MMOL/L (21-32); CHLORIDE 101 MMOL/L (98-107); CREATININE 1.1 MG/DL (0.55-1.30); POTASSIUM 4.5 MMOL/L (3.5-5.1); SODIUM 136 MMOL/L (136-145)
[2018-03-21 08:00] VITALS: BP 168/89
[2018-03-21] MEDS: Flonase Nasal Inhaler 16gm NASAL SCH (09:00)
[2018-03-21] MEDS: Heparin 5000 units/ml inj SUBQ SCH ×2 (09:00→21:00)
[2018-03-21] MEDS: Aspirin Baby 81mg ORAL SCH (09:29)
[2018-03-21] MEDS: Docusate 100mg cap ORAL SCH ×2 (09:29→22:22)
[2018-03-21] MEDS: metFORMIN 500mg tab ORAL SCH ×2 (09:29→18:13)
[2018-03-21] MEDS: Trihexyphenidyl 2mg tab ORAL SCH ×2 (09:29→18:13)
[2018-03-21] MEDS: Lisinopril 20mg tab ORAL SCH (09:30)
[2018-03-21] MEDS: Metoprolol Tartrate 50mg tab ORAL SCH ×2 (09:31→22:23)
[2018-03-21 12:00] VITALS: BP 129/47
--- NOTE | 2018-03-21 12:57 | Consultation ---
History of Present Illness General Date patient seen: Mar 21, 2018 Chief Complaint: Dyspnea/Respdistress Present Illness HPI 62-year-old male with hx of schizophrenia and depression who is a resident of a [facility] in [place]. The pt is somewhat disorganized and anxious. He came out of room to the nursing station and had feces over his body Allergies: Coded Allergies: No Known Allergies (Unverified , 01/20/17) Medication History Scheduled Amlodipine Besylate* (Amlodipine Besylate*), 5 MG ORAL DAILY, (Reported) Aspirin* (Aspirin*), 81 MG ORAL DAILY Atorvastatin Calcium* (Atorvastatin Calcium*), 20 MG ORAL DAILY, (Reported) Atorvastatin Calcium* (Lipitor*), Unknown Dose ORAL DAILY, (Reported) Docusate Sodium* (Colace*), 100 MG ORAL EVERY 12 HOURS Fluticasone/Vilanterol (Breo Ellipta 200-25 Mcg INH), 1 EACH IH BID Haloperidol (Haloperidol), 10 MG ORAL BID, (Reported) Lisinopril* (Lisinopril*), 10 MG ORAL DAILY Metformin Hcl* (Metformin Hcl*), 500 MG ORAL TWICE A DAY, (Reported) Metoprolol Tartrate* (Metoprolol Tartrate*), 50 MG ORAL EVERY 12 HOURS, ( Reported) Mirtazapine* (Mirtazapine*), 7.5 MG ORAL BEDTIME Nicotine 14MG Patch* (Nicoderm Cq 14MG*), 1 PATCH TDERMAL Q24H Pantoprazole* (Protonix*), 40 MG ORAL DAILY Trihexyphenidyl HCl (Trihexyphenidyl HCl), 1 MG ORAL BID Trihexyphenidyl Hcl* (Artane*), 2 MG ORAL TWICE A DAY, (Reported) Scheduled PRN Acetaminophen* (Acetaminophen 325MG Tablet*), 650 MG ORAL Q4H PRN Albuterol Sulfate* (Albuterol Sulfate Mdi*), 2 PUFF INH Q4H PRN for cough/ wheezing Ipratropium/Albuterol Sulfate (DuoNeb 0.5-3(2.5)mg/3ml), 3 ML HHN EVERY 6 HOURS PRN Miscellaneous Medications Unable to Obtain Medications (Unable To Obtain Meds), (Reported) Patient History Limited by: medical condition History Provided By: Patient, Medical Record, PMD Healthcare decision maker Resuscitation status Full Code Advanced Directive on File No Past Medical/Surgical History Past Medical/Surgical History: (1) Atrial flutter (2) Hypoxia (3) Hypertension (4) Hypotension (5) Thickening of wall of gallbladder (6) COPD (chronic obstructive pulmonary disease) Review of Systems Psychiatric: Reports: prior hx, anxiety, depressed feelings Physical Exam General Appearance: no apparent distress, alert Neurologic: oriented x 3, responsive, depressed affect Last 24 Hour Vital Signs Date Time Temp Pulse Resp B/P (MAP) Pulse Ox O2 Delivery O2 Flow Rate FiO2 03/21/18 12:07 79 20 98 Nasal Cannula 3.0 32 03/21/18 11:57 84 18 92 Nasal Cannula 3.0 32 03/21/18 09:31 87 168/03/21/18 09:31 87 168/03/21/18 09:30 168/03/21/18 09:00 Nasal Cannula 2.0 03/21/18 08:00 98.1 87 20 168/89 (115) 95 98.1 03/21/18 07:57 77 20 99 Nasal Cannula 3.0 32 03/21/18 07:50 82 18 92 Nasal Cannula 3.0 32 03/21/18 04:00 99.3 81 20 143/72 (95) 96 99.3 03/21/18 03:18 72 20 96 Nasal Cannula 3.0 32 03/21/18 03:06 65 18 92 Nasal Cannula 3.0 32 03/21/18 00:37 Nasal Cannula 2.0 03/21/18 00:11 78 20 96 Nasal Cannula 3.0 32 03/21/18 00:00 97.4 76 19 160/73 (102) 92 97.4 03/20/18 23:48 73 20 92 Nasal Cannula 3.0 32 03/20/18 20:52 77 144/71 03/20/18 20:46 97.1 77 24 144/71 (95) 91 97.1 03/20/18 20:00 80 03/20/18 19:48 Nasal Cannula 2.0 03/20/18 19:20 70 20 95 Nasal Cannula 3.0 32 03/20/18 19:12 68 20 90 Nasal Cannula 3.0 32 03/20/18 16:00 97.3 77 22 145/73 (97) 91 97.3 03/20/18 16:00 76 03/20/18 16:00 Nasal Cannula 2.0 03/20/18 15:23 62 20 97 Nasal Cannula 3.0 32 03/20/18 15:13 71 18 92 Nasal Cannula 3.0 32 Intake and Output 03/20/18 03/21/18 19:00 07:00 Intake Total 1080 ml 100 ml Output Total 1600 ml 1800 ml Balance -520 ml -1700 ml Intake Oral 980 ml IV Total 100 ml 100 ml Output Urine Total 1600 ml 1800 ml # Voids 2 Laboratory Tests Test 03/21/18 06:30 White Blood Count 8.3 K/UL (4.8-10.8) Red Blood Count 5.21 M/UL (4.70-6.10) Hemoglobin 17.0 G/DL (14.2-18.0) Hematocrit 48.7 % (42.0-52.0) Mean Corpuscular Volume 94 FL (80-99) Mean Corpuscular Hemoglobin 32.6 PG (27.0-31.0) H Mean Corpuscular Hemoglobin Concent 34.8 G/DL (32.0-36.0) Red Cell Distribution Width 15.4 % (11.6-14.8) H Platelet Count 103 K/UL (150-450) L Mean Platelet Volume 8.7 FL (6.5-10.1) Neutrophils (%) (Auto) % (45.0-75.0) Lymphocytes (%) (Auto) % (20.0-45.0) Monocytes (%) (Auto) % (1.0-10.0) Eosinophils (%) (Auto) % (0.0-3.0) Basophils (%) (Auto) % (0.0-2.0) Differential Total Cells Counted 100 Neutrophils % (Manual) 90 % (45-75) H Lymphocytes % (Manual) 7 % (20-45) L Monocytes % (Manual) 3 % (1-10) Eosinophils % (Manual) 0 % (0-3) Basophils % (Manual) 0 % (0-2) Band Neutrophils 0 % (0-8) Platelet Estimate Decreased L Platelet Morphology Normal Anisocytosis 1+ Ovalocytes Occasional Sodium Level 136 MMOL/L (136-145) Potassium Level 4.5 MMOL/L (3.5-5.1) Chloride Level 101 MMOL/L (98-107) Carbon Dioxide Level 30 MMOL/L (21-32) Anion Gap 5 mmol/L (5-15) Blood Urea Nitrogen 31 mg/dL (7-18) H Creatinine 1.1 MG/DL (0.55-1.30) Estimat Glomerular Filtration Rate > 60 mL/min (>60) Glucose Level 314 MG/DL (74-106) H Calcium Level 8.4 MG/DL (8.5-10.1) L Height (Feet): 6 Height (Inches): 0.00 Weight (Pounds): 184 Medications Current Medications Medications (Trade) Dose Ordered Sig/Jean Route PRN Reason Start Time Stop Time Status Last Admin Dose Admin Acetaminophen (Tylenol) 650 mg Q4H PRN ORAL Fever/Headache/Mild Pain 03/20/18 23:15 04/16/18 23:14 Albuterol/ Ipratropium (Albuterol/ Ipratropium) 3 ml Q4HRT HHN 03/20/18 23:00 03/22/18 22:59 03/21/18 11:57 Amlodipine Besylate (Norvasc) 5 mg DAILY ORAL 03/21/18 09:00 04/17/18 08:59 03/21/18 09:31 Aspirin (ASA) 81 mg DAILY ORAL 03/21/18 09:00 04/17/18 08:59 03/21/18 09:29 Atorvastatin Calcium (Lipitor) 10 mg BEDTIME ORAL 03/21/18 21:00 04/17/18 20:59 Dextrose (Dextrose 50%) 25 ml STAT PRN IV Hypoglycemia 03/21/18 21:30 04/16/18 21:29 Dextrose (Dextrose 50%) 50 ml STAT PRN IV Hypoglycemia 03/21/18 21:30 04/16/18 21:29 Docusate Sodium (Colace) 100 mg EVERY 12 HOURS ORAL 03/21/18 09:00 04/17/18 08:59 03/21/18 09:29 Fluticasone Propionate (Flonase) 2 spray DAILY NASAL 03/21/18 09:00 04/20/18 08:59 03/21/18 09:00 Haloperidol (Haldol) 10 mg BID ORAL 03/21/18 09:00 04/17/18 08:59 03/21/18 09:29 Heparin Sodium (Porcine) (Heparin 5000 units/ml) 5,000 units EVERY 12 HOURS SUBQ 03/21/18 09:00 04/17/18 08:59 Insulin Aspart (NovoLOG) BEFORE MEALS AND HS SUBQ 03/21/18 06:30 04/16/18 21:59 03/21/18 12:27 Lisinopril (Prinivil) 10 mg DAILY ORAL 03/21/18 09:00 04/17/18 08:59 03/21/18 09:30 Metformin HCl (Glucophage) 500 mg TWICE A DAY ORAL 03/21/18 09:00 04/17/18 08:59 03/21/18 09:29 Methylprednisolone Sodium Succinate (Solu-MEDROL) 60 mg EVERY 8 HOURS IVP 03/21/18 06:00 04/17/18 05:59 03/21/18 05:52 Metoprolol Tartrate (Lopressor) 50 mg EVERY 12 HOURS ORAL 03/21/18 09:00 04/17/18 08:59 03/21/18 09:31 Metronidazole 100 ml @ 100 mls/hr Q8HR IVPB 03/21/18 06:00 03/25/18 13:59 03/21/18 05:53 Mirtazapine (Remeron) 7.5 mg BEDTIME ORAL 03/21/18 21:00 04/17/18 20:59 Nicotine (Nicoderm) 1 patch QHS TDERMAL 03/21/18 21:00 04/16/18 23:14 Pantoprazole (Protonix) 40 mg DAILY ORAL 03/21/18 09:00 04/17/18 08:59 03/21/18 09:30 Trihexyphenidyl HCl (Artane) 2 mg TWICE A DAY ORAL 03/21/18 09:00 04/17/18 08:59 03/21/18 09:29 Assessment/Plan Status: unchanged Assessment/Plan schizophrenia mdd -cont haldol -increase remeron 15mg qhs -provided ro/Amauri Hills MD Mar 21, 2018 12:57
[2018-03-21 16:00] VITALS: BP 135/79
[2018-03-21 20:00] VITALS: BP 126/71
[2018-03-21] MEDS ORDERED: Tubing IV Secondary IV ONE (20:18)
[2018-03-21] MEDS ORDERED: NS 275ml ONE (20:18)
[2018-03-22] VITALS: BP 131/66
[2018-03-22] MEDS: Albuterol/Ipratropium 3ml neb HHN SCH ×5 (03:22→19:09)
[2018-03-22 04:00] VITALS: BP 144/83
[2018-03-22] MEDS: Solu-MEDROL 125mg Inj IVP SCH (05:45)
[2018-03-22] MEDS: NovoLOG Insulin Flexpen SUBQ SCH ×4 (05:47→21:40)
[2018-03-22 08:00] VITALS: BP 151/83
[2018-03-22] MEDS: Trihexyphenidyl 2mg tab ORAL SCH ×2 (08:47→17:27)
[2018-03-22] MEDS: Flonase Nasal Inhaler 16gm NASAL SCH (08:47)
[2018-03-22] MEDS: Aspirin Baby 81mg ORAL SCH (08:48)
[2018-03-22] MEDS: Metoprolol Tartrate 50mg tab ORAL SCH ×2 (08:48→21:38)
[2018-03-22] MEDS: metFORMIN 500mg tab ORAL SCH ×2 (08:48→17:27)
[2018-03-22] MEDS: Lisinopril 20mg tab ORAL SCH (08:48)
[2018-03-22] MEDS: Docusate 100mg cap ORAL SCH ×2 (08:48→21:38)
[2018-03-22] MEDS: Heparin 5000 units/ml inj SUBQ SCH ×2 (08:49→21:00)
--- NOTE | 2018-03-22 10:37 | Pulmonology Progress Note ---
Assessment/Plan Assessment/Plan hemoconcentration ?polycythemia hypercapnia chronic respiratory failure pneumonia, community acquired acute renal failure PLAN respiratory care as is BIPAP PRN oxygen antibiotics IV steroids taper follow up ABG for change DVT prophylaxis monitor fluid status dc planning impression, plan, and exam edited and reviewed in detail care discussed with RN Subjective ROS Limited/Unobtainable: Yes Allergies: Coded Allergies: No Known Allergies (Unverified , 01/20/17) Subjective care noted and reviewed off BIPAP and stable affect inappropriate Objective Last 24 Hour Vital Signs Date Time Temp Pulse Resp B/P (MAP) Pulse Ox O2 Delivery O2 Flow Rate FiO2 03/22/18 09:00 Nasal Cannula 2.0 03/22/18 08:48 79 151/83 03/22/18 08:48 151/83 03/22/18 08:48 79 151/83 03/22/18 08:00 98.4 79 20 151/83 (105) 96 98.4 03/22/18 07:45 73 20 92 Nasal Cannula 3.0 32 03/22/18 07:34 Nasal Cannula 3.0 32 03/22/18 07:34 91 Nasal Cannula 3.0 32 03/22/18 07:33 71 18 83 Room Air 21 03/22/18 04:00 98.5 81 20 144/83 (103) 96 98.5 03/22/18 03:32 79 18 98 Nasal Cannula 3.0 32 03/22/18 03:22 78 18 94 Nasal Cannula 3.0 32 03/22/18 00:00 97.7 79 18 131/66 (87) 96 97.7 03/21/18 23:41 78 18 96 Nasal Cannula 3.0 32 03/21/18 23:31 87 20 92 Nasal Cannula 3.0 32 03/21/18 22:23 68 126/71 03/21/18 21:00 Nasal Cannula 2.0 03/21/18 20:00 98.5 68 20 126/71 (89) 96 98.5 03/21/18 19:57 75 20 97 Nasal Cannula 3.0 32 03/21/18 19:47 92 Nasal Cannula 3.0 32 03/21/18 19:47 Nasal Cannula 3.0 32 03/21/18 19:47 79 20 89 Room Air 21 03/21/18 16:57 82 20 98 Nasal Cannula 3.0 32 03/21/18 16:44 87 18 91 Nasal Cannula 3.0 32 03/21/18 16:00 98.1 78 20 135/79 (97) 98 98.1 03/21/18 12:07 79 20 98 Nasal Cannula 3.0 32 03/21/18 12:00 97.6 96 20 129/47 (74) 97 97.6 03/21/18 11:57 84 18 92 Nasal Cannula 3.0 32 Intake and Output 03/21/18 03/22/18 19:00 07:00 Intake Total 700 ml 340 ml Balance 700 ml 340 ml Intake Oral 600 ml 240 ml IV Total 100 ml 100 ml # Voids 3 Objective WDWN NAD; off BIPAP and oxygen reduced breath sounds bilaterally with some rhonchi [id number] without MRG NABS nontender no HSM no CC; mild edema reduced LOC Current Medications Medications (Trade) Dose Ordered Sig/Jean Route PRN Reason Start Time Stop Time Status Last Admin Dose Admin Acetaminophen (Tylenol) 650 mg Q4H PRN ORAL Fever/Headache/Mild Pain 03/20/18 23:15 04/16/18 23:14 Albuterol/ Ipratropium (Albuterol/ Ipratropium) 3 ml Q4HRT HHN 03/20/18 23:00 03/22/18 22:59 03/22/18 07:31 Amlodipine Besylate (Norvasc) 5 mg DAILY ORAL 03/21/18 09:00 04/17/18 08:59 03/22/18 08:48 Aspirin (ASA) 81 mg DAILY ORAL 03/21/18 09:00 04/17/18 08:59 03/22/18 08:48 Atorvastatin Calcium (Lipitor) 10 mg BEDTIME ORAL 03/21/18 21:00 04/17/18 20:59 03/21/18 22:23 Dextrose (Dextrose 50%) 25 ml STAT PRN IV Hypoglycemia 03/21/18 21:30 04/16/18 21:29 Dextrose (Dextrose 50%) 50 ml STAT PRN IV Hypoglycemia 03/21/18 21:30 04/16/18 21:29 Docusate Sodium (Colace) 100 mg EVERY 12 HOURS ORAL 03/21/18 09:00 04/17/18 08:59 03/22/18 08:48 Fluticasone Propionate (Flonase) 2 spray DAILY NASAL 03/21/18 09:00 04/20/18 08:59 03/22/18 08:47 Haloperidol (Haldol) 10 mg BID ORAL 03/21/18 09:00 04/17/18 08:59 03/22/18 08:48 Heparin Sodium (Porcine) (Heparin 5000 units/ml) 5,000 units EVERY 12 HOURS SUBQ 03/21/18 09:00 04/17/18 08:59 Insulin Aspart (NovoLOG) BEFORE MEALS AND HS SUBQ 03/21/18 06:30 04/16/18 21:59 03/22/18 05:47 Lisinopril (Prinivil) 10 mg DAILY ORAL 03/21/18 09:00 04/17/18 08:59 03/22/18 08:48 Metformin HCl (Glucophage) 500 mg TWICE A DAY ORAL 03/21/18 09:00 04/17/18 08:59 03/22/18 08:48 Methylprednisolone Sodium Succinate (Solu-MEDROL) 60 mg EVERY 8 HOURS IVP 03/21/18 06:00 04/17/18 05:59 03/22/18 05:45 Metoprolol Tartrate (Lopressor) 50 mg EVERY 12 HOURS ORAL 03/21/18 09:00 04/17/18 08:59 03/22/18 08:48 Metronidazole 100 ml @ 100 mls/hr Q8HR IVPB 03/21/18 06:00 03/25/18 13:59 03/22/18 05:45 Mirtazapine (Remeron) 15 mg BEDTIME ORAL 03/21/18 21:00 04/20/18 20:59 03/21/18 22:22 Nicotine (Nicoderm) 1 patch QHS TDERMAL 03/21/18 21:00 04/16/18 23:14 03/21/18 22:25 Pantoprazole (Protonix) 40 mg DAILY ORAL 03/21/18 09:00 04/17/18 08:59 03/22/18 08:47 Trihexyphenidyl HCl (Artane) 2 mg TWICE A DAY ORAL 03/21/18 09:00 04/17/18 08:59 03/22/18 08:47 Tiburcio Keith MD Mar 22, 2018 10:37
[2018-03-22 12:00] VITALS: BP 153/77
[2018-03-22 15:39] VITALS: BP 150/84
[2018-03-22 20:00] VITALS: BP 133/78
--- NOTE | 2018-03-22 20:06 | General Progress Note ---
Subjective Neurologic/Psychiatric: Reports: anxiety, depressed, emotional problems Allergies: Coded Allergies: No Known Allergies (Unverified , 01/20/17) Objective Last 24 Hour Vital Signs Date Time Temp Pulse Resp B/P (MAP) Pulse Ox O2 Delivery O2 Flow Rate FiO2 03/22/18 19:17 73 20 97 Nasal Cannula 3.0 32 03/22/18 19:17 73 20 Nasal Cannula 3.0 32 03/22/18 19:07 Nasal Cannula 3.0 32 03/22/18 19:07 79 20 91 Nasal Cannula 3.0 32 03/22/18 19:07 91 Nasal Cannula 3.0 32 03/22/18 15:39 98.8 79 20 150/84 (106) 96 98.8 03/22/18 15:19 89 22 90 Nasal Cannula 3.0 32 03/22/18 15:18 86 22 87 Nasal Cannula 3.0 32 03/22/18 12:00 98.6 70 20 153/77 (102) 96 98.6 03/22/18 10:53 76 20 91 Nasal Cannula 3.0 32 03/22/18 10:41 74 18 89 Nasal Cannula 3.0 32 03/22/18 09:00 Nasal Cannula 2.0 03/22/18 08:48 79 151/83 03/22/18 08:48 151/83 03/22/18 08:48 79 151/83 03/22/18 08:00 98.4 79 20 151/83 (105) 96 98.4 03/22/18 07:45 73 20 92 Nasal Cannula 3.0 32 03/22/18 07:34 Nasal Cannula 3.0 32 03/22/18 07:34 91 Nasal Cannula 3.0 32 03/22/18 07:33 71 18 83 Room Air 21 03/22/18 04:00 98.5 81 20 144/83 (103) 96 98.5 03/22/18 03:32 79 18 98 Nasal Cannula 3.0 32 03/22/18 03:22 78 18 94 Nasal Cannula 3.0 32 03/22/18 00:00 97.7 79 18 131/66 (87) 96 97.7 03/21/18 23:41 78 18 96 Nasal Cannula 3.0 32 03/21/18 23:31 87 20 92 Nasal Cannula 3.0 32 8/15/18 22:23 68 126/71 8/15/18 21:00 Nasal Cannula 2.0 Intake and Output 03/21/18 03/22/18 19:00 07:00 Intake Total 700 ml 340 ml Balance 700 ml 340 ml Intake Oral 600 ml 240 ml IV Total 100 ml 100 ml # Voids 3 Height (Feet): 6 Height (Inches): 0.00 Weight (Pounds): 184 Amauri Lucas MD Mar 22, 2018 20:05
[2018-03-22] MEDS: metroNIDAZOLE 500mg tab ORAL SCH (21:38)
[2018-03-23] VITALS: BP 131/64
[2018-03-23 04:00] VITALS: BP 129/79
[2018-03-23] MEDS: metroNIDAZOLE 500mg tab ORAL SCH (06:04)
[2018-03-23] MEDS: NovoLOG Insulin Flexpen SUBQ SCH (06:05)
[2018-03-23] MEDS ORDERED: GLUCOPHAGE500 MG ORAL (07:43)
[2018-03-23] MEDS ORDERED: NORVASC5 MG ORAL (07:43)
[2018-03-23] MEDS ORDERED: HALDOL5 MG ORAL (07:43)
[2018-03-23] MEDS ORDERED: LIPITOR10 MG ORAL (07:43)
[2018-03-23] MEDS ORDERED: LISINOPRIL20 MG ORAL (07:43)
[2018-03-23] MEDS ORDERED: FLAGYL500 MG ORAL (07:43)
[2018-03-23] MEDS ORDERED: FLONASE1 SPRAYS NASAL (07:43)
[2018-03-23] MEDS ORDERED: ASPIRIN81 MG ORAL (07:43)
[2018-03-23] MEDS ORDERED: ACETAMINOPHEN325 M1 ORAL (07:43)
[2018-03-23] MEDS ORDERED: NOVOLOG100 UNITS1 SUBQ (07:43)
[2018-03-23] MEDS ORDERED: ARTANE2 MG ORAL (07:43)
[2018-03-23] MEDS ORDERED: METOPROLOL TART50 MG ORAL (07:43)
[2018-03-23] MEDS ORDERED: MIRTAZAPINE15 M3 ORAL (07:43)
[2018-03-23] MEDS ORDERED: DOK100 M1 ORAL (07:43)
[2018-03-23] MEDS ORDERED: NICODERM CQ1 EAC1 TDERMAL (07:43)
[2018-03-23] MEDS ORDERED: PROTONIX40 MG ORAL (07:43)
[2018-03-23 08:00] VITALS: BP 148/85
[2018-03-23] MEDS ORDERED: Solu-MEDROL 125mg Inj IVP SCH (09:00)
[2018-03-23] MEDS: Heparin 5000 units/ml inj SUBQ SCH (09:00)
[2018-03-23] MEDS: Metoprolol Tartrate 50mg tab ORAL SCH (09:17)
[2018-03-23] MEDS: Lisinopril 20mg tab ORAL SCH (09:17)
[2018-03-23 09:18] VITALS: BP 148/85
[2018-03-23] MEDS: Flonase Nasal Inhaler 16gm NASAL SCH (09:18)
[2018-03-23] MEDS: metFORMIN 500mg tab ORAL SCH (09:18)
[2018-03-23] MEDS: Trihexyphenidyl 2mg tab ORAL SCH (09:18)
[2018-03-23] MEDS: Aspirin Baby 81mg ORAL SCH (09:18)
[2018-03-23] MEDS: Docusate 100mg cap ORAL SCH (09:18)
[2018-03-23] MEDS ORDERED: NS 500ML ONE (12:33)
--- NOTE | 2018-03-23 17:03 | Pulmonology Progress Note ---
Assessment/Plan Assessment/Plan hemoconcentration ?polycythemia hypercapnia chronic respiratory failure pneumonia, community acquired acute renal failure PLAN respiratory care as is BIPAP PRN oxygen dc planning seen earlier DVT prophylaxis monitor fluid status dc planning impression, plan, and exam edited and reviewed in detail care discussed with RN Subjective Allergies: Coded Allergies: No Known Allergies (Unverified , 01/20/17) Subjective care noted and reviewed off BIPAP and stable affect inappropriate Objective Last 24 Hour Vital Signs Date Time Temp Pulse Resp B/P (MAP) Pulse Ox O2 Delivery O2 Flow Rate FiO2 03/23/18 09:48 Nasal Cannula 3.0 32 03/23/18 09:48 95 Nasal Cannula 3.0 32 03/23/18 09:18 72 148/85 03/23/18 09:17 72 148/85 03/23/18 09:17 148/85 03/23/18 09:00 Nasal Cannula 2.0 03/23/18 08:00 98.2 72 16 148/85 (106) 95 98.2 03/23/18 04:00 97.5 59 16 129/79 (96) 95 97.5 03/23/18 00:00 97.7 72 16 131/64 (86) 94 97.7 03/22/18 21:38 74 133/78 03/22/18 21:00 Nasal Cannula 2.0 03/22/18 20:00 97.9 74 18 133/78 (96) 94 97.9 03/22/18 19:17 73 20 97 Nasal Cannula 3.0 32 03/22/18 19:17 73 20 Nasal Cannula 3.0 32 03/22/18 19:07 Nasal Cannula 3.0 32 03/22/18 19:07 79 20 91 Nasal Cannula 3.0 32 03/22/18 19:07 91 Nasal Cannula 3.0 32 Intake and Output 03/22/18 03/23/18 19:00 07:00 Intake Total 600 ml 2000 ml Balance 600 ml 2000 ml Intake Oral 2000 ml Other 600 ml # Voids 4 Objective WDWN NAD; off BIPAP and oxygen reduced breath sounds bilaterally with some rhonchi [id number] without MRG NABS nontender no HSM no CC; mild edema reduced LOC Tiburcio Keith MD Mar 23, 2018 17:03
--- NOTE | 2018-03-23 23:15 | Progress Note ---
DATE: 03/23/2018 SUBJECTIVE: The patient is in bed. He is irritable and anxious. He is reluctant from his medication to be changed. I explained to him that Haldol has side effects and potentially may cause parkinsonism in future. He is aware and he is able to understand. He is reluctant for the Haldol to be changed. His sleep is adequate. MENTAL STATUS EXAMINATION: The patient is alert and oriented times self, place, and situation he is in. Mood is irritable. Affect is constricted, congruent with mood. Thought process is concrete. Thought content, no suicidal or homicidal ideations. ASSESSMENT: Schizophrenia. Mood disorder. PLAN: We will continue current medications. Provide the patient with supportive therapy and reality orientation. Amauri Lucas M.D. DR: QAMAR JOB#: [id number] CC:
--- NOTE | 2018-03-26 09:37 | Discharge Summary ---
Discharge Summary Discharge Summary _ DATE OF ADMISSION: 03/17/2018 DATE OF DISCHARGE: 03/23/2018 REASON FOR ADMISSION: 62 years old male with past medical history significant for COPD, tobacco abuse , hypertension, paroxysmal atrial flutter, status post ablation, diabetes mellitus, schizophrenia, presented to emergency department with shortness of breath and wheezing. Chest x-ray revealed right lower lobe opacity. Vital signs revealed tachypnea, no fever. Laboratory workup revealed no leukocytosis , hemoglobin 20.4, hematocrit 54.5 . BUN 32 creatinine 0.9 . ABG revealed respiratory acidosis with severe hypercapnia. Patient required placement on BiPAP. Patient admitted to [facility] with diagnoses of COPD exacerbation, pneumonia , chronic respiratory failure, hypercapnia, hemoconcentration, possible polycythemia, diabetes mellitus, hypertension CONSULTANTS: pulmonary Dr. Keith [facility]SE: Patient initially admitted to [facility]. Patient started on BiPAP. ABG on BiPAP revealed some improvement , but still severe hypercapnia . Settings were titrated as per deep submergence vehicle operator. The next day ABG revealed nearly complete resolution of hypercapnia. Patient was able to be weaned from BiPAP . Supplemental oxygen titrated as needed to keep pulse oximetry above 92%. Pulmonary toilet provided. Patient started on IV steroids which were gradually tapered and discontinued prior to discharge. Patient was on empiric antibiotics. Swallow evaluation revealed moderate aspiration risk. Speech therapist recommended soft easy chew diet with nectar thick liquids with strict aspiration/reflux precautions and one-to-one supervision. Diet resumed as per speech therapist recommendations. DVT prophylaxis provided. Patient started on nicotine patch. Patient was counseled on smoking cessation. Aspirin was continued. Blood pressure was managed with calcium channel charlie and RUSSEL inhibitor. Blood sugar was managed with metformin and sliding scale insulin as needed. Bowel regimen instituted. Supportive care provided. Psychiatrist seen and evaluated patient and optimized psychiatric medication regimen. Supportive therapy and reality orientation provided. Patient stabilized and was ready for transfer to [facility] for further management FINAL DIAGNOSES: COPD exacerbation Pneumonia Chronic respiratory failure Hypercapnia Hemoconcentration, possible polycythemia Diabetes mellitus type 2 Hypertensive cardiovascular disease History of paroxysmal atrial flutter, status post ablation Schizophrenia Mood disorder DISCHARGE MEDICATIONS: See Medication Reconciliation list. DISCHARGE INSTRUCTIONS: Patient was discharged to [facility]. Follow up with medical doctor at the facility I have been assigned to dictate discharge summary for this account. I was not involved in the patient's management. Natalya Johnson NP Mar 26, 2018 09:37
== END 2018-03-23 12:34 | DRG 190 ==
LOC: EDBD 17:38 → EDUNIT# 17:38 → EMR 18:15 → 4E 18:21 → EDBEDREQ 18:45 → 2W 20:47 → 4E 03-20 22:40
PROC: 5A09457 Assistance with Respiratory Ventilation, 24-96 Consecutive Hours, Continuous Positive Airway Pressure (ICD-10-PCS; principal; 2018-03-18)
DX: J44.0 Chronic obstructive pulmonary disease with (acute) lower respiratory infection (principal); J18.9 Pneumonia, unspecified organism; N17.9 Acute kidney failure, unspecified; J96.12 Chronic respiratory failure with hypercapnia; J44.1 Chronic obstructive pulmonary disease with (acute) exacerbation; D75.1 Secondary polycythemia; E11.9 Type 2 diabetes mellitus without complications; I11.9 Hypertensive heart disease without heart failure; F20.9 Schizophrenia, unspecified; F39 Unspecified mood [affective] disorder; N13.9 Obstructive and reflux uropathy, unspecified
CPT/HCPCS: 36415; 36600; 71045; 80048; 80053; 82248; 82803; 82962; 85007; 85025; 87081; 94640; 94660; 94664; 94760; J1815; J7620

== ENCOUNTER 2018-08-10 05:12 | Inpatient (IN) | payer MEDICARE, MEDICAID ==
[~2018-08-10] VITALS: Ht 170.2 cm; Wt 84.8 kg
[~2018-08-10 05:12] MED LIST changes: +DOK100 M1 ORAL; +FLAGYL500 MG ORAL; +FLONASE1 SPRAYS NASAL; +GLUCOPHAGE500 MG ORAL; +LIPITOR10 MG ORAL; +LISINOPRIL20 MG ORAL; +METOPROLOL TART50 MG ORAL; +NORVASC5 MG ORAL; +NOVOLOG100 UNITS1 SUBQ; +UNOBMED
[2018-08-10] MEDS ORDERED: VENTOLIN HFA18 GM INH (05:22)
[2018-08-10] MEDS ORDERED: LOSARTAN-HCTZ1 EAC2 ORAL (05:22)
--- NOTE | 2018-08-10 05:23 | NUR ---
ED Nurse Note: Patient presents with history of COPD, recent smoking brought on episode of SOB. Patient looks calm, vss. Patient placed on 2L of o2 because saturation was in low 80's on RA.
--- NOTE | 2018-08-10 05:25 | Emergency Room Report ---
History of Present Illness General Chief Complaint: Dyspnea/Respdistress Source: Patient, Medical Record, EMS Present Illness HPI This is a 62-year-old male with a history of COPD and schizophrenia. He presents with shortness of breath. He called 911 because he was short of breath tonight. Unable to get to his inhaler and time. Per EMS he was hypoxic at 71% on room air. They put him on oxygen and gave him a neb rise a treatment and sent him here. Patient has similar symptom in the past. Denies any fever chills. Has coughing and wheezing. Exertion makes it worse. Rest made it better. Similar symptoms in the past. Recent admission in June. Allergies: Coded Allergies: No Known Allergies (Unverified , 01/20/17) Patient History Past Medical History: see triage record, old chart reviewed, HTN, AFib, COPD, psych hx Past Surgical History: other Pertinent Family History: none Social History: Reports: smoking Immunizations: other Reviewed Nursing Documentation: PMH: Agreed; PSxH: Agreed Nursing Documentation-PMH Hx Cardiac Problems: Yes - heart ablation in January 2017 Hx Hypertension: Yes Hx Pacemaker: No Hx Asthma: No Hx COPD: Yes Hx Diabetes: Yes Hx Cancer: No Hx Gastrointestinal Problems: Yes - Abd hernia Hx Dialysis: No Hx Neurological Problems: Yes - Schizophrenia Hx Cerebrovascular Accident: No Hx Seizures: No Review of Systems Eye: Denies: eye pain, blurred vision ENT: Denies: ear pain, nose congestion, throat swelling Respiratory: Reports: cough, shortness of breath, wheezing Cardiovascular: Denies: chest pain, palpitations Gastrointestinal: Denies: abdominal pain, diarrhea, nausea, vomiting Musculoskeletal: Denies: back pain, joint pain Skin: Denies: rash Neurological: Denies: headache, numbness Endocrine: Denies: increased thirst, increased urine Hematologic/Lymphatic: Denies: easy bruising All Other Systems: negative except mentioned in HPI Physical Exam Vital Signs Date Time Temp Pulse Resp B/P (MAP) Pulse Ox O2 Delivery O2 Flow Rate FiO2 08/10/18 05:17 99.1 105 22 190/109 95 Room Air vitals with high blood pressure and hypoxia Sp02 EP Interpretation: reviewed, abnormal General Appearance: well appearing, alert, moderate distress Head: normocephalic, atraumatic Eyes: bilateral eye PERRL, bilateral eye EOMI ENT: hearing grossly normal, normal pharynx Neck: full range of motion, supple, no meningismus Respiratory: chest non-tender, respiratory distress, decreased breath sounds, accessory muscle use, wheezing Cardiovascular #1: regular rate, rhythm, no murmur Gastrointestinal: normal bowel sounds, non tender, no mass, no organomegaly, no bruit, non-distended Musculoskeletal: back normal, normal range of motion Neurologic: alert, oriented x3 Psychiatric: mood/affect normal Skin: warm/dry Medical Decision Making Diagnostic Impression: Primary Impression: COPD with exacerbation ER Course Patient presents with COPD exacerbation. No evidence of pneumonia. Wheezing improved with treatment. Patient placed on oxygen to keep it 92%. Will admit for further treatment. I will contact Dr. Gong for admission. Lab Results Impression labs unremarkable EKG Diagnostic Results Rate: normal Rhythm: NSR ST Segments: other - Bifascicular block Rhythm Strip Diag. Results Rhythm Strip Time: 06:07 EP Interpretation: yes Rate: 71 Rhythm: NSR, no PVC's, no ectopy Chest X-Ray Diagnostic Results Chest X-Ray Diagnostic Results : Chest X-Ray Ordered: Yes # of Views/Limited/Complete: 1 View Indication: Shortness of Breath EP Interpretation: Yes Interpretation: no consolidation, no effusion, no pneumothorax, no acute cardiopulmonary disease, other - COPD Impression: No acute disease - COPD Electronically Signed by: Matthew Solorio MD Last Vital Signs Date Time Temp Pulse Resp B/P (MAP) Pulse Ox O2 Delivery O2 Flow Rate FiO2 08/10/18 05:17 99.1 105 22 190/109 95 Room Air Status: improved Disposition: ADMITTED INPATIENT Condition: Serious Matthew Solorio MD Aug 10, 2018 05:25
[2018-08-10] MEDS ORDERED: Albuterol ud Inhalation HHN ONE (05:30)
[2018-08-10] MEDS ORDERED: Ipratropium 0.02% Inh Soln 2.5ml UD HHN ONE (05:30)
[2018-08-10] MEDS ORDERED: Solu-MEDROL 125mg Inj IVP ONE (05:30)
[2018-08-10 05:45] VITALS: BP 134/93
[2018-08-10 05:45] LABS: BASOPHILS % (AUTO) 1.7 % (0.0-2.0); EOSINOPHILS % (AUTO) 0.1 % (0.0-3.0); HEMATOCRIT 57.9 % (42.0-52.0); LYMPHOCYTES % (AUTO) 8.8 % (20.0-45.0); MEAN CORPUSCULAR VOLUME 91 FL (80-99); MONOCYTES % (AUTO) 8.7 % (1.0-10.0); NEUTROPHILS % (AUTO) 80.7 % (45.0-75.0); PLATELET COUNT 161 K/UL (150-450); RED BLOOD COUNT 6.37 M/UL (4.70-6.10); RED CELL DISTRIBUTION WIDTH 15.9 % (11.6-14.8); WHITE BLOOD COUNT 11.3 K/UL (4.8-10.8)
[2018-08-10 05:48] LABS: HEMOGLOBIN 20.7 G/DL (14.2-18.0)
[2018-08-10 05:58] LABS: ANION GAP 4 mmol/L (5-15); BLOOD UREA NITROGEN 27 mg/dL (7-18); CARBON DIOXIDE 36 MMOL/L (21-32); CHLORIDE 97 MMOL/L (98-107); CREATININE 1.1 MG/DL (0.55-1.30); POTASSIUM 4.7 MMOL/L (3.5-5.1); SODIUM 137 MMOL/L (136-145)
[2018-08-10] MEDS ORDERED: Aspirin Baby 81mg ORAL ONE (06:15)
[2018-08-10] MEDS ORDERED: Enoxaparin 80mg Inj SUBQ ONE (06:15)
--- NOTE | 2018-08-10 06:47 | NUR ---
ED Nurse Note: Patient still sleeping tolerating electrolytes well. No s/s of acute distress. Patient has not complaints at this time.
[2018-08-10 07:00] VITALS: BP 142/79
--- NOTE | 2018-08-10 07:00 | NUR ---
ED Nurse Note: received report from SHA Fletcher. Pt is resting, reporting abdominal pain 10/10. pt is on magnesium sulfate 1 gram running at 100ml/hr. will notify md about pain. will continue to monitor and await further orders.
--- NOTE | 2018-08-10 07:01 | NUR ---
ED Nurse Note: pt is currently on 3 L nasal cannula
--- NOTE | 2018-08-10 07:15 | NUR ---
ED Nurse Note: notified MD pt hgb is 20.7. Will wait for further orders and will continue to monitor pt.
[2018-08-10 08:01] LABS: APPEARANCE,URINE CLEAR; BILIRUBIN, URINE NEGATIVE (NEGATIVE); GLUCOSE, URINE (UA) NEGATIVE (NEGATIVE); KETONES,URINE 1+ (NEGATIVE); LEUKOCYTE ESTERASE ,URINE 1+ (NEGATIVE); NITRITE,URINE NEGATIVE (NEGATIVE); PH,URINE 5 (4.5-8.0); PROTEIN,URINE 3+ (NEGATIVE); UROBILINOGEN,URINE 1 MG/DL (0.0-1.0)
[2018-08-10 08:04] LABS: COLOR,URINE YELLOW
--- NOTE | 2018-08-10 08:22 | NUR ---
ED Nurse Note: Telephone report given Dipika RN
--- NOTE | 2018-08-10 08:34 | NUR ---
ED Nurse Note: awaiting pt transfer packet. Pt. will be transferred with phototypesetting equipment monitor and 3 L nasal cannula. Accompanied by SHA Bill and SHA Andrade
[2018-08-10 08:40] VITALS: BP 155/111
--- NOTE | 2018-08-10 08:40 | NUR ---
ED Nurse Note: Pt has been transferred with SHA Bill and SHA Andrade. pt vss, pt is aao x 4. pt took all belongings.
--- NOTE | 2018-08-10 08:42 | NUR ---
NURSE NOTES: Pt received from SHA Bill and SHA Andrade alert and oriented x3 with no s/s of pain, SOB, or n/v. Pt is on 3L NC, saturating well at 95%. IV site asymptomatic and patent, on saline lock. Bed in lowest position, call light and belongings within reach.
--- NOTE | 2018-08-10 08:43 | NUR ---
NURSE NOTES: Pt had no wounds upon admission. Belongings signed with SHA Andrade. Pt had kickboxing instructor at bedside, RN advised pt that he cannot have kickboxing instructor with him because this is a non-smoking hospital, pt verbalized understanding. RN placed kickboxing instructor in belongings bag with his name on it and placed it in nursing station for safe keeping. Pt had ventolin inhaler at bedside, advised that he cannot keep home med with him at bedside, pt verbalized understanding. RN placed home med in pharmacy bag and dropped off to pharmacy downstairs, tag placed in chart. Addendum: 08/12/18 at 1847 by Avila Zimmerman RN Pt has healed black su in left index and middle finger. Per pt, they're "from smoking cigarettes".
[2018-08-10] MEDS ORDERED: Albuterol/Ipratropium 3ml neb HHN PRN (09:15)
--- NOTE | 2018-08-10 10:15 | History and Physical Report ---
DATE OF ADMISSION: 08/10/2018 CHIEF COMPLAINT: Shortness of breath. HISTORY OF PRESENT ILLNESS: This is a well-known 62-year-old male from [facility]. The patient's primary physician is Dr. Nahed Aguilar. The patient has been admitted to this hospital numerous times. The patient is a heavy smoker. He has been experiencing gradually increasing shortness of breath with yellow productive cough. PAST MEDICAL HISTORY: 1. COPD due to heavy smoking. 2. Schizophrenia. 3. Type 2 diabetes mellitus. 4. Hypertensive cardiovascular disease. HOME MEDICATIONS: Atorvastatin, metoprolol, metformin, trihexyphenidyl, losartan, amlodipine, Haldol, and Ventolin failure. ALLERGIES: No known drug allergies. FAMILY HISTORY: Unremarkable. SOCIAL HISTORY: He lives in a psychiatric assisted living. HABITS: He is a heavy cigarette smoker. There is also history of previous substance abuse. REVIEW OF SYSTEMS: Cannot obtain as the patient is very confused. PHYSICAL EXAMINATION: GENERAL: This is an elderly male. The patient is currently in no acute distress. VITAL SIGNS: Blood pressure 142/79, pulse 75 and regular, respirations 20, and temperature 99.1 degrees. HEENT: The head was normocephalic and atraumatic. The patient is agitated. NECK: Supple. Trachea midline. There was no lymphadenopathy or thyromegaly. LUNGS: Bilateral wheezes and rhonchi. HEART: Regular rate and rhythm without rubs, murmurs, or gallops. ABDOMEN: Soft and nontender. Bowel sounds were active. EXTREMITIES: No clubbing, cyanosis, or edema. NEUROLOGIC: He is alert, but confused. There were no gross focal findings. LABORATORY AND ANCILLARY DATA: Hemoglobin 20.7 and WBC 11.3. Serum chemistry, glucose 157. Otherwise, troponin level 0.235. The results of the chest x-ray is not available. ASSESSMENT: 1. Chronic obstructive pulmonary disease exacerbation. 2. Schizophrenia. 3. Type 2 diabetes mellitus. 4. Hypertensive cardiovascular disease. PLAN: 1. Admit to telemetry. 2. Continue home medications. 3. Psychiatric evaluations. Juana Henson M.D. DR: LUIZA JOB#: [id number] CC: DEBBIE
[2018-08-10 12:00] VITALS: BP 132/82
[2018-08-10] MEDS: 1/2NS w/KCl 20mEq 1000ml 1,000 ML IV SCH (12:48)
[2018-08-10] MEDS: Enoxaparin 40mg Inj SUBQ SCH (12:49)
[2018-08-10] MEDS ORDERED: Albuterol 90mcg Inhaler 8gm INH SCH (13:00)
[2018-08-10 16:00] VITALS: BP 148/88
[2018-08-10] MEDS: Trihexyphenidyl 2mg tab ORAL SCH (17:41)
[2018-08-10] MEDS: metFORMIN 500mg tab ORAL SCH (17:41)
--- NOTE | 2018-08-10 19:34 | NUR ---
HAND-OFF: Report given to SHA Alarcon and SHA Wisdom.
--- NOTE | 2018-08-10 19:40 | NUR ---
NURSE NOTES: Received report from SHA Gramajo. Patient is awake resting in bed aox4. Breathing even and non labored. Patient denies pain or any discomfort. Vital signs stable. Bed in lowest position. Call light within reach. Will continue plan of care.
[2018-08-10 20:00] VITALS: BP 148/92
[2018-08-10] MEDS: Atorvastatin 20mg tab ORAL SCH (21:50)
[2018-08-10] MEDS: Metoprolol Tartrate 50mg tab ORAL SCH (21:50)
[2018-08-10] MEDS: Albuterol/Ipratropium 3ml neb HHN PRN (23:58)
[2018-08-11] VITALS: BP 132/74
[2018-08-11] MEDS: 1/2NS w/KCl 20mEq 1000ml 1,000 ML IV SCH ×2 (02:12→17:14)
[2018-08-11 04:00] VITALS: BP 123/76
--- NOTE | 2018-08-11 07:08 | NUR ---
HAND-OFF: Report given to SHA Gramajo. Patient is asleep in bed with no signs of acute distress. Vital signs stable. Respiration even and non labored on 02 3L NC.
--- NOTE | 2018-08-11 07:50 | NUR ---
NURSE NOTES: Pt received from SHA Alarcon alert and oriented x3 with moments of confusion. IV site asymptomatic and patent, running to prescribed IV fluids. Bed in lowest position, call light and belongings within reach.
[2018-08-11 08:00] VITALS: BP 129/71
[2018-08-11] MEDS: metFORMIN 500mg tab ORAL SCH ×2 (08:30→17:14)
[2018-08-11] MEDS: Aspirin Baby 81mg ORAL SCH (08:30)
[2018-08-11] MEDS: Trihexyphenidyl 2mg tab ORAL SCH ×2 (08:30→17:14)
[2018-08-11] MEDS: Metoprolol Tartrate 50mg tab ORAL SCH ×2 (08:31→20:45)
[2018-08-11] MEDS: Hyzaar 12.5mg/50mg tab ORAL SCH (08:31)
[2018-08-11 12:00] VITALS: BP 131/75
[2018-08-11] MEDS: Enoxaparin 40mg Inj SUBQ SCH (12:27)
--- NOTE | 2018-08-11 14:23 | General Progress Note ---
Assessment/Plan Assessment/Plan COPD Exacerbation - Continue bronchodilators, IVF, IV Abx. Subjective Allergies: Coded Allergies: No Known Allergies (Unverified , 01/20/17) Subjective Still SOB Objective Last 24 Hour Vital Signs Date Time Temp Pulse Resp B/P (MAP) Pulse Ox O2 Delivery O2 Flow Rate FiO2 08/11/18 09:00 Nasal Cannula 3.0 08/11/18 08:32 74 129/71 08/11/18 08:31 74 129/71 08/11/18 08:31 129/71 08/11/18 08:00 80 08/11/18 08:00 97.5 74 20 129/71 (90) 94 08/11/18 04:00 97.7 73 21 123/76 (92) 94 73 08/11/18 04:00 74 08/11/18 00:05 72 24 96 Nasal Cannula 2.0 28 08/11/18 00:00 97.5 71 22 132/74 (93) 93 71 08/11/18 00:00 68 08/10/18 23:56 69 24 90 Nasal Cannula 2.0 28 08/10/18 23:55 69 24 Nasal Cannula 2.0 28 08/10/18 21:50 78 148/92 08/10/18 21:00 Nasal Cannula 3.0 08/10/18 20:00 97.5 77 22 148/92 (110) 91 77 08/10/18 20:00 77 08/10/18 16:00 97.3 85 20 148/88 (108) 93 85 08/10/18 16:00 87 Intake and Output 08/10/18 08/11/18 19:00 07:00 Intake Total 1370 ml 1590 ml Output Total 300 ml Balance 1370 ml 1290 ml Intake Oral 720 ml 240 ml IV Total 650 ml 1350 ml Output Urine Total 300 ml # Voids 1 # Bowel Movements 2 1 Height (Feet): 5 Height (Inches): 7.00 Weight (Pounds): 187 Objective Confused CV Rr Lung B wheezes Abd SNT. BS + E no CCE Juana Henson MD Aug 11, 2018 14:22
--- NOTE | 2018-08-11 15:23 | NUR ---
CASE MANAGEMENT:REVIEW BIBA FROM [facility]yl[facility]; SOB SI: COPD EXACERBATION 99.1 105 22 190/109 95% ON RA TROPONIN(+) 0.235 IS: ALBUTEROL HHN GIVEN IN FIELD DUONEB HHN IV SOLUMEDROL IV MAG SULFATE ASA PO LOVENOX SQ CXR : TO TELEMETRY ALBUTEROL HHN Q6HRS RTC ASA PO QD NORVASC PO QD HYZAAR PO QD LOPRESSOR PO Q12 LOVENOX SQ Q24 IV LEVAQUIN Q24 INTERQUAL CRITERIA MET
--- NOTE | 2018-08-11 15:48 | Diagnostic Imaging Report ---
Indication: Dyspnea Comparison: 03/19/2018 A single view chest radiograph was obtained. Findings: No definite infiltrate or pulmonary vascular congestion identified. The heart is enlarged. The aorta is mildly enlarged consistent with atherosclerotic vascular disease. The bones are osteopenic. Impression: No acute disease
[2018-08-11 16:00] VITALS: BP 162/83
--- NOTE | 2018-08-11 19:48 | NUR ---
HAND-OFF: Report given to SHA Wisdom.
--- NOTE | 2018-08-11 19:49 | NUR ---
NURSE NOTES: Received report from SHA Gramajo. Pt is awake and resting in bed. In no acute distress. IV line intact and patent. Bed in lowest position, call light within reach. Will continue plan of care.
[2018-08-11 20:00] VITALS: BP 145/73
[2018-08-11] MEDS: Atorvastatin 20mg tab ORAL SCH (20:43)
[2018-08-12] VITALS: BP 126/68
[2018-08-12] MEDS: 1/2NS w/KCl 20mEq 1000ml 1,000 ML IV SCH ×2 (03:00→11:36)
[2018-08-12 04:00] VITALS: BP 132/66
--- NOTE | 2018-08-12 07:15 | NUR ---
HAND-OFF: Report given to SHA Gramajo.
--- NOTE | 2018-08-12 07:17 | NUR ---
NURSE NOTES: Pt received from SHA Wisdom currently asleep and resting in bed. On 3L NC with no reports or s/s of SOB, n/v, or pain. IV site asymptomatic and patent, running to prescribed IV fluids. Bed in lowest position, call light and belongings within reach.
--- NOTE | 2018-08-12 07:25 | NUR ---
CASE MANAGEMENT:REVIEW 08/12/18 SI: COPD EXACERBATION 97.9 52 20 132/66 94% ON 3L IS: ASA PO QD NORVASC PO QD HYZAAR PO QD LOPRESSOR PO Q12 HALDOL PO BID METFORMIN PO BID LOVENOX SQ Q24 IV LEVAQUIN Q24 IVF@75/HR DUONEB HHN Q6HRS PRN TELEMETRY STATUS DCP; FROM VIRAJ Young
[2018-08-12 08:00] VITALS: BP 142/73
[2018-08-12] MEDS: metFORMIN 500mg tab ORAL SCH ×2 (08:18→17:27)
[2018-08-12] MEDS: Trihexyphenidyl 2mg tab ORAL SCH ×2 (08:18→17:27)
[2018-08-12] MEDS: Aspirin Baby 81mg ORAL SCH (08:18)
[2018-08-12] MEDS: Hyzaar 12.5mg/50mg tab ORAL SCH (08:19)
[2018-08-12] MEDS: Metoprolol Tartrate 50mg tab ORAL SCH ×2 (08:19→20:15)
[2018-08-12] MEDS: Enoxaparin 40mg Inj SUBQ SCH (11:37)
[2018-08-12 12:00] VITALS: BP 134/84
--- NOTE | 2018-08-12 12:15 | General Progress Note ---
Assessment/Plan Assessment/Plan COPD Exacerbation - Continue bronchodilators, IVF, IV Abx Ambulate. Subjective Allergies: Coded Allergies: No Known Allergies (Unverified , 01/20/17) Subjective Still SOB Objective Last 24 Hour Vital Signs Date Time Temp Pulse Resp B/P (MAP) Pulse Ox O2 Delivery O2 Flow Rate FiO2 08/12/18 09:00 Nasal Cannula 3.0 08/12/18 08:19 74 142/73 08/12/18 08:19 142/73 08/12/18 08:19 74 142/73 08/12/18 08:00 70 08/12/18 08:00 74 20 Nasal Cannula 2.0 28 08/12/18 08:00 97.9 71 20 142/73 (96) 94 08/12/18 04:00 97.9 52 20 132/66 (88) 94 08/12/18 04:00 52 08/12/18 00:00 71 08/12/18 00:00 97.7 71 20 126/68 (87) 94 08/11/18 21:00 Nasal Cannula 3.0 08/11/18 20:45 76 145/73 08/11/18 20:09 77 24 Nasal Cannula 2.0 28 08/11/18 20:00 98.2 76 20 145/73 (97) 94 08/11/18 20:00 76 08/11/18 16:00 97.3 83 20 162/83 (109) 95 08/11/18 16:00 73 Intake and Output 08/11/18 08/12/18 19:00 07:00 Intake Total 1860 ml 950 ml Output Total 1350 ml 1500 ml Balance 510 ml -550 ml Intake Oral 910 ml 200 ml IV Total 950 ml 750 ml Output Urine Total 1350 ml 1500 ml # Bowel Movements 1 1 Height (Feet): 5 Height (Inches): 7.00 Weight (Pounds): 187 Objective Confused CV Rr Lung B wheezes Abd SNT. BS + E no CCE Juana Henson MD Aug 12, 2018 12:15
[2018-08-12] MEDS ORDERED: Milk of Magnesia 30ml Ud ORAL PRN (12:45)
--- NOTE | 2018-08-12 15:43 | NUR ---
NURSE NOTES: RN clarified Troponin of 0.[address] Henson for potential cardio consult. Per Dr. Henson, cardio consult not necessary.
[2018-08-12 16:00] VITALS: BP 152/87
--- NOTE | 2018-08-12 19:17 | NUR ---
HAND-OFF: Report given to SHA Wisdom.
[2018-08-12 20:00] VITALS: BP 153/71
[2018-08-12] MEDS: Atorvastatin 20mg tab ORAL SCH (20:15)
[2018-08-13] VITALS: BP 133/82
[2018-08-13] MEDS: 1/2NS w/KCl 20mEq 1000ml 1,000 ML IV SCH ×2 (02:10→19:00)
[2018-08-13 04:00] VITALS: BP 136/80
--- NOTE | 2018-08-13 07:15 | NUR ---
NURSE NOTES: I received the patient awake and sitting at the side of the bed. Bed in the lowest position and call light within reach. Patient does not display any signs of distress or SOB. I will continue to monitor the patient and implement care.
--- NOTE | 2018-08-13 07:31 | NUR ---
HAND-OFF: Report given to SHA Pena.
[2018-08-13 08:00] VITALS: BP 124/68
[2018-08-13] MEDS: Trihexyphenidyl 2mg tab ORAL SCH ×2 (08:13→17:11)
[2018-08-13] MEDS: Metoprolol Tartrate 50mg tab ORAL SCH ×2 (08:13→20:55)
[2018-08-13] MEDS: Hyzaar 12.5mg/50mg tab ORAL SCH (08:14)
[2018-08-13] MEDS: Aspirin Baby 81mg ORAL SCH (08:14)
[2018-08-13] MEDS: metFORMIN 500mg tab ORAL SCH ×2 (08:15→17:11)
--- NOTE | 2018-08-13 09:20 | NUR ---
PT EVALUATION NOTE: Received MD order for PT evaluation. Medical record reviewed, patient seen for initial evaluation. Patient is independent with bed mobility and transfers, supervised with ambulation without an assistive device. Skilled PT intervention not indicated, patient discharged from physical therapy. Patient cleared to ambulate with nursing supervision, requires supplemental O2 for ambulation, Becky DALTON notified.
[2018-08-13] MEDS: Albuterol/Ipratropium 3ml neb HHN PRN ×2 (10:05→19:02)
[2018-08-13 12:00] VITALS: BP 138/75
[2018-08-13] MEDS: Enoxaparin 40mg Inj SUBQ SCH (12:44)
[2018-08-13 16:00] VITALS: BP 159/89
--- NOTE | 2018-08-13 16:30 | General Progress Note ---
Assessment/Plan Assessment/Plan COPD Exacerbation - Continue bronchodilators, IVF, IV Abx Ambulate. DC to B+C tomorrow. Subjective Allergies: Coded Allergies: No Known Allergies (Unverified , 01/20/17) Subjective Less SOB Objective Last 24 Hour Vital Signs Date Time Temp Pulse Resp B/P (MAP) Pulse Ox O2 Delivery O2 Flow Rate FiO2 08/13/18 12:33 77 18 Nasal Cannula 4.0 38 08/13/18 12:00 98.1 66 16 138/75 (96) 90 08/13/18 11:28 65 08/13/18 10:06 97 20 93 Nasal Cannula 4.0 38 08/13/18 09:01 92 08/13/18 09:00 Nasal Cannula 3.0 08/13/18 08:14 155/77 08/13/18 08:14 78 155/77 08/13/18 08:13 78 155/77 08/13/18 08:00 98.2 78 16 124/68 (86) 88 08/13/18 07:42 87 08/13/18 04:00 97.0 62 18 136/80 (98) 95 08/13/18 04:00 62 08/13/18 00:00 97.4 60 18 133/82 (99) 94 08/13/18 00:00 60 08/12/18 21:00 Nasal Cannula 3.0 08/12/18 20:15 66 153/71 08/12/18 20:00 97.0 69 19 153/71 (98) 95 08/12/18 20:00 69 08/12/18 19:54 69 18 Nasal Cannula 2.0 28 Intake and Output 08/12/18 08/13/18 19:00 07:00 Intake Total 1560 ml 800 ml Output Total 1400 ml 2500 ml Balance 160 ml -1700 ml Intake Oral 810 ml IV Total 750 ml 800 ml Output Urine Total 1400 ml 2500 ml # Bowel Movements 1 1 Height (Feet): 5 Height (Inches): 7.00 Weight (Pounds): 187 Objective Confused CV Rr Lung B wheezes Abd SNT. BS + E no CCE Juana Henson MD Aug 13, 2018 16:30
--- NOTE | 2018-08-13 19:42 | NUR ---
HAND-OFF: Report given to SHA Alarcon.
--- NOTE | 2018-08-13 19:45 | NUR ---
Received report from SHA Pena. Patient is awake resting in bed aox4. Breathing even and non labored on 3L NC. Patient denies pain or any discomfort. Vital signs stable. Parada cath. patent and intact. Bed in lowest position. Call light within reach. Will continue plan of care.
[2018-08-13 20:00] VITALS: BP 143/69
[2018-08-13] MEDS: Atorvastatin 20mg tab ORAL SCH (20:55)
[2018-08-14] VITALS: BP 165/86
[2018-08-14] MEDS: 1/2NS w/KCl 20mEq 1000ml 1,000 ML IV SCH (03:30)
[2018-08-14 04:00] VITALS: BP 166/75
--- NOTE | 2018-08-14 07:20 | NUR ---
NURSE NOTES: I received the patient sitting in bed and eating breakfast. Nasal canula placed on the patient. Patient does not display any signs of distress or SOB. Bed in the lowest position and call ligth within reach. Patient's vasquez draining well. I will continue to monitor the patient and implement care.
--- NOTE | 2018-08-14 07:26 | NUR ---
HAND-OFF: Report given to SHA Pena.
[2018-08-14 08:00] VITALS: BP 167/92
[2018-08-14] MEDS: Aspirin Baby 81mg ORAL SCH (08:18)
[2018-08-14] MEDS: metFORMIN 500mg tab ORAL SCH (08:18)
[2018-08-14] MEDS: Trihexyphenidyl 2mg tab ORAL SCH (08:18)
[2018-08-14] MEDS: Metoprolol Tartrate 50mg tab ORAL SCH (08:18)
[2018-08-14] MEDS: Hyzaar 12.5mg/50mg tab ORAL SCH (08:19)
--- NOTE | 2018-08-14 10:06 | NUR ---
NURSE NOTES: Patient to be discharged to [facility]. I called the facility to make them aware the patient is going to be discharged today and spoke with Donald. She said the patient is capable of taking a taxi to the facility. Patient's niece also contacted and made aware of discharge.
[2018-08-14 11:42] VITALS: BP 141/89
[2018-08-14 11:47] VITALS: BP 146/84
[2018-08-14] MEDS: Enoxaparin 40mg Inj SUBQ SCH (12:00)
--- NOTE | 2018-08-14 13:12 | General Progress Note ---
Assessment/Plan Assessment/Plan COPD Exacerbation - Continue bronchodilators, IVF, IV Abx Ambulate. DC to B+C today. ALFRED Lucas + Jeff Subjective Allergies: Coded Allergies: No Known Allergies (Unverified , 01/20/17) Subjective Less SOB Objective Last 24 Hour Vital Signs Date Time Temp Pulse Resp B/P (MAP) Pulse Ox O2 Delivery O2 Flow Rate FiO2 08/14/18 11:47 98.6 62 20 146/84 (104) 94 08/14/18 11:42 97.9 75 19 141/89 (106) 94 08/14/18 11:35 65 08/14/18 09:00 Nasal Cannula 3.0 08/14/18 08:27 78 167/92 08/14/18 08:19 167/92 08/14/18 08:18 78 167/92 08/14/18 08:00 98.7 78 20 167/92 (117) 95 08/14/18 07:56 75 08/14/18 07:43 72 18 Nasal Cannula 4.0 38 08/14/18 04:00 98.0 65 18 166/75 (105) 95 08/14/18 04:00 73 08/14/18 00:00 98.1 64 18 165/86 (112) 95 08/14/18 00:00 66 08/13/18 21:00 Nasal Cannula 3.0 08/13/18 20:55 66 143/69 08/13/18 20:00 98.1 66 20 143/69 (93) 95 08/13/18 20:00 65 08/13/18 19:13 67 24 95 Nasal Cannula 3.0 32 08/13/18 19:03 66 18 92 Nasal Cannula 4.0 38 08/13/18 19:03 66 18 Nasal Cannula 4.0 38 08/13/18 16:00 98.5 71 20 159/89 (112) 91 08/13/18 15:27 74 Intake and Output 08/13/18 08/14/18 19:00 07:00 Intake Total 1125 ml 112.5 ml Output Total 3400 ml Balance -2275 ml 112.5 ml Intake Oral 600 ml IV Total 525 ml 112.5 ml Output Urine Total 3400 ml # Voids 1 # Bowel Movements 1 1 Height (Feet): 5 Height (Inches): 7.00 Weight (Pounds): 187 Objective Confused CV Rr Lung B wheezes Abd SNT. BS + E no CCE Juana Henson MD Aug 14, 2018 13:12
--- NOTE | 2018-08-14 13:38 | NUR ---
NURSE NOTES: Patient discharged in stable condition. Patient's vasquez catheter removed without incident. IV removed and the site did not display any signs of redness, bleeding or swelling. Patient provided with discharge instructions and educated about medications he is to continue at home. Patient educated about not smoking and he verbalized he was going to try to quit. Patient was provided with a taxi voucher to return home. Patient ambulated to the [facility] with the RN and the taxi transported him home. Patient in stable condition, said he felt fine and did not display any signs of distress or SOB.
--- NOTE | 2018-08-16 08:55 | Discharge Summary ---
Discharge Summary Discharge Summary _ DATE OF ADMISSION: 08/10/2018 DATE OF DISCHARGE: 08/14/2018 DISCHARGED BY: Dr. Henson REASON FOR ADMISSION: 62 years old male from assisted living with past medical history of COPD, heavy smoker, schizophrenia, type 2 diabetes mellitus, hypertensive cardiovascular disease, presented to emergency room for evaluation due to increased shortness of breath and productive cough with yellow phlegm production. Upon evaluation vital signs revealed uncontrolled blood pressure 190/109. Laboratory workup revealed mild leukocytosis WBC 11.3, hemoglobin 12.7 hematocrit 57.9 . Troponin -0.235. EKG revealed normal sinus rhythm with bifascicular block; no acute ischemic changes . BUN 27 creatinine 1.1. Urine toxicology screen was negative Chest x-ray revealed evidence of COPD but no acute cardiopulmonary pathology. Patient was admitted for further management. HOSPITAL COURSE: Patient admitted to telemetry floor. Telemetry showed sinus rhythm, no evidence of arrhythmia. Supplemental oxygen provided as needed to keep pulse oximetry above 92%. Pulmonary toilet provided [id number] and as needed with bronchodilator therapy.. Patient was started on empiric antibiotics. DVT prophylaxis with Lovenox provided. Antiplatelet therapy with aspirin continued. Blood pressure was managed with multiply regimen of antihypertensive, including calcium channel charlie, hydrochlorothiazide and losartan. Statin was continued. Blood sugar was managed with metformin and remained stable. Psychiatric medication regimen was continued. Patient was ambulated. Prior to discharge pulse oximetry stable on room air, no evidence no evidence of respiratory distress. Patient completed course of empiric antibiotics. Patient was counseled on smoking cessation. Patient declined nicotine patch. Patient stabilized and was subsequently discharged to [facility]. FINAL DIAGNOSES: COPD with acute exacerbation Schizophrenia Type 2 diabetes mellitus Hypertensive cardiovascular disease DISCHARGE MEDICATIONS: See Medication Reconciliation list. DISCHARGE INSTRUCTIONS: Patient was discharged to assisted living. Follow-up with primary care provider in 1 week. I have been assigned to dictate discharge summary for this account. I was not involved in the patient's management. Natalya Johnson NP Aug 16, 2018 08:55
== END 2018-08-14 13:40 | disposition home or self-care (01) | DRG 191 ==
LOC: EDUNIT# 05:12 → EDBD 05:12 → EMR 05:22 → 2E 05:57 → EDBEDREQ 05:57 → EDBEDREQSVC 06:06 → EDBEDREQ 06:06 → EDBEDREQSVC 06:10 → EDBEDREQ 08:28 → 2E 16:54
DX: J44.1 Chronic obstructive pulmonary disease with (acute) exacerbation (principal); I45.2 Bifascicular block; E11.9 Type 2 diabetes mellitus without complications; F20.9 Schizophrenia, unspecified; F17.200 Nicotine dependence, unspecified, uncomplicated; I11.9 Hypertensive heart disease without heart failure
CPT/HCPCS: 36415; 71045; 80048; 80307; 81001; 84484; 85025; 87081; 93005; 94640; 94664; 96365; 96375; 99285; J7620

== ENCOUNTER 2019-01-18 19:59 | Inpatient (IN) | payer MEDICARE, MEDICAID ==
[~2019-01-18] VITALS: Ht 172.7 cm; Wt 80.0 kg
[~2019-01-18 19:59] MED LIST changes: +LOSARTAN-HCTZ1 EAC2 ORAL; +VENTOLIN HFA18 GM INH
[2019-01-18] MEDS ORDERED: Albuterol/Ipratropium 3ml neb HHN ONE ×2 (20:15→21:15)
[2019-01-18 20:35] VITALS: BP 135/76
[2019-01-18 20:36] LABS: EOSINOPHILS % (AUTO) 0.6 % (0.0-3.0); HEMATOCRIT 38.8 % (42.0-52.0); HEMOGLOBIN 14.9 G/DL (14.2-18.0); LYMPHOCYTES % (AUTO) 29.9 % (20.0-45.0); MEAN CORPUSCULAR VOLUME 86 FL (80-99); MONOCYTES % (AUTO) 6.7 % (1.0-10.0); NEUTROPHILS % (AUTO) 60.8 % (45.0-75.0); PLATELET COUNT 111 K/UL (150-450); RED BLOOD COUNT 4.51 M/UL (4.70-6.10); RED CELL DISTRIBUTION WIDTH 15.7 % (11.6-14.8); WHITE BLOOD COUNT 4.8 K/UL (4.8-10.8)
[2019-01-18 20:46] LABS: INR 1.1 (0.9-1.1)
[2019-01-18 20:47] LABS: ANION GAP 5 mmol/L (5-15); BLOOD UREA NITROGEN 26 mg/dL (7-18); CALCIUM 9.9 MG/DL (8.5-10.1); CARBON DIOXIDE 33 MMOL/L (21-32); CHLORIDE 97 MMOL/L (98-107); CREATININE 0.9 MG/DL (0.55-1.30); POTASSIUM 4.5 MMOL/L (3.5-5.1); SODIUM 135 MMOL/L (136-145)
[2019-01-18 20:58] LABS: ALANINE AMINOTRANSFERASE 18 U/L (12-78); ALBUMIN 4.2 G/DL (3.4-5.0); ALBUMIN/GLOBULIN RATIO 1.6 (1.0-2.7); ALKALINE PHOSPHATASE 77 U/L (46-116); ASPARTATE AMINO TRANSFERASE 33 U/L (15-37); BILIRUBIN,TOTAL 3.1 MG/DL (0.2-1.0)
[2019-01-18] MEDS ORDERED: Solu-MEDROL 125mg Inj IVP ONE (21:15)
[2019-01-18 21:17] LABS: BILIRUBIN,DIRECT 0.3 MG/DL (0.0-0.3)
--- NOTE | 2019-01-18 21:31 | Emergency Room Report ---
History of Present Illness General Chief Complaint: Dyspnea/Respdistress Source: Patient Present Illness HPI Patient is a 63-year-old male presents after acute onset of difficulty with breathing. Patient reports having prior history of lung cancer. He was brought in by EMS. Patient states that he had been followed by Dr. Barahona. Patient denies any vomiting. He denies any new or leg swelling. He also reports having prior history of schizophrenia. Allergies: Coded Allergies: No Known Allergies (Unverified , 01/18/19) Patient History Past Medical History: see triage record Reviewed Nursing Documentation: PMH: Agreed; PSxH: Agreed Nursing Documentation-PMH Hx Cardiac Problems: Yes - heart ablation in January 2017 Hx Hypertension: Yes Hx Pacemaker: No Hx Asthma: No Hx COPD: Yes Hx Diabetes: Yes Hx Cancer: No Hx Gastrointestinal Problems: Yes - Abd hernia Hx Dialysis: No Hx Neurological Problems: Yes - Schizophrenia Hx Cerebrovascular Accident: No Hx Seizures: No Review of Systems All Other Systems: limited - by poor historian Physical Exam Vital Signs Date Time Temp Pulse Resp B/P (MAP) Pulse Ox O2 Delivery O2 Flow Rate FiO2 01/18/19 20:03 98.1 79 16 154/96 (115) 98 Room Air 01/18/19 20:25 21 General Appearance: alert, GCS 15, Chronically Ill ENT: normal voice Neck: limited range of motion Respiratory: no respiratory distress, wheezing Cardiovascular #1: regular rate, rhythm, no edema Gastrointestinal: normal inspection Musculoskeletal: normal inspection Neurologic: normal inspection, alert, oriented x3 Skin: normal inspection Medical Decision Making Diagnostic Impression: Primary Impression: COPD (chronic obstructive pulmonary disease) ER Course Patient presented for shortness of breath. Differential diagnosis include was not limited to pneumonia, myocardial infarction, pulmonary embolism, cancer among others. Because of complexity of patient's case laboratory testing and imaging studies were ordered. EKG interpreted by me showed normal sinus rhythm with bifascicular block with a rate of [address] or T wave changes noted patient was given breathing treatments as well as IV steroids. Chest x- ray 1 view interpreted by me showed hyperinflation with possible right lower lobe infiltrate. Patient reports having some prior history of lung cancer. Patient noted to be a heavy smoker. Patient started on IV antibiotics patient was discussed with Dr. Lennon who states that the patient does not have any history of cancer. Patient is a heavy smoker. Patient will be admitted to hospital for further evaluation and treatment of COPD exacerbation.Patient was discussed with Dr. Lennon agreed to accept the patient for further evaluation and treatment of COPD. Labs Test 01/18/19 20:15 White Blood Count 4.8 K/UL (4.8-10.8) Red Blood Count 4.51 M/UL (4.70-6.10) Hemoglobin 14.9 G/DL (14.2-18.0) Hematocrit 38.8 % (42.0-52.0) Mean Corpuscular Volume 86 FL (80-99) Mean Corpuscular Hemoglobin 33.0 PG (27.0-31.0) Mean Corpuscular Hemoglobin Concent 38.4 G/DL (32.0-36.0) Red Cell Distribution Width 15.7 % (11.6-14.8) Platelet Count 111 K/UL (150-450) Mean Platelet Volume 6.8 FL (6.5-10.1) Neutrophils (%) (Auto) 60.8 % (45.0-75.0) Lymphocytes (%) (Auto) 29.9 % (20.0-45.0) Monocytes (%) (Auto) 6.7 % (1.0-10.0) Eosinophils (%) (Auto) 0.6 % (0.0-3.0) Basophils (%) (Auto) 2.0 % (0.0-2.0) Prothrombin Time 11.2 SEC (9.30-11.50) Prothromb Time International Ratio 1.1 (0.9-1.1) Activated Partial Thromboplast Time 25 SEC (23-33) Sodium Level 135 MMOL/L (136-145) Potassium Level 4.5 MMOL/L (3.5-5.1) Chloride Level 97 MMOL/L (98-107) Carbon Dioxide Level 33 MMOL/L (21-32) Anion Gap 5 mmol/L (5-15) Blood Urea Nitrogen 26 mg/dL (7-18) Creatinine 0.9 MG/DL (0.55-1.30) Estimat Glomerular Filtration Rate > 60 mL/min (>60) Glucose Level 126 MG/DL (74-106) Calcium Level 9.9 MG/DL (8.5-10.1) Total Bilirubin 3.1 MG/DL (0.2-1.0) Direct Bilirubin 0.3 MG/DL (0.0-0.3) Aspartate Amino Transf (AST/SGOT) 33 U/L (15-37) Alanine Aminotransferase (ALT/SGPT) 18 U/L (12-78) Alkaline Phosphatase 77 U/L (46-116) Troponin I 0.060 ng/mL (0.000-0.056) Total Protein 6.8 G/DL (6.4-8.2) Albumin 4.2 G/DL (3.4-5.0) Globulin 2.6 g/dL Albumin/Globulin Ratio 1.6 (1.0-2.7) EKG Diagnostic Results Rate: normal Rhythm: NSR ST Segments: no acute changes Last Vital Signs Date Time Temp Pulse Resp B/P (MAP) Pulse Ox O2 Delivery O2 Flow Rate FiO2 01/18/19 21:25 21 01/18/19 21:22 77 19 95 Room Air 01/18/19 20:35 98.1 135/76 Status: improved Disposition: ADMITTED INPATIENT Condition: Stable Referrals: NOT CHOSEN IPA/,REFERRING (PCP) Lex Snell MD Jan 18, 2019 21:31
[2019-01-18 21:35] VITALS: BP 139/75
[2019-01-18] MEDS ORDERED: Aspirin Baby 81mg ORAL ONE (21:45)
[2019-01-18] MEDS ORDERED: Piperacillin/Tazobactam 3.375 GM in NS 110 ML IVPB ONE (21:45)
--- NOTE | 2019-01-18 22:06 | Diagnostic Imaging Report ---
EXAM: XR Chest, 1 View CLINICAL HISTORY: PAIN TECHNIQUE: Frontal view of the chest. COMPARISON: Chest radiography 08/10/18 FINDINGS: Lungs: Linear opacities right base may represent scarring and/or subsegmental atelectasis. Subtle heterogeneous opacities at periphery of the left lower lung. Otherwise, no consolidation, pleural effusion or pneumothorax. Pleural space: See above. Heart: Prominent cardiac silhouette may represent mild cardiomegaly. Mediastinum: No other mediastinal enlargement. Bones/joints: Unremarkable. Vasculature: Atherosclerotic calcifications along the nonenlarged thoracic aortic arch. Lymph nodes: Fullness of the right hilar region. Consider adenopathy. IMPRESSION: Subtle heterogeneous opacities at periphery of the left lower lung. Correlate clinically to exclude pneumonia. No other acute disease.
[2019-01-18 22:35] VITALS: BP 128/67
[2019-01-19 00:20] VITALS: BP 149/70
[2019-01-19] MEDS: Zosyn 3.375gm q8h **Extended infusion IVPB SCH ×6 (03:38→22:08)
[2019-01-19 04:00] VITALS: BP 144/76
[2019-01-19 06:35] LABS: ANION GAP 10 mmol/L (5-15); BLOOD UREA NITROGEN 28 mg/dL (7-18); CARBON DIOXIDE 30 MMOL/L (21-32); CHLORIDE 98 MMOL/L (98-107); CREATININE 0.9 MG/DL (0.55-1.30); POTASSIUM 4.4 MMOL/L (3.5-5.1); SODIUM 138 MMOL/L (136-145)
[2019-01-19] MEDS: NovoLOG Insulin Flexpen SUBQ SCH ×4 (06:42→22:12)
[2019-01-19 07:16] LABS: HEMATOCRIT 44.2 % (42.0-52.0); MEAN CORPUSCULAR VOLUME 90 FL (80-99); PLATELET COUNT 113 K/UL (150-450); RED BLOOD COUNT 4.92 M/UL (4.70-6.10); RED CELL DISTRIBUTION WIDTH 16.8 % (11.6-14.8); WHITE BLOOD COUNT 2.9 K/UL (4.8-10.8)
[2019-01-19 08:00] VITALS: BP 125/59
[2019-01-19] MEDS: Heparin 5000 units/ml inj SUBQ SCH ×3 (09:00→22:16)
[2019-01-19 12:00] VITALS: BP 123/62
[2019-01-19] MEDS: HYDROcodone/Acetamin 5/325 tab ORAL PRN ×2 (15:34→22:56)
[2019-01-19 16:00] VITALS: BP 125/59
--- NOTE | 2019-01-19 17:00 | History and Physical Report ---
DATE OF ADMISSION: 01/18/2019 CHIEF COMPLAINT: Shortness of breath. HISTORY OF PRESENT ILLNESS: This is a well-known 63-year-old male, who lives at [facility], which is a psychiatric board and care on [address]. His attending physician is Dr. Nahed Aguilar. The patient has been admitted to this hospital multiple times by me. He was brought in by the paramedics for COPD exacerbation. The patient is a very poor historian. the patient was admitted to [facility] in November this year under the [facility] without my knowledge and without his PCP Dr. Nahed Aguilar's Knowledge. He was found to have Stage III B Lung CA after LN Biopsy done by Dr. Pickett. He was supposed to start Chemotherapy by Dr. Barahona on . PAST MEDICAL HISTORY: 1. COPD. 2. Type 2 diabetes mellitus. 3. Remote history of heart block, which has resolved. 4. 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 5. h/o PAF s/p Ablation. 6. Byfascicular AVB. 7. Small Lt. Adrenal Nodule, metastatic? 8. Coronary Artery Calcifications. 9. Chronic Diastolic CHF. 10. Bipolar D/O 11. Schizophrenia. MEDICATIONS: There is no accurate medication list. The list that I received is delivered to me, mailed by Dr. Nahed Aguilar, his primary care physician and here is the following list, Flomax 0.4 mg p.o. daily, Pepcid 20 mg p.o. every morning, Zoloft 50 mg p.o. every morning, Haldol 10 mg p.o. every morning and at bedtime, metformin 500 mg p.o. every morning and at bedtime, enalapril 10 mg p.o. daily, hydrochlorothiazide 12.5 mg p.o. every morning, lisinopril 5 mg p.o. daily, metoprolol 100 mg p.o. daily, and pravastatin 80 mg p.o. daily at bedtime. ALLERGIES: No known drug allergies. FAMILY HISTORY: Unremarkable. SOCIAL HISTORY: He lives in a psychiatric board and care. HABITS: Significant for heavy cigarette smoking. REVIEW OF SYSTEMS: HEENT: Hearing and eyesight are normal. ENDOCRINE: Significant for type 2 diabetes. There is no history of thyroid problems. RESPIRATORY: Significant for shortness of breath. CARDIAC: No chest pain. PSYCHIATRIC: Significant for history of schizophrenia. PHYSICAL EXAMINATION: GENERAL: This is an elderly male, who is in no acute distress. VITAL SIGNS: Blood pressure 125/59, pulse 84 and regular, respirations 17, and temperature 98.1 axillary. HEENT: The head is normocephalic and atraumatic. Pupils are equal, round, and reactive to light. SKIN: He has diffuse skin erythema. LUNGS: Bilateral wheezes. HEART: Regular rate and rhythm without rubs, murmurs, or gallops. ABDOMEN: Soft and nontender. Bowel sounds were active. EXTREMITIES: No clubbing, cyanosis, or edema. NEUROLOGICAL: He is alert and oriented x4. Cranial nerves II through XII intact. LABORATORY AND ANCILLARY DATA: CBC with white count 2.9, hemoglobin 16, and platelet count 113,000. Chemistry essentially within normal limits. Glucose 178. Troponin level 0.043. Chest x-ray, subtle heterogeneous opacities in the periphery of the left lower lung. ASSESSMENT: 1. COPD exacerbation. R/O Pneumonia. R/O Sepsis. 2. 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 3. h/o PAF s/p Ablation. 4. Byfascicular AVB. 5. Small Lt. Adrenal Nodule, metastatic? 6. Coronary Artery Calcifications. 7. Chronic Diastolic CHF. 8. Bipolar D/O 9. Schizophrenia. PLAN: 1. Respiratory treatment. 2. Pulmonary consult. 3. Continue board and care medications. 4. Pulmonary and Psychiatry consults. 5. Broad spectrum IV Abx. 6. Hem/Onc. Consult Dr. Barahona who knows the patient. 7. ID consult. 8. Cardiology Consult Dr. Bosch who knows the patient. Manas Shaw/JORDON JOB#: [id number] CC: DEBBIE
[2019-01-19] MEDS: metFORMIN 500mg tab ORAL SCH (17:17)
--- NOTE | 2019-01-19 18:10 | Consultation ---
Consult Note Consult Note 63-year-old male presents after acute onset of difficulty of shortness of breath and chest tightness. Patient reports having prior history of lung cancer , but unclear. He has been under the care of Oncology. Patient without fevers or chills. Care noted and reviewed. Patient without vomiting or diarhea. patient admitted multiple times in the past. Has advanced COPD He is currently on oxygen. ER reviewed and care noted Allergies: Coded Allergies: No Known Allergies (Unverified , 01/18/19) Past Medical History: COPD, AV mary ablation, hypertension, diabetes, ventral hernia, schizophrenia Review of Systems: reviewed; poor historian Social History: resides in [facility] and care; smoking history, disabled Physical WDWN NAD on oxygen reduced breath sounds bilaterally without rhonchi or wheeze [id number] without MRG NABS nontender no HSM no CCE nonfocal Laboratory Tests Test 01/18/19 20:15 01/18/19 22:15 01/19/19 05:52 White Blood Count 4.8 K/UL (4.8-10.8) 2.9 K/UL (4.8-10.8) L Red Blood Count 4.51 M/UL (4.70-6.10) L 4.92 M/UL (4.70-6.10) Hemoglobin 14.9 G/DL (14.2-18.0) 16.0 G/DL (14.2-18.0) Hematocrit 38.8 % (42.0-52.0) L 44.2 % (42.0-52.0) Mean Corpuscular Volume 86 FL (80-99) 90 FL (80-99) Mean Corpuscular Hemoglobin 33.0 PG (27.0-31.0) H 32.6 PG (27.0-31.0) H Mean Corpuscular Hemoglobin Concent 38.4 G/DL (32.0-36.0) H 36.3 G/DL (32.0-36.0) H Red Cell Distribution Width 15.7 % (11.6-14.8) H 16.8 % (11.6-14.8) H Platelet Count 111 K/UL (150-450) L 113 K/UL (150-450) L Mean Platelet Volume 6.8 FL (6.5-10.1) 6.4 FL (6.5-10.1) L Neutrophils (%) (Auto) 60.8 % (45.0-75.0) % (45.0-75.0) Lymphocytes (%) (Auto) 29.9 % (20.0-45.0) % (20.0-45.0) Monocytes (%) (Auto) 6.7 % (1.0-10.0) % (1.0-10.0) Eosinophils (%) (Auto) 0.6 % (0.0-3.0) % (0.0-3.0) Basophils (%) (Auto) 2.0 % (0.0-2.0) % (0.0-2.0) Prothrombin Time 11.2 SEC (9.30-11.50) Prothromb Time International Ratio 1.1 (0.9-1.1) Activated Partial Thromboplast Time 25 SEC (23-33) Sodium Level 135 MMOL/L (136-145) L 138 MMOL/L (136-145) Potassium Level 4.5 MMOL/L (3.5-5.1) 4.4 MMOL/L (3.5-5.1) Chloride Level 97 MMOL/L (98-107) L 98 MMOL/L (98-107) Carbon Dioxide Level 33 MMOL/L (21-32) H 30 MMOL/L (21-32) Anion Gap 5 mmol/L (5-15) 10 mmol/L (5-15) Blood Urea Nitrogen 26 mg/dL (7-18) H 28 mg/dL (7-18) H Creatinine 0.9 MG/DL (0.55-1.30) 0.9 MG/DL (0.55-1.30) Estimat Glomerular Filtration Rate > 60 mL/min (>60) > 60 mL/min (>60) Glucose Level 126 MG/DL (74-106) H 178 MG/DL (74-106) H Calcium Level 9.9 MG/DL (8.5-10.1) 10.0 MG/DL (8.5-10.1) Total Bilirubin 3.1 MG/DL (0.2-1.0) H Direct Bilirubin 0.3 MG/DL (0.0-0.3) Aspartate Amino Transf (AST/SGOT) 33 U/L (15-37) Alanine Aminotransferase (ALT/SGPT) 18 U/L (12-78) Alkaline Phosphatase 77 U/L (46-116) Troponin I 0.060 ng/mL (0.000-0.056) 0.043 ng/mL (0.000-0.056) Total Protein 6.8 G/DL (6.4-8.2) Albumin 4.2 G/DL (3.4-5.0) Globulin 2.6 g/dL Albumin/Globulin Ratio 1.6 (1.0-2.7) Lactic Acid Level 0.80 mmol/L (0.4-2.0) Differential Total Cells Counted 100 Neutrophils % (Manual) 84 % (45-75) H Lymphocytes % (Manual) 14 % (20-45) L Monocytes % (Manual) 2 % (1-10) Eosinophils % (Manual) 0 % (0-3) Basophils % (Manual) 0 % (0-2) Band Neutrophils 0 % (0-8) Platelet Estimate Decreased L Platelet Morphology Normal Anisocytosis 1+ IMPRESSION COPD with exacerbation hypoxemia psychiatric disorder hypoxemia acute on chronic encephalopathy possible pneumonia PLAN antibiotics steroids x 1 given nebulizer therapy oxygen therapy monitor for change monitor imaging impression, plan, and exam edited and reviewed in detail care discussed with Tiburcio De Luna MD Jan 19, 2019 18:10
--- NOTE | 2019-01-19 18:11 | Pulmonology Progress Note ---
Subjective Allergies: Coded Allergies: No Known Allergies (Unverified , 01/18/19) Objective Last 24 Hour Vital Signs Date Time Temp Pulse Resp B/P (MAP) Pulse Ox O2 Delivery O2 Flow Rate FiO2 01/19/19 16:00 97.2 71 18 125/59 (81) 94 01/19/19 16:00 77 01/19/19 12:00 97.5 77 18 123/62 (82) 95 01/19/19 12:00 72 01/19/19 09:00 Room Air 01/19/19 08:00 81 01/19/19 08:00 98.1 84 17 125/59 (81) 94 01/19/19 04:00 98.4 68 16 144/76 (98) 96 01/19/19 04:00 80 01/19/19 04:00 Room Air 01/19/19 02:08 76 149/70 01/19/19 00:20 Room Air 01/19/19 00:20 98.1 76 16 149/70 (96) 96 01/19/19 00:16 98.4 72 18 135/59 95 Room Air 01/18/19 22:35 98.4 65 15 128/67 95 Room Air 01/18/19 21:35 98.1 69 18 139/75 96 Room Air 01/18/19 21:33 67 18 99 Room Air 21 01/18/19 21:25 21 01/18/19 21:22 77 19 95 Room Air 21 01/18/19 20:35 98.1 73 22 135/76 98 Room Air 01/18/19 20:35 75 22 97 Room Air 21 01/18/19 20:35 73 20 Room Air 01/18/19 20:31 21 01/18/19 20:26 80 18 97 Room Air 21 01/18/19 20:25 80 18 97 Room Air 21 01/18/19 20:03 98.1 79 16 154/96 (115) 98 Room Air Intake and Output 01/18/19 01/19/19 19:00 07:00 Intake Total 332.5 ml Balance 332.5 ml Intake Oral 120 ml IV Total 212.5 ml Microbiology Date/Time Source Procedure Growth Status 01/18/19 22:00 Rectum Received Laboratory Tests 01/18/19 20:15: White Blood Count 4.8, Red Blood Count 4.51L, Hemoglobin 14.9, Hematocrit 38.8L , Mean Corpuscular Volume 86, Mean Corpuscular Hemoglobin 33.0H, Mean Corpuscular Hemoglobin Concent 38.4H, Red Cell Distribution Width 15.7H, Platelet Count 111L, Mean Platelet Volume 6.8, Neutrophils (%) (Auto) 60.8, Lymphocytes (%) (Auto) 29.9, Monocytes (%) (Auto) 6.7, Eosinophils (%) (Auto) 0.6, Basophils (%) (Auto) 2.0, Prothrombin Time 11.2, Prothromb Time International Ratio 1.1, Activated Partial Thromboplast Time 25, Sodium Level 135L, Potassium Level 4.5, Chloride Level 97L, Carbon Dioxide Level 33H, Anion Gap 5, Blood Urea Nitrogen 26H, Creatinine 0.9, Estimat Glomerular Filtration Rate > 60, Glucose Level 126H, Calcium Level 9.9, Total Bilirubin 3.1H, Direct Bilirubin 0.3, Aspartate Amino Transf (AST/SGOT) 33, Alanine Aminotransferase ( ALT/SGPT) 18, Alkaline Phosphatase 77, Troponin I 0.060H, Total Protein 6.8, Albumin 4.2, Globulin 2.6, Albumin/Globulin Ratio 1.6 01/18/19 22:15: Lactic Acid Level 0.80 01/19/19 05:52: White Blood Count 2.9L, Red Blood Count 4.92, Hemoglobin 16.0, Hematocrit 44.2, Mean Corpuscular Volume 90, Mean Corpuscular Hemoglobin 32.6H, Mean Corpuscular Hemoglobin Concent 36.3H, Red Cell Distribution Width 16.8H, Platelet Count 113L , Mean Platelet Volume 6.4L, Neutrophils (%) (Auto) , Lymphocytes (%) (Auto) , Monocytes (%) (Auto) , Eosinophils (%) (Auto) , Basophils (%) (Auto) , Sodium Level 138, Potassium Level 4.4, Chloride Level 98, Carbon Dioxide Level 30, Anion Gap 10, Blood Urea Nitrogen 28H, Creatinine 0.9, Estimat Glomerular Filtration Rate > 60, Glucose Level 178H, Calcium Level 10.0, Troponin I 0.043, Differential Total Cells Counted 100, Neutrophils % (Manual) 84H, Lymphocytes % (Manual) 14L, Monocytes % (Manual) 2, Eosinophils % (Manual) 0, Basophils % ( Manual) 0, Band Neutrophils 0, Platelet Estimate DecreasedL, Platelet Morphology Normal, Anisocytosis 1+ Current Medications Medications (Trade) Dose Ordered Sig/Jean Route PRN Reason Start Time Stop Time Status Last Admin Dose Admin Acetaminophen (Tylenol) 650 mg Q6H PRN ORAL Mild Pain/Temp > 100.5 01/19/19 01:45 02/18/19 01:44 Acetaminophen/ Hydrocodone Bitart ([place] 5/325) 1 tab Q6H PRN ORAL For MODERATE TO SEVERE Pain 01/19/19 14:45 01/26/19 14:44 01/19/19 15:34 Albuterol/ Ipratropium (Albuterol/ Ipratropium) 3 ml Q4H PRN HHN Shortness of Breath 01/19/19 01:45 01/24/19 01:44 Dextrose (Dextrose 50%) 25 ml Q30M PRN IV Hypoglycemia 01/19/19 01:45 02/18/19 01:44 Dextrose (Dextrose 50%) 50 ml Q30M PRN IV Hypoglycemia 01/19/19 01:45 02/18/19 01:44 Enalapril Maleate (Vasotec) 10 mg DAILY ORAL 01/20/19 09:00 02/19/19 08:59 Famotidine (Pepcid) 20 mg DAILY ORAL 01/20/19 09:00 02/19/19 08:59 Haloperidol (Haldol) 10 mg BID ORAL 01/19/19 18:00 02/18/19 17:59 01/19/19 17:16 Heparin Sodium (Porcine) (Heparin 5000 units/ml) 5,000 units EVERY 12 HOURS SUBQ 01/19/19 09:00 02/18/19 08:59 Hydrochlorothiazide (Hydrodiuril) 12.5 mg DAILY ORAL 01/20/19 09:00 02/19/19 08:59 Insulin Aspart (NovoLOG) BEFORE MEALS AND HS SUBQ 01/19/19 06:30 02/18/19 06:29 01/19/19 17:19 Metformin HCl (Glucophage) 500 mg TWICE A DAY ORAL 01/19/19 18:00 02/18/19 17:59 01/19/19 17:17 Metoprolol Tartrate (Lopressor) 50 mg EVERY 12 HOURS ORAL 01/19/19 21:00 02/18/19 20:59 Ondansetron HCl (Zofran) 4 mg Q6H PRN IVP Nausea & Vomiting 01/19/19 08:45 02/18/19 08:44 01/19/19 09:59 Piperacillin Sod/ Tazobactam Sod 3.375 gm/Sodium Chloride 110 ml @ 27.5 mls/hr Q8H IVPB 01/19/19 04:00 01/26/19 03:59 01/19/19 13:32 Pravastatin Sodium (Pravachol) 80 mg BEDTIME ORAL 01/19/19 21:00 02/18/19 20:59 Sertraline HCl (Zoloft) 50 mg DAILY ORAL 01/20/19 09:00 02/19/19 08:59 Tamsulosin HCl (Flomax) 0.4 mg BEDTIME ORAL 01/19/19 21:00 02/18/19 20:59 Tiburcio Keith MD Jan 19, 2019 18:11
[2019-01-19 20:00] VITALS: BP 127/67
[2019-01-19] MEDS: Metoprolol Tartrate 50mg tab ORAL SCH (22:08)
[2019-01-19] MEDS: Tamsulosin 0.4mg cap ORAL SCH (22:11)
[2019-01-19] MEDS: Albuterol/Ipratropium 3ml neb HHN PRN (23:59)
[2019-01-20] VITALS: BP 144/81
[2019-01-20 04:00] VITALS: BP 140/78
[2019-01-20] MEDS: Zosyn 3.375gm q8h **Extended infusion IVPB SCH ×6 (04:49→23:20)
[2019-01-20] MEDS: NovoLOG Insulin Flexpen SUBQ SCH ×4 (05:47→21:13)
[2019-01-20] MEDS: HYDROcodone/Acetamin 5/325 tab ORAL PRN ×3 (05:47→23:19)
[2019-01-20 08:00] VITALS: BP 127/64
[2019-01-20] MEDS ORDERED: hydroCHLOROthiazide 12.5mg TAB ORAL SCH (09:00)
[2019-01-20] MEDS: Heparin 5000 units/ml inj SUBQ SCH ×2 (09:00→21:14)
[2019-01-20] MEDS ORDERED: Lisinopril 2.5mg tab ORAL SCH (09:00)
[2019-01-20] MEDS: metFORMIN 500mg tab ORAL SCH ×2 (09:22→18:59)
[2019-01-20] MEDS: Sertraline 50mg tab ORAL SCH (09:22)
[2019-01-20] MEDS: Metoprolol Tartrate 50mg tab ORAL SCH ×2 (09:23→21:11)
[2019-01-20] MEDS ORDERED: NS 275ml ONE (10:06)
[2019-01-20] MEDS ORDERED: Tubing IV Secondary IV ONE (10:06)
--- NOTE | 2019-01-20 10:56 | Pulmonology Progress Note ---
Assessment/Plan Assessment/Plan IMPRESSION COPD with exacerbation hypoxemia psychiatric disorder hypoxemia acute on chronic encephalopathy possible pneumonia PLAN antibiotics as is steroids x 1 given nebulizer therapy oxygen therapy monitor for change monitor imaging adjust therapy if needed impression, plan, and exam edited and reviewed in detail care discussed with RN Subjective Allergies: Coded Allergies: No Known Allergies (Unverified , 01/18/19) Subjective care noted and reviewed overnight no distress Objective Last 24 Hour Vital Signs Date Time Temp Pulse Resp B/P (MAP) Pulse Ox O2 Delivery O2 Flow Rate FiO2 01/20/19 09:54 72 18 96 Room Air 21 01/20/19 09:23 70 127/64 01/20/19 09:22 127/64 01/20/19 08:00 98.6 70 20 127/64 (85) 94 01/20/19 04:00 98.7 62 18 140/78 (98) 98 01/20/19 04:00 60 01/20/19 04:00 Room Air 01/20/19 00:19 21 01/20/19 00:19 74 18 93 Room Air 21 01/20/19 00:00 Room Air 01/20/19 00:00 97.8 58 20 144/81 (102) 100 01/20/19 00:00 64 01/19/19 23:59 71 18 97 Room Air 21 01/19/19 22:08 78 127/67 01/19/19 21:00 Room Air 01/19/19 20:00 78 01/19/19 20:00 98.1 83 20 127/67 (87) 95 01/19/19 16:00 97.2 71 18 125/59 (81) 94 01/19/19 16:00 77 01/19/19 12:00 97.5 77 18 123/62 (82) 95 01/19/19 12:00 72 Intake and Output 01/19/19 01/20/19 19:00 07:00 Intake Total 690 ml 406.3 ml Output Total 1100 ml Balance -410 ml 406.3 ml Intake Oral 690 ml 240 ml IV Total 166.3 ml Output Urine Total 1100 ml Objective WDWN NAD reduced breath sounds bilaterally without rhonchi or wheeze [id number] without MRG NABS nontender no HSM no CCE nonfocal confused Microbiology Date/Time Source Procedure Growth Status 01/18/19 22:35 Blood Blood Culture - Preliminary NO GROWTH AFTER 24 HOURS Resulted 01/18/19 22:15 Blood Blood Culture - Preliminary NO GROWTH AFTER 24 HOURS Resulted 01/18/19 22:00 Rectum Received Current Medications Medications (Trade) Dose Ordered Sig/Jean Route PRN Reason Start Time Stop Time Status Last Admin Dose Admin Acetaminophen (Tylenol) 650 mg Q6H PRN ORAL Mild Pain/Temp > 100.5 01/19/19 01:45 02/18/19 01:44 Acetaminophen/ Hydrocodone Bitart ([place] 5/325) 1 tab Q6H PRN ORAL For MODERATE TO SEVERE Pain 01/19/19 14:45 01/26/19 14:44 01/20/19 05:47 Albuterol/ Ipratropium (Albuterol/ Ipratropium) 3 ml Q4H PRN HHN Shortness of Breath 01/19/19 01:45 01/24/19 01:44 01/19/19 23:59 Dextrose (Dextrose 50%) 25 ml Q30M PRN IV Hypoglycemia 01/19/19 01:45 02/18/19 01:44 Dextrose (Dextrose 50%) 50 ml Q30M PRN IV Hypoglycemia 01/19/19 01:45 02/18/19 01:44 Enalapril Maleate (Vasotec) 10 mg DAILY ORAL 01/20/19 09:00 02/19/19 08:59 01/20/19 09:22 Famotidine (Pepcid) 20 mg DAILY ORAL 01/20/19 09:00 02/19/19 08:59 01/20/19 09:22 Haloperidol (Haldol) 10 mg BID ORAL 01/19/19 18:00 02/18/19 17:59 01/20/19 09:22 Heparin Sodium (Porcine) (Heparin 5000 units/ml) 5,000 units EVERY 12 HOURS SUBQ 01/19/19 09:00 02/18/19 08:59 01/19/19 22:16 Hydrochlorothiazide (Hydrodiuril) 12.5 mg DAILY ORAL 01/20/19 09:00 02/19/19 08:59 01/20/19 09:23 Insulin Aspart (NovoLOG) BEFORE MEALS AND HS SUBQ 01/19/19 06:30 02/18/19 06:29 01/19/19 22:12 Metformin HCl (Glucophage) 500 mg TWICE A DAY ORAL 01/19/19 18:00 02/18/19 17:59 01/20/19 09:22 Metoprolol Tartrate (Lopressor) 50 mg EVERY 12 HOURS ORAL 01/19/19 21:00 02/18/19 20:59 01/20/19 09:23 Ondansetron HCl (Zofran) 4 mg Q6H PRN IVP Nausea & Vomiting 01/19/19 08:45 02/18/19 08:44 01/19/19 09:59 Piperacillin Sod/ Tazobactam Sod 3.375 gm/Sodium Chloride 110 ml @ 27.5 mls/hr Q8H IVPB 01/19/19 04:00 01/26/19 03:59 01/20/19 04:49 Pravastatin Sodium (Pravachol) 80 mg BEDTIME ORAL 01/19/19 21:00 02/18/19 20:59 01/19/19 22:09 Sertraline HCl (Zoloft) 50 mg DAILY ORAL 01/20/19 09:00 02/19/19 08:59 01/20/19 09:22 Tamsulosin HCl (Flomax) 0.4 mg BEDTIME ORAL 01/19/19 21:00 02/18/19 20:59 01/19/19 22:11 Tiburcio Keith MD Jan 20, 2019 10:56
[2019-01-20 12:00] VITALS: BP 142/69
--- NOTE | 2019-01-20 14:00 | Cardiology Report ---
APPROVED REPORT EKG Measurement Heart [id number] Normal sinus rhythm with sinus arrhythmia Right bundle branch block Left anterior fascicular block Bifascicular block Left ventricular hypertrophy with repolarization abnormality Abnormal ECG
--- NOTE | 2019-01-20 14:47 | General Progress Note ---
Assessment/Plan Assessment/Plan: BC GPC CXR LLobar PNA Sepsis R/O Staph, R/O MRSA R/O Pneumococcal sepsis in an Immuno-compromised pt. Add Vanco. ID Consulted. Stage IIIB NSC Lung CA (SCC) - Per Hem /On. Chemo on hold due to septicemia. Subjective Allergies: Coded Allergies: No Known Allergies (Unverified , 01/18/19) Subjective No new c/o Objective Last 24 Hour Vital Signs Date Time Temp Pulse Resp B/P (MAP) Pulse Ox O2 Delivery O2 Flow Rate FiO2 01/20/19 12:00 98.5 66 20 142/69 (93) 97 01/20/19 12:00 Room Air 01/20/19 12:00 55 01/20/19 09:54 72 18 96 Room Air 21 01/20/19 09:23 70 127/64 01/20/19 09:22 127/64 01/20/19 09:00 Room Air 01/20/19 08:00 98.6 70 20 127/64 (85) 94 01/20/19 04:00 98.7 62 18 140/78 (98) 98 01/20/19 04:00 60 01/20/19 04:00 Room Air 01/20/19 00:19 21 01/20/19 00:19 74 18 93 Room Air 21 01/20/19 00:00 Room Air 01/20/19 00:00 97.8 58 20 144/81 (102) 100 01/20/19 00:00 64 01/19/19 23:59 71 18 97 Room Air 21 01/19/19 22:08 78 127/67 01/19/19 21:00 Room Air 01/19/19 20:00 78 01/19/19 20:00 98.1 83 20 127/67 (87) 95 01/19/19 16:00 97.2 71 18 125/59 (81) 94 01/19/19 16:00 77 Intake and Output 01/19/19 01/20/19 19:00 07:00 Intake Total 690 ml 406.3 ml Output Total 1100 ml Balance -410 ml 406.3 ml Intake Oral 690 ml 240 ml IV Total 166.3 ml Output Urine Total 1100 ml Height (Feet): 5 Height (Inches): 8.00 Weight (Pounds): 178 Objective CV RR Lungs B Ronchi Abd SNT. BS + E No CCE Juana Henson MD Jan 20, 2019 14:47
[2019-01-20 16:00] VITALS: BP 133/69
[2019-01-20] MEDS: Vancomycin 1gm/D5W 275ml IVPB SCH ×2 (16:10)
[2019-01-20] MEDS: 1/2NS w/KCl 20mEq 1000ml 1,000 ML IV SCH (19:00)
--- NOTE | 2019-01-20 19:05 | Consultation ---
Consult Note Consult Note Cardiac EP/ cardiology Full note dictated #[id number] Kiersten Bosch MD Jan 20, 2019 19:05
[2019-01-20 20:00] VITALS: BP 126/74
--- NOTE | 2019-01-20 20:00 | Consultation ---
DATE OF CONSULTATION: 01/20/2019 CARDIOLOGY/CARDIAC ELECTROPHYSIOLOGY CONSULTATION REASON FOR CONSULTATION: History of atrial flutter, admitted with dyspnea. HISTORY OF PRESENT ILLNESS: The patient is a 63-year-old white male, known to me from previous hospitalization with a history of atrial flutter status post catheter ablation several years ago. He has now been diagnosed with stage III non-small cell lung cancer. He has now been diagnosed with stage IIIB non-small cell lung cancer and was receiving chemotherapy. He presents with increasing shortness of breath over the past few days and cough productive of clear to yellow sputum. He was diagnosed with left lower lobe pneumonia and is undergoing treatment. Cardiology evaluation was requested for arrhythmia evaluation and as he was noted to have an abnormal EKG. The patient denies chest pain, palpitations, or dizziness. MEDICATIONS: Include vancomycin intravenously q.12 h., Pepcid 20 mg daily, Zoloft 50 mg daily, Vasotec 10 mg daily, metoprolol 50 mg q.12 h., Flomax 0.4 mg nightly, pravastatin 80 mg nightly, Haldol 10 mg b.i.d., metformin 500 mg twice daily, [place] q.6 h. p.r.n., subcutaneous heparin 5000 units q.12 h., insulin sliding scale, Zosyn 3.375 g IV q.8 h., DuoNeb nebulizer q.4 h. p.r.n., and Tylenol p.r.n. ALLERGIES: No known drug allergies. PAST MEDICAL HISTORY: As noted above. SOCIAL HISTORY: The patient has a long history of tobacco use and continues to smoke a few cigarettes per day. No history of alcohol or drug use. PHYSICAL EXAMINATION: VITAL SIGNS: Blood pressure is 142/69, pulse 64 and regular, respirations 20, afebrile, oxygen saturation 97% on room air. GENERAL: Alert and well-developed white male with occasional cough and no respiratory distress. HEENT: Normocephalic and atraumatic. Pupils are equal, round, and reactive to light. Sclerae anicteric. Oral mucosa moist. NECK: Supple. There is no jugular venous distention. No carotid bruits. LUNGS: Bilateral rhonchi diffusely. HEART: Regular rate and rhythm. S1 and S2 with no murmurs or S3. ABDOMEN: Soft and nontender. No palpable mass. EXTREMITIES: No cyanosis, clubbing, or edema. LABORATORY AND DIAGNOSTIC DATA: White blood count 2.9, hemoglobin 16, hematocrit 42,000, and platelets 113,000. Sodium 138, potassium 4.4, chloride 98, bicarbonate 30, BUN 28, creatinine 0.9, and glucose 178. Troponin 0.06, repeat 0.043. Chest x-ray shows mild cardiomegaly, opacities at the periphery of the left lower lung. EKG shows sinus rhythm with a rate of 81 beats per minute, right bundle branch block, left anterior gwen block, and left ventricular hypertrophy. Telemetry shows normal sinus rhythm with no atrial tachyarrhythmias. ASSESSMENT AND RECOMMENDATIONS: The patient is a 63-year-old man with previous history of atrial flutter status post successful catheter ablation. He is now admitted with lung cancer and left lower lobe pneumonia. He is noted with an abnormal EKG with right bundle-branch block, left anterior gwen block, and has mild elevation of troponin level. I suspect this may be due to demand ischemia in the setting of his acute infection rather than a primary myocardial process. We will obtain an echocardiogram to evaluate left ventricular function and wall motion. He will continue on telemetry and would continue enalapril and metoprolol for blood pressure control. Further recommendations will be made pending the results of his echocardiogram and based on clinical course. Thank you for allowing me to continue in his care. Kiersten Bosch M.D. DR: Sen JOB#: [id number] CC:
--- NOTE | 2019-01-20 20:45 | Consultation ---
DATE OF CONSULTATION: 01/20/2019 INFECTIOUS DISEASE CONSULTATION This consult is for coverage of Dr. Tenorio. CONSULTING PHYSICIAN: Matt Villa M.D. PRIMARY ATTENDING PHYSICIAN: Juana Henson M.D. REASON FOR CONSULTATION: COPD, pneumonia, and bacteremia. HISTORY OF PRESENT ILLNESS: This is a 63-year-old male with history of COPD and lung cancer, admitted on 01/18/2019 because of shortness of breath. The patient has productive cough that is productive of yellowish sputum. Denies fevers, chills. Blood cultures from the day of admission growing gram-positive cocci. PAST MEDICAL HISTORY: Significant for COPD, lung cancer that is in the left lower lung and involves the bone. He has diabetes mellitus, schizophrenia, abdominal wall hernia, hypertension. ALLERGIES: No known drug allergies. MEDICATIONS: Getting vancomycin starting from today, famotidine, Zoloft, enalapril, hydrochlorothiazide, metoprolol, Flomax, pravastatin, haloperidol, metformin, [place], heparin, Zofran, insulin, Zosyn, Tylenol, albuterol, ipratropium inhaler. SOCIAL HISTORY: Single, has no child. Smoking for 40 years, currently smoking 10 cigarettes a day. Denies alcohol or drug abuse. REVIEW OF SYSTEMS: No fever. No chills. No productive cough. No nausea. No vomiting. No diarrhea. No problem passing urine. Pain in chest, back aches. PHYSICAL EXAMINATION: VITAL SIGNS: Temperature 98.6, pulse 55. No fever since admission. Blood pressure is 127/64. GENERAL APPEARANCE: No acute distress. HEAD AND NECK: [place] conjunctiva. HEART: Normal rate. LUNGS: Decreased sounds on expansion. ABDOMEN: Has ventral hernia. Soft, nontender. EXTREMITY: No edema. NEUROLOGIC: Awake, alert, has tremor more in the left arm. LABORATORY AND DIAGNOSTIC DATA: WBC 2.9, hemoglobin 16, hematocrit 44.2, platelet 113,000. Sodium 138, potassium 4.4, chloride 98, bicarbonate 30, BUN 28, creatinine 0.9, glucose is 178. Blood culture x2, gram-positive cocci. Chest x-ray showed heterogeneous opacity in the periphery of left lung. IMPRESSION: COPD exacerbation, may have also pneumonia of left lung, has left lung cancer, has bacteremia with gram-positive cocci, but does not look septic, hypertension, diabetes mellitus, abdominal wall hernia, schizophrenia. RECOMMENDATION: We will order a sputum culture. Continue vancomycin and Zosyn. We will follow up the culture and titrate antibiotic. At the end of my exam, I thank Dr. Henson for involving me in the care of this patient. Matt Villa M.D. DR: REBECA JOB#: [id number] CC: DEBBIE
[2019-01-20] MEDS: Tamsulosin 0.4mg cap ORAL SCH (21:12)
[2019-01-21] VITALS: BP 127/64
[2019-01-21] MEDS: Vancomycin 1gm/D5W 275ml IVPB SCH ×4 (03:18→14:55)
[2019-01-21] MEDS: 1/2NS w/KCl 20mEq 1000ml 1,000 ML IV SCH ×2 (03:19→17:40)
[2019-01-21 04:00] VITALS: BP 127/68
[2019-01-21] MEDS: Zosyn 3.375gm q8h **Extended infusion IVPB SCH ×6 (04:27→20:43)
[2019-01-21] MEDS: NovoLOG Insulin Flexpen SUBQ SCH ×4 (06:39→20:50)
[2019-01-21 08:00] VITALS: BP 157/77
[2019-01-21 08:21] LABS: EOSINOPHILS % (AUTO) 0.5 % (0.0-3.0); HEMATOCRIT 35.8 % (42.0-52.0); HEMOGLOBIN 13.2 G/DL (14.2-18.0); LYMPHOCYTES % (AUTO) 38.3 % (20.0-45.0); MEAN CORPUSCULAR VOLUME 91 FL (80-99); MONOCYTES % (AUTO) 6.1 % (1.0-10.0); NEUTROPHILS % (AUTO) 54.1 % (45.0-75.0); PLATELET COUNT 113 K/UL (150-450); RED BLOOD COUNT 3.95 M/UL (4.70-6.10); RED CELL DISTRIBUTION WIDTH 16.7 % (11.6-14.8); WHITE BLOOD COUNT 4.8 K/UL (4.8-10.8)
[2019-01-21] MEDS: HYDROcodone/Acetamin 5/325 tab ORAL PRN ×2 (08:29→14:55)
[2019-01-21] MEDS: metFORMIN 500mg tab ORAL SCH ×2 (08:29→17:47)
[2019-01-21 08:30] LABS: ANION GAP 3 mmol/L (5-15); BLOOD UREA NITROGEN 23 mg/dL (7-18); CALCIUM 9.1 MG/DL (8.5-10.1); CARBON DIOXIDE 34 MMOL/L (21-32); CHLORIDE 101 MMOL/L (98-107); CREATININE 0.9 MG/DL (0.55-1.30); POTASSIUM 4.3 MMOL/L (3.5-5.1); SODIUM 138 MMOL/L (136-145)
[2019-01-21] MEDS: Metoprolol Tartrate 50mg tab ORAL SCH ×2 (08:30→20:44)
[2019-01-21] MEDS: Sertraline 50mg tab ORAL SCH (08:30)
[2019-01-21] MEDS: Heparin 5000 units/ml inj SUBQ SCH ×2 (08:31→20:50)
[2019-01-21 12:00] VITALS: BP 153/77
--- NOTE | 2019-01-21 12:17 | Pulmonology Progress Note ---
Assessment/Plan Assessment/Plan IMPRESSION COPD with exacerbation hypoxemia psychiatric disorder hypoxemia acute on chronic encephalopathy possible pneumonia PLAN antibiotics as is no need for steroids nebulizer therapy oxygen therapy as needed monitor for change monitor imaging- ordered ? bcx contaminant adjust therapy if needed impression, plan, and exam edited and reviewed in detail care discussed with RN Subjective Allergies: Coded Allergies: No Known Allergies (Unverified , 01/18/19) Subjective care noted and reviewed overnight no distress awake alert currently off oxygen Objective Last 24 Hour Vital Signs Date Time Temp Pulse Resp B/P (MAP) Pulse Ox O2 Delivery O2 Flow Rate FiO2 01/21/19 09:00 Room Air 01/21/19 08:59 98.2 01/21/19 08:30 157/77 01/21/19 08:30 64 157/77 01/21/19 08:00 98.2 64 20 157/77 (103) 94 01/21/19 07:57 66 01/21/19 04:00 53 01/21/19 04:00 98.1 50 18 127/68 (87) 96 01/21/19 00:00 60 01/21/19 00:00 98.1 57 18 127/64 (85) 98 01/20/19 21:11 68 126/74 01/20/19 21:00 Room Air 01/20/19 20:00 98.3 68 18 126/74 (91) 95 01/20/19 20:00 68 01/20/19 16:00 58 01/20/19 16:00 97.7 64 20 133/69 (90) 96 Intake and Output 01/20/19 01/21/19 19:00 07:00 Intake Total 240 ml Output Total 900 ml 700 ml Balance -660 ml -700 ml Intake Oral 240 ml Output Urine Total 900 ml 700 ml Objective WDWN NAD reduced breath sounds bilaterally without rhonchi or wheeze [id number] without MRG NABS nontender no HSM no CCE nonfocal confused Microbiology Date/Time Source Procedure Growth Status 01/18/19 22:35 Blood Blood Culture - Preliminary Staphylococcus Sp Coag Neg Resulted 01/18/19 22:15 Blood Blood Culture - Preliminary Staphylococcus Sp Coag Neg Resulted 01/18/19 22:00 Nasal Nares MRSA Culture - Final NO METHICILLIN RESISTANT STAPH AUREUS... Complete 01/18/19 22:00 Rectum - Final NO CARBAPENEM-RESISTANT ENTEROBACTERI... Complete 01/18/19 22:00 Rectum VRE Culture - Final NO VANCOMYCIN RESISTANT ENTEROCOCCUS ... Complete Laboratory Tests 01/21/19 06:36: White Blood Count 4.8, Red Blood Count 3.95L, Hemoglobin 13.2L, Hematocrit 35.8L , Mean Corpuscular Volume 91, Mean Corpuscular Hemoglobin 33.3H, Mean Corpuscular Hemoglobin Concent 36.7H, Red Cell Distribution Width 16.7H, Platelet Count 113L, Mean Platelet Volume 6.7, Neutrophils (%) (Auto) 54.1, Lymphocytes (%) (Auto) 38.3, Monocytes (%) (Auto) 6.1, Eosinophils (%) (Auto) 0.5, Basophils (%) (Auto) 1.0, Sodium Level 138, Potassium Level 4.3, Chloride Level 101, Carbon Dioxide Level 34H, Anion Gap 3L, Blood Urea Nitrogen 23H, Creatinine 0.9, Estimat Glomerular Filtration Rate > 60, Glucose Level 115H, Calcium Level 9.1, Magnesium Level 1.7L Current Medications Medications (Trade) Dose Ordered Sig/Jean Route PRN Reason Start Time Stop Time Status Last Admin Dose Admin Acetaminophen (Tylenol) 650 mg Q6H PRN ORAL Mild Pain/Temp > 100.5 01/19/19 01:45 02/18/19 01:44 01/20/19 21:20 Acetaminophen/ Hydrocodone Bitart ([place] 5/325) 1 tab Q6H PRN ORAL For MODERATE TO SEVERE Pain 01/19/19 14:45 01/26/19 14:44 01/21/19 08:29 Albuterol/ Ipratropium (Albuterol/ Ipratropium) 3 ml Q4H PRN HHN Shortness of Breath 01/19/19 01:45 01/24/19 01:44 01/19/19 23:59 Dextrose (Dextrose 50%) 25 ml Q30M PRN IV Hypoglycemia 01/19/19 01:45 02/18/19 01:44 Dextrose (Dextrose 50%) 50 ml Q30M PRN IV Hypoglycemia 01/19/19 01:45 02/18/19 01:44 Enalapril Maleate (Vasotec) 10 mg DAILY ORAL 01/20/19 09:00 02/19/19 08:59 01/21/19 08:30 Famotidine (Pepcid) 20 mg DAILY ORAL 01/20/19 09:00 02/19/19 08:59 01/21/19 08:28 Haloperidol (Haldol) 10 mg BID ORAL 01/19/19 18:00 02/18/19 17:59 01/21/19 08:29 Heparin Sodium (Porcine) (Heparin 5000 units/ml) 5,000 units EVERY 12 HOURS SUBQ 01/19/19 09:00 02/18/19 08:59 01/20/19 21:14 Insulin Aspart (NovoLOG) BEFORE MEALS AND HS SUBQ 01/19/19 06:30 02/18/19 06:29 01/21/19 06:39 Metformin HCl (Glucophage) 500 mg TWICE A DAY ORAL 01/19/19 18:00 02/18/19 17:59 01/21/19 08:29 Metoprolol Tartrate (Lopressor) 50 mg EVERY 12 HOURS ORAL 01/19/19 21:00 02/18/19 20:59 01/21/19 08:30 Ondansetron HCl (Zofran) 4 mg Q6H PRN IVP Nausea & Vomiting 01/19/19 08:45 02/18/19 08:44 01/20/19 12:14 Piperacillin Sod/ Tazobactam Sod 3.375 gm/Sodium Chloride 110 ml @ 27.5 mls/hr Q8H IVPB 01/19/19 04:00 01/26/19 03:59 01/21/19 04:27 Pravastatin Sodium (Pravachol) 80 mg BEDTIME ORAL 01/19/19 21:00 02/18/19 20:59 01/20/19 21:22 Sertraline HCl (Zoloft) 50 mg DAILY ORAL 01/20/19 09:00 02/19/19 08:59 01/21/19 08:30 Sodium 1,000 ml @ 75 mls/hr [id number] IV 01/20/19 15:00 02/19/19 14:59 01/21/19 03:19 Tamsulosin HCl (Flomax) 0.4 mg BEDTIME ORAL 01/19/19 21:00 02/18/19 20:59 01/20/19 21:12 Vancomycin HCl (Vanco rx to dose) 1 ea DAILY PRN MISC Per rx protocol 01/20/19 13:00 02/19/19 12:59 Vancomycin HCl 1 gm/Dextrose 275 ml @ 183.708 mls/hr Q12HR@0300,1500 IVPB 01/20/19 15:00 01/25/19 14:59 01/21/19 03:18 Tiburcio Keith MD Jan 21, 2019 12:17
--- NOTE | 2019-01-21 12:39 | General Progress Note ---
Assessment/Plan Assessment/Plan: BC GPC CXR Lt. Lobar PNA Sepsis R/O Staph, R/O MRSA R/O Pneumococcal sepsis in an Immuno-compromised pt. Add Sukhwindero. ID Consulted. Stage IIIB NSC Lung CA (SCC) - Per Hem /On. Chemo on hold due to septicemia. Subjective Allergies: Coded Allergies: No Known Allergies (Unverified , 01/18/19) Subjective Less SOB Objective Last 24 Hour Vital Signs Date Time Temp Pulse Resp B/P (MAP) Pulse Ox O2 Delivery O2 Flow Rate FiO2 01/21/19 12:00 98.3 62 20 153/77 (102) 95 01/21/19 09:00 Room Air 01/21/19 08:59 98.2 01/21/19 08:30 157/77 01/21/19 08:30 64 157/77 01/21/19 08:00 98.2 64 20 157/77 (103) 94 01/21/19 07:57 66 01/21/19 04:00 53 01/21/19 04:00 98.1 50 18 127/68 (87) 96 01/21/19 00:00 60 01/21/19 00:00 98.1 57 18 127/64 (85) 98 01/20/19 21:11 68 126/74 01/20/19 21:00 Room Air 01/20/19 20:00 98.3 68 18 126/74 (91) 95 01/20/19 20:00 68 01/20/19 16:00 58 01/20/19 16:00 97.7 64 20 133/69 (90) 96 Intake and Output 01/20/19 01/21/19 18:59 06:59 Intake Total 267.5 ml Output Total 900 ml 700 ml Balance -632.5 ml -700 ml Intake Oral 240 ml IV Total 27.5 ml Output Urine Total 900 ml 700 ml Laboratory Tests 01/21/19 06:36: White Blood Count 4.8, Red Blood Count 3.95L, Hemoglobin 13.2L, Hematocrit 35.8L , Mean Corpuscular Volume 91, Mean Corpuscular Hemoglobin 33.3H, Mean Corpuscular Hemoglobin Concent 36.7H, Red Cell Distribution Width 16.7H, Platelet Count 113L, Mean Platelet Volume 6.7, Neutrophils (%) (Auto) 54.1, Lymphocytes (%) (Auto) 38.3, Monocytes (%) (Auto) 6.1, Eosinophils (%) (Auto) 0.5, Basophils (%) (Auto) 1.0, Sodium Level 138, Potassium Level 4.3, Chloride Level 101, Carbon Dioxide Level 34H, Anion Gap 3L, Blood Urea Nitrogen 23H, Creatinine 0.9, Estimat Glomerular Filtration Rate > 60, Glucose Level 115H, Calcium Level 9.1, Magnesium Level 1.7L Height (Feet): 5 Height (Inches): 8.00 Weight (Pounds): 178 Objective CV RR Lungs B Shabana Linares SNT. BS + E No CCE Juana Henson MD Jan 21, 2019 12:39
--- NOTE | 2019-01-21 13:56 | Cardiology Report ---
APPROVED REPORT EXAM: Two-dimensional and M-mode echocardiogram with Doppler and color Doppler. INDICATION Bundle branch block M-Mode DIMENSIONS IVSd1.8 (0.7-1.1cm)Left Atrium (MM)4.8 (1.6-4.0cm) LVDd5.4 (3.5-5.6cm)Aortic Root3.4 (2.0-3.7cm) PWd1.5 (0.7-1.1cm)Aortic Cusp Exc.2.0 (1.5-2.0cm) LVDs3.3 (2.5-4.0cm) PWs2.5 cm Technically difficult study due to poor acoustic windows. Study quality precludes accurate assessment of regional wall motion. Normal left ventricular chamber size, systolic function and wall motion. Left ventricular ejection fraction estimated to be 55 %. Mild left ventricular hypertrophy. No evidence of pericardial effusion. Mild left atrial enlargement. Right cardiac chamber sizes are within normal limits. Focal aortic valve sclerosis with adequate cusp excursion. Thickened mitral valve leaflets with normal excursion. Mitral annulus and aortic root calcification. Normal pulmonic valve structure. Normal tricuspid valve structure. IVC is normal in size with physiological collapse. A color flow and spectral Doppler study was performed and revealed: Trace aortic insufficiency. Mlid mitral regurgitation. reduced left ventricular relaxation c/w impaired relaxation diastolic dysfunction. Trace tricuspid regurgitation. Tricuspid systolic velocities suggests peak right ventricular systolic pressure of 35 mmHg, consistent with mild pulmonary hypertension. Trace pulmonic regurgitation present.
[2019-01-21 16:00] VITALS: BP 154/73
--- NOTE | 2019-01-21 19:13 | Cardiac Electrophysiology PN ---
Assessment/Plan Problem List: (1) Lung cancer (2) Atrial flutter (3) Hypertension (4) Hypoxia (5) COPD (chronic obstructive pulmonary disease) Status: stable, unchanged Status Narrative Pt w/ L lung CA, COPD adm w/ dyspnea and possible pneumonia. BP is elevated He has hx of AFL - ablated several yrs ago. Rhythm stable on telemetry Nl LV function by ECHO Assessment/Plan Continue treatment for lung CA and poss pneumonia per pulm and ID. Continue meto[prolol and add Norvasc for htn Subjective ROS Limited/Unobtainable: No Subjective Cardiology/ EP Pt c/o dyspnea, cough. Objective Last 24 Hour Vital Signs Date Time Temp Pulse Resp B/P (MAP) Pulse Ox O2 Delivery O2 Flow Rate FiO2 01/21/19 16:00 98.3 58 20 154/73 (100) 95 01/21/19 15:25 98.3 01/21/19 15:14 73 01/21/19 12:00 98.3 62 20 153/77 (102) 95 01/21/19 11:51 55 01/21/19 09:00 Room Air 01/21/19 08:30 157/77 01/21/19 08:30 64 157/77 01/21/19 08:00 98.2 64 20 157/77 (103) 94 01/21/19 07:57 66 01/21/19 04:00 53 01/21/19 04:00 98.1 50 18 127/68 (87) 96 01/21/19 00:00 60 01/21/19 00:00 98.1 57 18 127/64 (85) 98 01/20/19 21:11 68 126/74 01/20/19 21:00 Room Air 01/20/19 20:00 98.3 68 18 126/74 (91) 95 01/20/19 20:00 68 General Appearance: WD/WN, no apparent distress, alert EENT: PERRL/EOMI Neck: no JVD Rhythm: NSR Cardiovascular: normal peripheral pulses, normal rate, no gallop/murmur Respiratory/Chest: other - occ rhonchi Abdomen: non tender, soft Extremities: no swelling Intake and Output 01/20/19 01/21/19 19:00 07:00 Intake Total 240 ml Output Total 900 ml 700 ml Balance -660 ml -700 ml Intake Oral 240 ml Output Urine Total 900 ml 700 ml Laboratory Tests Test 01/21/19 06:36 White Blood Count 4.8 K/UL (4.8-10.8) Red Blood Count 3.95 M/UL (4.70-6.10) L Hemoglobin 13.2 G/DL (14.2-18.0) L Hematocrit 35.8 % (42.0-52.0) L Mean Corpuscular Volume 91 FL (80-99) Mean Corpuscular Hemoglobin 33.3 PG (27.0-31.0) H Mean Corpuscular Hemoglobin Concent 36.7 G/DL (32.0-36.0) H Red Cell Distribution Width 16.7 % (11.6-14.8) H Platelet Count 113 K/UL (150-450) L Mean Platelet Volume 6.7 FL (6.5-10.1) Neutrophils (%) (Auto) 54.1 % (45.0-75.0) Lymphocytes (%) (Auto) 38.3 % (20.0-45.0) Monocytes (%) (Auto) 6.1 % (1.0-10.0) Eosinophils (%) (Auto) 0.5 % (0.0-3.0) Basophils (%) (Auto) 1.0 % (0.0-2.0) Sodium Level 138 MMOL/L (136-145) Potassium Level 4.3 MMOL/L (3.5-5.1) Chloride Level 101 MMOL/L (98-107) Carbon Dioxide Level 34 MMOL/L (21-32) H Anion Gap 3 mmol/L (5-15) L Blood Urea Nitrogen 23 mg/dL (7-18) H Creatinine 0.9 MG/DL (0.55-1.30) Estimat Glomerular Filtration Rate > 60 mL/min (>60) Glucose Level 115 MG/DL (74-106) H Calcium Level 9.1 MG/DL (8.5-10.1) Magnesium Level 1.7 MG/DL (1.8-2.4) L Microbiology Date/Time Source Procedure Growth Status 01/18/19 22:35 Blood Blood Culture - Preliminary Staphylococcus Sp Coag Neg Resulted 01/18/19 22:15 Blood Blood Culture - Preliminary Staphylococcus Sp Coag Neg Resulted 01/18/19 22:00 Nasal Nares MRSA Culture - Final NO METHICILLIN RESISTANT STAPH AUREUS... Complete 01/18/19 22:00 Rectum - Final NO CARBAPENEM-RESISTANT ENTEROBACTERI... Complete 01/18/19 22:00 Rectum VRE Culture - Final NO VANCOMYCIN RESISTANT ENTEROCOCCUS ... Complete Kiersten Bosch MD Jan 21, 2019 19:13
[2019-01-21 20:00] VITALS: BP 156/83
[2019-01-21] MEDS: Tamsulosin 0.4mg cap ORAL SCH (20:43)
[2019-01-22] VITALS: BP 127/63
[2019-01-22] MEDS: HYDROcodone/Acetamin 5/325 tab ORAL PRN ×3 (00:10→23:08)
--- NOTE | 2019-01-22 00:30 | Consultation ---
DATE OF CONSULTATION: 01/21/2019 CONSULTING PHYSICIAN: Amauri Lucas M.D. HISTORY OF PRESENT ILLNESS: This is a 63-year-old male with a history of depression and anxiety, admitted to the hospital for medical stabilization. PAST MEDICAL HISTORY: The patient has a history of COPD, diabetes type 2, schizophrenia versus schizoaffective disorder, bipolar type, coronary artery calcification, CHF, and heart block. ALLERGIES: No known drug allergies. SUBSTANCE ABUSE HISTORY: No known history of illicit drugs or alcohol. PAST PSYCHIATRIC HISTORY: He has a history of depression and anxiety. Currently lives in a psychiatric board and care. He is on Zoloft and Ativan. MENTAL STATUS EXAMINATION: The patient is alert and oriented x4. Mood is depressed. Affect is constricted, congruent with mood. Thought process is linear. Thought content, no suicidal or homicidal ideation. Memory is impaired. Insight and judgment fair. ASSESSMENT: AXIS I: Major depressive disorder versus bipolar disorder. Rule out schizoaffective disorder. AXIS II: Deferred. AXIS III: As above. AXIS IV: Low. AXIS V: 25. PLAN: 1. The patient will be started on Zoloft 50 mg in the morning and Ativan p.r.n. 2. Provide the patient with reality orientation and supportive therapy. Amauri Lucas M.D. DR: KT JOB#: [id number] CC:
[2019-01-22] MEDS: Zosyn 3.375gm q8h **Extended infusion IVPB SCH ×2 (03:44)
[2019-01-22 04:00] VITALS: BP 141/64
[2019-01-22] MEDS ORDERED: Vancomycin 1.5gm Premix IVPB SCH (04:00)
[2019-01-22 04:53] LABS: BASOPHILS % (AUTO) 0.7 % (0.0-2.0); EOSINOPHILS % (AUTO) 0.7 % (0.0-3.0); HEMATOCRIT 34.1 % (42.0-52.0); HEMOGLOBIN 12.7 G/DL (14.2-18.0); LYMPHOCYTES % (AUTO) 30.2 % (20.0-45.0); MEAN CORPUSCULAR VOLUME 89 FL (80-99); NEUTROPHILS % (AUTO) 61.3 % (45.0-75.0); PLATELET COUNT 109 K/UL (150-450); RED BLOOD COUNT 3.81 M/UL (4.70-6.10); RED CELL DISTRIBUTION WIDTH 16.1 % (11.6-14.8); WHITE BLOOD COUNT 6.1 K/UL (4.8-10.8)
[2019-01-22 05:01] LABS: ANION GAP 8 mmol/L (5-15); BLOOD UREA NITROGEN 19 mg/dL (7-18); CALCIUM 8.8 MG/DL (8.5-10.1); CARBON DIOXIDE 29 MMOL/L (21-32); CHLORIDE 100 MMOL/L (98-107); CREATININE 0.9 MG/DL (0.55-1.30); POTASSIUM 3.9 MMOL/L (3.5-5.1); SODIUM 137 MMOL/L (136-145)
[2019-01-22] MEDS: 1/2NS w/KCl 20mEq 1000ml 1,000 ML IV SCH ×2 (06:12→21:23)
[2019-01-22] MEDS: NovoLOG Insulin Flexpen SUBQ SCH ×4 (06:18→21:39)
[2019-01-22 08:00] VITALS: BP 144/56
--- NOTE | 2019-01-22 08:27 | Pulmonology Progress Note ---
Assessment/Plan Assessment/Plan IMPRESSION COPD with exacerbation hypoxemia psychiatric disorder hypoxemia acute on chronic encephalopathy possible pneumonia PLAN antibiotics as is no need for steroids; will monitor chemo on hold nebulizer therapy oxygen therapy as needed monitor for change monitor imaging- ordered- will review ID follow up adjust therapy if needed impression, plan, and exam edited and reviewed in detail care discussed with RN Subjective Allergies: Coded Allergies: No Known Allergies (Unverified , 01/18/19) Subjective care noted and reviewed overnight no distress awake alert currently off oxygen Objective Last 24 Hour Vital Signs Date Time Temp Pulse Resp B/P (MAP) Pulse Ox O2 Delivery O2 Flow Rate FiO2 01/22/19 04:00 59 01/22/19 04:00 98.6 57 20 141/64 (89) 98 01/22/19 00:00 98.1 56 20 127/63 (84) 100 01/22/19 00:00 61 01/21/19 21:00 Room Air 01/21/19 20:44 97 156/83 01/21/19 20:00 98.3 65 20 156/83 (107) 100 01/21/19 20:00 62 01/21/19 16:00 98.3 58 20 154/73 (100) 95 01/21/19 15:25 98.3 01/21/19 15:14 73 01/21/19 12:00 98.3 62 20 153/77 (102) 95 01/21/19 11:51 55 01/21/19 09:00 Room Air 01/21/19 08:30 157/77 01/21/19 08:30 64 157/77 Intake and Output 01/21/19 01/22/19 18:59 06:59 Intake Total 720 ml 667.5 ml Output Total 1400 ml 1000 ml Balance -680 ml -332.5 ml Intake Oral 720 ml IV Total 667.5 ml Output Urine Total 1400 ml 1000 ml Objective WDWN NAD reduced breath sounds bilaterally without rhonchi or wheeze [id number] without MRG NABS nontender no HSM no CCE nonfocal confused Microbiology Date/Time Source Procedure Growth Status 01/20/19 23:30 Sputum Gram Stain Pending Resulted 01/20/19 23:30 Sputum Sputum Culture - Preliminary NORMAL UPPER RESPIRATORY BRINA AT 24 ... Resulted Laboratory Tests 01/22/19 02:00: Vancomycin Level Trough 3.5L 01/22/19 04:15: White Blood Count 6.1, Red Blood Count 3.81L, Hemoglobin 12.7L, Hematocrit 34.1L , Mean Corpuscular Volume 89, Mean Corpuscular Hemoglobin 33.2H, Mean Corpuscular Hemoglobin Concent 37.2H, Red Cell Distribution Width 16.1H, Platelet Count 109L, Mean Platelet Volume 7.1, Neutrophils (%) (Auto) 61.3, Lymphocytes (%) (Auto) 30.2, Monocytes (%) (Auto) 7.0, Eosinophils (%) (Auto) 0.7, Basophils (%) (Auto) 0.7, Sodium Level 137, Potassium Level 3.9, Chloride Level 100, Carbon Dioxide Level 29, Anion Gap 8, Blood Urea Nitrogen 19H, Creatinine 0.9, Estimat Glomerular Filtration Rate > 60, Glucose Level 111H, Calcium Level 8.8 Current Medications Medications (Trade) Dose Ordered Sig/Jean Route PRN Reason Start Time Stop Time Status Last Admin Dose Admin Acetaminophen (Tylenol) 650 mg Q6H PRN ORAL Mild Pain/Temp > 100.5 01/19/19 01:45 02/18/19 01:44 01/20/19 21:20 Acetaminophen/ Hydrocodone Bitart ([place] 5/325) 1 tab Q6H PRN ORAL For MODERATE TO SEVERE Pain 01/19/19 14:45 01/26/19 14:44 01/22/19 00:10 Albuterol/ Ipratropium (Albuterol/ Ipratropium) 3 ml Q4H PRN HHN Shortness of Breath 01/19/19 01:45 01/24/19 01:44 01/19/19 23:59 Dextrose (Dextrose 50%) 25 ml Q30M PRN IV Hypoglycemia 01/19/19 01:45 02/18/19 01:44 Dextrose (Dextrose 50%) 50 ml Q30M PRN IV Hypoglycemia 01/19/19 01:45 02/18/19 01:44 Enalapril Maleate (Vasotec) 15 mg DAILY ORAL 01/22/19 09:00 02/19/19 08:59 Famotidine (Pepcid) 20 mg DAILY ORAL 01/20/19 09:00 02/19/19 08:59 01/21/19 08:28 Haloperidol (Haldol) 10 mg BID ORAL 01/19/19 18:00 02/18/19 17:59 01/21/19 17:47 Heparin Sodium (Porcine) (Heparin 5000 units/ml) 5,000 units EVERY 12 HOURS SUBQ 01/19/19 09:00 02/18/19 08:59 01/21/19 20:50 Insulin Aspart (NovoLOG) BEFORE MEALS AND HS SUBQ 01/19/19 06:30 02/18/19 06:29 01/22/19 06:18 Metformin HCl (Glucophage) 500 mg TWICE A DAY ORAL 01/19/19 18:00 02/18/19 17:59 01/21/19 17:47 Metoprolol Tartrate (Lopressor) 50 mg EVERY 12 HOURS ORAL 01/19/19 21:00 02/18/19 20:59 01/21/19 20:44 Ondansetron HCl (Zofran) 4 mg Q6H PRN IVP Nausea & Vomiting 01/19/19 08:45 02/18/19 08:44 01/20/19 12:14 Piperacillin Sod/ Tazobactam Sod 3.375 gm/Sodium Chloride 110 ml @ 27.5 mls/hr Q8H IVPB 01/19/19 04:00 01/26/19 03:59 01/22/19 03:44 Pravastatin Sodium (Pravachol) 80 mg BEDTIME ORAL 01/19/19 21:00 02/18/19 20:59 01/21/19 20:44 Sertraline HCl (Zoloft) 50 mg DAILY ORAL 01/20/19 09:00 02/19/19 08:59 01/21/19 08:30 Sodium 1,000 ml @ 75 mls/hr [id number] IV 01/20/19 15:00 02/19/19 14:59 01/22/19 06:12 Tamsulosin HCl (Flomax) 0.4 mg BEDTIME ORAL 01/19/19 21:00 02/18/19 20:59 01/21/19 20:43 Vancomycin HCl (Vanco rx to dose) 1 ea DAILY PRN MISC Per rx protocol 01/20/19 13:00 02/19/19 12:59 Vancomycin HCl/ Dextrose 275 ml @ 137.5 mls/ hr Q8H IVPB 01/22/19 04:00 01/27/19 03:59 01/22/19 03:38 Tiburcio Keith MD Jan 22, 2019 08:27
[2019-01-22] MEDS: metFORMIN 500mg tab ORAL SCH ×2 (08:41→18:29)
[2019-01-22] MEDS: Sertraline 50mg tab ORAL SCH (08:42)
[2019-01-22] MEDS: Metoprolol Tartrate 50mg tab ORAL SCH ×2 (08:43→21:24)
[2019-01-22] MEDS: Heparin 5000 units/ml inj SUBQ SCH ×2 (08:43→21:41)
--- NOTE | 2019-01-22 10:25 | Diagnostic Imaging Report ---
Indication: Shortness of breath Technique: One view of the chest Comparison: none Findings: Better aeration currently. Previously demonstrated right basilar opacities are no longer evident, lungs and pleural spaces currently clear. Heart size is normal. Impression: No acute process
--- NOTE | 2019-01-22 10:48 | Infectious Diseases Prog Note ---
Assessment/Plan Assessment/Plan antibiotics : vancomycin iv, zosyn A 1. pneumonia 2. COPD 3. lung cancer 4. diabetes mellitus 5. hypertension 6. schizophrenia 7. + blood culture with coag neg staph likely contaminated P 1. continue iv vancomycin, zosyn 2. will follow up cultures Subjective Constitutional: Denies: fever, chills Respiratory: Reports: shortness of breath, productive cough - decreased Gastrointestinal/Abdominal: Denies: nausea, vomiting, diarrhea Musculoskeletal: Reports: pain Allergies: Coded Allergies: No Known Allergies (Unverified , 01/18/19) Objective Vital Signs Last 24 Hour Vital Signs Date Time Temp Pulse Resp B/P (MAP) Pulse Ox O2 Delivery O2 Flow Rate FiO2 01/22/19 09:19 96.9 01/22/19 09:00 Room Air 01/22/19 08:43 59 144/56 01/22/19 08:42 144/56 01/22/19 08:00 96.9 59 20 144/56 (85) 98 01/22/19 07:38 54 01/22/19 04:00 59 01/22/19 04:00 98.6 57 20 141/64 (89) 98 01/22/19 00:00 98.1 56 20 127/63 (84) 100 01/22/19 00:00 61 01/21/19 21:00 Room Air 01/21/19 20:44 97 156/83 01/21/19 20:00 98.3 65 20 156/83 (107) 100 01/21/19 20:00 62 01/21/19 16:00 98.3 58 20 154/73 (100) 95 01/21/19 15:14 73 01/21/19 12:00 98.3 62 20 153/77 (102) 95 01/21/19 11:51 55 Height (Feet): 5 Height (Inches): 8.00 Weight (Pounds): 178 Respiratory/Chest: lungs clear Cardiovascular: normal rate, regular rhythm, no gallop/murmur Abdomen: soft, non tender Extremities: no edema Microbiology Date/Time Source Procedure Growth Status 01/20/19 23:30 Sputum Gram Stain Pending Resulted 01/20/19 23:30 Sputum Sputum Culture - Preliminary NORMAL UPPER RESPIRATORY BRINA AT 24 ... Resulted Laboratory Tests Test 01/22/19 02:00 01/22/19 04:15 Vancomycin Level Trough 3.5 ug/mL (5.0-12.0) L White Blood Count 6.1 K/UL (4.8-10.8) Red Blood Count 3.81 M/UL (4.70-6.10) L Hemoglobin 12.7 G/DL (14.2-18.0) L Hematocrit 34.1 % (42.0-52.0) L Mean Corpuscular Volume 89 FL (80-99) Mean Corpuscular Hemoglobin 33.2 PG (27.0-31.0) H Mean Corpuscular Hemoglobin Concent 37.2 G/DL (32.0-36.0) H Red Cell Distribution Width 16.1 % (11.6-14.8) H Platelet Count 109 K/UL (150-450) L Mean Platelet Volume 7.1 FL (6.5-10.1) Neutrophils (%) (Auto) 61.3 % (45.0-75.0) Lymphocytes (%) (Auto) 30.2 % (20.0-45.0) Monocytes (%) (Auto) 7.0 % (1.0-10.0) Eosinophils (%) (Auto) 0.7 % (0.0-3.0) Basophils (%) (Auto) 0.7 % (0.0-2.0) Sodium Level 137 MMOL/L (136-145) Potassium Level 3.9 MMOL/L (3.5-5.1) Chloride Level 100 MMOL/L (98-107) Carbon Dioxide Level 29 MMOL/L (21-32) Anion Gap 8 mmol/L (5-15) Blood Urea Nitrogen 19 mg/dL (7-18) H Creatinine 0.9 MG/DL (0.55-1.30) Estimat Glomerular Filtration Rate > 60 mL/min (>60) Glucose Level 111 MG/DL (74-106) H Calcium Level 8.8 MG/DL (8.5-10.1) Current Medications Medications (Trade) Dose Ordered Sig/Jean Route PRN Reason Start Time Stop Time Status Last Admin Dose Admin Acetaminophen (Tylenol) 650 mg Q6H PRN ORAL Mild Pain/Temp > 100.5 01/19/19 01:45 02/18/19 01:44 01/20/19 21:20 Acetaminophen/ Hydrocodone Bitart ([place] 5/325) 1 tab Q6H PRN ORAL For MODERATE TO SEVERE Pain 01/19/19 14:45 01/26/19 14:44 01/22/19 08:49 Albuterol/ Ipratropium (Albuterol/ Ipratropium) 3 ml Q4H PRN HHN Shortness of Breath 01/19/19 01:45 01/24/19 01:44 01/19/19 23:59 Dextrose (Dextrose 50%) 25 ml Q30M PRN IV Hypoglycemia 01/19/19 01:45 02/18/19 01:44 Dextrose (Dextrose 50%) 50 ml Q30M PRN IV Hypoglycemia 01/19/19 01:45 02/18/19 01:44 Enalapril Maleate (Vasotec) 15 mg DAILY ORAL 01/22/19 09:00 02/19/19 08:59 01/22/19 08:42 Famotidine (Pepcid) 20 mg DAILY ORAL 01/20/19 09:00 02/19/19 08:59 01/22/19 08:42 Haloperidol (Haldol) 10 mg BID ORAL 01/19/19 18:00 02/18/19 17:59 01/22/19 08:41 Heparin Sodium (Porcine) (Heparin 5000 units/ml) 5,000 units EVERY 12 HOURS SUBQ 01/19/19 09:00 02/18/19 08:59 01/21/19 20:50 Insulin Aspart (NovoLOG) BEFORE MEALS AND HS SUBQ 01/19/19 06:30 02/18/19 06:29 01/22/19 06:18 Metformin HCl (Glucophage) 500 mg TWICE A DAY ORAL 01/19/19 18:00 02/18/19 17:59 01/22/19 08:41 Metoprolol Tartrate (Lopressor) 50 mg EVERY 12 HOURS ORAL 01/19/19 21:00 02/18/19 20:59 01/21/19 20:44 Ondansetron HCl (Zofran) 4 mg Q6H PRN IVP Nausea & Vomiting 01/19/19 08:45 02/18/19 08:44 01/20/19 12:14 Piperacillin Sod/ Tazobactam Sod 3.375 gm/Sodium Chloride 110 ml @ 220 mls/hr Q8H IVPB 01/22/19 12:00 01/26/19 03:59 Pravastatin Sodium (Pravachol) 80 mg BEDTIME ORAL 01/19/19 21:00 02/18/19 20:59 01/21/19 20:44 Sertraline HCl (Zoloft) 50 mg DAILY ORAL 01/20/19 09:00 02/19/19 08:59 01/22/19 08:42 Sodium 1,000 ml @ 75 mls/hr [id number] IV 01/20/19 15:00 02/19/19 14:59 01/22/19 06:12 Tamsulosin HCl (Flomax) 0.4 mg BEDTIME ORAL 01/19/19 21:00 02/18/19 20:59 01/21/19 20:43 Vancomycin HCl (Vanco rx to dose) 1 ea DAILY PRN MISC Per rx protocol 01/20/19 13:00 02/19/19 12:59 Vancomycin HCl 1.5 gm/Sodium Chloride 275 ml @ 137.5 mls/ hr Q12H IVPB 01/22/19 17:00 01/27/19 16:59 Michele Tenorio MD Jan 22, 2019 10:48
[2019-01-22 11:39] VITALS: BP 131/69
[2019-01-22] MEDS: TAZOBACTAM IVPB SCH ×4 (11:48→21:23)
[2019-01-22] MEDS: PIPERACILLIN IVPB SCH ×4 (11:48→21:23)
--- NOTE | 2019-01-22 12:30 | General Progress Note ---
Assessment/Plan Status: stable, unchanged Assessment/Plan: BC GPC CXR Lt. Lobar PNA Sepsis R/O Staph, R/O MRSA R/O Pneumococcal sepsis in an Immuno-compromised pt. Add Sukhwindero. ID Consulted. Stage IIIB NSC Lung CA (SCC) - Per Hem /On. Chemo on hold due to septicemia. Subjective Allergies: Coded Allergies: No Known Allergies (Unverified , 01/18/19) Subjective Less SOB Objective Last 24 Hour Vital Signs Date Time Temp Pulse Resp B/P (MAP) Pulse Ox O2 Delivery O2 Flow Rate FiO2 01/22/19 11:39 97.1 60 20 131/69 (89) 99 01/22/19 09:19 96.9 01/22/19 09:00 Room Air 01/22/19 08:43 59 144/56 01/22/19 08:42 144/56 01/22/19 08:00 96.9 59 20 144/56 (85) 98 01/22/19 07:38 54 01/22/19 04:00 59 01/22/19 04:00 98.6 57 20 141/64 (89) 98 01/22/19 00:00 98.1 56 20 127/63 (84) 100 01/22/19 00:00 61 01/21/19 21:00 Room Air 01/21/19 20:44 97 156/83 01/21/19 20:00 98.3 65 20 156/83 (107) 100 01/21/19 20:00 62 01/21/19 16:00 98.3 58 20 154/73 (100) 95 01/21/19 15:14 73 Intake and Output 01/21/19 01/22/19 19:00 07:00 Intake Total 720 ml 667.5 ml Output Total 1400 ml 1000 ml Balance -680 ml -332.5 ml Intake Oral 720 ml IV Total 667.5 ml Output Urine Total 1400 ml 1000 ml Laboratory Tests 01/22/19 02:00: Vancomycin Level Trough 3.5L 01/22/19 04:15: White Blood Count 6.1, Red Blood Count 3.81L, Hemoglobin 12.7L, Hematocrit 34.1L , Mean Corpuscular Volume 89, Mean Corpuscular Hemoglobin 33.2H, Mean Corpuscular Hemoglobin Concent 37.2H, Red Cell Distribution Width 16.1H, Platelet Count 109L, Mean Platelet Volume 7.1, Neutrophils (%) (Auto) 61.3, Lymphocytes (%) (Auto) 30.2, Monocytes (%) (Auto) 7.0, Eosinophils (%) (Auto) 0.7, Basophils (%) (Auto) 0.7, Sodium Level 137, Potassium Level 3.9, Chloride Level 100, Carbon Dioxide Level 29, Anion Gap 8, Blood Urea Nitrogen 19H, Creatinine 0.9, Estimat Glomerular Filtration Rate > 60, Glucose Level 111H, Calcium Level 8.8 Height (Feet): 5 Height (Inches): 8.00 Weight (Pounds): 178 Objective CV RR Lungs B Shabana Linares SNT. BS + E No CCE Juana Henson MD Jan 22, 2019 12:30
--- NOTE | 2019-01-22 13:49 | Cardiac Electrophysiology PN ---
Assessment/Plan Problem List: (1) Lung cancer (2) Atrial flutter (3) Hypertension (4) Hypoxia (5) COPD (chronic obstructive pulmonary disease) Status: stable, unchanged Status Narrative Pt w/ L lung CA, COPD adm w/ dyspnea and possible pneumonia. He has hx htn He has hx of AFL - ablated several yrs ago. Rhythm stable, NSR, on telemetry Nl LV function by ECHO Assessment/Plan Continue treatment for lung CA and poss pneumonia per pulm and ID. Continue metoprolol and norvasc for HTN Can dc telemetry monitoring Subjective ROS Limited/Unobtainable: No Subjective Cardiology/ EP No new c/o. Appears comfortable, at rest Objective Last 24 Hour Vital Signs Date Time Temp Pulse Resp B/P (MAP) Pulse Ox O2 Delivery O2 Flow Rate FiO2 01/22/19 11:39 97.1 60 20 131/69 (89) 99 01/22/19 11:34 62 01/22/19 09:19 96.9 01/22/19 09:00 Room Air 01/22/19 08:43 59 144/56 01/22/19 08:42 144/56 01/22/19 08:00 96.9 59 20 144/56 (85) 98 01/22/19 07:38 54 01/22/19 04:00 59 01/22/19 04:00 98.6 57 20 141/64 (89) 98 01/22/19 00:00 98.1 56 20 127/63 (84) 100 01/22/19 00:00 61 01/21/19 21:00 Room Air 01/21/19 20:44 97 156/83 01/21/19 20:00 98.3 65 20 156/83 (107) 100 01/21/19 20:00 62 01/21/19 16:00 98.3 58 20 154/73 (100) 95 01/21/19 15:14 73 General Appearance: WD/WN, alert EENT: PERRL/EOMI Neck: non-tender, supple, no JVD Rhythm: NSR Cardiovascular: normal rate, regular rhythm, no gallop/murmur Respiratory/Chest: other - scattered rhonchi bilat Abdomen: non tender, soft Extremities: non-tender, no swelling Intake and Output 01/21/19 01/22/19 19:00 07:00 Intake Total 720 ml 667.5 ml Output Total 1400 ml 1000 ml Balance -680 ml -332.5 ml Intake Oral 720 ml IV Total 667.5 ml Output Urine Total 1400 ml 1000 ml Laboratory Tests Test 01/22/19 02:00 01/22/19 04:15 Vancomycin Level Trough 3.5 ug/mL (5.0-12.0) L White Blood Count 6.1 K/UL (4.8-10.8) Red Blood Count 3.81 M/UL (4.70-6.10) L Hemoglobin 12.7 G/DL (14.2-18.0) L Hematocrit 34.1 % (42.0-52.0) L Mean Corpuscular Volume 89 FL (80-99) Mean Corpuscular Hemoglobin 33.2 PG (27.0-31.0) H Mean Corpuscular Hemoglobin Concent 37.2 G/DL (32.0-36.0) H Red Cell Distribution Width 16.1 % (11.6-14.8) H Platelet Count 109 K/UL (150-450) L Mean Platelet Volume 7.1 FL (6.5-10.1) Neutrophils (%) (Auto) 61.3 % (45.0-75.0) Lymphocytes (%) (Auto) 30.2 % (20.0-45.0) Monocytes (%) (Auto) 7.0 % (1.0-10.0) Eosinophils (%) (Auto) 0.7 % (0.0-3.0) Basophils (%) (Auto) 0.7 % (0.0-2.0) Sodium Level 137 MMOL/L (136-145) Potassium Level 3.9 MMOL/L (3.5-5.1) Chloride Level 100 MMOL/L (98-107) Carbon Dioxide Level 29 MMOL/L (21-32) Anion Gap 8 mmol/L (5-15) Blood Urea Nitrogen 19 mg/dL (7-18) H Creatinine 0.9 MG/DL (0.55-1.30) Estimat Glomerular Filtration Rate > 60 mL/min (>60) Glucose Level 111 MG/DL (74-106) H Calcium Level 8.8 MG/DL (8.5-10.1) Microbiology Date/Time Source Procedure Growth Status 01/20/19 23:30 Sputum Gram Stain - Final Resulted 01/20/19 23:30 Sputum Sputum Culture - Preliminary NORMAL UPPER RESPIRATORY BRINA AT 24 ... Resulted Kiersten Bosch MD Jan 22, 2019 13:49
[2019-01-22 16:00] VITALS: BP 147/81
[2019-01-22] MEDS ORDERED: Vancomycin 1.5 GM in NS 275 ML IVPB SCH (17:00)
[2019-01-22 20:00] VITALS: BP 168/93
[2019-01-22] MEDS: Albuterol/Ipratropium 3ml neb HHN PRN (20:03)
[2019-01-22] MEDS: Tamsulosin 0.4mg cap ORAL SCH (21:23)
[2019-01-23] VITALS: BP 158/73
--- NOTE | 2019-01-23 | Progress Note ---
DATE: 01/22/2019 SUBJECTIVE: The patient is having anxiety, withdrawn, . Compliant with medication. He was asking about the discharge date. MENTAL STATUS EXAMINATION: The patient is alert and oriented times self, place, and situation. Mood is dysphoric. Affect is constricted, congruent with mood. Thought process is concrete. Thought content, no suicidal or homicidal ideation. ASSESSMENT: Major depressive disorder, anxiety disorder. PLAN: The patient will continue current medication. Provide the patient with reality orientation and supportive therapy. Amauri Lucas M.D. DR: OLIVIA JOB#: [id number] CC:
[2019-01-23] MEDS ORDERED: Albuterol/Ipratropium 3ml neb HHN PRN (01:45)
[2019-01-23] MEDS ORDERED: HYDROcodone/Acetamin 5/325 tab ORAL PRN (02:45)
[2019-01-23 04:00] VITALS: BP 159/78
[2019-01-23] MEDS ORDERED: Vancomycin 1.5 GM in NS 275 ML IVPB SCH (05:00)
[2019-01-23] MEDS: Piperacillin/Tazobactam 3.375 GM in NS 110 ML IVPB SCH ×2 (05:30→12:20)
[2019-01-23] MEDS: 1/2NS w/KCl 20mEq 1000ml 1,000 ML IV SCH ×2 (05:36)
[2019-01-23 06:24] LABS: BASOPHILS % (AUTO) 0.6 % (0.0-2.0); HEMATOCRIT 33.6 % (42.0-52.0); HEMOGLOBIN 12.6 G/DL (14.2-18.0); LYMPHOCYTES % (AUTO) 32.6 % (20.0-45.0); MEAN CORPUSCULAR VOLUME 89 FL (80-99); MONOCYTES % (AUTO) 6.4 % (1.0-10.0); NEUTROPHILS % (AUTO) 59.4 % (45.0-75.0); PLATELET COUNT 108 K/UL (150-450); RED BLOOD COUNT 3.76 M/UL (4.70-6.10); RED CELL DISTRIBUTION WIDTH 16.3 % (11.6-14.8)
[2019-01-23] MEDS: NovoLOG Insulin Flexpen SUBQ SCH ×2 (06:30→12:22)
[2019-01-23 06:52] LABS: ANION GAP 8 mmol/L (5-15); BLOOD UREA NITROGEN 22 mg/dL (7-18); CALCIUM 8.9 MG/DL (8.5-10.1); CARBON DIOXIDE 28 MMOL/L (21-32); CHLORIDE 103 MMOL/L (98-107); CREATININE 0.9 MG/DL (0.55-1.30); POTASSIUM 4.7 MMOL/L (3.5-5.1); SODIUM 138 MMOL/L (136-145)
[2019-01-23 08:00] VITALS: BP 152/77
[2019-01-23] MEDS ORDERED: metFORMIN 500mg tab ORAL SCH (09:00)
[2019-01-23] MEDS ORDERED: Sertraline 50mg tab ORAL SCH (09:00)
[2019-01-23] MEDS ORDERED: Metoprolol Tartrate 50mg tab ORAL SCH (09:00)
[2019-01-23] MEDS ORDERED: Heparin 5000 units/ml inj SUBQ SCH (09:00)
--- NOTE | 2019-01-23 10:06 | Pulmonology Progress Note ---
Assessment/Plan Assessment/Plan IMPRESSION COPD with exacerbation hypoxemia psychiatric disorder hypoxemia acute on chronic encephalopathy possible pneumonia PLAN change antibiotics per ID pulmonary improved and cxr clear nebulizer therapy oxygen therapy as needed monitor for change care noted dc planning adjust therapy if needed impression, plan, and exam edited and reviewed in detail care discussed with RN Subjective Allergies: Coded Allergies: No Known Allergies (Unverified , 01/18/19) Subjective care noted and reviewed overnight no distress comfortable Objective Last 24 Hour Vital Signs Date Time Temp Pulse Resp B/P (MAP) Pulse Ox O2 Delivery O2 Flow Rate FiO2 01/23/19 09:15 67 152/77 01/23/19 09:14 152/77 01/23/19 04:00 97.6 58 17 159/78 (105) 96 01/23/19 00:00 97.2 61 19 158/73 (101) 96 01/22/19 21:24 78 168/93 01/22/19 21:00 Room Air Room Air 01/22/19 20:17 68 18 99 Room Air 21 01/22/19 20:11 21 01/22/19 20:04 80 18 96 Room Air 21 01/22/19 20:00 97.8 78 19 168/93 (118) 96 01/22/19 16:00 97.4 69 20 147/81 (103) 99 01/22/19 15:45 67 01/22/19 11:39 97.1 60 20 131/69 (89) 99 01/22/19 11:34 62 Intake and Output 01/22/19 01/23/19 18:59 06:59 Intake Total 1380 ml 452.5 ml Output Total 1700 ml 1500 ml Balance -320 ml -1047.5 ml Intake Oral 1080 ml 240 ml IV Total 300 ml 212.5 ml Output Urine Total 1700 ml 1500 ml Objective WDWN NAD reduced breath sounds bilaterally without rhonchi or wheeze [id number] without MRG NABS nontender no HSM no CCE nonfocal confused Microbiology Date/Time Source Procedure Growth Status 01/20/19 23:30 Sputum Gram Stain - Final Complete 01/20/19 23:30 Sputum Culture - Final Inna Albicans Usual Respiratory Shanika Complete Laboratory Tests 01/23/19 04:40: White Blood Count 6.0, Red Blood Count 3.76L, Hemoglobin 12.6L, Hematocrit 33.6L , Mean Corpuscular Volume 89, Mean Corpuscular Hemoglobin 33.4H, Mean Corpuscular Hemoglobin Concent 37.4H, Red Cell Distribution Width 16.3H, Platelet Count 108L, Mean Platelet Volume 7.2, Neutrophils (%) (Auto) 59.4, Lymphocytes (%) (Auto) 32.6, Monocytes (%) (Auto) 6.4, Eosinophils (%) (Auto) 1.0, Basophils (%) (Auto) 0.6, Sodium Level 138, Potassium Level 4.7, Chloride Level 103, Carbon Dioxide Level 28, Anion Gap 8, Blood Urea Nitrogen 22H, Creatinine 0.9, Estimat Glomerular Filtration Rate > 60, Glucose Level 102, Calcium Level 8.9 Current Medications Medications (Trade) Dose Ordered Sig/Jean Route PRN Reason Start Time Stop Time Status Last Admin Dose Admin Acetaminophen (Tylenol) 650 mg Q6H PRN ORAL Mild Pain/Temp > 100.5 01/23/19 01:45 02/18/19 01:44 Acetaminophen/ Hydrocodone Bitart ([place] 5/325) 1 tab Q6H PRN ORAL For MODERATE TO SEVERE Pain 01/23/19 02:45 01/26/19 14:44 01/23/19 09:20 Albuterol/ Ipratropium (Albuterol/ Ipratropium) 3 ml Q4H PRN HHN Shortness of Breath 01/23/19 01:45 01/24/19 01:44 Dextrose (Dextrose 50%) 25 ml Q30M PRN IV Hypoglycemia 01/23/19 00:15 02/18/19 01:44 Dextrose (Dextrose 50%) 50 ml Q30M PRN IV Hypoglycemia 01/23/19 00:15 02/18/19 01:44 Enalapril Maleate (Vasotec) 15 mg DAILY ORAL 01/23/19 09:00 02/19/19 08:59 01/23/19 09:14 Famotidine (Pepcid) 20 mg DAILY ORAL 01/23/19 09:00 02/19/19 08:59 01/23/19 09:15 Haloperidol (Haldol) 10 mg BID ORAL 01/23/19 09:00 02/18/19 17:59 01/23/19 09:14 Heparin Sodium (Porcine) (Heparin 5000 units/ml) 5,000 units EVERY 12 HOURS SUBQ 01/23/19 09:00 02/18/19 08:59 Insulin Aspart (NovoLOG) BEFORE MEALS AND HS SUBQ 01/23/19 06:30 02/18/19 06:29 Metformin HCl (Glucophage) 500 mg TWICE A DAY ORAL 01/23/19 09:00 02/18/19 17:59 01/23/19 09:14 Metoprolol Tartrate (Lopressor) 50 mg EVERY 12 HOURS ORAL 01/23/19 09:00 02/18/19 20:59 01/23/19 09:15 Ondansetron HCl (Zofran) 4 mg Q6H PRN IVP Nausea & Vomiting 01/23/19 02:45 02/18/19 08:44 Piperacillin Sod/ Tazobactam Sod 3.375 gm/Sodium Chloride 110 ml @ 220 mls/hr Q8H IVPB 01/23/19 04:00 01/26/19 03:59 01/23/19 05:30 Pravastatin Sodium (Pravachol) 80 mg BEDTIME ORAL 01/23/19 21:00 02/18/19 20:59 Sertraline HCl (Zoloft) 50 mg DAILY ORAL 01/23/19 09:00 02/19/19 08:59 01/23/19 09:15 Sodium 1,000 ml @ 75 mls/hr [id number] IV 01/23/19 00:00 02/19/19 14:59 01/23/19 05:36 Tamsulosin HCl (Flomax) 0.4 mg BEDTIME ORAL 01/23/19 21:00 02/18/19 20:59 Vancomycin HCl (Vanco rx to dose) 1 ea DAILY PRN MISC Per rx protocol 01/23/19 09:00 02/19/19 12:59 Vancomycin HCl 1.5 gm/Sodium Chloride 275 ml @ 137.5 mls/ hr Q12H IVPB 01/23/19 05:00 01/27/19 16:59 01/23/19 05:31 Tiburcio Keith MD Jan 23, 2019 10:06
[2019-01-23 12:00] VITALS: BP 168/75
--- NOTE | 2019-01-23 13:34 | General Progress Note ---
Assessment/Plan Status: stable, unchanged Assessment/Plan: BC GPC CXR Lt. Lobar PNA Sepsis R/O Staph, R/O MRSA R/O Pneumococcal sepsis in an Immuno-compromised pt. Add Sukhwindero. ID Consulted. Stage IIIB NSC Lung CA (SCC) - Per Hem /On. Chemo on hold due to septicemia. DC to B+C Subjective Allergies: Coded Allergies: No Known Allergies (Unverified , 01/18/19) Subjective Less SOB Objective Last 24 Hour Vital Signs Date Time Temp Pulse Resp B/P (MAP) Pulse Ox O2 Delivery O2 Flow Rate FiO2 01/23/19 09:15 67 152/77 01/23/19 09:14 152/77 01/23/19 09:00 Room Air 01/23/19 08:00 97.9 67 18 152/77 (102) 96 01/23/19 04:00 97.6 58 17 159/78 (105) 96 01/23/19 00:00 97.2 61 19 158/73 (101) 96 01/22/19 21:24 78 168/93 01/22/19 21:00 Room Air Room Air 01/22/19 20:17 68 18 99 Room Air 21 01/22/19 20:11 21 01/22/19 20:04 80 18 96 Room Air 21 01/22/19 20:00 97.8 78 19 168/93 (118) 96 01/22/19 16:00 97.4 69 20 147/81 (103) 99 01/22/19 15:45 67 Intake and Output 01/22/19 01/23/19 18:59 06:59 Intake Total 1380 ml 452.5 ml Output Total 1700 ml 1500 ml Balance -320 ml -1047.5 ml Intake Oral 1080 ml 240 ml IV Total 300 ml 212.5 ml Output Urine Total 1700 ml 1500 ml Laboratory Tests 01/23/19 04:40: White Blood Count 6.0, Red Blood Count 3.76L, Hemoglobin 12.6L, Hematocrit 33.6L , Mean Corpuscular Volume 89, Mean Corpuscular Hemoglobin 33.4H, Mean Corpuscular Hemoglobin Concent 37.4H, Red Cell Distribution Width 16.3H, Platelet Count 108L, Mean Platelet Volume 7.2, Neutrophils (%) (Auto) 59.4, Lymphocytes (%) (Auto) 32.6, Monocytes (%) (Auto) 6.4, Eosinophils (%) (Auto) 1.0, Basophils (%) (Auto) 0.6, Sodium Level 138, Potassium Level 4.7, Chloride Level 103, Carbon Dioxide Level 28, Anion Gap 8, Blood Urea Nitrogen 22H, Creatinine 0.9, Estimat Glomerular Filtration Rate > 60, Glucose Level 102, Calcium Level 8.9 Height (Feet): 5 Height (Inches): 8.00 Weight (Pounds): 176 Objective CV RR Lungs B Ronchi Abd SNT. BS + E No CCE Juana Henson MD Jan 23, 2019 13:34
[2019-01-23] MEDS ORDERED: Tamsulosin 0.4mg cap ORAL SCH (21:00)
--- NOTE | 2019-01-24 01:00 | Progress Note ---
DATE: 01/23/2019 SUBJECTIVE: The patient is presenting with depressed mood, anhedonia, worthlessness, and low energy. No suicidal or homicidal ideation. Compliant with medication MENTAL STATUS EXAMINATION: The patient is alert and oriented times to self, place and situation. Mood is depressed. Thought process is linear. Thought content, no suicidal or homicidal ideation. ASSESSMENT: 1. Anxiety disorder. 2. Major depressive disorder. PLAN: We will continue current medications. Provide the patient with reality orientation and supportive therapy. Amauri Lucas M.D. DR: KT JOB#: [id number] CC: [email or web address]
--- NOTE | 2019-01-24 12:22 | Discharge Summary ---
Discharge Summary Discharge Summary _ DATE OF ADMISSION: 01/18/2019 DATE OF DISCHARGE: 01/23/2019 DISCHARGED BY: Dr. Juana Henson CONSULTANTS: Dr. Amauri Tenorio BRIEF HOSPITAL COURSE: Patient is a 63-year-old male, who lives at [facility], which [facility]. His attending physician is Dr. Nahed Aguilar. He was brought in by paramedics for COPD exacerbation. The patient is a poor historian. He was admitted to [facility] in November 2018 under [facility], where he was found to have stage IIIb lung CA after lymph node biopsy done. He was supposed to start chemotherapy by Dr. Barahona on 01/21. On evaluation at the ED, blood work did not show any leukocytosis, hemoglobin and hematocrit were stable. CMP was normal. Troponin was slightly elevated to 0.060. EKG was in normal sinus rhythm with no acute changes. Chest x-ray showed hyperinflated inflation with possible right lower lobe infiltrate. Patient was noted to be have a smoker. He was given IV antibiotics and IV steroids. He was then admitted for evaluation of COPD exacerbation. He was given respiratory treatment. He was continued on board and care medications. He was given nebulizer treatment. He was started empirically on Zosyn. Blood culture showed growth of gram-positive cocci. Patient with immunocompromise state. Vancomycin was added to his regimen. ID was consulted. Patient has stage IIIb non-small cell lung CA. Per oncologist, chemotherapy to be placed on hold due to septicemia. Patient has history of atrial fibrillation status post ablation several years ago. Rhythm strips on telemetry was stable. Echocardiogram showed normal LV function. He was given metoprolol and Norvasc for hypertension. He has history of depression and anxiety. He was started on Zoloft 50 mg every morning. He was eventually discharged back to [id number] FINAL DIAGNOSES: Sepsis r/o Staph, r/o MRSA, r/o Pneumococcal sepsis in an immunocompromised patient COPD with exacerbation Stage IIIb non-small cell lung CA Lobar pneumonia Blood culture with gram-positive cocci possibly contaminant Major depressive disorder Anxiety disorder Acute on chronic encephalopathy History of atrial flutter Diabetes Hypertension DIS[facility]ITION: [facility] DISCHARGE MEDICATIONS: Refer to Discharge Medication List. DISCHARGE INSTRUCTIONS: Follow-up in a week. I have been assigned to complete a discharge summary on this account, I was not involved with the patient's management. Cindy Cronin NP Jan 24, 2019 12:22
== END 2019-01-23 15:45 | DRG 871 ==
LOC: EDBD 19:59 → EDUNIT# 19:59 → EMR 20:16 → 2W 21:49 → EDBEDREQ 22:48 → 2E 01-20 07:45 → 3E 01-22 23:23
DX: A41.9 Sepsis, unspecified organism (principal); J18.9 Pneumonia, unspecified organism; J44.0 Chronic obstructive pulmonary disease with (acute) lower respiratory infection; G93.49 Other encephalopathy; C34.90 Malignant neoplasm of unspecified part of unspecified bronchus or lung; I50.32 Chronic diastolic (congestive) heart failure; J44.1 Chronic obstructive pulmonary disease with (acute) exacerbation; I45.2 Bifascicular block; F20.9 Schizophrenia, unspecified; E11.9 Type 2 diabetes mellitus without complications; I25.10 Atherosclerotic heart disease of native coronary artery without angina pectoris; F31.9 Bipolar disorder, unspecified; F41.9 Anxiety disorder, unspecified; R09.02 Hypoxemia; Z79.01 Long term (current) use of anticoagulants; Z79.4 Long term (current) use of insulin; F17.200 Nicotine dependence, unspecified, uncomplicated
CPT/HCPCS: 36415; 71045; 80048; 80053; 80202; 82248; 82962; 83605; 83735; 84484; 85007; 85025; 85610; 85730; 87040; 87070; 87081; 87181; 87205; 93005; 93306; 94640; 94664; 96365; 96375; 99285; J1815; J2405; J7620

== ENCOUNTER 2019-09-30 10:56 | Inpatient (IN) | payer MEDICARE, MEDICAID ==
[~2019-09-30] VITALS: Ht 172.7 cm; Wt 90.9 kg
[2019-09-30 11:00] VITALS: BP 159/94
--- NOTE | 2019-09-30 11:00 | NUR ---
ED Nurse Note: Pt [facility] from [facility] c/o SOB and wheezing x2 days ago and got worsen today. As per patient, he is taking his inhaler but doesnt help him. Pt is noted with bilateral eye swelling. Has hx of a-flutter. Pt is @4L/min via nc, 98%. Pt placed on playground monitor.
--- NOTE | 2019-09-30 11:05 | NUR ---
ED Nurse Note: ERMD at bedside.
[2019-09-30] MEDS ORDERED: ZOLOFT50 MG ORAL (11:06)
[2019-09-30] MEDS ORDERED: LIPITOR20 MG ORAL (11:06)
[2019-09-30] MEDS ORDERED: RISPERDAL2 MG ORAL (11:06)
--- NOTE | 2019-09-30 11:07 | NUR ---
ED Nurse Note: IV line established. Blood specimen collected and sent to lab.
--- NOTE | 2019-09-30 11:10 | NUR ---
ED Nurse Note: RT at bedside for breathing tx and ABG.
--- NOTE | 2019-09-30 11:11 | Emergency Room Report ---
History of Present Illness General Chief Complaint: Dyspnea/Respdistress Source: Patient Present Illness HPI Disclaimer: Please note that this report is being documented using DRAGON technology. This can lead to erroneous entry secondary to incorrect interpretation by the dictating instrument. HPI: 63-year-old male with a history of A. fib/flutter status post ablation, active lung cancer undergoing chemo with planned radiation soon (Dr. Hernandes), COPD, former smoker, hypertension, hyperlipidemia and diabetes presents for evaluation of shortness of breath. Worsening over the past few days. He presents from his facility by EMS who found him hypoxic at 88%. Improved after breathing treatment. Notes a progressive and worsening cough without fever. Compliant with his albuterol inhalers. Noticed worsening shortness of breath. Also complained of orbital puffiness over the past few days. Denies ocular pain , discharge, vision changes, changes in ex ocular movements. PMH: Hypertension, hyperlipidemia, diabetes, atrial fib/flutter status post ablation, lung cancer PSH: Cardiac ablation, appendectomy Allergies: None Social Hx: Former smoker Allergies: Coded Allergies: No Known Allergies (Unverified , 01/18/19) Nursing Documentation-PMH Past Medical History: No History, Except For Hx Cardiac Problems: Yes - heart ablation in January 2017, A-flutter Hx Hypertension: Yes Hx Pacemaker: No Hx Asthma: No Hx COPD: Yes Hx Diabetes: Yes Hx Cancer: Yes - h/o lung Ca Hx Gastrointestinal Problems: Yes - Abd hernia Hx Dialysis: No Hx Neurological Problems: No Hx Cerebrovascular Accident: No Hx Seizures: No Review of Systems All Other Systems: negative except mentioned in HPI Physical Exam Vital Signs Date Time Temp Pulse Resp B/P (MAP) Pulse Ox O2 Delivery O2 Flow Rate FiO2 09/30/19 10:52 98.1 120 20 180/92 (121) 88 Room Air General: Awake and alert, no acute distress HEENT: NC/AT. EOMI. PERRLA. No edema, ecchymosis or exudate. Sclera are white without injection. No restriction extraocular movements, no entrapment. There is edema of the upper and lower lids without erythema, warmth or signs of cellulitis. Neck: Supple, trachea midline Chest Wall: No tenderness, no deformity Cardiovascular: Tachycardic. S1 and S2 normal. No murmur appreciated Resp: Increased work of breathing. Intermittent cough. Bilateral expiratory wheezes at the bases with faint crackles as well Abdomen: Abdomen is soft, nondistended. Nontender Skin: Intact. No abrasions, laceration or rash over the exposed skin MSK: Normal tone and bulk. Moving all extremities. No obvious deformity. Neuro: Awake and alert. Mentating appropriately. Procedures Critical Care Time Critical Care Time Total critical care time: Approximately 45 minutes Due to a high probability of clinically significant, life threatening deterioration, the patient required the highest level of preparedness to intervene emergently and I personally spent this critical care time directly and personally managing the patient. This critical care time included obtaining a history, examining the patient, pulse oximetry, ordering and reviewing studies , ordering treatments, evaluating response to treatment and updating management plan as needed, frequent reassessment and discussion with other providers as well as arranging for ultimate disposition. This critical to care time was performed to assess and manage the high probability of life-threatening deterioration that could result in multiorgan failure. This critical care time is separate from the separately billable procedures and treating other patients. Medical Decision Making Diagnostic Impression: Primary Impression: Atrial flutter Additional Impressions: Lung cancer Hypoxia Pleural effusion COPD exacerbation ER Course 63-year-old male history of COPD and active lung cancer status post chemotherapy but has not yet started radiation presenting for evaluation shortness of breath over the past 2 days as well as facial edema. Differential includes was not limited to COPD exacerbation, asthma exacerbation, bronchitis, pneumonia, viral syndrome, allergic reaction, upper respiratory infection. Patient remains wheezy and is tachycardic. Initial EKG shows rapid atrial flutter with a 2-1 conduction as well as bifascicular block. Patient will require hospitalization. Will treat with IV steroids, for continued breathing treatments and draw broad labs and order a chest x-ray. Oxygenation improving after breathing treatment but still saturating around 90% room air. Laboratory Tests Test 09/30/19 11:05 09/30/19 11:23 White Blood Count 9.1 K/UL (4.8-10.8) Red Blood Count 5.32 M/UL (4.70-6.10) Hemoglobin 16.5 G/DL (14.2-18.0) Hematocrit 45.9 % (42.0-52.0) Mean Corpuscular Volume 86 FL (80-99) Mean Corpuscular Hemoglobin 31.1 PG (27.0-31.0) H Mean Corpuscular Hemoglobin Concent 36.1 G/DL (32.0-36.0) H Red Cell Distribution Width 17.6 % (11.6-14.8) H Platelet Count 162 K/UL (150-450) Mean Platelet Volume 4.9 FL (6.5-10.1) L Neutrophils (%) (Auto) 72.8 % (45.0-75.0) Lymphocytes (%) (Auto) 16.9 % (20.0-45.0) L Monocytes (%) (Auto) 5.3 % (1.0-10.0) Eosinophils (%) (Auto) 0.4 % (0.0-3.0) Basophils (%) (Auto) 4.6 % (0.0-2.0) H Sodium Level 141 MMOL/L (136-145) Potassium Level 4.7 MMOL/L (3.5-5.1) Chloride Level 102 MMOL/L (98-107) Carbon Dioxide Level 33 MMOL/L (21-32) H Anion Gap 6 mmol/L (5-15) Blood Urea Nitrogen 24 mg/dL (7-18) H Creatinine 1.0 MG/DL (0.55-1.30) Estimate Glomerular Filtration Rate > 60 mL/min (>60) Glucose Level 133 MG/DL (74-106) H Calcium Level 9.1 MG/DL (8.5-10.1) Total Bilirubin 1.2 MG/DL (0.2-1.0) H Direct Bilirubin 0.3 MG/DL (0.0-0.3) Aspartate Amino Transferase (AST) 21 U/L (15-37) Alanine Aminotransferase (ALT) 38 U/L (12-78) Alkaline Phosphatase 84 U/L (46-116) Troponin I 0.058 ng/mL (0.000-0.056) Pro-B-Type Natriuretic Peptide 1608 pg/mL (0-125) H Total Protein 6.7 G/DL (6.4-8.2) Albumin 3.6 G/DL (3.4-5.0) Globulin 3.1 g/dL Albumin/Globulin Ratio 1.2 (1.0-2.7) Arterial Blood pH 7.340 (7.350-7.450) Arterial Blood Partial Pressure CO2 60.5 mmHg (35.0-45.0) *H Arterial Blood Partial Pressure O2 63.3 mmHg (75.0-100.0) L Arterial Blood HCO3 31.9 mmol/L (22.0-26.0) H Arterial Blood Oxygen Saturation 91.2 % (95-100) L Arterial Blood Base Excess 4 (-2-2) H Edison Test Positive EKG Diagnostic Results EKG Time: 10:57 Rate: tachycardiac Other Impression Atrial flutter with 2-1 conduction. Bifascicular block. Rhythm Strip Diag. Results Rhythm Strip Time: 10:57 EP Interpretation: yes Rate: 120 Rhythm: other - Atrial flutter Chest X-Ray Diagnostic Results Chest X-Ray Diagnostic Results : Chest X-Ray Ordered: Yes # of Views/Limited/Complete: 1 View Indication: Shortness of Breath PA Xray: Interpretation reviewed Interpretation: no consolidation, no pneumothorax, other - Bilateral pleural effusions Impression: Other - Bilateral pleural effusions and vascular congestion Electronically Signed by: Electronically signed by Dr. Naga Aguilar Reevaluation Time: 12:11 Last Vital Signs Date Time Temp Pulse Resp B/P (MAP) Pulse Ox O2 Delivery O2 Flow Rate FiO2 09/30/19 10:52 98.1 120 20 180/92 (121) 88 Room Air Reevaluation Impression Initial bolus of Cardizem did not affect the patient's heart rate. We will give a second bolus at this time. Vital signs otherwise remained stable. Chest x-ray shows signs of vascular congestion and small pleural effusions. BN peptide slightly elevated as is troponin. Lasix ordered. Blood gas shows hypercapnia and slight hypoxemia. Patient saturating well on nasal cannula. He continues to receive breathing treatments and received steroids. He will be admitted to the stepdown unit. Dr. Lennon will be the admitting physician. 1330: Started patient on BiPAP because he had desaturated while sleeping. He is tolerating it well. Patient going between 120 and 100 bpm after receiving IV boluses of Cardizem and oral Cardizem. I discussed with his admitting physician whether or not on Cardizem drip should be started and we decided against it at this time. He will be transferred to the SDU for further care. Disposition: ADMITTED INPATIENT Condition: Serious Naga Aguilar MD Sep 30, 2019 11:11
[2019-09-30] MEDS ORDERED: dilTIAZem HCl 25mg/5ml Inj IVP ONE ×3 (11:15→12:45)
[2019-09-30] MEDS ORDERED: Solu-MEDROL 125mg Inj IVP ONE (11:15)
--- NOTE | 2019-09-30 11:16 | NUR ---
ED Nurse Note: Xray at beside.
[2019-09-30 11:18] LABS: BASOPHILS % (AUTO) 4.6 % (0.0-2.0); EOSINOPHILS % (AUTO) 0.4 % (0.0-3.0); HEMATOCRIT 45.9 % (42.0-52.0); HEMOGLOBIN 16.5 G/DL (14.2-18.0); LYMPHOCYTES % (AUTO) 16.9 % (20.0-45.0); MEAN CORPUSCULAR VOLUME 86 FL (80-99); MONOCYTES % (AUTO) 5.3 % (1.0-10.0); NEUTROPHILS % (AUTO) 72.8 % (45.0-75.0); PLATELET COUNT 162 K/UL (150-450); RED BLOOD COUNT 5.32 M/UL (4.70-6.10); RED CELL DISTRIBUTION WIDTH 17.6 % (11.6-14.8); WHITE BLOOD COUNT 9.1 K/UL (4.8-10.8)
[2019-09-30] MEDS ORDERED: dilTIAZem HCl 125mg/25ml Inj IVPB ONE (11:19)
[2019-09-30 11:32] LABS: ANION GAP 6 mmol/L (5-15); BLOOD UREA NITROGEN 24 mg/dL (7-18); CALCIUM 9.1 MG/DL (8.5-10.1); CARBON DIOXIDE 33 MMOL/L (21-32); CHLORIDE 102 MMOL/L (98-107); POTASSIUM 4.7 MMOL/L (3.5-5.1); SODIUM 141 MMOL/L (136-145)
[2019-09-30] MEDS: Albuterol/Ipratropium 3ml neb HHN SCH ×7 (11:34→23:46)
[2019-09-30 11:43] LABS: ALANINE AMINOTRANSFERASE 38 U/L (12-78); ALBUMIN 3.6 G/DL (3.4-5.0); ALBUMIN/GLOBULIN RATIO 1.2 (1.0-2.7); ALKALINE PHOSPHATASE 84 U/L (46-116); ASPARTATE AMINO TRANSFERASE 21 U/L (15-37); BILIRUBIN,TOTAL 1.2 MG/DL (0.2-1.0)
[2019-09-30 11:44] LABS: BILIRUBIN,DIRECT 0.3 MG/DL (0.0-0.3)
--- NOTE | 2019-09-30 11:52 | Diagnostic Imaging Report ---
Indication: Shortness of breath Technique: One view of the chest Comparison: 01/22/2019 Findings: Interim development of bilateral small pleural effusions. Interim development of bilateral mid and lower lung interstitial and airspace opacities. The heart is upper limits normal size. Impression: Bilateral basilar infiltrates versus edema Small bilateral pleural effusions
[2019-09-30] MEDS ORDERED: dilTIAZem HCl 50mg/10ml Inj IVP ONE ×2 (11:56→12:45)
[2019-09-30] MEDS ORDERED: dilTIAZem HCl 60mg tab ORAL ONE (12:45)
[2019-09-30 13:46] VITALS: BP 127/71
--- NOTE | 2019-09-30 14:16 | NUR ---
ED Nurse Note: Report given to Beatrice DALTON.
[2019-09-30 15:05] VITALS: BP 135/74
--- NOTE | 2019-09-30 15:05 | NUR ---
TRANSFER TO FLOOR: Patient transferred to SDU via gurney. Report given to Beatrice DALTON. Pt alert and oriented, verbally responsive. On BIPAP, 95%. Not in any distress. Afebrile. Sinus tachy. IV line on left AC 20g patent and intact. No skin issues. Med recon done. Swabs are sent. All belongings sent with the patient.
[2019-09-30 15:30] VITALS: BP 136/83
--- NOTE | 2019-09-30 15:30 | NUR ---
NURSE NOTES: Received report from SHA Boogie @ ER. The patient came in for a-flutter and COPD exacerbation. The patient's belongings checked with the patient and two nurses and signed by two nurses. Medical, surgical, allergy, and social history taken from the patient. Admitting EKG and medication reconciliation completed @ ER. Per patient, he does not have POLST or Advance directive. The patient has IV on L AC intact and patent. The patient is on Bipap 16/6 FiO2 30% now and will contact Dr. Armijo for further order. Will notify Dr. Espinoza regarding the patient's rhythm of sinus tachycardia and will obtain order. Will contact Dr. Ross regarding admission order. The patient's bed in the lowest position, call light in reach, and fall and aspiration precaution reinforced. IV site intact and patent. Bipap per order. The patient's skin is intact. Will continue plan of care.
--- NOTE | 2019-09-30 15:45 | Consultation ---
DATE OF CONSULTATION: 09/30/2019 PULMONARY CONSULTATION CONSULTING PHYSICIAN: Tiburcio Keith M.D. REASON FOR CONSULTATION: COPD exacerbation. HISTORY OF PRESENT ILLNESS: This 63-year-old male presents with a history of atrial fib and flutter. The patient with a history of lung cancer, undergoing chemotherapy. The patient also has COPD, former smoker. The patient presented for shortness of breath, which is worsening over the past several days. The patient also presents with associated hypoxemia. The patient received some nebulizer therapy in the emergency room. Notes cough is progressive. No fevers or chills are reported. The patient is otherwise compliant with his therapy. The patient denies any ill contacts at this time, any recent travel. Findings reviewed and discussed. I was called to assist and evaluate. Care discussed with the ER physician. Notes were reviewed. PAST MEDICAL HISTORY: Hypertension, hyperlipidemia, diabetes, atrial fib/flutter status post ablation, history of lung cancer, history of COPD, history of respiratory issues in the past, history of appendectomy. MEDICATIONS: Reviewed. ALLERGIES: Reviewed and reconciled. SOCIAL HISTORY: The patient is a past smoker. The patient does not smoke or drink. He is disabled at this time. REVIEW OF SYSTEMS: All 10 points reviewed and otherwise negative. The patient does have history of abdominal hernia. He is not dialysis dependent. He has no history of CHF. PHYSICAL EXAMINATION: GENERAL: Well-developed male, appears to be mildly obese. VITAL SIGNS: Reviewed. Heart rate is 85 to 119, blood pressure 123/77, temperature is 98, saturations 95% on 4 liters, respiratory rate 25. HEENT: Negative. Extraocular movements are grossly intact. NECK: Supple. LUNGS: With coarse breath sounds and wheezes. CARDIAC: S1, S2. Tachycardic without murmurs, rubs, or gallops. ABDOMEN: Soft, nontender, nondistended. EXTREMITIES: No cyanosis or clubbing. NEUROLOGICAL: Grossly nonfocal. LABORATORY DATA: Chest x-ray with pulmonary infiltrates. CBC fairly negative, but platelets are 162. Chemistries, BUN 24, creatinine 1. BNP 1608. Troponin 0.058. Blood gases 7.34/60/63/32. IMPRESSION: 1. Acute on chronic hypercapnia. 2. Acute on chronic respiratory failure. 3. COPD with acute exacerbation and shortness of breath. 4. History of lung cancer. 5. Hypoxemia. 6. Pleural effusion. 7. Atrial flutter with rapid ventricular rate. RECOMMENDATION: IV steroids. For now, rate control. DVT prophylaxis. Nebulizer therapy. We will monitor heart rate. Follow up fluid status and consider Lasix on an ongoing basis with noted elevated natriuretic peptide and elevated pulmonary vascular pressures on x-ray. Monitor acid-base or change in intervention. We will assist with further respiratory interventions pending re-evaluation. Tiburcio Keith M.D. DR: LIANNA JOB#: [id number] CC:
[2019-09-30 16:00] VITALS: BP 127/84
--- NOTE | 2019-09-30 16:00 | NUR ---
NURSE NOTES: Notified Dr. Espinoza regarding the patient's sinus tachycardia. Dr. Espinoza ordered Digoxin and Diltiazem. Will continue plan of care.
--- NOTE | 2019-09-30 16:30 | NUR ---
NURSE NOTES: Dr. Ross at the bedside assessed the patient. Dr. Ross gave admission orders. Will carry out the order as soon as possible. Will continue plan of care.
[2019-09-30] MEDS ORDERED: Albuterol/Ipratropium 3ml neb HHN PRN (16:45)
[2019-09-30] MEDS ORDERED: Digoxin 0.125mg tab ORAL SCH (17:00)
[2019-09-30] MEDS: metFORMIN 500mg tab ORAL SCH (17:20)
[2019-09-30] MEDS: dilTIAZem HCl 60mg tab ORAL SCH (17:23)
--- NOTE | 2019-09-30 17:30 | NUR ---
NURSE NOTES: Notified Dr. Keith regarding ABG that was done @ ER and stat ABG that Dr. Keith ordered. Per Dr. Keith, continue Bipap for now and change Bipap order to PRN and Qhs 16/6 FiO2 30% and 2L NC if the patient is off from Bipap. Dr. Keith ordered Solumedrol, breathing treatment, and oxygen therapy. Will carry out the order as soon as possible. Will continue plan of care.
--- NOTE | 2019-09-30 18:00 | NUR ---
NURSE NOTES: The patient is stable without acute distress or shortness of breath. Will continue plan of care.
--- NOTE | 2019-09-30 18:44 | Cardiology Progress Note ---
Subjective Subjective [id number] Objective Last 24 Hour Vital Signs Date Time Temp Pulse Resp B/P (MAP) Pulse Ox O2 Delivery O2 Flow Rate FiO2 09/30/19 17:30 91 09/30/19 17:23 117 136/83 09/30/19 17:20 117 09/30/19 15:15 114 23 96 30 09/30/19 15:15 114 23 96 Bi-Pap 30 09/30/19 15:05 98.0 115 20 135/74 95 Bi-pap 30 09/30/19 15:05 98.0 115 20 135/74 95 Bi-pap 30 09/30/19 13:46 98.2 119 22 127/71 96 Bi-pap 30 09/30/19 13:35 110 21 95 30 09/30/19 12:56 119 143/77 09/30/19 12:54 119 143/77 09/30/19 11:58 121 136/77 09/30/19 11:55 121 23 92 09/30/19 11:34 120 25 93 Nasal Cannula 4.0 36 09/30/19 11:20 121 154/94 09/30/19 11:00 98.0 121 21 159/94 98 Nasal Cannula 4.0 09/30/19 11:00 121 21 Nasal Cannula 4.0 09/30/19 10:52 98.1 120 20 180/92 (121) 88 Room Air Laboratory Tests Test 09/30/19 11:05 09/30/19 11:23 09/30/19 17:06 White Blood Count 9.1 K/UL (4.8-10.8) Red Blood Count 5.32 M/UL (4.70-6.10) Hemoglobin 16.5 G/DL (14.2-18.0) Hematocrit 45.9 % (42.0-52.0) Mean Corpuscular Volume 86 FL (80-99) Mean Corpuscular Hemoglobin 31.1 PG (27.0-31.0) H Mean Corpuscular Hemoglobin Concent 36.1 G/DL (32.0-36.0) H Red Cell Distribution Width 17.6 % (11.6-14.8) H Platelet Count 162 K/UL (150-450) Mean Platelet Volume 4.9 FL (6.5-10.1) L Neutrophils (%) (Auto) 72.8 % (45.0-75.0) Lymphocytes (%) (Auto) 16.9 % (20.0-45.0) L Monocytes (%) (Auto) 5.3 % (1.0-10.0) Eosinophils (%) (Auto) 0.4 % (0.0-3.0) Basophils (%) (Auto) 4.6 % (0.0-2.0) H Sodium Level 141 MMOL/L (136-145) Potassium Level 4.7 MMOL/L (3.5-5.1) Chloride Level 102 MMOL/L (98-107) Carbon Dioxide Level 33 MMOL/L (21-32) H Anion Gap 6 mmol/L (5-15) Blood Urea Nitrogen 24 mg/dL (7-18) H Creatinine 1.0 MG/DL (0.55-1.30) Estimat Glomerular Filtration Rate > 60 mL/min (>60) Glucose Level 133 MG/DL (74-106) H Calcium Level 9.1 MG/DL (8.5-10.1) Total Bilirubin 1.2 MG/DL (0.2-1.0) H Direct Bilirubin 0.3 MG/DL (0.0-0.3) Aspartate Amino Transf (AST/SGOT) 21 U/L (15-37) Alanine Aminotransferase (ALT/SGPT) 38 U/L (12-78) Alkaline Phosphatase 84 U/L (46-116) Troponin I 0.058 ng/mL (0.000-0.056) Pro-B-Type Natriuretic Peptide 1608 pg/mL (0-125) H Total Protein 6.7 G/DL (6.4-8.2) Albumin 3.6 G/DL (3.4-5.0) Globulin 3.1 g/dL Albumin/Globulin Ratio 1.2 (1.0-2.7) Arterial Blood pH 7.340 (7.350-7.450) 7.438 (7.350-7.450) Arterial Blood Partial Pressure CO2 60.5 mmHg (35.0-45.0) *H 48.2 mmHg (35.0-45.0) H Arterial Blood Partial Pressure O2 63.3 mmHg (75.0-100.0) L 59.4 mmHg (75.0-100.0) L Arterial Blood HCO3 31.9 mmol/L (22.0-26.0) H 31.9 mmol/L (22.0-26.0) H Arterial Blood Oxygen Saturation 91.2 % (95-100) L 91.3 % (95-100) L Arterial Blood Base Excess 4 (-2-2) H 6.3 (-2-2) H Edison Test Positive Positive Microbiology Date/Time Source Procedure Growth Status 09/30/19 12:30 Rectum Received Annemarie Espinoza MD Sep 30, 2019 18:44
--- NOTE | 2019-09-30 19:30 | NUR ---
HAND-OFF: Report given to SHA Watts. The patient is stable without acute distress or shortness of breath. The patient's bed in the lowest position, call light in reach, and fall and aspiration precaution reinforced. IV site intact and patent. The patient is on Bipap now. Endorsed plan of care.
--- NOTE | 2019-09-30 19:40 | NUR ---
NURSE NOTES: Report received from CONNER LOFTON RN .Patient is sleeping in bed comfortably. On BiPAP 16/6 30% with good seal around mask, no leaks. No respiratory distress. ST with HR of 104-118 on the monitor.VSS, Afebrile.no facial grimace or moaning. bed locked in low position. bed alarm on. call light in reach.will continue to monitor patient closely.
[2019-09-30] MEDS ORDERED: Azithromycin 250mg tab ORAL SCH ×2 (20:30→23:00)
--- NOTE | 2019-09-30 20:30 | Consultation ---
DATE OF CONSULTATION: 09/30/2019 CARDIOLOGY CONSULTATION CONSULTING PHYSICIAN: Annemarie Espinoza M.D. PATIENT ID: This is a 63-year-old male. REASON FOR EVALUATION: Atrial flutter. HISTORY OF PRESENT ILLNESS: The patient is a 63-year-old male with severe COPD, multiple admissions to [facility] and now he presented with exacerbation of his COPD with shortness of breath. He is on BiPAP at present time. He came to the emergency department. The patient also was found to have atrial flutter, which he had in the past and it was ablated; however, now it came back unfortunately. Talking to the patient, he is very unreliable historian and he denies any chest pain or palpitations and he also gets very easily emotionally upset due to his psychiatric problems. PAST MEDICAL HISTORY: Significant for hypertension, glucose intolerance, COPD, atrial flutter, and schizophrenia. SOCIAL HISTORY: He lives in a half way house. The patient claims he takes his medications, but I do not know if that is true. The patient used to smoke heavily, but now he does not according to the patient and through his chart. REVIEW OF SYSTEMS: Otherwise, his review of systems is unremarkable. However, another important problem which he has, he has history of lung cancer and it is not clear whether he was treated with chemotherapy or he was not because I do not have any findings of that. SURGICAL HISTORY: History of appendectomy. MEDICATIONS: Reviewed. The patient does not have any fever. No vomiting. No weight loss, but he has severe shortness of breath. PHYSICAL EXAMINATION: VITAL SIGNS: The man is on the BiPAP. His blood pressure was 130/70, heart rate is 95 on BiPAP 30%, and his heart rate is between 115 to 120 beats per minute. HEENT: PERRLA. EOMI. NECK: Supple. Jugular venous pressure is elevated up to 12 cm. He has brisk carotid upstrokes. No thyromegaly. LUNGS: He has crackles and some rales bilaterally. HEART: Regular and there is rapid rate with occasional S4. ABDOMEN: Soft, distended. No organomegaly determined. Bowel sounds are present. EXTREMITIES: Lower extremities, moderate edema bilaterally. NEUROLOGIC: He moves all extremities. PSYCHIATRIC: He is upset and agitated. DIAGNOSTIC AND LABORATORY DATA: His ECG revealed right bundle and left anterior hemiblock with atrial flutter 2:1. His laboratories otherwise, troponin was elevated to 0.058. His proBNP was 1608. His carbon dioxide was 33 and his creatinine was 1. His hematology is unremarkable besides his hemoglobin was 16.5. His chest x-ray was done and it revealed bilateral infiltrates and small bilateral pleural effusion. IMPRESSION AND RECOMMENDATION: The patient is in respiratory distress, most likely due to combination of CHF and COPD. We will try to slow his heart rate with diltiazem and digoxin. The patient is back in atrial flutter despite of being ablated and that might contribute to his respiratory distress. He already got a Lasix. He is going to have Lasix daily. We are going to follow his electrolytes tomorrow. I am going to give him a calcium channel charlie, negative chronotropic which is diltiazem and see if that affects his heart rate. I am reluctant to add amiodarone due to him having severe COPD and to avoid pulmonary toxicity. Also, I added digoxin and we will see if that will help with the rate control. The use of anticoagulation is important one; however, I doubt that this patient is a good candidate for anticoagulation and finally I do not see any records of his treatment of his lung cancer. I did not find it at [facility] either, so the condition of his lung cancer is important to find out and it was not done at [facility]. I am going to discuss with Dr. Henson. Thank you for your consultation. Annemarie Espinoza M.D. DR: LINDA JOB#: [id number] CC: [id number]
[2019-09-30] MEDS ORDERED: Solu-MEDROL 125mg Inj IVP SCH (21:00)
[2019-09-30] MEDS ORDERED: Heparin 5000 units/ml inj SUBQ SCH (21:00)
--- NOTE | 2019-09-30 21:30 | History and Physical Report ---
DATE OF ADMISSION: 09/30/2019 CHIEF COMPLAINT/REASON FOR HOSPITALIZATION: The patient is a 63-year-old man admitted with shortness of breath, CHF, rapid atrial flutter. HISTORY OF PRESENT ILLNESS: The patient has a history of COPD, arrhythmias, congestive heart failure. He was also was found to have stage IIIB lung cancer after lymph node biopsy in the summer of 2018 and has received some chemotherapy. He has had paroxysmal atrial fibrillation and prior ablation and bifascicular AV block. There is a history of diastolic congestive heart failure, coronary artery calcifications, bipolar disease versus schizophrenia, diabetes. ALLERGIES: None known. MEDICATIONS: Prior to admission medications include amlodipine, atorvastatin, metformin, Risperdal, sertraline, SOCIAL HISTORY: He is a current cigarette smoker. Denies alcohol or drugs. Lives in [facility]. SYSTEM REVIEW: HEAD, EYES, EARS, NOSE, AND THROAT: Vision and hearing is good. ENDOCRINE: History of diabetes. No thyroid disease. PULMONARY: History of recurrent episodes of shortness of breath and COPD. CARDIAC: History of arrhythmias. Denies chest pain. GASTROINTESTINAL: Denies gastrointestinal bleeding or ulcers. No abdominal pain. GENITOURINARY: No dysuria, hematuria, or kidney stones. NEUROLOGIC: No CVA or seizures. PHYSICAL EXAMINATION: GENERAL: The patient is alert, seen on arrival to the floor. He is on BiPAP. VITAL SIGNS: Pulse 114, respirations 22, blood pressure 136/83, pulse ox 96% on BiPAP, temperature 98. HEAD, EYES, EARS, NOSE, AND THROAT: Sclerae are nonicteric. Ocular motions intact in all directions. Oral mucosa is moist. NECK: No adenopathy. LUNGS: Bilateral rhonchi. He is in mild distress. HEART: Irregularly regular and tachycardic. I hear no murmur. ABDOMEN: Soft without organomegaly. EXTREMITIES: No edema. NEUROLOGIC: He is alert and responsive. Cranial nerves are intact. He moves all extremities. PSYCHIATRIC: He appears anxious. LABORATORY AND DIAGNOSTIC DATA: Chest x-ray shows bilateral small pleural effusions and mid lower lung interstitial and airspace opacities. Thyroid is upper size of normal. IMPRESSION: 1. Congestive heart failure, acute on chronic with history of diastolic disease. 2. Chronic obstructive pulmonary disease with exacerbation 3. Atrial flutter with rapid rate. 4. Adult-onset diabetes. 5. COPD. 6. Elevated troponin, 0.58. PLAN: The patient will be diuresed. Continue on Pulmonary care, nebulizer treatments. Monitoring arrhythmias and antiarrhythmic therapy as per Cardiology. The patient's condition is complex with multiorgan Detailed orders given. Jaden Ross M.D. DR: Lily JOB#: [id number] CC:
[2019-09-30] MEDS ORDERED: cefTRIAXone 1 GM in D5W 55 ML IVPB SCH (22:00)
--- NOTE | 2019-09-30 22:15 | NUR ---
HAND-OFF: Report given to SHA HOWELL.NO APPARENT DISTRESS. KEEP PATIENT COMFORTABLE.
--- NOTE | 2019-09-30 22:20 | NUR ---
NURSE NOTES: Received report from SHA Watts, pt. in bed awake-appears to be A/O x's 3- able to make needs known, no signs or symptoms of acute cardiac or respiratory distress noted, bed alarm on, side rails up x's 3 and safety brakes engaged, pt. appears to be tolerating current BIPAP settings 16/6 Fio2 at 30%- no distress noted, per endorsement- pt. has straight cath at bedside and uses it when he needs to urinate, left AC 20G IV Intact and patent, safety measures continued, will continue with plan of care. Also per endorsement to pass 2100 medications as they were not passed.
[2019-09-30] MEDS: NovoLOG Insulin Flexpen SUBQ SCH (22:24)
[2019-09-30] MEDS: cefTRIAXone 1 GM in D5W 55 ML IVPB SCH (22:45)
[2019-09-30] MEDS: Heparin 5000 units/ml inj SUBQ SCH (22:49)
[2019-09-30] MEDS: Solu-MEDROL 125mg Inj IVP SCH (22:50)
[2019-10-01] VITALS: BP 119/74
[2019-10-01] MEDS: dilTIAZem HCl 60mg tab ORAL SCH ×4 (00:10→17:30)
[2019-10-01] MEDS: Albuterol/Ipratropium 3ml neb HHN SCH ×5 (03:40→23:00)
[2019-10-01 04:00] VITALS: BP 127/75
[2019-10-01] MEDS: NovoLOG Insulin Flexpen SUBQ SCH ×5 (05:59→21:11)
[2019-10-01 06:12] LABS: HEMATOCRIT 46.3 % (42.0-52.0); HEMOGLOBIN 15.5 G/DL (14.2-18.0); MEAN CORPUSCULAR VOLUME 88 FL (80-99); PLATELET COUNT 166 K/UL (150-450); RED BLOOD COUNT 5.28 M/UL (4.70-6.10); RED CELL DISTRIBUTION WIDTH 18.9 % (11.6-14.8); WHITE BLOOD COUNT 7.8 K/UL (4.8-10.8)
[2019-10-01 06:13] LABS: ANION GAP 12 mmol/L (5-15); BLOOD UREA NITROGEN 28 mg/dL (7-18); CARBON DIOXIDE 28 MMOL/L (21-32); CHLORIDE 100 MMOL/L (98-107); POTASSIUM 4.8 MMOL/L (3.5-5.1); SODIUM 140 MMOL/L (136-145)
--- NOTE | 2019-10-01 07:12 | NUR ---
HAND-OFF: Report given to SHA Barron- pt. remains stable and no signs of distress noted- aware to f/u on abnormal am labs.
--- NOTE | 2019-10-01 07:20 | NUR ---
NURSE NOTES: Received repot from SHA Henriquez. The patient is resting on the bed without acute distress or shortness of breath. The patient's bed in the lowest position, call light in reach, and fall and aspiration precaution reinforced. IV site intact and patent. The patient is on Bipap for Qhs. Will follow up labs. Will continue plan of care.
[2019-10-01 08:00] VITALS: BP 123/66
--- NOTE | 2019-10-01 09:05 | Pulmonology Progress Note ---
Assessment/Plan Assessment/Plan IMPRESSION: 1. Acute on chronic hypercapnia. 2. Acute on chronic respiratory failure. 3. COPD with acute exacerbation and shortness of breath. 4. History of lung cancer. 5. Hypoxemia. 6. Pleural effusion. 7. Atrial flutter with rapid ventricular rate. PLAN rate control cards noted IV steroids neb therapy oxygen BIPAP as needed monitor in RICARDO still guarded care noted repeat imaging as needed impression, plan, and exam edited and reviewed in detail care discussed with RN Subjective Allergies: Coded Allergies: No Known Allergies (Unverified , 01/18/19) Subjective care noted off BIPAP on oxygen improved respiratory status Objective Last 24 Hour Vital Signs Date Time Temp Pulse Resp B/P (MAP) Pulse Ox O2 Delivery O2 Flow Rate FiO2 10/01/19 06:01 116 127/75 10/01/19 05:30 80 19 93 30 10/01/19 04:00 Bi-pap 10/01/19 04:00 30 10/01/19 04:00 98.5 116 18 127/75 (92) 94 10/01/19 03:56 116 10/01/19 03:00 89 21 92 Bi-Pap 30 94 17 97 30 10/01/19 01:08 88 19 94 30 10/01/19 00:10 120 119/74 10/01/19 00:00 30 10/01/19 00:00 97.8 115 20 119/74 (89) 95 10/01/19 00:00 Bi-pap 09/30/19 23:47 120 23 91 30 09/30/19 23:27 119 09/30/19 22:15 30 09/30/19 21:05 117 18 93 30 09/30/19 20:40 Bi-Pap 09/30/19 20:00 117 09/30/19 19:44 92 Bi-Pap 30 09/30/19 19:38 107 23 91 Bi-Pap 30 109 21 96 30 09/30/19 17:30 91 09/30/19 17:23 117 136/83 09/30/19 17:20 117 09/30/19 16:00 Bi-pap 09/30/19 16:00 30 09/30/19 16:00 98.7 119 20 127/84 (98) 96 09/30/19 16:00 120 09/30/19 15:30 97.3 120 20 136/83 (100) 97 09/30/19 15:15 114 23 96 30 09/30/19 15:15 114 23 96 Bi-Pap 30 09/30/19 15:05 98.0 115 20 135/74 95 Bi-pap 30 09/30/19 15:05 98.0 115 20 135/74 95 Bi-pap 30 09/30/19 13:46 98.2 119 22 127/71 96 Bi-pap 30 09/30/19 13:35 110 21 95 30 09/30/19 12:56 119 143/77 09/30/19 12:54 119 143/77 09/30/19 11:58 121 136/77 09/30/19 11:55 121 23 92 09/30/19 11:34 120 25 93 Nasal Cannula 4.0 36 09/30/19 11:20 121 154/94 09/30/19 11:00 98.0 121 21 159/94 98 Nasal Cannula 4.0 09/30/19 11:00 121 21 Nasal Cannula 4.0 09/30/19 10:52 98.1 120 20 180/92 (121) 88 Room Air Intake and Output 09/30/19 10/01/19 19:00 07:00 Intake Total 60 ml Output Total 500 ml 0 ml Balance -440 ml 0 ml Intake Oral 60 ml Output Urine Total 500 ml 0 ml # Voids 2 Objective GENERAL: Well-developed male, appears to be more comfortable HEENT: Negative. Extraocular movements are grossly intact. NECK: Supple. LUNGS: With coarse breath sounds and reduced wheezes. CARDIAC: S1, S2. RR tachy without murmurs, rubs, or gallops. ABDOMEN: Soft, nontender, nondistended. EXTREMITIES: No cyanosis or clubbing. NEUROLOGICAL: Grossly nonfocal. Microbiology Date/Time Source Procedure Growth Status 09/30/19 12:30 Rectum Received Laboratory Tests 09/30/19 11:05: White Blood Count 9.1, Red Blood Count 5.32, Hemoglobin 16.5, Hematocrit 45.9, Mean Corpuscular Volume 86, Mean Corpuscular Hemoglobin 31.1H, Mean Corpuscular Hemoglobin Concent 36.1H, Red Cell Distribution Width 17.6H, Platelet Count 162 , Mean Platelet Volume 4.9L, Neutrophils (%) (Auto) 72.8, Lymphocytes (%) (Auto ) 16.9L, Monocytes (%) (Auto) 5.3, Eosinophils (%) (Auto) 0.4, Basophils (%) ( Auto) 4.6H, Sodium Level 141, Potassium Level 4.7, Chloride Level 102, Carbon Dioxide Level 33H, Anion Gap 6, Blood Urea Nitrogen 24H, Creatinine 1.0, Estimat Glomerular Filtration Rate > 60, Glucose Level 133H, Calcium Level 9.1, Total Bilirubin 1.2H, Direct Bilirubin 0.3, Aspartate Amino Transf (AST/SGOT) 21 , Alanine Aminotransferase (ALT/SGPT) 38, Alkaline Phosphatase 84, Troponin I 0.058H, Pro-B-Type Natriuretic Peptide 1608H, Total Protein 6.7, Albumin 3.6, Globulin 3.1, Albumin/Globulin Ratio 1.2 09/30/19 11:23: Arterial Blood pH 7.340L, Arterial Blood Partial Pressure CO2 60.5*H, Arterial Blood Partial Pressure O2 63.3L, Arterial Blood HCO3 31.9H, Arterial Blood Oxygen Saturation 91.2L, Arterial Blood Base Excess 4H, Edison Test Positive 09/30/19 17:06: Arterial Blood pH 7.438, Arterial Blood Partial Pressure CO2 48.2H, Arterial Blood Partial Pressure O2 59.4L, Arterial Blood HCO3 31.9H, Arterial Blood Oxygen Saturation 91.3L, Arterial Blood Base Excess 6.3H, Edison Test Positive 10/01/19 05:20: White Blood Count 7.8, Red Blood Count 5.28, Hemoglobin 15.5, Hematocrit 46.3, Mean Corpuscular Volume 88, Mean Corpuscular Hemoglobin 29.3, Mean Corpuscular Hemoglobin Concent 33.4, Red Cell Distribution Width 18.9H, Platelet Count 166, Mean Platelet Volume 7.3, Neutrophils (%) (Auto) , Lymphocytes (%) (Auto) , Monocytes (%) (Auto) , Eosinophils (%) (Auto) , Basophils (%) (Auto) , Sodium Level 140, Potassium Level 4.8, Chloride Level 100, Carbon Dioxide Level 28, Anion Gap 12, Blood Urea Nitrogen 28H, Creatinine 1.0, Estimat Glomerular Filtration Rate > 60, Glucose Level 199H, Calcium Level 9.0, Troponin I 0.060H, Neutrophils % (Manual) [Pending], Lymphocytes % (Manual) [Pending], Platelet Estimate [Pending], Platelet Morphology [Pending] Current Medications Medications (Trade) Dose Ordered Sig/Jean Route PRN Reason Start Time Stop Time Status Last Admin Dose Admin Acetaminophen (Tylenol) 500 mg Q4H PRN ORAL Mild Pain/Temp > 100.5 09/30/19 16:30 10/30/19 16:29 Albuterol/ Ipratropium (Albuterol/ Ipratropium) 3 ml Q4HRT HHN 09/30/19 19:00 10/05/19 18:59 10/01/19 03:40 Albuterol/ Ipratropium (Albuterol/ Ipratropium) 3 ml Q4HRT PRN HHN Shortness of breath 09/30/19 16:45 10/05/19 16:44 Aspirin (ASA) 81 mg DAILY ORAL 10/01/19 09:00 10/31/19 08:59 Atorvastatin Calcium (Lipitor) 20 mg DAILY ORAL 10/01/19 09:00 10/31/19 08:59 Azithromycin (Zithromax) 250 mg DAILY ORAL 10/01/19 09:00 10/08/19 08:59 Azithromycin (Zithromax) 500 mg ONCE ORAL 09/30/19 23:00 10/07/19 22:59 09/30/19 22:51 Ceftriaxone Sodium 1 gm/ Dextrose 55 ml @ 110 mls/hr Q24H IVPB 09/30/19 23:00 10/07/19 22:59 09/30/19 22:45 Dextrose (Dextrose 50%) 25 ml Q30M PRN IV Hypoglycemia 09/30/19 20:15 10/30/19 20:14 Dextrose (Dextrose 50%) 50 ml Q30M PRN IV Hypoglycemia 09/30/19 20:15 10/30/19 20:14 Diltiazem HCl (Cardizem) 60 mg EVERY 6 HOURS ORAL 09/30/19 18:00 10/30/19 17:59 10/01/19 06:01 Furosemide (Lasix) 40 mg EVERY 12 HOURS IV 09/30/19 23:00 10/30/19 22:59 09/30/19 22:50 Heparin Sodium (Porcine) (Heparin 5000 units/ml) 5,000 units EVERY 12 HOURS SUBQ 09/30/19 23:00 10/30/19 22:59 09/30/19 22:49 Insulin Aspart (NovoLOG) BEFORE MEALS AND HS SUBQ 09/30/19 21:00 10/30/19 20:59 10/01/19 06:12 Metformin HCl (Glucophage) 500 mg BID ORAL 09/30/19 18:00 10/30/19 17:59 09/30/19 17:20 Methylprednisolone Sodium Succinate (Solu-MEDROL) 60 mg EVERY 12 HOURS IVP 09/30/19 23:00 10/30/19 22:59 09/30/19 22:50 Potassium Chloride (K-Dur) 40 meq DAILY ORAL 09/30/19 23:00 10/30/19 22:59 09/30/19 22:50 Prednisone (predniSONE) 10 mg DAILY ORAL 10/01/19 09:00 10/31/19 08:59 Risperidone (RisperDAL) 2 mg BID ORAL 09/30/19 18:00 10/30/19 17:59 09/30/19 17:21 Sertraline HCl (Zoloft) 50 mg DAILY ORAL 10/01/19 09:00 10/31/19 08:59 Spironolactone (Aldactone) 25 mg DAILY ORAL 10/01/19 09:00 10/31/19 08:59 Tiburcio Keith MD Oct 01, 2019 09:05
[2019-10-01] MEDS: Spironolactone 25mg tab ORAL SCH (09:31)
[2019-10-01] MEDS: Solu-MEDROL 125mg Inj IVP SCH ×2 (09:31→21:10)
[2019-10-01] MEDS: metFORMIN 500mg tab ORAL SCH ×2 (09:32→17:30)
[2019-10-01] MEDS: Aspirin Baby 81mg ORAL SCH (09:32)
[2019-10-01] MEDS: Atorvastatin 20mg tab ORAL SCH (09:32)
[2019-10-01] MEDS: Sertraline 50mg tab ORAL SCH (09:33)
[2019-10-01] MEDS: Azithromycin 250mg tab ORAL SCH (09:33)
[2019-10-01] MEDS: Heparin 5000 units/ml inj SUBQ SCH (09:34)
--- NOTE | 2019-10-01 10:00 | NUR ---
NURSE NOTES: The patient is on 2L NC now and saturation is 93% now. The patient is resting on the bed. Will continue plan of care.
[2019-10-01 12:00] VITALS: BP 116/63
--- NOTE | 2019-10-01 12:00 | NUR ---
NURSE NOTES: Paged Dr. Espinoza regarding tachycardia upto 120s. No new order yet. Will continue plan of care.
--- NOTE | 2019-10-01 12:54 | General Progress Note ---
Assessment/Plan Problem List: (1) CHF exacerbation ICD Codes: I50.9 - Heart failure, unspecified SNOMED: 627468349, [id number] (2) Atrial flutter ICD Codes: I48.92 - Unspecified atrial flutter SNOMED: 5661313 (3) COPD exacerbation ICD Codes: J44.1 - Chronic obstructive pulmonary disease with (acute) exacerbation SNOMED: 106729442 (4) Lung cancer ICD Codes: C34.90 - Malignant neoplasm of unspecified part of unspecified bronchus or lung SNOMED: 638798086 Assessment/Plan: diuresing, given dig and diltiazem steroids , hhn, insulin ss Subjective Constitutional: Reports: weakness HEENT: Reports: no symptoms Cardiovascular: Reports: irregular heart rate Respiratory: Reports: cough, shortness of breath Gastrointestinal/Abdominal: Reports: no symptoms Genitourinary: Reports: no symptoms Neurologic/Psychiatric: Reports: no symptoms Endocrine: Reports: no symptoms Hematologic/Lymphatic: Reports: no symptoms Allergies: Coded Allergies: No Known Allergies (Unverified , 01/18/19) Objective Last 24 Hour Vital Signs Date Time Temp Pulse Resp B/P (MAP) Pulse Ox O2 Delivery O2 Flow Rate FiO2 10/01/19 12:28 92 32 10/01/19 12:25 92 Nasal Cannula 3.0 32 10/01/19 11:56 121 116/65 10/01/19 08:00 2.0 10/01/19 08:00 98.7 121 18 123/66 (85) 93 10/01/19 08:00 119 10/01/19 08:00 Nasal Cannula 2.0 10/01/19 06:01 116 127/75 10/01/19 05:30 80 19 93 30 10/01/19 04:00 Bi-pap 10/01/19 04:00 30 10/01/19 04:00 98.5 116 18 127/75 (92) 94 10/01/19 03:56 116 10/01/19 03:00 89 21 92 Bi-Pap 30 94 17 97 30 10/01/19 01:08 88 19 94 30 10/01/19 00:10 120 119/74 10/01/19 00:00 30 10/01/19 00:00 97.8 115 20 119/74 (89) 95 10/01/19 00:00 Bi-pap 09/30/19 23:47 120 23 91 30 09/30/19 23:27 119 09/30/19 22:15 30 09/30/19 21:05 117 18 93 30 09/30/19 20:40 Bi-Pap 09/30/19 20:00 117 09/30/19 19:44 92 Bi-Pap 30 09/30/19 19:38 107 23 91 Bi-Pap 30 109 21 96 30 09/30/19 17:30 91 09/30/19 17:23 117 136/83 09/30/19 17:20 117 09/30/19 16:00 Bi-pap 09/30/19 16:00 30 09/30/19 16:00 98.7 119 20 127/84 (98) 96 09/30/19 16:00 120 09/30/19 15:30 97.3 120 20 136/83 (100) 97 09/30/19 15:15 114 23 96 30 09/30/19 15:15 114 23 96 Bi-Pap 30 09/30/19 15:05 98.0 115 20 135/74 95 Bi-pap 30 09/30/19 15:05 98.0 115 20 135/74 95 Bi-pap 30 09/30/19 13:46 98.2 119 22 127/71 96 Bi-pap 30 09/30/19 13:35 110 21 95 30 09/30/19 12:56 119 143/77 09/30/19 12:54 119 143/77 Intake and Output 09/30/19 10/01/19 19:00 07:00 Intake Total 60 ml Output Total 500 ml 0 ml Balance -440 ml 0 ml Intake Oral 60 ml Output Urine Total 500 ml 0 ml # Voids 2 Laboratory Tests 09/30/19 17:06: Arterial Blood pH 7.438, Arterial Blood Partial Pressure CO2 48.2H, Arterial Blood Partial Pressure O2 59.4L, Arterial Blood HCO3 31.9H, Arterial Blood Oxygen Saturation 91.3L, Arterial Blood Base Excess 6.3H, Edison Test Positive 10/01/19 05:20: White Blood Count 7.8, Red Blood Count 5.28, Hemoglobin 15.5, Hematocrit 46.3, Mean Corpuscular Volume 88, Mean Corpuscular Hemoglobin 29.3, Mean Corpuscular Hemoglobin Concent 33.4, Red Cell Distribution Width 18.9H, Platelet Count 166, Mean Platelet Volume 7.3, Neutrophils (%) (Auto) , Lymphocytes (%) (Auto) , Monocytes (%) (Auto) , Eosinophils (%) (Auto) , Basophils (%) (Auto) , Differential Total Cells Counted 100, Neutrophils % (Manual) 97H, Lymphocytes % (Manual) 2L, Monocytes % (Manual) 1, Eosinophils % (Manual) 0, Basophils % ( Manual) 0, Band Neutrophils 0, Platelet Estimate Adequate, Platelet Morphology Normal, Anisocytosis 2+, Sodium Level 140, Potassium Level 4.8, Chloride Level 100, Carbon Dioxide Level 28, Anion Gap 12, Blood Urea Nitrogen 28H, Creatinine 1.0, Estimat Glomerular Filtration Rate > 60, Glucose Level 199H, Calcium Level 9.0, Troponin I 0.060H Height (Feet): 5 Height (Inches): 8.00 Weight (Pounds): 200 General Appearance: mild distress, obese EENT: normal ENT inspection Neck: normal alignment Cardiovascular: regular rhythm, tachycardia Respiratory/Chest: rhonchi - bilaterally Abdomen: non tender, soft Edema: mild edema Neurologic: clinical cytogeneticist scientist II-XII grossly normal Jaden Ross MD Oct 01, 2019 12:54
--- NOTE | 2019-10-01 13:40 | NUR ---
NURSE NOTES: Paged Dr. Espinoza regarding rhythm change from sinus tachycardia to a-flutter. Dr. Espinoza added Digoxin 0.125mg 1tab PO QD and administer now. The patient is stable without acute distress or shortness of breath. Will continue plan of care.
[2019-10-01] MEDS: Digoxin 0.125mg tab ORAL SCH (14:11)
--- NOTE | 2019-10-01 15:32 | Cardiology Progress Note ---
Assessment/Plan Assessment/Plan I reviewed some if his records from [facility]. The patient was diagnosed with lung cancer and underwent chemotherapy and probably, radiation. The patient now has recurrent atrial flutter. He was free of atrial flutter, based on records from 2017. I believe he is a candidate for ablation. Not sure when his flutter recurred. Will discuss with Dr Bosch. Subjective Subjective The patient feels better, He is off Bipap, on NC, still has a lot of cough Objective Last 24 Hour Vital Signs Date Time Temp Pulse Resp B/P (MAP) Pulse Ox O2 Delivery O2 Flow Rate FiO2 10/01/19 14:11 118 10/01/19 12:28 92 32 10/01/19 12:25 92 Nasal Cannula 3.0 32 10/01/19 12:00 120 10/01/19 12:00 Nasal Cannula 2.0 10/01/19 12:00 2.0 10/01/19 12:00 98.3 119 18 116/63 (80) 93 10/01/19 11:56 121 116/65 10/01/19 08:00 2.0 10/01/19 08:00 98.7 121 18 123/66 (85) 93 10/01/19 08:00 119 10/01/19 08:00 Nasal Cannula 2.0 10/01/19 06:01 116 127/75 10/01/19 05:30 80 19 93 30 10/01/19 04:00 Bi-pap 10/01/19 04:00 30 10/01/19 04:00 98.5 116 18 127/75 (92) 94 10/01/19 03:56 116 10/01/19 03:00 89 21 92 Bi-Pap 30 94 17 97 30 10/01/19 01:08 88 19 94 30 10/01/19 00:10 120 119/74 10/01/19 00:00 30 10/01/19 00:00 97.8 115 20 119/74 (89) 95 10/01/19 00:00 Bi-pap 09/30/19 23:47 120 23 91 30 09/30/19 23:27 119 09/30/19 22:15 30 09/30/19 21:05 117 18 93 30 09/30/19 20:40 Bi-Pap 09/30/19 20:00 117 09/30/19 19:44 92 Bi-Pap 30 09/30/19 19:38 107 23 91 Bi-Pap 30 109 21 96 30 09/30/19 17:30 91 09/30/19 17:23 117 136/83 09/30/19 17:20 117 09/30/19 16:00 Bi-pap 09/30/19 16:00 30 09/30/19 16:00 98.7 119 20 127/84 (98) 96 09/30/19 16:00 120 09/30/19 15:30 97.3 120 20 136/83 (100) 97 General Appearance: moderate distress, other - emotionally upset EENT: PERRL/EOMI Neck: supple, JVD Rhythm: other - atrial flutter. Cardiovascular: tachycardia, systolic murmur, arrhythmia Respiratory/Chest: crackles/rales Abdomen: soft Extremities: trace edema Intake and Output 09/30/19 10/01/19 19:00 07:00 Intake Total 60 ml Output Total 500 ml 0 ml Balance -440 ml 0 ml Intake Oral 60 ml Output Urine Total 500 ml 0 ml # Voids 2 Laboratory Tests Test 09/30/19 17:06 10/01/19 05:20 Arterial Blood pH 7.438 (7.350-7.450) Arterial Blood Partial Pressure CO2 48.2 mmHg (35.0-45.0) H Arterial Blood Partial Pressure O2 59.4 mmHg (75.0-100.0) L Arterial Blood HCO3 31.9 mmol/L (22.0-26.0) H Arterial Blood Oxygen Saturation 91.3 % (95-100) L Arterial Blood Base Excess 6.3 (-2-2) H Edison Test Positive White Blood Count 7.8 K/UL (4.8-10.8) Red Blood Count 5.28 M/UL (4.70-6.10) Hemoglobin 15.5 G/DL (14.2-18.0) Hematocrit 46.3 % (42.0-52.0) Mean Corpuscular Volume 88 FL (80-99) Mean Corpuscular Hemoglobin 29.3 PG (27.0-31.0) Mean Corpuscular Hemoglobin Concent 33.4 G/DL (32.0-36.0) Red Cell Distribution Width 18.9 % (11.6-14.8) H Platelet Count 166 K/UL (150-450) Mean Platelet Volume 7.3 FL (6.5-10.1) Neutrophils (%) (Auto) % (45.0-75.0) Lymphocytes (%) (Auto) % (20.0-45.0) Monocytes (%) (Auto) % (1.0-10.0) Eosinophils (%) (Auto) % (0.0-3.0) Basophils (%) (Auto) % (0.0-2.0) Differential Total Cells Counted 100 Neutrophils % (Manual) 97 % (45-75) H Lymphocytes % (Manual) 2 % (20-45) L Monocytes % (Manual) 1 % (1-10) Eosinophils % (Manual) 0 % (0-3) Basophils % (Manual) 0 % (0-2) Band Neutrophils 0 % (0-8) Platelet Estimate Adequate Platelet Morphology Normal Anisocytosis 2+ Sodium Level 140 MMOL/L (136-145) Potassium Level 4.8 MMOL/L (3.5-5.1) Chloride Level 100 MMOL/L (98-107) Carbon Dioxide Level 28 MMOL/L (21-32) Anion Gap 12 mmol/L (5-15) Blood Urea Nitrogen 28 mg/dL (7-18) H Creatinine 1.0 MG/DL (0.55-1.30) Estimat Glomerular Filtration Rate > 60 mL/min (>60) Glucose Level 199 MG/DL (74-106) H Calcium Level 9.0 MG/DL (8.5-10.1) Troponin I 0.060 ng/mL (0.000-0.056) Microbiology Date/Time Source Procedure Growth Status 09/30/19 12:30 Rectum Received Annemarie Espinoza MD Oct 01, 2019 15:32
[2019-10-01 16:00] VITALS: BP 141/76
--- NOTE | 2019-10-01 16:00 | NUR ---
NURSE NOTES: Dr. Espinoza ordered the patient to be transferred to [facility] for cardiac ablation due to a-flutter. Called Yen, the cyanide case hardener, so that the cyanide case hardener can follow up with the case. Will continue plan of care.
--- NOTE | 2019-10-01 16:35 | NUR ---
NURSE NOTES: Received call from Hugo @ [facility] to fax face sheet for transfer to [facility] for cardiac ablation. Confirmed with [facility] that they received facesheet. Per [facility], bed is not available for today. Notified to charge nurse. Will continue plan of care.
[2019-10-01] MEDS: Enoxaparin Sodium 300mg/3ml vial SUBQ SCH (17:51)
--- NOTE | 2019-10-01 18:00 | NUR ---
NURSE NOTES: The patient is stable without acute distress or shortness of breath. Will continue plan of care.
--- NOTE | 2019-10-01 19:15 | NUR ---
HAND-OFF: Report given to SHA Gramajo. The patient is resting on the bed without acute distress or shortness of breath. The patient's bed in the lowest position, call light in reach, and fall and aspiration precaution reinforced. IV site intact and patent. Oxygen therapy per order. Endorsed plan of care.
--- NOTE | 2019-10-01 19:20 | NUR ---
NURSE NOTES: Pt received from SHA Barron alert and oriented x3, with no acute s/s of distress noted. On 2L NC, no acute s/s of resp distress noted. IV site asymptomatic and patent, L ac 20g, saline lock. Bed in lowest position, call light and belongings within reach.
[2019-10-01] MEDS ORDERED: Levemir Flexpen SUBQ SCH (21:00)
--- NOTE | 2019-10-01 21:00 | NUR ---
NURSE NOTES: Charge nurse Alonzo spoke to MD DUMAS. reported ABGs. no new orders. stated just to continue with 1899 - 1999 MEDS. (INSULIN, SODIUM BICARB, KAYEXALATE, DEXTROSE.) Addendum: 10/01/19 at 2339 by KIM PLATT RN WRONG PT.
[2019-10-01] MEDS: cefTRIAXone 1 GM in D5W 55 ML IVPB SCH (21:10)
--- NOTE | 2019-10-01 21:57 | NUR ---
NURSE NOTES: Pt BS is now 160, post meds. Addendum: 10/01/19 at 2344 by KIM PLATT RN WRONG SHERI.
[2019-10-02] VITALS: BP 121/71
[2019-10-02] MEDS: dilTIAZem HCl 60mg tab ORAL SCH ×4 (00:29→17:13)
--- NOTE | 2019-10-02 01:22 | NUR ---
NURSE NOTES: Pt currently on Bipap with ordered settings, resting in bed asleep with no acute s/s of distress noted. Bed in lowest position, call light and belongings within reach.
[2019-10-02] MEDS: Albuterol/Ipratropium 3ml neb HHN SCH ×6 (03:50→23:46)
[2019-10-02 04:00] VITALS: BP 111/59
[2019-10-02 04:31] LABS: ANION GAP 8 mmol/L (5-15); BLOOD UREA NITROGEN 38 mg/dL (7-18); CARBON DIOXIDE 31 MMOL/L (21-32); CHLORIDE 99 MMOL/L (98-107); POTASSIUM 5.1 MMOL/L (3.5-5.1); SODIUM 138 MMOL/L (136-145)
[2019-10-02 04:57] LABS: CALCIUM 8.9 MG/DL (8.5-10.1)
--- NOTE | 2019-10-02 05:25 | NUR ---
NURSE NOTES: Ed GARCIA, received phone call from [facility] - "No beds as of this moment."
[2019-10-02] MEDS: Enoxaparin Sodium 300mg/3ml vial SUBQ SCH ×2 (05:34→17:12)
[2019-10-02] MEDS: NovoLOG Insulin Flexpen SUBQ SCH ×4 (05:35→21:01)
--- NOTE | 2019-10-02 07:14 | NUR ---
HAND-OFF: Report given to SHA Barron. Plan of care endorsed.
--- NOTE | 2019-10-02 07:20 | NUR ---
NURSE NOTES: Received report from SHA Gramajo. The patient is resting on the bed without acute distress or shortness of breath. The patient's bed in the lowest position, call light in reach, and fall and aspiration precaution reinforced. IV site intact and patent. Per night nurse, the patient was on Bipap from 0000 to 0530 and is on 2L NC now and saturation within normal range. Pending transfer to [facility] for cardiac ablation per Dr. Espinoza. Will continue plan of care.
[2019-10-02 08:00] VITALS: BP 125/70
[2019-10-02] MEDS: Spironolactone 25mg tab ORAL SCH (08:51)
[2019-10-02] MEDS: metFORMIN 500mg tab ORAL SCH ×2 (08:52→17:13)
[2019-10-02] MEDS: Digoxin 0.125mg tab ORAL SCH (08:52)
[2019-10-02] MEDS: Atorvastatin 20mg tab ORAL SCH (08:53)
[2019-10-02] MEDS: Azithromycin 250mg tab ORAL SCH (08:53)
[2019-10-02] MEDS: Sertraline 50mg tab ORAL SCH (08:53)
[2019-10-02] MEDS: Solu-MEDROL 125mg Inj IVP SCH (08:54)
[2019-10-02] MEDS: Aspirin Baby 81mg ORAL SCH (08:57)
--- NOTE | 2019-10-02 09:30 | NUR ---
NURSE NOTES: The patient is stable without acute distress or shortness of breath. Will continue plan of care.
[2019-10-02 12:00] VITALS: BP 116/69
--- NOTE | 2019-10-02 12:20 | NUR ---
NURSE NOTES: Dr. Lr at the bedside assessed the patient. Dr. Lr ordered to change frequency of Solumedrol from Q12hr to daily. New order received. Will carry out Solumedrol 60mg IVP QD. The patient is stable without acute distress or shortness of breath. Will continue plan of care.
--- NOTE | 2019-10-02 13:21 | Pulmonology Progress Note ---
Assessment/Plan Assessment/Plan Pulmonary Progress Note Assessment/Plan IMPRESSION: 1. Acute on chronic hypercapnia. 2. Acute on chronic respiratory failure. 3. COPD with acute exacerbation and shortness of breath. 4. History of lung cancer. 5. Hypoxemia. 6. Pleural effusion. 7. Atrial flutter with rapid ventricular rate. PLAN rate control cards noted IV steroids - wean neb therapy oxygen BIPAP as needed monitor in RICARDO still guarded care noted repeat imaging as needed impression, plan, and exam edited and reviewed in detail care discussed with RN Subjective Allergies: Coded Allergies: No Known Allergies (Unverified , 01/18/19) Subjective care noted stable on NC on oxygen improved respiratory status Objective Vital Signs Noted Objective GENERAL: Well-developed male, appears to be more comfortable HEENT: Negative. Extraocular movements are grossly intact. NECK: Supple. LUNGS: Reduced BS CARDIAC: S1, S2. RR tachy without murmurs, rubs, or gallops. ABDOMEN: Soft, nontender, nondistended. EXTREMITIES: No cyanosis or clubbing. NEUROLOGICAL: Grossly nonfocal. Microbiology Date/Time Source Procedure Growth Status 09/30/19 12:30 Rectum Received Laboratory Tests Noted Current Medications Medications (Trade) Dose Ordered Sig/Jean Route PRN Reason Start Time Stop Time Status Last Admin Dose Admin Acetaminophen (Tylenol) 500 mg Q4H PRN ORAL Mild Pain/Temp > 100.5 09/30/19 16:30 10/30/19 16:29 Albuterol/ Ipratropium (Albuterol/ Ipratropium) 3 ml Q4HRT HHN 09/30/19 19:00 10/05/19 18:59 10/01/19 03:40 Albuterol/ Ipratropium (Albuterol/ Ipratropium) 3 ml Q4HRT PRN HHN Shortness of breath 09/30/19 16:45 10/05/19 16:44 Aspirin (ASA) 81 mg DAILY ORAL 10/01/19 09:00 10/31/19 08:59 Atorvastatin Calcium (Lipitor) 20 mg DAILY ORAL 10/01/19 09:00 10/31/19 08:59 Azithromycin (Zithromax) 250 mg DAILY ORAL 10/01/19 09:00 10/08/19 08:59 Azithromycin (Zithromax) 500 mg ONCE ORAL 09/30/19 23:00 10/07/19 22:59 09/30/19 22:51 Ceftriaxone Sodium 1 gm/ Dextrose 55 ml @ 110 mls/hr Q24H IVPB 09/30/19 23:00 10/07/19 22:59 09/30/19 22:45 Dextrose (Dextrose 50%) 25 ml Q30M PRN IV Hypoglycemia 09/30/19 20:15 10/30/19 20:14 Dextrose (Dextrose 50%) 50 ml Q30M PRN IV Hypoglycemia 09/30/19 20:15 10/30/19 20:14 Diltiazem HCl (Cardizem) 60 mg EVERY 6 HOURS ORAL 09/30/19 18:00 10/30/19 17:59 10/01/19 06:01 Furosemide (Lasix) 40 mg EVERY 12 HOURS IV 09/30/19 23:00 10/30/19 22:59 09/30/19 22:50 Heparin Sodium (Porcine) (Heparin 5000 units/ml) 5,000 units EVERY 12 HOURS SUBQ 09/30/19 23:00 10/30/19 22:59 09/30/19 22:49 Insulin Aspart (NovoLOG) BEFORE MEALS AND HS SUBQ 09/30/19 21:00 10/30/19 20:59 10/01/19 06:12 Metformin HCl (Glucophage) 500 mg BID ORAL 09/30/19 18:00 10/30/19 17:59 09/30/19 17:20 Methylprednisolone Sodium Succinate (Solu-MEDROL) 60 mg EVERY 12 HOURS IVP 09/30/19 23:00 10/30/19 22:59 09/30/19 22:50 Potassium Chloride (K-Dur) 40 meq DAILY ORAL 09/30/19 23:00 10/30/19 22:59 09/30/19 22:50 Prednisone (predniSONE) 10 mg DAILY ORAL 10/01/19 09:00 10/31/19 08:59 Risperidone (RisperDAL) 2 mg BID ORAL 09/30/19 18:00 10/30/19 17:59 09/30/19 17:21 Sertraline HCl (Zoloft) 50 mg DAILY ORAL 10/01/19 09:00 10/31/19 08:59 Spironolactone (Aldactone) 25 mg DAILY ORAL 10/01/19 09:00 10/31/19 08:59 Subjective ROS Limited/Unobtainable: No Allergies: Coded Allergies: No Known Allergies (Unverified , 01/18/19) Objective Last 24 Hour Vital Signs Date Time Temp Pulse Resp B/P (MAP) Pulse Ox O2 Delivery O2 Flow Rate FiO2 10/02/19 12:25 121 116/59 10/02/19 08:52 120 10/02/19 08:00 98.4 120 20 125/70 (88) 95 10/02/19 08:00 2.0 10/02/19 08:00 123 10/02/19 07:47 96 Nasal Cannula 2.0 28 10/02/19 07:45 124 16 96 Nasal Cannula 3.0 32 99 16 96 10/02/19 05:32 98 111/59 10/02/19 04:36 114 17 94 30 10/02/19 04:00 97.9 117 21 111/59 (76) 95 10/02/19 04:00 82 10/02/19 04:00 Bi-pap 10/02/19 04:00 30 10/02/19 03:00 44 18 96 Bi-Pap 30 56 18 99 30 10/02/19 01:30 102 17 94 30 10/02/19 00:29 113 121/71 10/02/19 00:27 111 17 95 30 10/02/19 00:00 Nasal Cannula 2.0 10/02/19 00:00 97.6 113 21 121/71 (88) 95 10/02/19 00:00 113 10/02/19 00:00 30 10/01/19 20:00 Nasal Cannula 2.0 10/01/19 20:00 2.0 10/01/19 20:00 114 10/01/19 19:51 93 Nasal Cannula 2.0 28 10/01/19 17:30 119 141/76 10/01/19 16:00 Nasal Cannula 2.0 10/01/19 16:00 2.0 10/01/19 16:00 98.2 119 18 141/76 (97) 93 10/01/19 16:00 118 10/01/19 14:11 118 Intake and Output 10/01/19 10/02/19 19:00 07:00 Intake Total 1200 ml 260 ml Output Total 1400 ml Balance 1200 ml -1140 ml Intake Oral 1200 ml 150 ml IV Total 110 ml Output Urine Total 1400 ml # Voids 6 # Bowel Movements 1 Microbiology Date/Time Source Procedure Growth Status 09/30/19 12:30 Nasal Nares MRSA Culture - Final NO METHICILLIN RESISTANT STAPH AUREUS... Complete 09/30/19 12:30 Rectum - Final NO CARBAPENEM-RESISTANT ENTEROBACTERI... Complete 09/30/19 12:30 Rectum VRE Culture - Final NO VANCOMYCIN RESISTANT ENTEROCOCCUS ... Complete Laboratory Tests 10/02/19 03:40: Sodium Level 138, Potassium Level 5.1, Chloride Level 99, Carbon Dioxide Level 31, Anion Gap 8, Blood Urea Nitrogen 38H, Creatinine 1.0, Estimat Glomerular Filtration Rate > 60, Glucose Level 232H, Calcium Level 8.9 Current Medications Medications (Trade) Dose Ordered Sig/Jean Route PRN Reason Start Time Stop Time Status Last Admin Dose Admin Acetaminophen (Tylenol) 500 mg Q4H PRN ORAL Mild Pain/Temp > 100.5 09/30/19 16:30 10/30/19 16:29 Albuterol/ Ipratropium (Albuterol/ Ipratropium) 3 ml Q4HRT HHN 09/30/19 19:00 10/05/19 18:59 10/02/19 07:58 Albuterol/ Ipratropium (Albuterol/ Ipratropium) 3 ml Q4HRT PRN HHN Shortness of breath 09/30/19 16:45 10/05/19 16:44 Aspirin (ASA) 81 mg DAILY ORAL 10/01/19 09:00 10/31/19 08:59 10/02/19 08:57 Atorvastatin Calcium (Lipitor) 20 mg DAILY ORAL 10/01/19 09:00 10/31/19 08:59 10/02/19 08:53 Azithromycin (Zithromax) 250 mg DAILY ORAL 10/01/19 09:00 10/08/19 08:59 10/02/19 08:53 Ceftriaxone Sodium 1 gm/ Dextrose 55 ml @ 110 mls/hr Q24H IVPB 09/30/19 23:00 10/07/19 22:59 10/01/19 21:10 Dextrose (Dextrose 50%) 25 ml Q30M PRN IV Hypoglycemia 09/30/19 20:15 10/30/19 20:14 Dextrose (Dextrose 50%) 50 ml Q30M PRN IV Hypoglycemia 09/30/19 20:15 10/30/19 20:14 Digoxin (Lanoxin) 0.125 mg DAILY ORAL 10/01/19 13:46 10/31/19 13:45 10/02/19 08:52 Diltiazem HCl (Cardizem) 60 mg EVERY 6 HOURS ORAL 09/30/19 18:00 10/30/19 17:59 10/02/19 12:25 Enoxaparin Sodium (Lovenox) 90 mg Q12HR@0600,1800 SUBQ 10/01/19 18:00 10/31/19 17:59 10/02/19 05:34 Furosemide (Lasix) 40 mg DAILY IV 10/02/19 09:00 10/30/19 22:59 10/02/19 08:55 Insulin Aspart (NovoLOG) BEFORE MEALS AND HS SUBQ 09/30/19 21:00 10/30/19 20:59 10/02/19 12:24 Insulin Detemir (Levemir) 12 units BEDTIME SUBQ 10/01/19 21:00 10/31/19 20:59 10/01/19 21:12 Metformin HCl (Glucophage) 500 mg BID ORAL 09/30/19 18:00 10/30/19 17:59 10/02/19 08:52 Methylprednisolone Sodium Succinate (Solu-MEDROL) 60 mg DAILY IVP 10/03/19 09:00 10/30/19 22:59 Potassium Chloride (K-Dur) 40 meq DAILY ORAL 09/30/19 23:00 10/30/19 22:59 10/01/19 09:32 Prednisone (predniSONE) 10 mg DAILY ORAL 10/01/19 09:00 10/31/19 08:59 10/02/19 08:54 Risperidone (RisperDAL) 2 mg BID ORAL 09/30/19 18:00 10/30/19 17:59 10/02/19 08:53 Sertraline HCl (Zoloft) 50 mg DAILY ORAL 10/01/19 09:00 10/31/19 08:59 10/02/19 08:53 Spironolactone (Aldactone) 25 mg DAILY ORAL 10/01/19 09:00 10/31/19 08:59 10/02/19 08:51 Jenaro Lr MD Oct 02, 2019 13:21
--- NOTE | 2019-10-02 15:30 | NUR ---
NURSE NOTES: Spoke with Nga @ [facility]. Asked to follow up whether the patient can be transferred to [facility] for cardiac ablation. Per Nga, no bed and no financial clearance done yet. The patient is stable without acute distress or shortness of breath. Will continue plan of care.
[2019-10-02 16:00] VITALS: BP 131/76
[2019-10-02] MEDS: Acetaminophen 500mg (ES) tab ORAL PRN ×2 (16:14→21:10)
--- NOTE | 2019-10-02 18:30 | NUR ---
NURSE NOTES: The patient is stable without acute distress or shortness of breath. Will continue plan of care.
--- NOTE | 2019-10-02 19:04 | General Progress Note ---
Assessment/Plan Problem List: (1) CHF exacerbation ICD Codes: I50.9 - Heart failure, unspecified SNOMED: 919004721, [id number] (2) Atrial flutter ICD Codes: I48.92 - Unspecified atrial flutter SNOMED: 0369239 (3) COPD exacerbation ICD Codes: J44.1 - Chronic obstructive pulmonary disease with (acute) exacerbation SNOMED: 148094597 (4) Lung cancer ICD Codes: C34.90 - Malignant neoplasm of unspecified part of unspecified bronchus or lung SNOMED: 671151467 Assessment/Plan: diuresing, given dig and diltiazem steroids , hhn, insulin ss increase lantus possible ablation Subjective Constitutional: Reports: weakness HEENT: Reports: no symptoms Cardiovascular: Reports: irregular heart rate Respiratory: Reports: SOB with excertion Gastrointestinal/Abdominal: Reports: no symptoms Genitourinary: Reports: no symptoms Neurologic/Psychiatric: Reports: no symptoms Hematologic/Lymphatic: Reports: no symptoms Allergies: Coded Allergies: No Known Allergies (Unverified , 01/18/19) Objective Last 24 Hour Vital Signs Date Time Temp Pulse Resp B/P (MAP) Pulse Ox O2 Delivery O2 Flow Rate FiO2 10/02/19 17:13 121 131/76 10/02/19 16:00 98.3 121 20 131/76 (94) 93 10/02/19 16:00 Nasal Cannula 2.0 10/02/19 16:00 2.0 10/02/19 16:00 120 10/02/19 15:42 2.0 10/02/19 12:25 121 116/59 10/02/19 12:00 Nasal Cannula 2.0 10/02/19 12:00 99.0 119 20 116/69 (85) 95 10/02/19 12:00 2.0 10/02/19 12:00 118 10/02/19 08:52 120 10/02/19 08:00 Nasal Cannula 2.0 10/02/19 08:00 98.4 120 20 125/70 (88) 95 10/02/19 08:00 2.0 10/02/19 08:00 123 10/02/19 07:47 96 Nasal Cannula 2.0 28 10/02/19 07:45 124 16 96 Nasal Cannula 3.0 32 99 16 96 10/02/19 05:32 98 111/59 10/02/19 04:36 114 17 94 30 10/02/19 04:00 97.9 117 21 111/59 (76) 95 10/02/19 04:00 82 10/02/19 04:00 Bi-pap 10/02/19 04:00 30 10/02/19 03:00 44 18 96 Bi-Pap 30 56 18 99 30 10/02/19 01:30 102 17 94 30 10/02/19 00:29 113 121/71 10/02/19 00:27 111 17 95 30 10/02/19 00:00 Nasal Cannula 2.0 10/02/19 00:00 97.6 113 21 121/71 (88) 95 10/02/19 00:00 113 10/02/19 00:00 30 10/01/19 20:00 Nasal Cannula 2.0 10/01/19 20:00 2.0 10/01/19 20:00 114 10/01/19 19:51 93 Nasal Cannula 2.0 28 Intake and Output 10/01/19 10/02/19 19:00 07:00 Intake Total 1200 ml 260 ml Output Total 1400 ml Balance 1200 ml -1140 ml Intake Oral 1200 ml 150 ml IV Total 110 ml Output Urine Total 1400 ml # Voids 6 # Bowel Movements 1 Laboratory Tests 10/02/19 03:40: Sodium Level 138, Potassium Level 5.1, Chloride Level 99, Carbon Dioxide Level 31, Anion Gap 8, Blood Urea Nitrogen 38H, Creatinine 1.0, Estimat Glomerular Filtration Rate > 60, Glucose Level 232H, Calcium Level 8.9 Height (Feet): 5 Height (Inches): 8.00 Weight (Pounds): 200 General Appearance: obese EENT: normal ENT inspection Neck: normal alignment Cardiovascular: regular rhythm, tachycardia Respiratory/Chest: rhonchi - bilaterally Abdomen: non tender Edema: mild edema 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
--- NOTE | 2019-10-02 19:20 | NUR ---
HAND-OFF: Report given to SHA Tovar. The patient is resting on the bed without acute distress or shortness of breath. The patient's bed in the lowest position, call light in reach, and fall and aspiration precaution reinforced. IV site intact and patent. The patient is on 2L NC, and oxygen saturation within normal range. Endorsed that the patient is pending transfer for cardiac ablation to [facility] per Dr. Espinoza's order for a-flutter. Endorsed plan of care.
--- NOTE | 2019-10-02 19:29 | NUR ---
NURSE NOTES: Report received from SHA Barron. Observed pt lying in the bed. A/O x4, denies any pain at this time. pt sleeping in the bed. ST on desk monitor with HR of 115 noted. On 2L NC, no sob. IV on L AC 20G, SL. Bed in the lowest position. Side rails up x3. Will continue to monitor.
--- NOTE | 2019-10-02 19:55 | NUR ---
CASE MANAGEMENT: REVIEW 63 YEAR OLD MALE BIBA FROM [facility] CC: RESP DISTRESS . WHEEZING X2 DAYS SI: COPD EXACERBATION . A-FLUTTER T 98.1 HR 121 RR 25 BP 180/92 SAT 88% ROOM AIR 93% NC/4L TROP 0.058 BNP 1608 ABG: PH 7.340 PCO2 60.5 PO2 63.3 HCO3 31.9 SAT 91.2 IS: CARDIZEM IV X1 RICARDO NEB HHN X1 SOLU MEDROL IV X1 LASIX 60MG IV X1 NPO PATIENT ADMITTED TO STEP DOWN UNIT DCP: PATIENT IS FROM [facility]
[2019-10-02 20:00] VITALS: BP 139/72
--- NOTE | 2019-10-02 20:07 | Cardiac Electrophysiology PN ---
Assessment/Plan Status: stable Status Narrative Pt w/ rapidly conducted AFl , s/p catheter a few yrs ago. He has been started on anticoagulation w/ lovenox. Assessment/Plan Repeat EP study and catheter ablation recommended for treatment of AFL Procedure was d/w pt, who understands and agrees to proceed. Hold lovenox tonight. NPO x meds transfer planned for tomorrow am for procedure at [facility] at 2pm Subjective ROS Limited/Unobtainable: No Subjective Cardiac EP Pt known to me from office and previous hospitalizations. Prev hx of AFL ablation ( tricuspid isthmus) a few yrs ago, now presents w/ AFL w/ RVR, to140- 150s. He c/o dyspnea and leg edema. No palpitations or CP Objective Last 24 Hour Vital Signs Date Time Temp Pulse Resp B/P (MAP) Pulse Ox O2 Delivery O2 Flow Rate FiO2 10/02/19 17:13 121 131/76 10/02/19 16:00 98.3 121 20 131/76 (94) 93 10/02/19 16:00 Nasal Cannula 2.0 10/02/19 16:00 2.0 10/02/19 16:00 120 10/02/19 15:42 2.0 10/02/19 12:25 121 116/59 10/02/19 12:00 Nasal Cannula 2.0 10/02/19 12:00 99.0 119 20 116/69 (85) 95 10/02/19 12:00 2.0 10/02/19 12:00 118 10/02/19 08:52 120 10/02/19 08:00 Nasal Cannula 2.0 10/02/19 08:00 98.4 120 20 125/70 (88) 95 10/02/19 08:00 2.0 10/02/19 08:00 123 10/02/19 07:47 96 Nasal Cannula 2.0 28 10/02/19 07:45 124 16 96 Nasal Cannula 3.0 32 99 16 96 10/02/19 05:32 98 111/59 10/02/19 04:36 114 17 94 30 10/02/19 04:00 97.9 117 21 111/59 (76) 95 10/02/19 04:00 82 10/02/19 04:00 Bi-pap 10/02/19 04:00 30 10/02/19 03:00 44 18 96 Bi-Pap 30 56 18 99 30 10/02/19 01:30 102 17 94 30 10/02/19 00:29 113 121/71 10/02/19 00:27 111 17 95 30 10/02/19 00:00 Nasal Cannula 2.0 10/02/19 00:00 97.6 113 21 121/71 (88) 95 10/02/19 00:00 113 10/02/19 00:00 30 General Appearance: WD/WN, no apparent distress, alert EENT: PERRL/EOMI Neck: supple, no JVD Rhythm: other - afl Cardiovascular: regular rhythm, no gallop/murmur, tachycardia Respiratory/Chest: other - scattered rhonchi bilat Abdomen: normal bowel sounds, non tender, soft, other - + distension Extremities: other - 2+ pedal and ankle edema Neurologic: alert, oriented x 3 Intake and Output 10/01/19 10/02/19 19:00 07:00 Intake Total 1200 ml 260 ml Output Total 1400 ml Balance 1200 ml -1140 ml Intake Oral 1200 ml 150 ml IV Total 110 ml Output Urine Total 1400 ml # Voids 6 # Bowel Movements 1 Laboratory Tests Test 10/02/19 03:40 Sodium Level 138 MMOL/L (136-145) Potassium Level 5.1 MMOL/L (3.5-5.1) Chloride Level 99 MMOL/L (98-107) Carbon Dioxide Level 31 MMOL/L (21-32) Anion Gap 8 mmol/L (5-15) Blood Urea Nitrogen 38 mg/dL (7-18) H Creatinine 1.0 MG/DL (0.55-1.30) Estimat Glomerular Filtration Rate > 60 mL/min (>60) Glucose Level 232 MG/DL (74-106) H Calcium Level 8.9 MG/DL (8.5-10.1) Microbiology Date/Time Source Procedure Growth Status 09/30/19 12:30 Nasal Nares MRSA Culture - Final NO METHICILLIN RESISTANT STAPH AUREUS... Complete 09/30/19 12:30 Rectum - Final NO CARBAPENEM-RESISTANT ENTEROBACTERI... Complete 09/30/19 12:30 Rectum VRE Culture - Final NO VANCOMYCIN RESISTANT ENTEROCOCCUS ... Complete Kiersten Bosch MD Oct 02, 2019 20:07
[2019-10-02] MEDS ORDERED: Levemir Flexpen SUBQ SCH (21:00)
--- NOTE | 2019-10-02 21:00 | NUR ---
NURSE NOTES: Noted pt BS is 448 with no acute distress noted. Notified and no new order received.
--- NOTE | 2019-10-02 22:54 | Cardiology Progress Note ---
Assessment/Plan Assessment/Plan The patient remains in atrial flutter, despite on Cardizem. D/W Dr Bosch, the patient is going to be transferred to [facility] for ablation. Subjective Subjective No significant changes, the patient is resting in bed, has mild dyspnea and palpitations Objective Last 24 Hour Vital Signs Date Time Temp Pulse Resp B/P (MAP) Pulse Ox O2 Delivery O2 Flow Rate FiO2 10/02/19 20:00 116 10/02/19 20:00 98.7 116 20 139/72 (94) 93 10/02/19 19:56 93 Nasal Cannula 2.0 28 10/02/19 17:13 121 131/76 10/02/19 16:00 98.3 121 20 131/76 (94) 93 10/02/19 16:00 Nasal Cannula 2.0 10/02/19 16:00 2.0 10/02/19 16:00 120 10/02/19 15:42 2.0 10/02/19 12:25 121 116/59 10/02/19 12:00 Nasal Cannula 2.0 10/02/19 12:00 99.0 119 20 116/69 (85) 95 10/02/19 12:00 2.0 10/02/19 12:00 118 10/02/19 08:52 120 10/02/19 08:00 Nasal Cannula 2.0 10/02/19 08:00 98.4 120 20 125/70 (88) 95 10/02/19 08:00 2.0 10/02/19 08:00 123 10/02/19 07:47 96 Nasal Cannula 2.0 28 10/02/19 07:45 124 16 96 Nasal Cannula 3.0 32 99 16 96 10/02/19 05:32 98 111/59 10/02/19 04:36 114 17 94 30 10/02/19 04:00 97.9 117 21 111/59 (76) 95 10/02/19 04:00 82 10/02/19 04:00 Bi-pap 10/02/19 04:00 30 10/02/19 03:00 44 18 96 Bi-Pap 30 56 18 99 30 10/02/19 01:30 102 17 94 30 10/02/19 00:29 113 121/71 10/02/19 00:27 111 17 95 30 2/26/20 00:00 Nasal Cannula 2.0 10/02/19 00:00 97.6 113 21 121/71 (88) 95 10/02/19 00:00 113 10/02/19 00:00 30 General Appearance: mild distress EENT: PERRL/EOMI Neck: JVD Rhythm: SVT Cardiovascular: regular rhythm, tachycardia Respiratory/Chest: rhonchi - bilaterally Abdomen: soft Extremities: trace edema Intake and Output 10/01/19 10/02/19 19:00 07:00 Intake Total 1200 ml 260 ml Output Total 1400 ml Balance 1200 ml -1140 ml Intake Oral 1200 ml 150 ml IV Total 110 ml Output Urine Total 1400 ml # Voids 6 # Bowel Movements 1 Laboratory Tests Test 10/02/19 03:40 Sodium Level 138 MMOL/L (136-145) Potassium Level 5.1 MMOL/L (3.5-5.1) Chloride Level 99 MMOL/L (98-107) Carbon Dioxide Level 31 MMOL/L (21-32) Anion Gap 8 mmol/L (5-15) Blood Urea Nitrogen 38 mg/dL (7-18) H Creatinine 1.0 MG/DL (0.55-1.30) Estimat Glomerular Filtration Rate > 60 mL/min (>60) Glucose Level 232 MG/DL (74-106) H Calcium Level 8.9 MG/DL (8.5-10.1) Microbiology Date/Time Source Procedure Growth Status 09/30/19 12:30 Nasal Nares MRSA Culture - Final NO METHICILLIN RESISTANT STAPH AUREUS... Complete 09/30/19 12:30 Rectum - Final NO CARBAPENEM-RESISTANT ENTEROBACTERI... Complete 09/30/19 12:30 Rectum VRE Culture - Final NO VANCOMYCIN RESISTANT ENTEROCOCCUS ... Complete Annemarie Espinoza MD Oct 02, 2019 22:54
[2019-10-02] MEDS: cefTRIAXone 1 GM in D5W 55 ML IVPB SCH (23:32)
[2019-10-03] VITALS: BP 124/72
--- NOTE | 2019-10-03 | NUR ---
NURSE NOTES: Spoke with Davion from [facility] and was told pt will be transfer to [facility] after financial clearance. Will endorse to morning nurse.
[2019-10-03] MEDS: dilTIAZem HCl 60mg tab ORAL SCH ×3 (01:03→12:00)
--- NOTE | 2019-10-03 02:41 | NUR ---
NURSE NOTES: Pt sleeping in the bed, calm and comfortable. On 2L NC, with no SOB. No acute distress noted at this time.
[2019-10-03] MEDS: Albuterol/Ipratropium 3ml neb HHN SCH ×3 (03:25→11:00)
[2019-10-03 04:00] VITALS: BP 132/80
[2019-10-03] MEDS: NovoLOG Insulin Flexpen SUBQ SCH ×2 (05:39→11:30)
--- NOTE | 2019-10-03 07:20 | NUR ---
HAND-OFF: Report given to SHA Lyon. No acute distress noted at this time.
--- NOTE | 2019-10-03 07:21 | NUR ---
NURSE NOTES: Report received from SHA Tovar. Observed pt lying in the bed. A/O x4, denies any pain at this time. pt sleeping in the bed. ST on environmental monitoring technician with HR of 120. On 2L NC, no respiratory distress noted. IV on Left AC #20g. Bed locked and in lowest position. Side rails up x3. Pt scheduled for cardiac ablation @ [facility], awaiting update on financial clearance and time of transfer. Will continue to monitor.
[2019-10-03 08:00] VITALS: BP 126/80
--- NOTE | 2019-10-03 08:18 | Pulmonology Progress Note ---
Assessment/Plan Assessment/Plan IMPRESSION: 1. Acute on chronic hypercapnia. 2. Acute on chronic respiratory failure. 3. COPD with acute exacerbation and shortness of breath. 4. History of lung cancer. 5. Hypoxemia. 6. Pleural effusion. 7. Atrial flutter with rapid ventricular rate. PLAN rate control cards noted IV steroids- taper neb therapy oxygen BIPAP as needed monitor in RICARDO still guarded care noted repeat imaging for change impression, plan, and exam edited and reviewed in detail care discussed with RN Subjective Allergies: Coded Allergies: No Known Allergies (Unverified , 01/18/19) Subjective care noted off BIPAP on oxygen as is stable respiratory status Objective Last 24 Hour Vital Signs Date Time Temp Pulse Resp B/P (MAP) Pulse Ox O2 Delivery O2 Flow Rate FiO2 10/03/19 07:52 93 Nasal Cannula 2.0 28 10/03/19 05:46 115 136/65 10/03/19 04:00 Nasal Cannula 2.0 10/03/19 04:00 98.1 118 24 132/80 (97) 94 10/03/19 04:00 118 10/03/19 04:00 2.0 10/03/19 01:03 115 124/75 10/03/19 00:00 2.0 10/03/19 00:00 Nasal Cannula 2.0 10/03/19 00:00 98.3 117 24 124/72 (89) 94 10/03/19 00:00 116 10/02/19 20:00 Nasal Cannula 2.0 10/02/19 20:00 116 10/02/19 20:00 98.7 116 20 139/72 (94) 93 10/02/19 19:56 93 Nasal Cannula 2.0 28 10/02/19 17:13 121 131/76 10/02/19 16:00 98.3 121 20 131/76 (94) 93 10/02/19 16:00 Nasal Cannula 2.0 10/02/19 16:00 2.0 10/02/19 16:00 120 10/02/19 15:42 2.0 10/02/19 12:25 121 116/59 10/02/19 12:00 Nasal Cannula 2.0 10/02/19 12:00 99.0 119 20 116/69 (85) 95 10/02/19 12:00 2.0 10/02/19 12:00 118 2/26/20 08:52 120 Intake and Output 10/02/19 10/03/19 19:00 07:00 Intake Total 1800 ml 1000 ml Output Total 2000 ml 1800 ml Balance -200 ml -800 ml Intake Oral 1800 ml 1000 ml Output Urine Total 2000 ml 1800 ml # Voids 6 3 # Bowel Movements 2 Objective GENERAL: Well-developed male, appears to be more comfortable HEENT: Negative. Extraocular movements are grossly intact. NECK: Supple. LUNGS: reduced breath sounds and no rhonchi or wheezes. CARDIAC: S1, S2. RRR without murmurs, rubs, or gallops. ABDOMEN: Soft, nontender, nondistended. EXTREMITIES: No cyanosis or clubbing. NEUROLOGICAL: Grossly nonfocal. reviewed and edited Microbiology Date/Time Source Procedure Growth Status 09/30/19 12:30 Nasal Nares MRSA Culture - Final NO METHICILLIN RESISTANT STAPH AUREUS... Complete 09/30/19 12:30 Rectum - Final NO CARBAPENEM-RESISTANT ENTEROBACTERI... Complete 09/30/19 12:30 Rectum VRE Culture - Final NO VANCOMYCIN RESISTANT ENTEROCOCCUS ... Complete Current Medications Medications (Trade) Dose Ordered Sig/Jean Route PRN Reason Start Time Stop Time Status Last Admin Dose Admin Acetaminophen (Tylenol) 500 mg Q4H PRN ORAL Mild Pain/Temp > 100.5 09/30/19 16:30 10/30/19 16:29 10/02/19 21:10 Albuterol/ Ipratropium (Albuterol/ Ipratropium) 3 ml Q4HRT HHN 09/30/19 19:00 10/05/19 18:59 10/02/19 07:58 Albuterol/ Ipratropium (Albuterol/ Ipratropium) 3 ml Q4HRT PRN HHN Shortness of breath 09/30/19 16:45 10/05/19 16:44 Aspirin (ASA) 81 mg DAILY ORAL 10/01/19 09:00 10/31/19 08:59 10/02/19 08:57 Atorvastatin Calcium (Lipitor) 20 mg DAILY ORAL 10/01/19 09:00 10/31/19 08:59 10/02/19 08:53 Azithromycin (Zithromax) 250 mg DAILY ORAL 10/01/19 09:00 10/08/19 08:59 10/02/19 08:53 Ceftriaxone Sodium 1 gm/ Dextrose 55 ml @ 110 mls/hr Q24H IVPB 09/30/19 23:00 10/07/19 22:59 10/02/19 23:32 Dextrose (Dextrose 50%) 25 ml Q30M PRN IV Hypoglycemia 09/30/19 20:15 10/30/19 20:14 Dextrose (Dextrose 50%) 50 ml Q30M PRN IV Hypoglycemia 09/30/19 20:15 10/30/19 20:14 Digoxin (Lanoxin) 0.125 mg DAILY ORAL 10/01/19 13:46 10/31/19 13:45 10/02/19 08:52 Diltiazem HCl (Cardizem) 60 mg EVERY 6 HOURS ORAL 09/30/19 18:00 10/30/19 17:59 10/03/19 05:46 Furosemide (Lasix) 40 mg DAILY IV 10/02/19 09:00 10/30/19 22:59 10/02/19 08:55 Insulin Aspart (NovoLOG) BEFORE MEALS AND HS SUBQ 09/30/19 21:00 10/30/19 20:59 10/02/19 21:01 Insulin Detemir (Levemir) 22 units BEDTIME SUBQ 10/02/19 21:00 11/01/19 20:59 10/02/19 21:23 Methylprednisolone Sodium Succinate (Solu-MEDROL) 60 mg DAILY IVP 10/03/19 09:00 10/30/19 22:59 Prednisone (predniSONE) 10 mg DAILY ORAL 10/01/19 09:00 10/31/19 08:59 10/02/19 08:54 Risperidone (RisperDAL) 2 mg BID ORAL 09/30/19 18:00 10/30/19 17:59 10/02/19 17:13 Sertraline HCl (Zoloft) 50 mg DAILY ORAL 10/01/19 09:00 10/31/19 08:59 10/02/19 08:53 Spironolactone (Aldactone) 25 mg DAILY ORAL 10/01/19 09:00 10/31/19 08:59 10/02/19 08:51 Tiburcio Keith MD Oct 03, 2019 08:18
[2019-10-03] MEDS ORDERED: Solu-MEDROL 40mg Inj IVP SCH (09:00)
[2019-10-03] MEDS ORDERED: Solu-MEDROL 125mg Inj IVP SCH (09:00)
[2019-10-03] MEDS: Azithromycin 250mg tab ORAL SCH (09:36)
[2019-10-03] MEDS: Aspirin Baby 81mg ORAL SCH (09:37)
[2019-10-03] MEDS: Digoxin 0.125mg tab ORAL SCH (09:37)
[2019-10-03] MEDS: Atorvastatin 20mg tab ORAL SCH (09:37)
[2019-10-03] MEDS: Sertraline 50mg tab ORAL SCH (09:37)
[2019-10-03] MEDS: Acetaminophen 500mg (ES) tab ORAL PRN (09:38)
[2019-10-03] MEDS: Spironolactone 25mg tab ORAL SCH (09:39)
--- NOTE | 2019-10-03 10:14 | NUR ---
NURSE NOTES: Discharge order received from Dr. Ross. Spoke to Ale at [facility] ambulance; transport arranged for 11:15AM
--- NOTE | 2019-10-03 11:15 | NUR ---
NURSE NOTES: Gave report to SHA Valle at [facility] pre-op.
[2019-10-03 12:00] VITALS: BP 142/85
--- NOTE | 2019-10-03 12:10 | NUR ---
NURSE NOTES: Pt picked up by EMS to transport to [facility]. Report given to Joe RN and [place], EMS. Pt stable at this time.
[2019-10-03] MEDS ORDERED: NS 275ml ONE (12:23)
[2019-10-03] MEDS ORDERED: Tubing IV Secondary IV ONE (12:23)
--- NOTE | 2019-10-04 05:30 | Discharge Summary ---
DATE OF ADMISSION: 09/30/2019 DATE OF DISCHARGE: 10/03/2019 PERTINENT HISTORY: The patient is a 63-year-old man with shortness of breath, congestive heart failure, rapid atrial flutter. He is a patient of Dr. Lennon, who I am covering for. He arrhythmias in the past and stage IIIB lung cancer in the past. He has had a prior ablation and bifascicular AV block. PERTINENT PHYSICAL FINDINGS: GENERAL: The patient is alert. LUNGS: Bilateral rhonchi. Mild distress. HEART: Rhythm is irregularly irregular and tachycardic. No murmur heard. ABDOMEN: Soft without organomegaly. EXTREMITIES: No edema. COURSE IN THE HOSPITAL: The patient was diagnosed with congestive heart failure and seen by Dr. Fitzgerald for Cardiology consultation and Dr. Keith for Pulmonary consultation. Antiarrhythmic medications were administered, but he remained in atrial flutter with heart rates . He was on BiPAP initially, but subsequently changed to nasal oxygen and had less respiratory distress. Arrangements were made for him to transfer to [facility] for further ablation procedure. FINAL DIAGNOSES: 1. Atrial flutter with rapid ventricular rate. 2. Congestive heart failure, acute on chronic with diastolic dysfunction. 3. Chronic obstructive pulmonary disease with acute exacerbation. 4. Adult-onset diabetes with hyperglycemia, exacerbated by steroids. 5. Troponin leak, likely due to demand ischemia. 6. History of schizophrenia. DISCHARGE DISPOSITION: The patient was discharged to [facility] where arrangements will be made for an ablation procedure. All medications will be reassessed by Dr. Lennon and consultants at [facility]. Jaden Ross M.D. DR: GAMALIEL JOB#: [id number] CC:
== END 2019-10-03 12:24 | disposition short-term general hospital (02) | DRG 291 ==
LOC: EDBD 10:56 → EMR 11:40 → EDBEDREQSVC 12:05 → EDBEDREQ 12:05 → 2W 13:09
PROC: 5A09357 Assistance with Respiratory Ventilation, Less than 24 Consecutive Hours, Continuous Positive Airway Pressure (ICD-10-PCS; principal; 2019-09-30)
DX: I11.0 Hypertensive heart disease with heart failure (principal); J96.22 Acute and chronic respiratory failure with hypercapnia; J44.1 Chronic obstructive pulmonary disease with (acute) exacerbation; I48.92 Unspecified atrial flutter; J90 Pleural effusion, not elsewhere classified; C34.90 Malignant neoplasm of unspecified part of unspecified bronchus or lung; I24.8 Other forms of acute ischemic heart disease; I50.33 Acute on chronic diastolic (congestive) heart failure; F17.200 Nicotine dependence, unspecified, uncomplicated; E11.9 Type 2 diabetes mellitus without complications; R09.02 Hypoxemia; F20.9 Schizophrenia, unspecified
CPT/HCPCS: 36415; 36600; 71045; 80048; 80053; 82248; 82803; 82962; 83880; 84484; 85007; 85025; 87081; 93005; 94640; 94660; 94664; 96374; 96375; 96376; 99291; J1815; J7620; J8499; S5561